=== PATIENT | female | born 1935 | race Caucasian/White ===

== ENCOUNTER 2017-12-13 22:29 | Observation (INO) | payer OTHER ==
[2017-12-13 22:50] LABS: Absolute Lymphocytes (CBC) 1.4 K/uL (0.7-4.9); Absolute Neutrophil 12.1 K/uL (1.8-8.0); Basophils % 0.5 % (0-1.3); Eosinophils % 0.3 % (0-4.4); Hematocrit 37.5 % (36.0-45.0); Lymphocytes % 9.4 % (15.3-44.8); MCH 32.3 pg (27.0-35.0); MCV 96.5 fL (80-100); MPV 8.1 fL (7.6-11.3); Monocytes % 6.6 % (3.3-12.3); RBC Red Blood Cell Count 3.89 M/uL (3.86-4.86)
[2017-12-13 22:56] LABS: Protime INR 0.97
[2017-12-13] MEDS ORDERED: NA CHLORIDE 0.9% 1,000 ML ONE (22:58)
[2017-12-13 23:08] LABS: Magnesium 1.8 mg/dL (1.8-2.4); Potassium 3.9 mmol/L (3.5-5.1); Troponin (Emerg Dept Use Only) 0.05 ng/mL (0.0-0.045)
[2017-12-13] MEDS ORDERED: ASPIRIN 81 MG CHEWABLE TABLET ONE (23:24)
[2017-12-13] MEDS ORDERED: FOLIC ACID 5 MG/ML VIAL ONE (23:37)
[2017-12-14] MEDS ORDERED: MAGNE/ALUM HYDROXD 30 ML UCUP ONE (00:34)
[2017-12-14] MEDS ORDERED: LIDOCAINE VISCOUS 2% SOLN 15 ML UDC ONE (00:34)
[2017-12-14] MEDS ORDERED: HYDROCODONE/APAP 5/325 MG TAB ONE (00:56)
[2017-12-14 01:35] LABS: Urine Bacteria <20 /HPF (<20); Urine Culture Reflex Order NOT NEEDED
[2017-12-14 01:45] LABS: Urine Blood NEGATIVE (NEG); Urine Glucose NEGATIVE (NEG); Urine Protein NEGATIVE (NEG)
--- NOTE | 2017-12-14 01:46 | ER ---
Nurse's Notes [facility] Name: Ti Zacarias Age: 82 yrs Sex: Female : 1935 Arrival Date: 12/13/2017 Time: 22:38 Bed 26 Private MD: Diagnosis: Fall from bed Presentation: 12/13 22:32 Presenting complaint: Child states: that she was called from the [place] [facility] that pt fc has fell out of bed, was confused and complaining of headache. Also states that she spoke to pt and that she was slurring her words. Upon arrival here pt was complaining of overall weakness and headache. Unknown last well time. Pt oriented to person, place, time and situation. Transition of care: [facility]. An acute neurological deficit is present. The charge nurse has been notified. The patient has been moved to a treatment area. Pre-hospital glucose is not applicable to this patient. Onset of symptoms is unknown. Risk Assessment: Do you want to hurt yourself or someone else? Patient reports no desire to harm self or others. Initial Sepsis Screen: Does the patient meet any 2 criteria? No. Patient's initial sepsis screen is negative. Does the patient have a suspected source of infection? No. Patient's initial sepsis screen is negative. Care prior to arrival: None. 22:32 Method Of Arrival: Wheelchair fc 22:32 Acuity: PACO 2 fc Triage Assessment: 22:32 The onset of the patients symptoms was at an unknown time. fc 23:07 General: Appears in no apparent distress. comfortable, Behavior is calm, cooperative. rv 23:09 The onset of the patients symptoms was December 13, 2017 at 21:00. rv Stroke Activation: Unknown Physician: Stroke Attending; Name: Daniel/Su; Notified At: 22:32; Arrived At: 22:32 Physician: Chief Stroke Resident; Name: ; Notified At: 22:32; Arrived At: Physician: Stroke Resident; Name: ; Notified At: 22:32; Arrived At: Physician: ED Attending; Name: ; Notified At: 22:32; Arrived At: Physician: ED Resident; Name: ; Notified At: 22:32; Arrived At: Historical: - Allergies: 23:16 No Known Allergies; fc - Home Meds: 23:10 Tylenol-Codeine #3 300-30 mg oral tab 1 tab nightly prn [Active]; clopidogrel 75 mg fc oral tab 1 tab once daily [Active]; duloxetine 30 mg oral cpDR 1 cap once daily [Active]; furosemide 40 mg Oral tab 1 tab daily prn [Active]; metoprolol tartrate 50 mg Oral tab 1 tab 2 times per day [Active]; naproxen sodium 220 mg Oral tab 2 tab every other day [Active]; omeprazole 20 mg oral cpDR 1 cap once daily [Active]; ProAir HFA 90 mcg/actuation inhalation HFAA 2 puffs as needed [Active]; ropinirole 3 mg oral tab 1 tab at 1900 [Active]; ropinirole 1 mg oral tab 1 tab at 1400 [Active]; Synthroid 50 mcg Oral tab 2 tabs once daily [Active]; tamsulosin 0.4 mg oral cp24 1 cap once daily [Active]; tolterodine 4 mg oral cp24 1 cap once daily [Active]; trazodone 100 mg oral tab 1 tab nightly [Active]; 23:16 Synthroid 200 mcg Oral tab 1 tab once daily [Active]; - PMHx: 23:10 Hyperlipidemia; Hypothyroidism; Hypertension; Arthritis; GERD; COPD; CAD; Depression; fc restless leg syndrome; peripheral neuropathy; - Immunization history:: Last tetanus immunization: unknown. - Social history:: Smoking status: Patient/guardian denies using tobacco. - Ebola Screening: : Patient negative for fever greater than or equal to 101.5 degrees Fahrenheit, and additional compatible Ebola Virus Disease symptoms Patient denies exposure to infectious person Patient denies travel to an Ebola-affected area in the 21 days before illness onset. Screenin:55 Abuse screen: Denies threats or abuse. Nutritional screening: No deficits noted. Tuberculosis screening: No symptoms or risk factors identified. Fall Risk Fall in past 12 months (25 points). Secondary diagnosis (15 points) TIA, IV access (20 points). Ambulatory Aid- Crutches/Cane/Walker (15 pts). Gait- Weak (10 pts.). Mental Status- Overestimates/Forgets Limitations (15 pts.). Total Aylaa Fall Scale indicates High Risk Score (45 or more points). Fall prevention measures have been instituted. Side Rails Up X 2 Placed Close to Nursing Station Frequent Obs/Assessments Occuring Family Present and informed to notify staff if the need to leave the bedside As available patient and family educated on Fall Prevention Program and Strategies. 23:10 The patient has not been NPO before screening. The patient is alert, able to follow fc commands. The patient does not exhibit slurred or garbled speech The patient is not exhibiting difficulty speaking. The patient does not exhibit difficulty understanding words. The patient is able to swallow own secretions with no drooling or need for suction. Patient tolerated one teaspoon of water. No drooling, immediate coughing, gurgling, or clearing of the throat was noted. The patient tolerated 90mL of water. No drooling, immediate coughing, gurgling, or clearing of the throat was noted. The patient passed the bedside swallow screening. Oral medications may be given as ordered. Contact Physician for further diet orders. Provider notified of bedside swallow screening results: Tremayne Sanchez MD. Assessment: 23:06 The patient has not been NPO before screening. The patient is alert, and able to follow rv commands. The patient does not exhibit slurred or garbled speech. The patient is not exhibiting difficulty speaking. The patient does not exhibit difficulty understanding words. The patient is able to swallow own secretions with no drooling or need for suction. Patient tolerated one teaspoon of water. No drooling, immediate coughing, gurgling, or clearing of the throat was noted. The patient tolerated 90mL of water. No drooling, immediate coughing, gurgling, or clearing of the throat was noted. The patient passed the bedside swallow screening. Oral medications may be given as ordered. Contact Physician for further diet orders. Provider notified of bedside swallow screening results: Tremayne WINCHESTER. Pain: Complains of pain in head, frontal. Neuro: Level of Consciousness is awake, alert, obeys commands, Oriented to person, place, time, situation. 23:11 Cardiovascular: Capillary refill < 3 seconds. Respiratory: Airway is patent. GI: No rv signs and/or symptoms were reported involving the gastrointestinal system. : No signs and/or symptoms were reported regarding the genitourinary system. EENT: No signs and/or symptoms were reported regarding the EENT system. Derm: Bruising that is dark purple, on back and left arm. 12/14 01:36 Reassessment: Patient appears in no apparent distress at this time. Patient and/or rv family updated on plan of care and expected duration. Pain level reassessed. Patient is alert, oriented x 3, equal unlabored respirations, skin warm/dry/pink. Vital Signs: 12/13 22:32 BP 165 / 75; Pulse 76; Resp 18; Temp 98.2(O); Pulse Ox 96% on R/A; Weight 107.05 kg fc (R); Height 5 ft. 3 in. (160.02 cm) (R); Pain 8/10; 23:14 BP 156 / 124; Pulse 81; Resp 16; Pulse Ox 94% on R/A; rv 12/14 00:05 BP 147 / 84; Pulse 83; Resp 19; Pulse Ox 99% on 2 lpm NC; rv 01:35 BP 159 / 57; Pulse 81; Resp 21; Pulse Ox 97% on R/A; rv 03:08 BP 120 / 72; Pulse 86; Resp 19; Pulse Ox 97% on R/A; rv 12/13 22:32 Body Mass Index 41.81 (107.05 kg, 160.02 cm) NIH Stroke Scale Scores: 12/13 22:38 NIHSS Score: 5 23:15 NIHSS Score: 5 cp ED Course: 22:33 EKG done, by ED staff, reviewed by Tremayne Sanchez MD. fc 22:38 Patient arrived in ED. cp 22:38 Arm band placed on Patient placed in an exam room, on a stretcher. fc 22:38 Initial lab(s) drawn, by mi, sent to lab. Inserted saline lock: 20 gauge in right fc antecubital area, using aseptic technique. Blood collected. 22:[address] fc 22:41 Tremayne Blue PA is PHCP. cp 22:41 Tremayne Sanchez MD is Attending Physician. cp 22:50 X-ray(s) taken. fc 22:52 Triage completed. fc 22:54 Stroke CXR 1 View In Process Unspecified. EDMS 22:57 CT Stroke Brain w/o Contrast In Process Unspecified. EDMS 23:11 Patient has correct armband on for positive identification. Placed in gown. Bed in low rv position. Call light in reach. Side rails up X2. Adult w/ patient. netbackup admin on. Pulse ox on. NIBP on. 12/14 00:11 X-ray completed. Portable x-ray completed in exam room. Patient tolerated procedure kw well. 00:16 XRAY Pelvis In Process Unspecified. EDMS 00:16 XRAY Hip RIGHT 2 view In Process Unspecified. EDMS 01:10 CT C Spine In Process Unspecified. EDMS 01:45 Elsa Dumont MD is Hospitalizing Provider. cp 03:04 No provider procedures requiring assistance completed. Patient admitted, IV remains in rv place. intact. Administered Medications: 12/13 23:05 Drug: NS 0.9% 1000 ml Route: IV; Rate: 75 ml/hr; Site: right antecubital; rv 12/14 03:07 Follow up: IV Status: Completed infusion rv 12/13 23:27 Drug: Aspirin Chewable Tablet 324 mg Route: PO; rv 12/14 03:07 Follow up: Response: No adverse reaction rv 12/13 23:40 Drug: foLIC Acid 1 mg Route: IVPB; Site: right antecubital; rv 12/14 03:07 Follow up: IV Status: Completed infusion rv 00:30 Drug: GI Cocktail without - (Maalox Suspension 30 ml, Lidocaine Liquid 2 % 15 rv ml) Route: PO; 03:07 Follow up: Response: No adverse reaction rv 00:51 Drug: HYDROcodone-acetaminophen 5 mg-325 mg 1 tabs Route: PO; rv 03:07 Follow up: Response: No adverse reaction rv Point of Care Testing: Blood Glucose: 12/13 22:38 Blood Glucose: 98 mg/dL; fc Ranges: Outcome: 12/14 01:45 Decision to Hospitalize by Provider. cp 03:05 Admitted to Tele accompanied by tech, via wheelchair, room 402, with chart, Report rv called to GLORIA HOWARD 03:05 Condition: good 03:05 Instructed on the need for admit. 03:06 Patient left the ED. rv NIH Stroke Scale - NIH Stroke Score Date: 12/13/2017 Time: 22:38 Total Score = 5 1a. Level of Consciousness (LOC) - 0(Alert) 1b. Level of Consciousness (LOC) (Year \T\ Age) - 0(Both) 1c. LOC Commands (Open \T\ Closes Eyes/Head Up Operator Helper) - 0(Both) 2. Best Gaze (Lateral Gaze Paresis) - 0(Normal) 3. Visual Field Loss - 0(No visual loss) 4. Facial Palsy - 0(Normal) 5a. Left Arm: Motor (10-second hold) - 0(No drift) 5b. Right Arm: Motor (10-second hold) - 0(No drift) 6a. Left Leg: Motor (5-second hold - always test supine) - 2(Drift, some effort against gravity) 6b. Right Leg: Motor (5-second hold - always test supine) - 2(Drift, some effort against gravity) 7. Limb Ataxia (finger/nose \T\ heel/estevez - test with eyes open) - 1(Present in one limb) 8. Sensory Loss (pinprick arms/legs/face) - 0(Normal) 9. Best Language: Aphasia (description/naming/reading) - 0(No aphasia) 10. Dysarthria (speech clarity - read or repeat words) - 0(Normal) 11. Extinction and Inattention (visual/tactile/auditory/spatial/personal) - 0(No abnormality) Initials: NIH Stroke Scale - NIH Stroke Score Date: 12/13/2017 Time: 23:15 Total Score = 5 1a. Level of Consciousness (LOC) - 0(Alert) 1b. Level of Consciousness (LOC) (Year \T\ Age) - 0(Both) 1c. LOC Commands (Open \T\ Closes Eyes/Head Up Operator Helper) - 0(Both) 2. Best Gaze (Lateral Gaze Paresis) - 0(Normal) 3. Visual Field Loss - 0(No visual loss) 4. Facial Palsy - 0(Normal) 5a. Left Arm: Motor (10-second hold) - 0(No drift) 5b. Right Arm: Motor (10-second hold) - 0(No drift) 6a. Left Leg: Motor (5-second hold - always test supine) - 2(Drift, some effort against gravity) 6b. Right Leg: Motor (5-second hold - always test supine) - 2(Drift, some effort against gravity) 7. Limb Ataxia (finger/nose \T\ heel/estevez - test with eyes open) - 1(Present in one limb) 8. Sensory Loss (pinprick arms/legs/face) - 0(Normal) 9. Best Language: Aphasia (description/naming/reading) - 0(No aphasia) 10. Dysarthria (speech clarity - read or repeat words) - 0(Normal) 11. Extinction and Inattention (visual/tactile/auditory/spatial/personal) - 0(No abnormality) Initials: cp Signatures: Dispatcher [employer] Shelly Mills RN RN Jillian Robledo Corey, PA PA Jesús Wong RN RN rv Corrections: (The following items were deleted from the chart) 12/13 23:18 23:10 Allergies: No Known Allergies; [facility]
--- NOTE | 2017-12-14 01:47 | EDPHYS ---
Physician Documentation [facility] Name: Ti Zacarias Age: 82 yrs Sex: Female : 1935 Arrival Date: 12/13/2017 Time: 22:38 Bed 26 Private MD: ED Physician Tremayne Sanchez HPI: 12/13 22:41 This 82 yrs old Female presents to ER via Unassigned with complaints of found cp on ground. 22:41 The patient's problem is reported as weakness, in the right lower extremity, in the cp left lower extremity. 22:41 Onset: The symptoms/episode began/occurred at an unknown time. Duration: The episode is cp continuous. Details of fall: The patient fell from seated position, off the edge of a bed. Associated injuries: The patient sustained no obvious injury. Associated signs and symptoms: Pertinent positives: right hip pain, Pertinent negatives: abdominal pain, chest pain, diaphoresis, headache, seizure, vomiting. Patient's baseline: Neuro: alert and fully oriented, Motor: no deficits, Ambulation: walks with assist only, uses walker, Speech: normal. Historical: - Allergies: 23:16 No Known Allergies; fc - Home Meds: 23:10 Tylenol-Codeine #3 300-30 mg oral tab 1 tab nightly prn [Active]; clopidogrel 75 mg fc oral tab 1 tab once daily [Active]; duloxetine 30 mg oral cpDR 1 cap once daily [Active]; furosemide 40 mg Oral tab 1 tab daily prn [Active]; metoprolol tartrate 50 mg Oral tab 1 tab 2 times per day [Active]; naproxen sodium 220 mg Oral tab 2 tab every other day [Active]; omeprazole 20 mg oral cpDR 1 cap once daily [Active]; ProAir HFA 90 mcg/actuation inhalation HFAA 2 puffs as needed [Active]; ropinirole 3 mg oral tab 1 tab at 1900 [Active]; ropinirole 1 mg oral tab 1 tab at 1400 [Active]; Synthroid 50 mcg Oral tab 2 tabs once daily [Active]; tamsulosin 0.4 mg oral cp24 1 cap once daily [Active]; tolterodine 4 mg oral cp24 1 cap once daily [Active]; trazodone 100 mg oral tab 1 tab nightly [Active]; 23:16 Synthroid 200 mcg Oral tab 1 tab once daily [Active]; fc - PMHx: 23:10 Hyperlipidemia; Hypothyroidism; Hypertension; Arthritis; GERD; COPD; CAD; Depression; fc restless leg syndrome; peripheral neuropathy; - Immunization history:: Last tetanus immunization: unknown. - Social history:: Smoking status: Patient/guardian denies using tobacco. - Ebola Screening: : Patient negative for fever greater than or equal to 101.5 degrees Fahrenheit, and additional compatible Ebola Virus Disease symptoms Patient denies exposure to infectious person Patient denies travel to an Ebola-affected area in the 21 days before illness onset. ROS: 22:45 Constitutional: Negative for body aches, chills, fever, poor PO intake. cp 22:45 Eyes: Negative for injury, pain, redness, and discharge. cp 22:45 ENT: Negative for drainage from ear(s), ear pain, sore throat, difficulty swallowing, difficulty handling secretions. 22:45 Cardiovascular: Negative for chest pain, edema, palpitations. 22:45 Respiratory: Negative for cough, shortness of breath, wheezing. 22:45 Abdomen/GI: Negative for abdominal pain, nausea, vomiting, and diarrhea, anorexia, black/tarry stool, rectal bleeding. 22:45 : Negative for urinary symptoms. 22:45 Skin: Negative for cellulitis, rash. 22:45 Neuro: Positive for weakness, of the right leg and left leg, Negative for altered mental status, seizure activity. 22:45 All other systems are negative. Exam: 22:46 ECG was reviewed by the Attending Physician. cp 22:50 Constitutional: The patient appears in no acute distress, alert, awake, cp non-diaphoretic, non-toxic, well developed, well nourished, obese. 22:50 Head/Face: Normocephalic, atraumatic. cp 22:50 Eyes: Periorbital structures: appear normal, Pupils: equal, round, and reactive to light and accomodation, Extraocular movements: intact throughout, Conjunctiva: normal, no exudate, no injection, Sclera: no appreciated abnormality, Lids and lashes: appear normal, bilaterally. 22:50 ENT: External ear(s): are unremarkable, Ear canal(s): are normal, clear, TM's: dullness, bilaterally, Nose: is normal, Mouth: Lips: moist, Oral mucosa: pink and intact, moist, Posterior pharynx: is normal, airway is patent, no erythema, no exudate, Voice: is normal. 22:50 Neck: C-spine: vertebral tenderness, is not appreciated, crepitus, is not appreciated, ROM/movement: is normal, is supple, without pain, no range of motions limitations, no nuchal rigidity. 22:50 Chest/axilla: Inspection: normal, Palpation: is normal, no crepitus, no tenderness. 22:50 Cardiovascular: Rate: normal, Rhythm: regular, Edema: is not appreciated, JVD: is not appreciated. 22:50 Respiratory: the patient does not display signs of respiratory distress, Respirations: normal, no use of accessory muscles, no retractions, no splinting, no tachypnea, labored breathing, is not present, Breath sounds: are clear throughout, no decreased breath sounds, no stridor, no wheezing. 22:50 Abdomen/GI: Inspection: obese Bowel sounds: active, all quadrants, Palpation: abdomen is soft and non-tender, in all quadrants. 22:50 Back: pain, is absent, ROM is normal. 22:50 Musculoskeletal/extremity: Joints: All joints are normal except the right hip displays painful range of motion, tenderness. 22:50 Skin: cellulitis, is not appreciated, no rash present. 23:06 Radiologist reports: negative head CT for bleed or acute stroke cp Vital Signs: 22:32 BP 165 / 75; Pulse 76; Resp 18; Temp 98.2(O); Pulse Ox 96% on R/A; Weight 107.05 kg fc (R); Height 5 ft. 3 in. (160.02 cm) (R); Pain 8/10; 23:14 BP 156 / 124; Pulse 81; Resp 16; Pulse Ox 94% on R/A; rv 12/14 00:05 BP 147 / 84; Pulse 83; Resp 19; Pulse Ox 99% on 2 lpm NC; rv 01:35 BP 159 / 57; Pulse 81; Resp 21; Pulse Ox 97% on R/A; rv 03:08 BP 120 / 72; Pulse 86; Resp 19; Pulse Ox 97% on R/A; rv 12/13 22:32 Body Mass Index 41.81 (107.05 kg, 160.02 cm) NIH Stroke Scale Scores: 12/13 22:38 NIHSS Score: 5 fc 23:15 NIHSS Score: 5 cp MDM: 22:42 ED course: patient is not a candidate for tpa as last known normal unknown. 22:45 Patient medically screened. loni 23:00 Differential diagnosis: CVA, TIA, drug effects, electrolyte abnormality, acute NE, cp cervical spine fracture. 23:20 Physician consultation: Eron Cruz MD was called at 23:17, left message on voicemail. 23:53 Physician consultation: Eron Cruz MD was called at 23:53, left message on voicemail. 12/14 00:06 Physician consultation: Eron Cruz MD was contacted at 00:06, and will see patient in inpatient room, tomorrow, wants CT c-spine. 01:30 Physician consultation: Elsa Dumont MD was contacted at 01:30, regarding admission, cp to the telemetry unit. patient's condition. :45 Data reviewed: vital signs, nurses notes, lab test result(s), radiologic studies, CT cp scan, plain films. :45 Test interpretation: by ED physician or midlevel provider: ECG, plain radiologic cp studies. Counseling: I had a detailed discussion with the patient and/or guardian regarding: the historical points, exam findings, and any diagnostic results supporting the discharge/admit diagnosis, lab results, the need for further work-up and treatment in the hospital. 12/13 22:41 Order name: Magnesium; Complete Time: 23:13 12/13 22:41 Order name: CPK; Complete Time: 23:13 12/13 22:41 Order name: Troponin (emerg Dept Use Only); Complete Time: 23:13 12/13 23:13 Interpretation: Abnormal: TROPED 0.05. 12/13 22:41 Order name: Basic Metabolic Panel; Complete Time: 23:13 12/13 22:41 Order name: CBC with Diff; Complete Time: 23:13 12/13 22:41 Order name: Protime (+inr); Complete Time: 23:13 12/13 22:41 Order name: Ptt, Activated; Complete Time: 23:13 12/13 22:41 Order name: CT Stroke Brain w/o Contrast 12/13 22:41 Order name: Stroke CXR 1 View 12/13 23:14 Order name: XRAY Pelvis 12/13 23:14 Order name: XRAY Hip RIGHT 2 view 12/14 01:09 Order name: Urine Microscopic Only; Complete Time: 01:38 12/14 01:38 Interpretation: Normal except: URBC 5-10; SQEPI 5-10. 12/14 01:20 Order name: Glucose, Ancillary Testing; Complete Time: 01:38 EDID 12/14 01:26 Order name: Urine Dipstick--Ancillary (enter results); Complete Time: 01:54 mw2 12/14 01:54 Interpretation: Normal except: UESTR TRACE. 12/13 22:41 Order name: EKG; Complete Time: 22:42 12/13 22:41 Order name: Accucheck; Complete Time: 23:01 12/13 22:41 Order name: Cardiac monitoring; Complete Time: 23:05 12/13 22:41 Order name: EKG - Nurse/Tech; Complete Time: 23:05 12/13 22:41 Order name: IV Saline Lock; Complete Time: 23:05 12/13 22:41 Order name: Labs collected and sent; Complete Time: 23:05 12/13 22:41 Order name: NPO; Complete Time: 23:06 12/13 22:41 Order name: O2 Per Protocol; Complete Time: 23:06 12/13 22:41 Order name: O2 Sat Monitoring; Complete Time: 23:06 12/14 00:06 Order name: CT C Spine 12/14 01:54 Order name: CONS Physician Consult [facility] 12/13 22:41 Order name: Stroke Swallow Screen; Complete Time: 23:06 cp EC/27 22:46 Rate is 76 beats/min. Rhythm is regular. [place] interval is normal. QRS interval is normal. cp QT interval is normal. Interpreted by me. Reviewed by me. Administered Medications: 23:05 Drug: NS 0.9% 1000 ml Route: IV; Rate: 75 ml/hr; Site: right antecubital; 12/14 03:07 Follow up: IV Status: Completed infusion 12/13 23:27 Drug: Aspirin Chewable Tablet 324 mg Route: PO; 12/14 03:07 Follow up: Response: No adverse reaction 12/13 23:40 Drug: foLIC Acid 1 mg Route: IVPB; Site: right antecubital; rv 12/14 03:07 Follow up: IV Status: Completed infusion rv 00:30 Drug: GI Cocktail without - (Maalox Suspension 30 ml, Lidocaine Liquid 2 % 15 rv ml) Route: PO; 03:07 Follow up: Response: No adverse reaction rv 00:51 Drug: HYDROcodone-acetaminophen 5 mg-325 mg 1 tabs Route: PO; rv 03:07 Follow up: Response: No adverse reaction rv Point of Care Testing: Blood Glucose: 12/13 22:38 Blood Glucose: 98 mg/dL; fc Ranges: Critical Glucose Levels:Adult <50 mg/dl or >400 mg/dl <40 mg/dl or >180 mg/dl Disposition: 12/14 07:24 Co-signature as Attending Physician, Tremayne Sanchez MD I agree with the assessment and loni plan of care. Disposition: 12/14/17 01:45 Hospitalization ordered by Elsa Dumont for Observation. Preliminary diagnosis is Fall from bed. - Bed requested for Telemetry/MedSurg (observation). - Status is Observation. rv - Condition is Stable. - Problem is new. - Symptoms have improved. UTI on Admission? No NIH Stroke Scale - NIH Stroke Score Date: 12/13/2017 Time: 22:38 Total Score = 5 1a. Level of Consciousness (LOC) - 0(Alert) 1b. Level of Consciousness (LOC) (Year \T\ Age) - 0(Both) 1c. LOC Commands (Open \T\ Closes Eyes/Senior Geotechnical Engineer) - 0(Both) 2. Best Gaze (Lateral Gaze Paresis) - 0(Normal) 3. Visual Field Loss - 0(No visual loss) 4. Facial Palsy - 0(Normal) 5a. Left Arm: Motor (10-second hold) - 0(No drift) 5b. Right Arm: Motor (10-second hold) - 0(No drift) 6a. Left Leg: Motor (5-second hold - always test supine) - 2(Drift, some effort against gravity) 6b. Right Leg: Motor (5-second hold - always test supine) - 2(Drift, some effort against gravity) 7. Limb Ataxia (finger/nose \T\ heel/estevez - test with eyes open) - 1(Present in one limb) 8. Sensory Loss (pinprick arms/legs/face) - 0(Normal) 9. Best Language: Aphasia (description/naming/reading) - 0(No aphasia) 10. Dysarthria (speech clarity - read or repeat words) - 0(Normal) 11. Extinction and Inattention (visual/tactile/auditory/spatial/personal) - 0(No abnormality) Initials: fc NIH Stroke Scale - NIH Stroke Score Date: 12/13/2017 Time: 23:15 Total Score = 5 1a. Level of Consciousness (LOC) - 0(Alert) 1b. Level of Consciousness (LOC) (Year \T\ Age) - 0(Both) 1c. LOC Commands (Open \T\ Closes Eyes/Senior Geotechnical Engineer) - 0(Both) 2. Best Gaze (Lateral Gaze Paresis) - 0(Normal) 3. Visual Field Loss - 0(No visual loss) 4. Facial Palsy - 0(Normal) 5a. Left Arm: Motor (10-second hold) - 0(No drift) 5b. Right Arm: Motor (10-second hold) - 0(No drift) 6a. Left Leg: Motor (5-second hold - always test supine) - 2(Drift, some effort against gravity) 6b. Right Leg: Motor (5-second hold - always test supine) - 2(Drift, some effort against gravity) 7. Limb Ataxia (finger/nose \T\ heel/estevez - test with eyes open) - 1(Present in one limb) 8. Sensory Loss (pinprick arms/legs/face) - 0(Normal) 9. Best Language: Aphasia (description/naming/reading) - 0(No aphasia) 10. Dysarthria (speech clarity - read or repeat words) - 0(Normal) 11. Extinction and Inattention (visual/tactile/auditory/spatial/personal) - 0(No abnormality) Initials: cp Signatures: Dispatcher [employer] EDMS Tremayne Sanchez MD MD cha Chretien, Felicia RN RN Tremayne Blue PA PA cp Vicente, Ronaldo, RN RN rv Corrections: (The following items were deleted from the chart) 12/13 23:18 23:10 Allergies: No Known Allergies; [facility] 12/14 01:48 01:45 Hospitalization Ordered by Elsa Dumont MD for Observation. Preliminary fc diagnosis is Fall from bed. Bed requested for Telemetry/MedSurg (observation). Status is Observation. Condition is Stable. Problem is new. Symptoms have improved. UTI on Admission? No. cp 03:06 01:48 12/14/2017 01:45 Hospitalization Ordered by Elsa Dumont MD for rv Observation. Preliminary diagnosis is Fall from bed. Bed requested for Telemetry/MedSurg (observation). Status is Observation. Condition is Stable. Problem is new. Symptoms have improved. UTI on Admission? No. fc
[2017-12-14] MEDS ORDERED: ACETAMINOPHEN 500 MG TAB PO PRN (02:50)
[2017-12-14] MEDS ORDERED: MORPHINE 2 MG/ML SYR IV PRN (02:50)
[2017-12-14] MEDS ORDERED: ONDANSETRON 4 MG/2 ML VIAL IV PRN (02:50)
[2017-12-14] MEDS ORDERED: TEMAZEPAM 15 MG CAP PO PRN (02:59)
[2017-12-14 03:52] VITALS: BMI 42.0
[2017-12-14] MEDS: NA CHLORIDE 0.9% 1,000 ML IV SCH ×2 (04:31→17:57)
[2017-12-14] MEDS: PRAMIPEXOLE 1 MG TAB PO SCH ×3 (04:32→21:10)
[2017-12-14 06:06] LABS: Absolute Lymphocytes (CBC) 2.7 K/uL (0.7-4.9); Absolute Neutrophil 6.1 K/uL (1.8-8.0); Basophils % 0.6 % (0-1.3); Eosinophils % 0.9 % (0-4.4); Hematocrit 33.1 % (36.0-45.0); Lymphocytes % 26.7 % (15.3-44.8); MCH 32.7 pg (27.0-35.0); MCV 96.2 fL (80-100); MPV 8.1 fL (7.6-11.3); Monocytes % 10.3 % (3.3-12.3); RBC Red Blood Cell Count 3.45 M/uL (3.86-4.86)
--- NOTE | 2017-12-14 06:25 | P.HP ---
Certification for Inpatient Patient admitted to: Observation With expected LOS: <2 Midnights Patient will require the following post-hospital care: None Practitioner: I am a practitioner with admitting privileges, knowledge of patient current condition, hospital course, and medical plan of care. Services: Services provided to patient in accordance with Admission requirements found in Title 42 Section 412.3 of the Code of Federal Regulations Patient History Date of Service: 12/14/17 Reason for admission: Status post fall History of Present Illness: Patient is an 82-year-old female who has been at assisted living for quite a while. Patient lives at [facility]. She apparently had fall which had occurred for between 30 min to an hr. She normally eats her meals in her room. She gets around in her room by herself. However, she has noticed that her strength has been decreasing. She has got out of bed and felt really shaky and she suddenly slipped down onto the floor. However the bruising that she has appears to the be much worse. We did get her out of bed and she was able to ambulate in place. Will do a formal physical therapy evaluation in the morning as well. At this time, she has had no significant abnormalities noted on her workup. She thinks some of these issues are related to her restless leg which she states is poorly controlled. She does not get a lot of sleep at night. She thinks she gets about 2-3 hr every night. I believe this is left her with weakness and feeling fatigued. Will admit her and have her observed overnight. Will get Physical therapy evaluation as patient may benefit from home health with physical therapy and nursing care. Will also check thyroid studies as well as other hormonal studies. Patient will be admitted for observation. Allergies No Known Allergies Allergy (Verified 07/25/16 21:52) Home Medications: Clopidogrel Bisulfate [Clopidogrel] 1 tab PO DAILY 06/14/16 Pramipexole [Mirapex*] 1 mg PO BID 06/14/16 Tolterodine Tartrate [Tolterodine Tartrate ER] 4 mg PO DAILY 06/14/16 Trazodone HCl [Desyrel] 100 mg PO BEDTIME 06/14/16 Metoprolol Tartrate [Lopressor*] 50 mg PO BID #60 tab 06/16/16 Levothyroxine [Synthroid*] 0.3 mg PO [id number] #90 tab 07/27/16 Smz./Tmp. [Bactrim Ds 800 MG/160 MG*] 1 tab PO BID #14 tab 07/27/16 - Past Medical/Surgical History Has patient received pneumonia vaccine in the past: Yes Diabetic: No -: Diverticulitis -: Hypothyroid -: Insomnia -: TIA X2 -: Restless leg syndrome -: GERD -: Neuropathy -: Mild COPD -: Left knee replacement - Family History Father Medical History: Lung disease Sister Medical History: Lung disease Brother Medical History: Heart disease Mother Medical History: Heart disease - Social History Smoking Status: Former smoker Alcohol use: Yes CD- Drugs: No Caffeine use: Yes Place of Residence: [place] Review of Systems 10-point ROS is otherwise unremarkable Physical Examination - Vital Signs Temperature: 97.6 F Blood Pressure: 123/47 Pulse: 71 Respirations: 18 Pulse Ox (%): 92 - Physical Exam General: Alert, In no apparent distress, Oriented x3 HEENT: Atraumatic, PERRLA, Mucous membr. moist/pink, EOMI, Sclerae nonicteric Neck: Supple, 2+ carotid pulse no bruit, No LAD, Without JVD or thyroid abnormality Respiratory: Clear to auscultation bilaterally, Normal air movement Cardiovascular: Regular rate/rhythm, Normal S1 S2, Systolic murmur Gastrointestinal: Normal bowel sounds, Soft and benign, Non-distended, No tenderness Musculoskeletal: No clubbing, No swelling, No tenderness Integumentary: No rashes, Other (bruising) Neurological: Normal speech, Normal tone, Sensation intact, Cranial nerves 3-12 intact, Normal affect, Abnormal gait, Abnormal strength Lymphatics: No axilla or inguinal lymphadenopathy - Studies Laboratory Data (last 24 hrs) 12/13/17 22:38: PT 11.5, INR 0.97, APTT 31.5 12/13/17 22:38: WBC 14.6 H, Hgb 12.6, Hct 37.5, Plt Count 293 12/13/17 22:38: Sodium 133 L, Potassium 3.9, BUN 16, Creatinine 1.10, Glucose 92 , Magnesium 1.8 Assessment & Plan - Problems (Diagnosis) (1) Fall Onset Date: 06/14/16 Current Visit: No Status: Acute (2) Rhabdomyolysis Onset Date: 06/14/16 Current Visit: No Status: Acute (3) Weakness Onset Date: 06/14/16 Current Visit: No Status: Acute (4) CKD (chronic kidney disease) stage 3, GFR 30-59 ml/min Current Visit: No Status: Chronic (5) Chronic obstructive pulmonary disease (COPD) Current Visit: No Status: Chronic Qualifiers: COPD type: unspecified COPD Qualified Code(s): J44.9 - Chronic obstructive pulmonary disease, unspecified (6) Hypertension Current Visit: No Status: Chronic Qualifiers: Hypertension type: essential hypertension Qualified Code(s): I10 - Essential (primary) hypertension (7) Hypothyroidism Current Visit: No Status: Chronic Qualifiers: Hypothyroidism type: acquired Qualified Code(s): E03.9 - Hypothyroidism, unspecified - Plan Plan: 1. Physical therapy evaluation 2. Gentle hydration 3. Check cortisol and thyroid studies along with B12 and folic acid 4. Arrange for home health at discharge for physical therapy and nursing care 5. Out of bed and ambulate with therapy 6. Monitor labs and adjust all medications pending lab data. 7. GI and DVT prophylaxis Discharge Plan: Home Plan to discharge in: 24 Hours - Advance Directives Does patient have a Living Will: Yes Does patient have a Durable POA for Healthcare: Yes - Code Status/Comfort Care Code Status Assessed: Yes Code Status: Full Code Critical Care: No Time Spent Managing PTS Care (In Minutes): 50
[2017-12-14 06:41] LABS: Albumin 3.3 g/dL (3.4-5.0); Bilirubin Total 0.6 mg/dL (0.2-1.0); Folic Acid, (Folate) 19.7 ng/mL (3.1-17.5); Magnesium 1.9 mg/dL (1.8-2.4); Phosphorus 3.1 mg/dL (2.5-4.9); Potassium 3.8 mmol/L (3.5-5.1); Protein, Total 5.9 g/dL (6.4-8.2); Thyroid Stimulating Hormone 0.135 uIU/mL (0.360-3.740); Troponin I 0.04 ng/mL (0.0-0.045)
[2017-12-14] MEDS: LEVOTHYROXINE SOD 0.1 MG TAB PO SCH (06:42)
[2017-12-14] MEDS ORDERED: MORPHINE 4 MG/ML SYR IV PRN (07:25)
--- NOTE | 2017-12-14 08:14 | RAD REPORT ---
EXAM DESCRIPTION: CT - C Spine Wo Con - 12/14/2017 5:34 am CLINICAL HISTORY: Fall from bed, head and neck injury A preliminary report was provided at the time of the study and reviewed prior to final report. COMPARISON: CT cervical spine May 2016 TECHNIQUE: Axial 2 mm thick images of the cervical spine were obtained with sagittal and coronal rec onstruction images generated and reviewed. All CT scans are performed using dose optimization technique as appropriate and may include automated exposure control or mA/KV adjustment according to patient size. FINDINGS: Cervical bodies are normal in height. No fracture or acute bone process seen. Bony foramin al encroachment is present at C3-4 and on the left at C5-6 and C6-7. C4-5 disc space narrowing is pre sent. There is slight increase in the amount of subluxation compared to 2017. This is believed to be from advanced facet degenerative change. A fracture is not identifiable. C5-6 and C6-7 significant de generative disc disease present and stable from comparison. No paraspinal mass or hematoma. Central canal detail is inherently limited on CT imaging. IMPRESSION: No fracture or acute cervical spine finding. Prominent cervical spine degenerative changes present with progressive change as detailed involving C 4-5.
--- NOTE | 2017-12-14 08:36 | RAD REPORT ---
EXAM DESCRIPTION: RAD - Chest Single View - 12/13/2017 10:54 pm CLINICAL HISTORY: Shortness of breath, stroke-like symptoms COMPARISON: July 2016 TECHNIQUE: AP portable chest image was obtained 2251 hours . FINDINGS: No focal lung parenchymal process. No significant failure or volume overload. Interstitial markings are prominent but not clearly different from the comparison. Heart and vasculature are norm al. No measurable pleural effusion and no pneumothorax. No gross bony abnormality seen. No acute aort ic findings suspected. IMPRESSION: No acute cardiopulmonary process. Chronic interstitial lung disease is present similar to July 2016.
--- NOTE | 2017-12-14 08:41 | RAD REPORT ---
EXAM DESCRIPTION: RAD - Pelvis - 12/14/2017 12:15 am CLINICAL HISTORY: Fall, hip and pelvic pain COMPARISON: None. TECHNIQUE: AP imaging of the pelvis was obtained. FINDINGS: Lower lumbar spine degenerative changes are present only partially imaged. Minimal SI join t and pubic symphysis degenerative change. Patient has mild right-sided and very minimal left-sided h ip joint degenerative change. No fracture of the pelvis or proximal femora. No acute femoral head fin ding. IMPRESSION: Negative pelvis examination for fracture or other acute process.
--- NOTE | 2017-12-14 08:42 | RAD REPORT ---
EXAM DESCRIPTION: RAD - Hip Right 2 View - 12/14/2017 12:16 am CLINICAL HISTORY: Fall, hip pain COMPARISON: None. FINDINGS: AP and frog-leg views of the right hip were obtained. There is no fracture or dislocation . No AVN or focal femoral head abnormality. There is mild degenerative change along the superior alexandria tabulum. Mild SI joint and pubic symphysis degenerative changes are present. No periarticular mass or hematoma. IMPRESSION: Negative right hip examination for acute findings. Mild hip joint degenerative changes a re present.
--- NOTE | 2017-12-14 08:45 | RAD REPORT ---
EXAM DESCRIPTION: CT - Ct Stroke Brain Wo Cont - 12/14/2017 1:58 am CLINICAL HISTORY: Stroke protocol CT head, fall, slurred speech, extremity weakness A preliminary report was provided at the time of the study and reviewed prior to final report. CLINICAL HISTORY: CT head October 2016 TECHNIQUE: Axial 5 millimeter thick images of the head were obtained without IV contrast. All CT scans are performed using dose optimization technique as appropriate and may include automated exposure control or mA/KV adjustment according to patient size. FINDINGS: No intracranial hemorrhage, mass, or cerebral edema. No acute infarction identifiable. Mil d to moderate atrophy changes are present. Ventricle size is in proportion to the volume loss. Patien paresh has advanced chronic ischemic changes throughout the cerebral white matter. Pattern is similar to t 2016 comparison. Arterial and physiologic calcifications are present. Rushing matter-white matter dif ferentiation is preserved. Visualized portions of the mastoid air cells, paranasal sinuses, and orbits are unremarkable. IMPRESSION: No CT evidence of acute intracranial process. Patient does have mild to moderate atrophy and advanced chronic ischemic change. These are similar to prior imaging. Chronic ischemic changes can mask nonhemorrhagic acute infarction. MR brain followup can be obtained if there is ongoing concern for acute ischemia.
[2017-12-14] MEDS ORDERED: PRAMIPEXOLE 1 MG TAB PO SCH (09:00)
[2017-12-14] MEDS ORDERED: METOPROLOL TAR 50 MG TAB PO SCH (09:00)
--- NOTE | 2017-12-14 09:07 | EKG ---
Test Date: 2017-12-13 Test Time: 22:33:03 Arboriculturist: IRWIN MEASUREMENT RESULTS: Intervals: Rate: 76 VA: 162 QRSD: 94 QT: 406 QTc: 456 [place]: P: 47 VA: 162 QRS: -26 T: 54 INTERPRETIVE STATEMENTS: Sinus rhythm with premature atrial complexes Moderate voltage criteria for LVH, may be normal variant Borderline ECG Compared to ECG 07/26/2016 07:18:47 Atrial premature complex(es) now present Sinus bradycardia no longer present Left-axis deviation no longer present Electronically Signed On 12-14-17 09:06:19 CDT by Kit Bradford
[2017-12-14] MEDS: CLOPIDOGREL 75 MG TABLET PO SCH (11:43)
[2017-12-14] MEDS: TOLTERODINE LA 4 MG CAP PO SCH (11:47)
[2017-12-14] MEDS ORDERED: PANTOPRAZOLE 40MG TABLET PO PRN (12:51)
[2017-12-14] MEDS ORDERED: FUROSEMIDE 40 MG TABLET PO PRN (12:51)
--- NOTE | 2017-12-14 14:52 | RAD REPORT ---
EXAM DESCRIPTION: MRI - Brain W/Wo Cont - 12/14/2017 2:41 pm CLINICAL HISTORY: Head injury CVA COMPARISON: MRA Head Wo Cont dated 12/14/2017; C Spine Wo Con dated 12/14/2017; Brain Wo Cont dated TECHNIQUE: Multi-sequence, multiplanar MR imaging of the brain was performed with contrast. FINDINGS: No intracranial hemorrhage, hydrocephalus, extra-axial fluid collection or acute infarctio n.Moderate generalized brain edema. Moderate confluent T2/FLAIR hyperintensity in the periventricular and deep white matter is present compatible with chronic microvascular ischemic changes. No edema or shift of midline structures. No intracranial mass. DWI is negative for acute CVA. The midline structures are normally formed. Mastoid air cells and paranasal sinuses are clear. Post-contrast images show no abnormal enhancement to suggest tumor or infection. IMPRESSION: Negative for acute CVA or other acute intracranial abnormality. No pathologic post-contrast enhancement suspected.
--- NOTE | 2017-12-14 14:54 | RAD REPORT ---
EXAM DESCRIPTION: MRI - MRA Head Wo Cont - 12/14/2017 2:40 pm CLINICAL HISTORY: AMS, s/p fall CVA COMPARISON: Ct Stroke Brain Wo Cont dated 12/13/2017 FINDINGS: 3D noncontrast [id number] MR angiography of the [place] was performed. No aneurysm, flow-limiting stenosis or vascular malformation is seen. Forward flow seen in left-sided dominant vertebral arteries. The visualized dural venous sinuses appear patent. IMPRESSION: No significant flow abnormality of the [place] is identified.
--- NOTE | 2017-12-14 15:02 | RAD REPORT ---
EXAM DESCRIPTION: MRI - MRA Neck W/Wo Cont - 12/14/2017 2:40 pm CLINICAL HISTORY: ams; s/p fall CVA COMPARISON: C Spine Wo Con dated 12/14/2017; Stroke Protocol dated 07/27/2016; Carotid Artery Bilatera l dated 07/26/2016 FINDINGS: Contrast enhance 2D [id number] MR angiography of the neck vessels was performed. Mild narrowing of the left carotid bulb is seen. Elsewhere, no evidence of significant carotid stenos is. Antegrade flow is seen in both vertebral arteries with left-sided dominant vertebral artery noted . IMPRESSION: No significant carotid stenosis is suspected.
[2017-12-14] MEDS ORDERED: TRAZODONE 50 MG TABLET PO SCH (21:00)
[2017-12-14] MEDS: METOPROLOL TAR 50 MG TAB PO SCH (21:10)
[2017-12-14 21:57] VITALS: O2SAT 98
--- NOTE | 2017-12-15 01:10 | CON ---
Date of Consultation: 12/14/2017 Reason For Consultation: Leg weakness. History Of Present Illness: An 82-year-old lady with a history of leg weakness going back quite some time. She was in her usual state of health until yesterday when she states she slid out of bed at [facility], was brought to the emergency department for leg weakness. It is really not a new proble m, the leg weakness. It has been evaluated in detail in the past. Acetylcholine receptor antibody w as normal. MRI of cervical spine demonstrated no evidence of cord compression. She had an MRI, prio r lumbar decompression for lumbar spinal stenosis symptoms. She had decompressed. CT scan of cervic al spine; degenerative changes, C4-C5. Neck MRA; no dissection. Brain MRI; no stroke. Prior C-spin e MRI a year ago; small disc, C4-C5. No cord compression. Consultation was requested. Past Medical History: Hypothyroidism, hypertension, chronic leg weakness, and restless legs syndrome . Routine Medications: Normally Flomax, Requip, omeprazole, Lopressor, Synthroid, Lasix, Cymbalta, Tyl enol No. 3, Plavix, and albuterol. Allergies: NONE. Social History: Lives at [facility]. Never smoked. Normally has problems with ambulation. Family History: Noncontributory. Review of Systems: General: Chronically ill. Eyes: Negative. Ears, Nose, and Throat: Negative. Cardiovascular: Hypertension. Pulmonary: Cough. Gastrointestinal: Negative. Genitourinary: Bladder difficulties. Sees urology. Musculoskeletal: As alluded to. Neurologic: As noted. Psychiatric: Negative. Endocrine: Hypothyroidism. Hematologic: Negative. Physical Examination: Vital Signs: Temperature 97.9, heart rate 70, respiratory rate 18, and blood pressure 149/59. General: She is awake; alert; oriented to time, person, place, and situation. HEENT: Pupils equal, round, and reactive. Ocular motion full. Angel full. Facial strength and se nsation normal. Tongue protrudes evenly. Soft palate elevates symmetrically bilaterally. Extremities: Examination of her extremities actually revealed some mild hip flexor weakness, which c an be normal given her age of 82. Quadriceps, tibialis anterior, plantar flexion, inversion, eversio n, and hamstrings are all actually full strength. Sensation decreased distally. Reflexes 1/4. Toes are downgoing. She does not appear to be myelopathic. Pertinent Laboratory Data: White count 9, hemoglobin 11.3. PT and PTT normal. Creatinine normal. CK 742, LDL 77. Folate 19, elevated. TSH 0.135, low. Cortisol 8, within normal limits. Impression: Leg weakness, improved. There is no evidence of stroke. There is no evidence of a C-sp ine fracture. She does not appear to be acutely myelopathic on examination. Plan: I think she can go back to [facility]. PT evaluation. If problem continues, we can certain ly repeat MRI of C-spine as an outpatient. She has no real evidence of anything like Parkinson disea se slowing causing the leg weakness. Thank you for the consult. SHEREEN/CATHLEEN Voice ID: [id number] Report ID: [id number]
[2017-12-15] MEDS: NA CHLORIDE 0.9% 1,000 ML IV SCH (06:09)
[2017-12-15] MEDS: LEVOTHYROXINE SOD 0.1 MG TAB PO SCH (06:09)
[2017-12-15] MEDS: CLOPIDOGREL 75 MG TABLET PO SCH (08:46)
[2017-12-15] MEDS: METOPROLOL TAR 50 MG TAB PO SCH (08:46)
[2017-12-15] MEDS: PRAMIPEXOLE 1 MG TAB PO SCH (08:47)
[2017-12-15 08:55] VITALS: TEMP 98.3
[2017-12-15] MEDS ORDERED: DULOXETINE 30 MG CAP PO SCH (09:00)
[2017-12-15] MEDS ORDERED: TAMSULOSIN 0.4 MG SR CAP PO SCH (09:00)
[2017-12-15] MEDS: TOLTERODINE LA 4 MG CAP PO SCH (09:08)
[2017-12-15 12:27] VITALS: BP 170/70
--- NOTE | 2017-12-15 13:36 | P.DS ---
Admission Date: 12/14/17 Discharge Date: 12/15/17 Disposition: ROUTINE DISCHARGE Discharge Condition: GOOD Reason for Admission: Status post fall - Problems (1) Dehydration Current Visit: No Status: Acute (2) Fall Onset Date: 06/14/16 Current Visit: No Status: Acute (3) Rhabdomyolysis Onset Date: 06/14/16 Current Visit: No Status: Acute (4) Weakness Onset Date: 07/26/16 Current Visit: No Status: Acute (5) CKD (chronic kidney disease) stage 3, GFR 30-59 ml/min Current Visit: No Status: Chronic (6) Chronic obstructive pulmonary disease (COPD) Current Visit: No Status: Chronic Qualifiers: COPD type: unspecified COPD Qualified Code(s): J44.9 - Chronic obstructive pulmonary disease, unspecified (7) Hypertension Current Visit: No Status: Chronic Qualifiers: Hypertension type: essential hypertension Qualified Code(s): I10 - Essential (primary) hypertension (8) Hypothyroidism Current Visit: No Status: Chronic Qualifiers: Hypothyroidism type: acquired Qualified Code(s): E03.9 - Hypothyroidism, unspecified Brief History of Present Illness: Patient is an 82-year-old female who has been at assisted living for quite a while. Patient lives at [facility]. She apparently had fall which had occurred for between 30 min to an hr. She normally eats her meals in her room. She gets around in her room by herself. However, she has noticed that her strength has been decreasing. She has got out of bed and felt really shaky and she suddenly slipped down onto the floor. However the bruising that she has appears to the be much worse. We did get her out of bed and she was able to ambulate in place. Will do a formal physical therapy evaluation in the morning as well. At this time, she has had no significant abnormalities noted on her workup. She thinks some of these issues are related to her restless leg which she states is poorly controlled. She does not get a lot of sleep at night. She thinks she gets about 2-3 hr every night. I believe this is left her with weakness and feeling fatigued. Will admit her and have her observed overnight. Will get Physical therapy evaluation as patient may benefit from home health with physical therapy and nursing care. Will also check thyroid studies as well as other hormonal studies. Patient will be admitted for observation. Hospital Course: Overall during the hospital stay patient remained stable Patient was initially admitted to the hospital for generalized weakness fall and rhabdomyolysis. Patient had marked improvement in her symptoms here in the hospital. Patient's TSH was low here in the hospital thus her thyroid medication was adjusted. Patient also had neurological consultation done here in the hospital to rule out any acute neurological abnormality. Dr. cardenas saw the patient here in the hospital and recommended that she be discharged home under stable condition. No further workup required at this time. Patient does not have any signs and symptoms of Parkinson's at this time. Patient was notified about the neurological consultation and agreed with the plan and thus [facility] Vital Signs/Physical Exam: Temp Pulse Resp BP Pulse Ox 98.3 F 68 20 170/70 H 98 12/15/17 12:00 12/15/17 12:00 12/15/17 12:00 12/15/17 12:00 12/15/17 12:00 General: Alert, In no apparent distress HEENT: Atraumatic, PERRLA, EOMI Neck: Supple, JVD not distended Respiratory: Clear to auscultation bilaterally, Normal air movement Cardiovascular: Regular rate/rhythm, Normal S1 S2 Gastrointestinal: Normal bowel sounds, No tenderness Musculoskeletal: No tenderness Integumentary: No rashes Neurological: Normal speech, Normal tone, Normal affect Lymphatics: No axilla or inguinal lymphadenopathy Laboratory Data at Discharge: WBC 9.9 K/uL (4.3-10.9) D 12/14/17 05:38 Hgb 11.3 g/dL (12.0-15.0) L 12/14/17 05:38 Hct 33.1 % (36.0-45.0) L 12/14/17 05:38 Plt Count 257 K/uL (152-406) 12/14/17 05:38 PT 11.5 SECONDS (9.5-12.5) 12/13/17 22:38 INR 0.97 12/13/17 22:38 APTT 31.5 SECONDS (24.3-36.9) 12/13/17 22:38 Sodium 136 mmol/L (136-145) 12/14/17 05:38 Potassium 3.8 mmol/L (3.5-5.1) 12/14/17 05:38 BUN 16 mg/dL (7-18) 12/14/17 05:38 Creatinine 0.90 mg/dL (0.55-1.3) 12/14/17 05:38 Glucose 85 mg/dL (74-106) 12/14/17 05:38 Phosphorus 3.1 mg/dL (2.5-4.9) 12/14/17 05:38 Magnesium 1.9 mg/dL (1.8-2.4) 12/14/17 05:38 Total Bilirubin 0.6 mg/dL (0.2-1.0) 12/14/17 05:38 AST 26 U/L (15-37) 12/14/17 05:38 ALT 14 U/L (12-78) 12/14/17 05:38 Alkaline Phosphatase 49 U/L (45-117) 12/14/17 05:38 Troponin I 0.04 ng/mL (0.0-0.045) 12/14/17 05:38 Triglycerides 102 mg/dL (<150) 12/14/17 05:38 Cholesterol 159 mg/dL (<200) 12/14/17 05:38 HDL Cholesterol 62 mg/dL (40-60) H 12/14/17 05:38 Cholesterol/HDL Ratio 2.56 12/14/17 05:38 Home Medications: Clopidogrel Bisulfate [Clopidogrel] 1 tab PO DAILY 06/14/16 Tolterodine Tartrate [Tolterodine Tartrate ER] 4 mg PO DAILY 06/14/16 Albuterol Sulfate [Proair Hfa] 2 puff IH Q6H PRN 12/14/17 Codeine/APAP [Tylenol #3*] 1 tab PO BEDTIME PRN 12/14/17 Codeine/APAP [Tylenol #3*] 1 tab PO DAILY PRN 12/14/17 Duloxetine HCl [Cymbalta] 30 mg PO DAILY 12/14/17 Furosemide [Lasix*] 40 mg PO DAILY PRN 12/14/17 Levothyroxine [Synthroid*] 100 mcg PO [id number] 12/14/17 Levothyroxine [Synthroid*] 200 mcg PO [id number] 12/14/17 Metoprolol Tartrate [Lopressor*] 50 mg PO BID 12/14/17 Omeprazole 20 mg PO DAILY PRN 12/14/17 Ropinirole HCl [Requip*] 1 mg PO 1400 12/14/17 Ropinirole HCl [Requip] 3 mg PO DAILY 12/14/17 Tamsulosin HCl [Flomax] 0.4 mg PO DAILY 12/14/17 Diet: Regular Activity: Ad elvin Followup: Elsa Dumont MD [ACTIVE - CAN ADMIT] - 1-2 Weeks Eron Cruz MD [ACTIVE - CAN ADMIT] - 1 Week (Call to schedule an appointment.)
== END 2017-12-15 14:00 | disposition home health service (06) ==
LOC: ER 22:29 → ERHOLD 12-14 01:51 → 4TH 12-14 02:59
PROVIDERS: ADMIT Hospitalist; ATTEND Hospitalist
DX: M62.82 Rhabdomyolysis (principal); R53.1 Weakness; I12.9 Hypertensive chronic kidney disease with stage 1 through stage 4 chronic kidney disease, or unspecified chronic kidney disease; N18.3 Chronic kidney disease, stage 3 (moderate); E03.9 Hypothyroidism, unspecified; J44.9 Chronic obstructive pulmonary disease, unspecified; E86.0 Dehydration; G25.81 Restless legs syndrome; Z96.652 Presence of left artificial knee joint
CPT/HCPCS: 36415; 70450; 70544; 70549; 70553; 71045; 72125; 72170; 73502; 80048; 80053; 80061; 82533; 82550 ×2; 82607; 82746; 82962; 83036; 83735 ×2; 84100; 84439; 84443; 84484 ×2; 85025 ×2; 85610; 85730; 87086; 87088; 93005; 96361; 96365; 96366; 97163; 99285; A9577; G0378 ×2; J7030 ×4; 81003; 81015

== ENCOUNTER 2018-07-02 05:31 | Inpatient (IN) | payer OTHER ==
--- OUTSIDE RECORDS SUMMARY | 2018-07-02 05:34 | XMS REPORT | Continuity of Care Document ---
:1935 Author Organization Interface Problems Problem Status Onset Date Classification Date Comments Source Reported Medications Medication Details Route Status Patient Ordering Order Source Instructions Provider Date Allergies, Adverse Reactions, Alerts Substance Category Reaction Severity Reaction Status Date Comments Source type Reported Immunizations Immunization Date Given Site Status Last Updated Comments Source Results Order Results Value Reference Date Interpretation Comments Source Name Range Vital Signs Vital Sign Value Date Comments Source Encounters Location Location Encounter Encounter Reason Attending ADM DC Status Source Details Type Number For Provider Date Date Visit Outpatient [id number] SHOBHA 02/12 [facility] Outpatient [id number] SHOBHA 03/26 [facility] Procedures Procedure Code Date Perfomer Comments Source
[2018-07-02] MEDS ORDERED: METHYLPREDNISOLONE 125 MG INJ ONE (06:10)
[2018-07-02] MEDS ORDERED: ALBUTEROL 2.5 MG/3 ML NEB SOL ONE (06:10)
[2018-07-02 06:11] LABS: Arterial Blood Carboxyhemoglob 1.7 % (0-1.5); Blood Gas Oxyhemoglobin 91.5 % (94-97); Blood O2 Saturation 93.6 % (92-98.5)
[2018-07-02] MEDS ORDERED: IPRATROPIUM BROM 0.5MG/2.5ML ONE (06:11)
[2018-07-02 06:15] LABS: Barbiturates NEGATIVE (NEGATIVE); Benzodiazepines NEGATIVE (NEGATIVE); Cocaine NEGATIVE (NEGATIVE); METHAMPHETAM NEGATIVE (NEGATIVE); Methadone NEGATIVE (NEGATIVE); Opiates NEGATIVE (NEGATIVE); Phencyclidine NEGATIVE (NEGATIVE); THC Cannibis NEGATIVE (NEGATIVE)
[2018-07-02 06:52] LABS: Absolute Monocytes 0.7 K/uL (0.1-1.3); Absolute Neutrophil 7.3 K/uL (1.8-8.0); Basophils % 0.5 % (0-1.3); Eosinophils % 0.4 % (0-4.4); Lymphocytes % 26.9 % (15.3-44.8); MPV 8.1 fL (7.6-11.3); Monocytes % 6.2 % (3.3-12.3); RBC Red Blood Cell Count 3.68 M/uL (3.86-4.86)
[2018-07-02 07:00] LABS: Protime INR 0.95
[2018-07-02 07:21] LABS: Platelet Estimate ADEQ; Urine White Blood Cell Casts OK
[2018-07-02 07:22] LABS: Blood Morphology Comment NOT SEEN (NOT SEEN)
[2018-07-02 07:28] LABS: Urine Blood 2+ (NEG); Urine Glucose TRACE (NEG); Urine Protein 3+ (NEG); Urine Specific Gravity 1.025 (1.005-1.030); Urine pH 8.5 (5.0-7.0)
[2018-07-02] MEDS ORDERED: NA CHLORIDE 0.9% 1,000 ML ONE ×2 (07:29→10:29)
[2018-07-02] MEDS ORDERED: LORazepam 2 MG/ML VIAL ONE (07:35)
[2018-07-02 07:40] LABS: Urine Bacteria 20-50 /HPF (<20); Urine RBC <5 /HPF (NONE SEEN)
[2018-07-02 07:41] LABS: Urine Culture Reflex Order REFLEXED
--- NOTE | 2018-07-02 07:46 | EDPHYS ---
Physician Documentation [facility] Name: Ti Zacarias Age: 83 yrs Sex: Female : 1935 Arrival Date: 07/02/2018 Time: 05:34 Bed 3 Private MD: ED Physician Jaret Simmons HPI: 07/02 05:56 This 83 yrs old Female presents to ER via EMS with complaints of S/S of pkl Possible Stroke. 05:56 The patient's problem is reported as dysphasia, incoherent speech, expressive aphasia, pkl Unable to talk and follow command. Patient was found confused in bed, unable to talk and follow command. Last known well around 2300 last night.. Historical: - Allergies: 06:03 No Known Allergies; fc - Home Meds: 06:03 Tylenol-Codeine #3 300-30 mg Oral tab 1 tab q6hrs prn [Active]; clopidogrel 75 mg Oral fc tab 1 tab once daily [Active]; donepezil 5 mg oral TbDL 1 tab nightly [Active]; escitalopram oxalate 10 mg oral tab 1 tab once daily [Active]; furosemide 40 mg Oral tab 1 tab daily prn [Active]; metoprolol tartrate 50 mg Oral tab 1 tab 2 times per day [Active]; naproxen sodium 220 mg Oral tab 2 tab Every other day [Active]; omeprazole 20 mg Oral cpDR 1 cap q day prn [Active]; ProAir HFA 90 mcg/actuation inhalation HFAA 2 puffs as needed [Active]; ropinirole 1 mg Oral tab 1 tab at 1400 [Active]; ropinirole 3 mg Oral tab 1 tab at 1900 [Active]; Synthroid 200 mcg Oral tab 1 tab once daily [Active]; Synthroid 50 mcg Oral tab 2 tabs once daily [Active]; tamsulosin 0.4 mg Oral cp24 1 cap once daily [Active]; tolterodine 4 mg Oral cp24 1 cap once daily [Active]; trazodone 100 mg Oral tab 1 tab nightly [Active]; - PMHx: 06:03 Arthritis; CAD; GERD; Hyperlipidemia; PERIPHERAL NEUROPATHY; restless leg syndrome; fc Hypothyroidism; Hypertension; Depression; COPD; Anemia; edema; - PSHx: 06:03 Knee surgery; fc - Immunization history:: Last tetanus immunization: unknown, Flu vaccine status is unknown. - Social history:: Smoking status: unknown. - Ebola Screening: : Patient negative for fever greater than or equal to 101.5 degrees Fahrenheit, and additional compatible Ebola Virus Disease symptoms Patient denies exposure to infectious person Patient denies travel to an Ebola-affected area in the 21 days before illness onset. ROS: 05:56 Eyes: Negative for injury, pain, redness, and discharge, ENT: Negative for injury, pkl pain, and discharge, Neck: Negative for injury, pain, and swelling, Cardiovascular: Negative for chest pain, palpitations, and edema. 05:56 Respiratory: Positive for shortness of breath, at rest. wheezing, inspiratory, expiratory. 05:56 Abdomen/GI: Negative for abdominal pain, nausea, vomiting, and diarrhea. 05:56 Back: Negative for injury or acute deformity. 05:56 : Negative for urinary symptoms. 05:56 MS/extremity: Negative for acute changes. 05:56 Skin: Negative for rash. 05:56 Neuro: Positive for altered mental status, speech changes, confused. Exam: 05:56 Radiologist reports: No acute intracranial finding. pkl 05:56 Head/Face: Normocephalic, atraumatic. Eyes: Pupils equal round and reactive to light, extra-ocular motions intact. Lids and lashes normal. Conjunctiva and sclera are non-icteric and not injected. Cornea within normal limits. Periorbital areas with no swelling, redness, or edema. ENT: Nares patent. No nasal discharge, no septal abnormalities noted. Tympanic membranes are normal and external auditory canals are clear. Oropharynx with no redness, swelling, or masses, exudates, or evidence of obstruction, uvula midline. Mucous membranes moist. Neck: Trachea midline, no thyromegaly or masses palpated, and no cervical lymphadenopathy. Supple, full range of motion without nuchal rigidity, or vertebral point tenderness. No Meningismus. Chest/axilla: Normal chest wall appearance and motion. Nontender with no deformity. No lesions are appreciated. Cardiovascular: Regular rate and rhythm with a normal S1 and S2. No gallops, murmurs, or rubs. Normal PMI, no JVD. No pulse deficits. Respiratory: Lungs have equal breath sounds bilaterally, clear to auscultation and percussion. No rales, rhonchi or wheezes noted. No increased work of breathing, no retractions or nasal flaring. Abdomen/GI: Soft, non-tender, with normal bowel sounds. No distension or tympany. No guarding or rebound. No evidence of tenderness throughout. Back: No spinal tenderness. No costovertebral tenderness. Full range of motion. Skin: Warm, dry with normal turgor. Normal color with no rashes, no lesions, and no evidence of cellulitis. MS/ Extremity: Pulses equal, no cyanosis. Neurovascular intact. Full, normal range of motion. 05:56 Neuro: Orientation: unable to test, confused, unable to talk or follow command, Mentation: confused, unable to follow commands, Cranial nerves: grossly normal, Motor: moves all fours. Vital Signs: 05:40 BP 123 / 89; Pulse 88; Resp 24; Temp 98.0(A); Pulse Ox 86% on R/A; Weight 104.33 kg fc (R); Height 5 ft. 5 in. (165.10 cm) (R); Pain 0/10; 07:15 BP 122 / 96; Pulse 66; Resp 22; Temp 97.8(A); Pulse Ox 97% on 2 lpm NC; ph 08:00 BP 179 / 61; Pulse 70; Resp 22; Pulse Ox 96% on 2 lpm NC; ph 09:00 BP 173 / 70; Pulse 66; Resp 18; Pulse Ox 90% on 2 lpm NC; ph 05:40 Body Mass Index 38.27 (104.33 kg, 165.10 cm) fc 05:40 connected to ER monitor upon return from CT fc 09:00 pt asleep ph NIH Stroke Scale Scores: 05:35 NIHSS Score: 8 ea MDM: 05:35 Patient medically screened. pkl 06:20 Data reviewed: vital signs, nurses notes. ED course: Talked to Dr. Alcocer ( Neurologist pkl at [facility] ) Recommend no IV tPA. Patient > 6.5 hrs LKW time. Suggest further work up for possible infection or medical conditions.. 06:20 ED course: Talked to Dr. Vasquez. Will consult. Agree patient outside window for IV pkl tPA. To do MRI stroke protocol. 06:50 Data reviewed: vital signs, nurses notes, lab test result(s), EKG, radiologic studies, pkl CT scan, plain films. 07/02 05:35 Order name: Basic Metabolic Panel; Complete Time: 19:04 07/02 05:35 Order name: CBC with Diff; Complete Time: 07:23 07/02 05:35 Order name: Protime (+inr); Complete Time: 07:23 07/02 05:35 Order name: Ptt, Activated; Complete Time: 07:23 07/02 05:52 Order name: Blood Culture Adult (2) 07/02 05:52 Order name: Lactate; Complete Time: 07:23 ea 07/02 05:54 Order name: ABG; Complete Time: 06:47 pkl 07/02 05:54 Order name: UDS; Complete Time: 06:47 pkl 07/02 06:04 Order name: Urine Dipstick--Ancillary (enter results); Complete Time: 07:31 sc 07/02 06:46 Order name: Procalcitonin; Complete Time: 19:04 pkl 07/02 06:54 Order name: Urine Microscopic Only; Complete Time: 07:42 07/02 07:22 Order name: CBC Smear Scan; Complete Time: 07:23 EDNH 07/02 08:21 Order name: Lactate ph 07/02 05:35 Order name: CT Stroke Brain w/o Contrast; Complete Time: 19:04 07/02 05:35 Order name: Stroke CXR 1 View; Complete Time: 19:04 07/02 06:36 Order name: MRI Stroke Protocol sc 07/02 06:50 Order name: Carotid Artery Bilateral EDNH 07/02 09:15 Order name: Lactate; Complete Time: 19:04 EDNH 07/02 10:24 Order name: Ammonia; Complete Time: 19:04 EDNH 07/02 10:34 Order name: Lipid Profile; Complete Time: 19:04 EDNH 07/02 10:34 Order name: T4 Free; Complete Time: 19:04 EDNH 07/02 10:34 Order name: Thyroid Stimulating Hormone; Complete Time: 19:04 EDNH 07/02 11:28 Order name: Blood Culture EDNH 07/02 15:15 Order name: MRI; Complete Time: 19:04 EDNH 07/02 15:33 Order name: MRI; Complete Time: 19:04 EDNH 07/02 16:17 Order name: MRI; Complete Time: 19:04 EDMS 07/02 05:35 Order name: EKG; Complete Time: 05:36 fc 07/02 05:35 Order name: Accucheck; Complete Time: 05:52 07/02 05:35 Order name: Cardiac monitoring; Complete Time: 06:02 07/02 05:35 Order name: EKG - Nurse/Tech; Complete Time: 06:16 fc 07/02 05:35 Order name: IV Saline Lock; Complete Time: 06:02 07/02 05:35 Order name: Labs collected and sent; Complete Time: 06:02 07/02 05:35 Order name: NPO; Complete Time: 06:02 07/02 05:35 Order name: O2 Per Protocol; Complete Time: 06:02 07/02 05:35 Order name: O2 Sat Monitoring; Complete Time: 06:02 07/02 05:35 Order name: Stroke Swallow Screen; Complete Time: 06:07 fc 07/02 05:54 Order name: Lu; Complete Time: 06:02 pkl 07/02 06:54 Order name: Urine Dipstick-Ancillary (obtain specimen); Complete Time: 06:54 ea Administered Medications: 06:02 Drug: SOLU-Medrol 125 mg Route: IVP; Site: right hand; ak1 06:06 Follow up: Response: No adverse reaction ak1 06:04 Drug: Albuterol - atroVENT (3:1) (2.5 mg - 0.5 mg) 3 ml Route: Nebulizer; ea 07:30 Drug: NS 0.9% (20 ml/kg) 20 ml/kg Route: IV; Rate: 1 bolus; Site: right hand; ph 09:30 Follow up: Response: No adverse reaction; IV Status: Completed infusion; IV Intake: ph 2000ml 07:30 Drug: Ativan 0.5 mg Route: IVP; Site: right hand; ph 08:30 Follow up: Response: No adverse reaction ph 08:51 Drug: Ativan 0.5 mg Route: IVP; Site: right hand; ph 09:30 Follow up: Response: No adverse reaction ph Point of Care Testing: Blood Glucose: 05:36 Blood Glucose: 124 mg/dL; fc Ranges: Critical Glucose Levels:Adult <50 mg/dl or >400 mg/dl <40 mg/dl or >180 mg/dl Disposition: 07/02/18 07:44 Hospitalization ordered by Garrett Ramirez for Inpatient Admission. Preliminary diagnosis is Altered mental status. Possible CVA. Urosepsis. COPD Exacerbation. - Bed requested for Intensive Care Unit. - Status is Inpatient Admission. iw - Condition is Fair. - Problem is new. - Symptoms are unchanged. UTI on Admission? Yes Critical care time excluding procedures: 07:45 Critical care time: Bedside Care: 30 minutes, Family Intervention: 5 minutes. Total pkl time: 35 minutes NIH Stroke Scale - NIH Stroke Score Date: 07/02/2018 Time: 05:35 Total Score = 8 1a. Level of Consciousness (LOC) - 0(Alert) 1b. Level of Consciousness (LOC) (Year \T\ Age) - 2(Neither) 1c. LOC Commands (Open \T\ Closes Eyes/Hogshead Opener) - 2(Neither) 2. Best Gaze (Lateral Gaze Paresis) - 0(Normal) 3. Visual Field Loss - 0(No visual loss) 4. Facial Palsy - 0(Normal) 5a. Left Arm: Motor (10-second hold) - 0(No drift) 5b. Right Arm: Motor (10-second hold) - 0(No drift) 6a. Left Leg: Motor (5-second hold - always test supine) - 0(No drift) 6b. Right Leg: Motor (5-second hold - always test supine) - 0(No drift) 7. Limb Ataxia (finger/nose \T\ heel/estevez - test with eyes open) - 0(Absent) 8. Sensory Loss (pinprick arms/legs/face) - 0(Normal) 9. Best Language: Aphasia (description/naming/reading) - 2(Severe aphasia) 10. Dysarthria (speech clarity - read or repeat words) - 2(Severe) 11. Extinction and Inattention (visual/tactile/auditory/spatial/personal) - 0(No abnormality) Initials: ea Signatures: Dispatcher [employer] Kera Boo Diana, RN RN dw Lam, Pin, MD MD pkl Chretien, Felicia, RN RN fc Williams, Irene, RN RN iw Krenek, Amber, RN RN ak1 Deepthi Paz RN RN Power, Shania, RN RN ea Corrections: (The following items were deleted from the chart) 06:04 05:57 URINE DRUG SCREEN+CHEM UR.LAB.BRZ ordered. EDMS EDMS 09:41 07:44 [facility] Preliminary diagnosis is Altered mental status. Possible CVA. Urosepsis. COPD Exacerbation. Bed requested for Intensive Care Unit. Status is Inpatient Admission. Condition is Fair. Problem is new. Symptoms are unchanged. UTI on Admission? Yes. pkl 15:29 09:41 07/02/2018 07:44 Hospitalization Ordered by [facility] for bd Inpatient Admission. Preliminary diagnosis is Altered mental status. Possible CVA. Urosepsis. COPD Exacerbation. Bed requested for [facility] ER HOLD. Status is Inpatient Admission. Condition is Fair. Problem is new. Symptoms are unchanged. UTI on Admission? Yes. iw 15:29 15:29 07/02/2018 07:44 Hospitalization Ordered by [facility] for dw Inpatient Admission. Preliminary diagnosis is Altered mental status. Possible CVA. Urosepsis. COPD Exacerbation. Bed requested for Intensive Care Unit. Status is Inpatient Admission. Condition is Fair. Problem is new. Symptoms are unchanged. UTI on Admission? Yes. bd 16:27 15:29 07/02/2018 07:44 Hospitalization Ordered by [facility] for iw Inpatient Admission. Preliminary diagnosis is Altered mental status. Possible CVA. Urosepsis. COPD Exacerbation. Bed requested for Intensive Care Unit. Status is Inpatient Admission. Condition is Fair. Problem is new. Symptoms are unchanged. UTI on Admission? Yes.
--- NOTE | 2018-07-02 07:46 | ER ---
Nurse's Notes [facility] Name: Ti Zacarias Age: 83 yrs Sex: Female : 1935 Arrival Date: 07/02/2018 Time: 05:34 Bed 3 Private MD: Diagnosis: Altered mental status. Possible CVA. Urosepsis. COPD Exacerbation Presentation: 07/02 05:30 Presenting complaint: EMS states: that pt was found with AMS, unable to speak and fc unable to follow commands at 0500. Last known well 2300. Transition of care: patient was received from another setting of care (long-term care facility), [facility]. An acute neurological deficit is present. The charge nurse has been notified. The patient has been moved to a treatment area. The patients blood glucose was checked before arriving to the hospital and was found to be normal. Onset of symptoms was July 02, 2018 at 05:00. Risk Assessment: Do you want to hurt yourself or someone else? Patient reports no desire to harm self or others. Initial Sepsis Screen: Does the patient meet any 2 criteria? No. Patient's initial sepsis screen is negative. Does the patient have a suspected source of infection? No. Patient's initial sepsis screen is negative. Care prior to arrival: IV initiated. 22 GA, in the right hand, Glucose check: 112. 05:30 Method Of Arrival: EMS: [facility] 05:30 Acuity: PACO 2 fc Triage Assessment: 05:30 The onset of the patients symptoms was July 01, 2018 at 23:00. Stroke Activation: Symptom onset > 6 hours Physician: Stroke Attending; Name: ; Notified At: ; Arrived At: Physician: Chief Stroke Resident; Name: ; Notified At: ; Arrived At: Physician: Stroke Resident; Name: ; Notified At: ; Arrived At: Physician: ED Attending; Name: Dr Simmons; Notified At: 05:30; Arrived At: 05:30 Physician: ED Resident; Name: ; Notified At: ; Arrived At: Historical: - Allergies: 06:03 No Known Allergies; fc - Home Meds: 06:03 Tylenol-Codeine #3 300-30 mg Oral tab 1 tab q6hrs prn [Active]; clopidogrel 75 mg Oral fc tab 1 tab once daily [Active]; donepezil 5 mg oral TbDL 1 tab nightly [Active]; escitalopram oxalate 10 mg oral tab 1 tab once daily [Active]; furosemide 40 mg Oral tab 1 tab daily prn [Active]; metoprolol tartrate 50 mg Oral tab 1 tab 2 times per day [Active]; naproxen sodium 220 mg Oral tab 2 tab Every other day [Active]; omeprazole 20 mg Oral cpDR 1 cap q day prn [Active]; ProAir HFA 90 mcg/actuation inhalation HFAA 2 puffs as needed [Active]; ropinirole 1 mg Oral tab 1 tab at 1400 [Active]; ropinirole 3 mg Oral tab 1 tab at 1900 [Active]; Synthroid 200 mcg Oral tab 1 tab once daily [Active]; Synthroid 50 mcg Oral tab 2 tabs once daily [Active]; tamsulosin 0.4 mg Oral cp24 1 cap once daily [Active]; tolterodine 4 mg Oral cp24 1 cap once daily [Active]; trazodone 100 mg Oral tab 1 tab nightly [Active]; - PMHx: 06:03 Arthritis; CAD; GERD; Hyperlipidemia; PERIPHERAL NEUROPATHY; restless leg syndrome; fc Hypothyroidism; Hypertension; Depression; COPD; Anemia; edema; - PSHx: 06:03 Knee surgery; fc - Immunization history:: Last tetanus immunization: unknown, Flu vaccine status is unknown. - Social history:: Smoking status: unknown. - Ebola Screening: : Patient negative for fever greater than or equal to 101.5 degrees Fahrenheit, and additional compatible Ebola Virus Disease symptoms Patient denies exposure to infectious person Patient denies travel to an Ebola-affected area in the 21 days before illness onset. Screenin:54 Abuse screen: Denies threats or abuse. Nutritional screening: No deficits noted. fc Tuberculosis screening: No symptoms or risk factors identified. Fall Risk Fall in past 12 months (25 points). Secondary diagnosis (15 points) TIA, IV access (20 points). Ambulatory Aid- Crutches/Cane/Walker (15 pts). Gait- Weak (10 pts.). Mental Status- Overestimates/Forgets Limitations (15 pts.). Total Ayala Fall Scale indicates High Risk Score (45 or more points). Fall prevention measures have been instituted. Side Rails Up X 2 Placed Close to Nursing Station Frequent Obs/Assessments Occuring Family Present and informed to notify staff if the need to leave the bedside As available patient and family educated on Fall Prevention Program and Strategies. Assessment: 05:35 VAN Scoring: Arm Drift: Patients demonstrates NO arm weakness. Patient is VAN Negative. ea General: Appears uncomfortable, Behavior is restless. Pain: Unable to use pain scale. Patient is disoriented. FLACC scale score is 4 out of 10. Neuro: Level of Consciousness is confused, Oriented to none. Cardiovascular: Patient's skin is warm and dry. Respiratory: Airway is patent Respiratory effort is even, unlabored, Respiratory pattern is tachypnea Breath sounds with wheezes bilaterally. 06:00 Reassessment: pt gold hoop earrings given to pt's daughter at bedside. ak1 06:03 The patient has not been NPO before screening. The patient is not alert and/or unable ak1 to follow commands. The patient exhibits slurred or garbled speech. Provider notified of the indication for Speech Therapy consult. The patient is exhibiting difficulty speaking. Provider notified of the indication for Speech Therapy consult. The patient is exhibiting difficulty understanding words. The provider has been notified of the indication for a speech consult. The patient is able to swallow own secretions with no drooling or need for suction. pt not speaking, pt not following directions. The patient failed the bedside swallow screening. The patient will be kept NPO until cleared by Speech Therapy or Physician. Provider notified of bedside swallow screening results: Jaret Simmons MD. 06:45 not given due to pt not follow directions for swallow screen. ak1 06:45 T-PA (Activase) Screening: Contraindications: Other: Dr. Simmons and consulting neurologist ak1 declined T-PA due to outside of the window last known normal. 07:20 Reassessment: Patient appears in no apparent distress at this time. Patient and/or ph family updated on plan of care and expected duration. Pain level reassessed. Pt restless, tossing and turning in bed w/ garbled speech, Dr Ramirez at bedside, verbal order received for NS per sepsis protocol and IV ativan, see MAR. 08:30 Reassessment: Patient appears in no apparent distress at this time. Patient and/or ph family updated on plan of care and expected duration. Pain level reassessed. Pt agitation noted to have somewhat improved but pt still moving arms repeatedly and yelling, another verbal order received from Dr Ramirez for IV ativan, see MAY. 09:26 Reassessment: Patient appears in no apparent distress at this time. Patient and/or ph family updated on plan of care and expected duration. Pain level reassessed. Pt agitation has improved, US tech at bedside for carotid Doppler. Vital Signs: 05:40 BP 123 / 89; Pulse 88; Resp 24; Temp 98.0(A); Pulse Ox 86% on R/A; Weight 104.33 kg fc (R); Height 5 ft. 5 in. (165.10 cm) (R); Pain 0/10; 07:15 BP 122 / 96; Pulse 66; Resp 22; Temp 97.8(A); Pulse Ox 97% on 2 lpm NC; ph 08:00 BP 179 / 61; Pulse 70; Resp 22; Pulse Ox 96% on 2 lpm NC; ph 09:00 BP 173 / 70; Pulse 66; Resp 18; Pulse Ox 90% on 2 lpm NC; ph 05:40 Body Mass Index 38.27 (104.33 kg, 165.10 cm) fc 05:40 connected to ER monitor upon return from CT fc 09:00 pt asleep ph NIH Stroke Scale Scores: 05:35 NIHSS Score: 8 ea ED Course: 05:34 Patient arrived in ED. fc 05:34 Jaret Simmons MD is Attending Physician. pkl 05:36 Arm band placed on Patient placed in an exam room, on a stretcher. fc 05:40 Patient has correct armband on for positive identification. Placed in gown. Bed in low fc position. Call light in reach. Side rails up X2. cardiac monitor on. Pulse ox on. NIBP on. 05:40 No provider procedures requiring assistance completed. Maintain EMS IV. Dressing fc intact. Good blood return noted. Site clean \T\ dry. Gauge \T\ site: 20 gauge to right hand. 05:47 Lu cath inserted, using sterile technique, 16 Fr., by ED staff, balloon inflated, to fc gravity drainage, urine specimen collected. Patient tolerated well. 05:50 X-ray(s) taken. fc 05:51 Triage completed. fc 05:56 Stroke CXR 1 View In Process Unspecified. EDMS 05:58 CT Stroke Brain w/o Contrast In Process Unspecified. EDMS 06:44 One on one care from 0530 to 0700. ak1 07:43 Garrett Ramirez DO is Hospitalizing Provider. pkl 08:15 Missed attempt(s): 22 gauge in left forearm. Bleeding controlled, band aid applied, sg catheter tip intact. 08:22 Repeat lab(s) drawn. by me, sent to lab. Inserted saline lock: 22 gauge in right sg forearm, using aseptic technique. Blood collected. 08:48 Deepthi Paz RN is Primary Nurse. ph 10:02 Lab(s) recollected, by me, sent to lab. sg 14:20 Patient moved to MRI via stretcher. em2 15:51 MRI completed. Patient tolerated poorly. Patient moved back from MRI. em2 Administered Medications: 06:02 Drug: SOLU-Medrol 125 mg Route: IVP; Site: right hand; ak1 06:06 Follow up: Response: No adverse reaction ak1 06:04 Drug: Albuterol - atroVENT (3:1) (2.5 mg - 0.5 mg) 3 ml Route: Nebulizer; ea 07:30 Drug: NS 0.9% (20 ml/kg) 20 ml/kg Route: IV; Rate: 1 bolus; Site: right hand; ph 09:30 Follow up: Response: No adverse reaction; IV Status: Completed infusion; IV Intake: ph 2000ml 07:30 Drug: Ativan 0.5 mg Route: IVP; Site: right hand; ph 08:30 Follow up: Response: No adverse reaction ph 08:51 Drug: Ativan 0.5 mg Route: IVP; Site: right hand; ph 09:30 Follow up: Response: No adverse reaction ph Point of Care Testing: Blood Glucose: 05:36 Blood Glucose: 124 mg/dL; fc Ranges: Intake: 09:30 IV: 2000ml; Total: 2000ml. ph Outcome: 07:44 Decision to Hospitalize by Provider. pkl 09:41 Admitted to ER Hold. Please see [facility] for further documentation. ph 09:41 critical 09:41 Instructed on the need for admit. 16:27 Patient left the ED. iw NIH Stroke Scale - NIH Stroke Score Date: 07/02/2018 Time: 05:35 Total Score = 8 1a. Level of Consciousness (LOC) - 0(Alert) 1b. Level of Consciousness (LOC) (Year \T\ Age) - 2(Neither) 1c. LOC Commands (Open \T\ Closes Eyes/Rattan Worker) - 2(Neither) 2. Best Gaze (Lateral Gaze Paresis) - 0(Normal) 3. Visual Field Loss - 0(No visual loss) 4. Facial Palsy - 0(Normal) 5a. Left Arm: Motor (10-second hold) - 0(No drift) 5b. Right Arm: Motor (10-second hold) - 0(No drift) 6a. Left Leg: Motor (5-second hold - always test supine) - 0(No drift) 6b. Right Leg: Motor (5-second hold - always test supine) - 0(No drift) 7. Limb Ataxia (finger/nose \T\ heel/estevez - test with eyes open) - 0(Absent) 8. Sensory Loss (pinprick arms/legs/face) - 0(Normal) 9. Best Language: Aphasia (description/naming/reading) - 2(Severe aphasia) 10. Dysarthria (speech clarity - read or repeat words) - 2(Severe) 11. Extinction and Inattention (visual/tactile/auditory/spatial/personal) - 0(No abnormality) Initials: ea Signatures: Dispatcher [employer] EDMS Taz Santillan RN Jaret Mcfadden MD MD pkl Chretien, Felicia RN Anne Goncalves RN RN iw Montes, Enrique em2 Krenek, Amber, RN RN ak1 Deepthi Paz RN RN ph Antunez, Elena RN ANITA ea Corrections: (The following items were deleted from the chart) 05:54 05:30 Pulse 88bpm; Resp 24bpm; Pulse Ox 86% RA; 104.33 kg Reported; Height 5 fc ft. 5 in. Reported; BMI: 38.2; Pain 0/10; fc 06:09 05:40 Pulse 88bpm; Resp 24bpm; Pulse Ox 86% RA; 104.33 kg Reported; Height 5 fc ft. 5 in. Reported; BMI: 38.2; Pain 0/10; connected to ER monitor upon return from CT; fc
--- NOTE | 2018-07-02 08:41 | EKG ---
Test Date: 2018-07-02 Test Time: 06:14:23 Mechanical Maintenance Engineer: KATHY MEASUREMENT RESULTS: Intervals: Rate: 75 MN: 172 QRSD: 100 QT: 430 QTc: 480 [place]: P: 82 MN: 172 QRS: -39 T: 70 INTERPRETIVE STATEMENTS: Normal sinus rhythm Possible Left atrial enlargement Left axis deviation Abnormal ECG Compared to ECG 12/13/2017 22:33:03 Left-axis deviation now present Atrial premature complex(es) no longer present Electronically Signed On 07-02-18 08:40:49 CDT by Kit Bradford
--- NOTE | 2018-07-02 08:53 | RAD REPORT ---
EXAM DESCRIPTION: Vahid Single View07/02/2018 5:58 am CLINICAL HISTORY: Shortness of breath COMPARISON: November 2017 FINDINGS: Right base is hazy. Remainder lungs appear clear of acute infiltrate. The heart is mildly enlarged IMPRESSION: Right base is hazy suspicious for a mild pneumonia
[2018-07-02] MEDS ORDERED: ZIPRASIDONE MESYLA 20 MG/VIAL IM PRN (09:31)
[2018-07-02] MEDS ORDERED: HYDRALAZINE HCL 20 MG/ML VIAL IV PRN (09:31)
[2018-07-02] MEDS ORDERED: ONDANSETRON 4 MG/2 ML VIAL IV PRN (09:31)
[2018-07-02] MEDS ORDERED: WATER FOR INJ,STERILE 10 ML IM PRN (09:31)
[2018-07-02] MEDS: CLOPIDOGREL 75 MG TABLET PO SCH (09:31)
[2018-07-02] MEDS: ENOXAPARIN 40 MG/0.4 ML SQ SCH (09:31)
[2018-07-02] MEDS ORDERED: CEFTRIAXONE 1 GM/NS 50 ML 1 GM/50 ML BAG IV SCH (09:31)
[2018-07-02] MEDS: ASPIRIN EC 81 MG TAB PO SCH (09:31)
[2018-07-02] MEDS ORDERED: ALBUTEROL 2.5 MG/3 ML NEB SOL NEB PRN (09:31)
[2018-07-02] MEDS ORDERED: LORazepam 2 MG/ML VIAL IV PRN (09:31)
[2018-07-02] MEDS ORDERED: ACETAMINOPHEN 650MG/RECT SUPP PR PRN (09:31)
[2018-07-02] MEDS ORDERED: IPRATROPIUM BROM 0.5MG/2.5ML NEB PRN (09:31)
[2018-07-02] MEDS: FAMOTIDINE 20 MG/2 ML VIAL IV SCH ×2 (09:31→20:36)
[2018-07-02] MEDS: NA CHLORIDE 0.9% 1,000 ML IV SCH (09:35)
[2018-07-02] MEDS ORDERED: CEFEPIME 1 GM/VIAL IV SCH (09:45)
--- NOTE | 2018-07-02 09:52 | P.HP ---
Certification for Inpatient Patient admitted to: Inpatient With expected LOS: >2 Midnights Patient will require the following post-hospital care: Other (longterm) Practitioner: I am a practitioner with admitting privileges, knowledge of patient current condition, hospital course, and medical plan of care. Services: Services provided to patient in accordance with Admission requirements found in Title 42 Section 412.3 of the Code of Federal Regulations Patient History Date of Service: 07/02/18 Primary Care Provider: Dr. Dumont([facility]);Neuro-Dr. Cruz Reason for admission: Altered mental status History of Present Illness: 83-year-old female presented to the emergency room after she was sent from the detention to the ER for further evaluation. Patient had altered mental status changes. This occurred early this morning. History was difficult to get. ER physician reported that the patient was slightly hypoxic when she first came in. There was no mention of fever, chills, cough. Daughter at bedside reported that the patient was doing well yesterday. Patient has a history of COPD, chronic kidney disease, hypertension, hypothyroidism, previous TIAs and history of recurrent UTIs. Patient not able to give a history. In the ER patient was evaluated. Patient was given IV fluids. Patient was alert but confused. Patient was able to move all 4s. Urinalysis showed evidence of bacteria. White count 11.1, hemoglobin 11.7. BNP pending at this time. Lactic acid was slightly elevated. Patient was given IV fluids. Repeat lactic acid within normal range. Pro calcitonin negative. Chest ray showed possible right lower lobe pneumonia. CT head unremarkable. Patient was admitted for further evaluation. When I saw the patient in ER, she appears confused. Patient was moving all 4s. Patient not appropriate. Patient with history of dementia as well. Daughter at bedside. Blood pressure slightly elevated. Allergies No Known Allergies Allergy (Verified 07/25/16 21:52) Home medications list reviewed: Yes Home Medications: Clopidogrel Bisulfate [Clopidogrel] 1 tab PO DAILY 06/14/16 Tolterodine Tartrate [Tolterodine Tartrate ER] 4 mg PO DAILY 06/14/16 Albuterol Sulfate [Proair Hfa] 2 puff IH Q6H PRN 12/14/17 Codeine/APAP [Tylenol #3*] 1 tab PO BEDTIME PRN 12/14/17 Codeine/APAP [Tylenol #3*] 1 tab PO DAILY PRN 12/14/17 Duloxetine HCl [Cymbalta] 30 mg PO DAILY 12/14/17 Furosemide [Lasix*] 40 mg PO DAILY PRN 12/14/17 Levothyroxine [Synthroid*] 100 mcg PO [id number] 12/14/17 Levothyroxine [Synthroid*] 200 mcg PO [id number] 12/14/17 Metoprolol Tartrate [Lopressor*] 50 mg PO BID 12/14/17 Omeprazole 20 mg PO DAILY PRN 12/14/17 Ropinirole HCl [Requip*] 1 mg PO 1400 12/14/17 Ropinirole HCl [Requip] 3 mg PO DAILY 12/14/17 Tamsulosin HCl [Flomax] 0.4 mg PO DAILY 12/14/17 - Past Medical/Surgical History Diabetic: No -: History diverticulosis -: Hypothyroidism -: Insomnia -: History of TIA X2 -: Restless leg syndrome -: GERD -: Neuropathy -: COPD -: Hypertension -: Dementia -: Former tobacco use -: Left knee replacement -: Rotator cuff repair -: Ankle surgery -: Cholecystectomy Psychosocial/ Personal History: Patient lives at [facility]. She has been there for over a year. - Family History Father -: Lung disease Sister -: Lung disease Brother -: Heart disease Mother -: Heart disease - Social History Smoking Status: Former smoker Alcohol use: Yes CD- Drugs: No Caffeine use: Yes Place of Residence: [facility] Review of Systems is unable to be obtained Physical Examination - Physical Exam General: Demented, Confused, Other (Patient confused. Patient able to move all 4s.) HEENT: Atraumatic, Normocephalic, Mucous membr. moist/pink Neck: Supple Respiratory: Clear to auscultation bilaterally, Normal air movement Cardiovascular: Normal pulses, Regular rate/rhythm Gastrointestinal: Normal bowel sounds, Soft and benign, Non-distended, No tenderness, No masses, No rebound, No guarding Musculoskeletal: No erythema, No tenderness, No warmth Integumentary: No tenderness/swelling, No erythema, No warmth, No cyanosis Neurological: Normal speech (Patient able to speak but with confusion), Normal strength at 5/5 x4 extr, Normal tone, Dementia - Studies Laboratory Data (last 24 hrs) 04/16/19 05:58: PT 11.2, INR 0.95, APTT 27.3 07/02/18 05:58: WBC 11.1 H, Hgb 11.7 L, Hct 35.0 L, Plt Count 164 Assessment and Plan - Plan Impression: Encephalopathy likely related to underlying UTI with possible right lower lobe pneumonia complicated with history of TIA History of TIA Hypertension COPD Dementia Chronic renal disease Hypothyroidism Anemia likely of chronic disease Plan: Encephalopathy likely related to underlying UTI with possible right lower lobe pneumonia complicated with history of TIA: Patient will be admitted to ICU for close monitoring. Antibiotics have been initiated. Patient on vancomycin and cefepime. Blood, urine cultures obtained. Will also obtain sputum culture. Will evaluate for influenza. Will maintain sats above 90%. Will provide medication for COPD. Will need to rule out CVA. Will obtain MRI brain, echocardiogram and carotid Doppler. Suspect infectious etiology. Patient with history of recurrent UTI. Previous culture showed E. coli. Patient given IV fluid bolus to rule out sepsis. Patient does not appear septic at this time. Lactic acid improved. Will continue monitor closely. Will monitor for changes. Case discussed with her neurologist. Await further recommendations. Advanced directives address with daughter who has medical power of teachers aide. Patient is DNR. We to monitor for agitation. Will provide medication as needed. History of TIA: Will continue with her Plavix. Will add aspirin. Will provide Lipitor. Will also continue with DVT prophylaxis-Lovenox. Once the patient is more alert when physical therapy, occupational therapy and speech assess. Hypertension: Will provide medication. Will monitor and adjust appropriately. COPD: Will provide medication. Will maintain sats above 90%. Will wean off oxygen. Respiratory consulted. Dementia: Will need to obtain a restart home medication. Chronic renal disease: Will review and monitor lab. Pharmacy to monitor and adjust medication. Hypothyroidism: Will check TSH and free T4. Will need to obtain and restart home medication. Anemia likely of chronic disease: Will monitor her closely. Will check iron B12 studies. Discharge Plan: [facility] Plan to discharge in: Greater than 2 days - Advance Directives Does patient have a Living Will: Yes Does patient have a Durable POA for Healthcare: Yes - Code Status/Comfort Care Code Status Assessed: Yes (Patient is DNR) Time Spent Managing Pts Care (In Minutes): 65
[2018-07-02] MEDS ORDERED: CEFTRIAXONE/SWI 1gm 1 GM/10 ML SYR IV SCH (10:00)
[2018-07-02] MEDS ORDERED: FAMOTIDINE 20 MG/2 ML VIAL IV ONE (10:28)
[2018-07-02] MEDS ORDERED: ENOXAPARIN 40 MG/0.4 ML SQ ONE (10:28)
[2018-07-02] MEDS: CEFEPIME/SWI 1gm 10 ML IV SCH (10:30)
[2018-07-02 10:31] LABS: Potassium 3.6 mmol/L (3.5-5.1)
[2018-07-02 10:33] LABS: Thyroid Stimulating Hormone 0.191 uIU/mL (0.360-3.740)
--- NOTE | 2018-07-02 10:43 | RAD REPORT ---
EXAM DESCRIPTION: CT - Ct Stroke Brain Wo Cont - 07/02/2018 6:03 am CLINICAL HISTORY: Weakness COMPARISON: None TECHNIQUE: Axial [address] imaging of the brain. Reformatted coronal and sagittal images ob tained. This examination was performed according to our departmental dose optimization program, which include s automated exposure control, adjustment of the mA and/or kV according to patient size and/or use of iterative reconstruction technique. FINDINGS: There is mild prominence of the ventricles and sulci due to cortical volume loss. There is significant decreased white matter attenuation secondary to chronic microvascular white matter ische shauna change. There is no intraparenchymal or extra-axial bleed. No mass lesion or midline shift. No la rge acute territorial infarction. Normal cerebellum. Normal vermis. Fourth ventricle is midline. Prepontine cisterns are not effaced. Normal appearance of the globes. The remaining intraorbital contents appear normal. The paranasal sin uses are clear. Mastoid air cells are well aerated bilaterally. Intact skull base. Internal carotid a rtery calcifications through the cavernous segments as well as the vertebral arteries noted. Intact c alvarium. Unremarkable scalp soft tissues. IMPRESSION: 1. Mild to to marked senescent brain changes. No acute intracranial finding. 2. Atherosclerotic disease. Electronically signed by: Tari Lawson DO 07/02/2018 5:58 AM CDT Due to temporary technical issues with the PACS/Fluency reporting system, reports are being signed by the in house radiologist as a courtesy to ensure prompt reporting. The interpreting radiologist is f ully responsible for the content of the report.
[2018-07-02 11:37] VITALS: BMI 38.1
[2018-07-02] MEDS ORDERED: VANCOMYCIN 2.5 GM in NA CHLORIDE 0.9% 500 ML IVPB ONE (12:00)
[2018-07-02] MEDS ORDERED: ZIPRASIDONE MESYLA 20 MG/VIAL IM ONE (13:55)
[2018-07-02] MEDS ORDERED: WATER FOR INJ,STERILE 10 ML ONE (13:56)
--- NOTE | 2018-07-02 15:14 | RAD REPORT ---
EXAM DESCRIPTION: MRI - MRA Head Wo Cont - 07/02/2018 3:06 pm CLINICAL HISTORY: CVA COMPARISON: November 2017 TECHNIQUE: Magnetic resonance angiogram was performed. 3D MIPS reconstruction performed FINDINGS: The anterior cerebral, middle cerebral, right posterior cerebral, distal internal carotid and basilar arteries do not demonstrate a significant stenosis. Diminished signal within the left posterior cerebral artery is unchanged and is chronic. An aneurysm is not displayed. IMPRESSION: No acute abnormality displayed
--- NOTE | 2018-07-02 15:21 | RAD REPORT ---
EXAM DESCRIPTION: MRI - Brain W/Wo Cont - 07/02/2018 3:06 pm CLINICAL HISTORY: CVA COMPARISON: November 2017 MRI brain TECHNIQUE: Axial, sagittal, and coronal magnetic images of the brain were obtained. 20 cc MultiHance administered intravenously FINDINGS: Images are degraded by patient motion artifact. Moderate signal within periventricular, deep and subcortical white matter likely ischemic changes sec ondary to small vessel disease. Area of abnormal signal within the left occipital lobe compatible with an old infarction. 3 millimeter area of abnormal signal within the right basal ganglia is compatible with an acute lacun ar infarct. Vague small area of increased signal within the posterior right temporal lobe also compat ible with an acute infarct. An extra-axial fluid collection is not noted IMPRESSION: Small acute right temporal lobe infarct. Acute lacunar infarct right basal ganglia
[2018-07-02] MEDS: ARFORMOTEROL TARTRATE 15 MCG/2 ML VIAL.NEB NEB SCH ×2 (15:45→20:00)
--- NOTE | 2018-07-02 16:16 | RAD REPORT ---
EXAM DESCRIPTION: MRI - MRA Neck W/Wo Cont - 07/02/2018 3:21 pm CLINICAL HISTORY: MENTAL STATUS CHANGE CVA, headache COMPARISON: MRA Neck W/Wo Cont dated 12/14/2017; Brain W/Wo Cont dated 07/02/2018; MRA Head Wo Cont da luis armando 07/02/2018; Carotid Artery Bilateral dated 07/02/2018 FINDINGS: Contrast enhance 2D [id number] MR angiography of the neck vessels was performed. The quality of the examination is quite limited presumably related to contrast bolus timing and venou s contamination. There is quite poor contrast enhancement of the internal carotid artery is seen. Ant egrade flow seen in both vertebral arteries. The left vertebral artery is dominant. IMPRESSION: Examination is of limited quality with poor visualization of both internal carotid arter ies. Flow is seen in both distal internal carotid arteries and vertebral artery.
[2018-07-02 18:52] LABS: CKMB Creatine Kinase MB 6.8 ng/mL (0.3-3.6); Troponin I 0.24 ng/mL (0.0-0.045)
[2018-07-02] MEDS: ATORVASTATIN 40 MG TAB PO SCH (20:37)
--- NOTE | 2018-07-02 21:36 | RAD REPORT ---
EXAM DESCRIPTION: USCarotid Artery Bilateral07/02/2018 9:42 am CLINICAL HISTORY: ICD R47.1, I63.9 COMPARISON: November 2017 MRA neck FINDINGS: The velocity of the right internal carotid artery equals 120 cm/sec. The right ICA/CCA rat io 2.2 The velocity of the left internal carotid artery equals 115 and cm/sec. The left ICA/CCA ratio 1.3 Mild to moderate plaque is present within the carotid arteries. The left vertebral artery demonstrate antegrade flow. Right vertebral artery was not clearly imaged IMPRESSION: Mild to moderate plaque within the carotid arteries without evidence of a hemodynamicall y significant stenosis NASCET criteria used. Mild 0-49% stenosis Moderate 50-69% stenosis Severe 70-99% stenosis
--- NOTE | 2018-07-03 00:41 | CON ---
Date of Consultation: 07/02/2018 Time: 1930 hours. Reason: Possible stroke. History: An 83-year-old lady whom I have seen in the past primarily for gait problems. She has very slight memory difficulties and last MMSE was 27 out of 30. She was brought to the emergency departm ent this morning after she was noted to be confused and not speaking properly. Initially, she was fo und to be hypoxic but confused. CT scan of the brain was unremarkable. She did have a slightly elev ated lactic acid at 3.2 but that is down to 1.3 presently. Procalcitonin was negative. As noted, CT scan was unremarkable. Drug screen negative. As a concern for stroke, she was last seen well at 23 00 yesterday, felt not to be a tPA candidate for time frame. Since being admitted, she has had a bra in MRI that did require some sedation and she still has some sedation. Brain MRI demonstrates an acu te infarct, 3 mm right basal ganglia with an area of signal change in the right temporal lobe as well . She is in the ICU currently. Consultation was requested. Past Medical History: COPD. She has had a prior stroke in the past, cognitive impairment, renal ins ufficiency, hypertension, hypothyroidism. Allergies: NONE. Medications: Normally trazodone, albuterol, Aricept, Lexapro, Plavix, Tylenol No. 3, Synthroid, Lasi x, Lopressor, Requip, Flomax. Here she is receiving Geodon as needed, vancomycin, aspirin, Plavix. Social History: She lives at [facility]. Never smoked. Normally independent in basic activities of daily living. Family History: Noncontributory. Review of Systems: Not properly obtainable secondary to confusion and mental state but she has been well up until this a cute event. Physical Examination: Vital Signs: She is afebrile. Vitals are stable. Oxygen saturation 92%, heart rate 70, respiration s 20, blood pressure 113/48. General: She is a heavyset lady lying in bed, drowsy, arousable to painful stimuli. HEENT: Pupils miotic, reactive. Passive oculocephalic present. Cannot check strickland. Face symmetri c. Tongue midline. Soft palate elevates bilaterally. Neck: Supple. Neurologic: Withdraws all extremities to pain. Reflexes 1/4. Toes are bilaterally upgoing. Gait a nd cerebellar are not tested. Pertinent Laboratory Data: Imaging as noted. White count 11.1, hemoglobin 11.7, PT and PTT normal. Sodium 130. Creatinine 0.65. LDL 96. Impression: Acute ischemic stroke. Plan: Continue n.p.o. for now until patient is more alert. Initiate statin therapy once we clarify n.p.o. status. Continue aspirin and Plavix combination. MRA did not demonstrate any evidence of car otid stenosis. The patient likely would benefit from PT and potentially inpatient rehab. Thank you for the consult. We will continue to follow with you. Stroke scale was 8 in the ER. SHEREEN/CATHLEEN Voice ID: [id number] Report ID: [id number]
[2018-07-03 02:19] LABS: CKMB Creatine Kinase MB 4.6 ng/mL (0.3-3.6); Troponin I 0.28 ng/mL (0.0-0.045)
[2018-07-03] MEDS: NA CHLORIDE 0.9% 1,000 ML IV SCH (05:31)
[2018-07-03 06:10] LABS: Magnesium 1.9 mg/dL (1.8-2.4); Potassium 3.8 mmol/L (3.5-5.1)
[2018-07-03 06:58] LABS: Absolute Lymphocytes (CBC) 2.2 K/uL (0.7-4.9); Absolute Monocytes 1.7 K/uL (0.1-1.3); Absolute Neutrophil 12.1 K/uL (1.8-8.0); Basophils % 0.4 % (0-1.3); Eosinophils % 0.2 % (0-4.4); Hematocrit 40.1 % (36.0-45.0); Lymphocytes % 13.8 % (15.3-44.8); MPV 8.7 fL (7.6-11.3); Monocytes % 10.4 % (3.3-12.3); RBC Red Blood Cell Count 4.29 M/uL (3.86-4.86)
[2018-07-03] MEDS ORDERED: KCL 20 MEQ/100 mL IVPB 20 MEQ/100 ML BAG IV SCH (07:00)
[2018-07-03] MEDS: ARFORMOTEROL TARTRATE 15 MCG/2 ML VIAL.NEB NEB SCH ×2 (07:43→20:00)
--- NOTE | 2018-07-03 08:32 | ECHO ---
HEIGHT: 5 ft 5 in WEIGHT: 229 lb 0 oz DATE OF STUDY: 07/02/[address]: Garrett Ramirez DO 2-DIMENSIONAL: YES M.MODE: YES DOPPLER: YES COLOR FLOW: YES TDS: YES PORTABLE: NO DEFINITY: NO BUBBLE STUDY: NO DIAGNOSIS: ALTERED MENTAL STATUS, CEREBRAL VASCULAR ACCIDENT CARDIAC HISTORY: CATHERIZATION: NO SURGERY: NO PROSTHETIC VALVE: NO PACEMAKER: NO MEASUREMENTS (cm) DIASTOLIC (NORMALS) SYSTOLIC (NORMALS) IVSd 1.2 (0.6-1.2) LA Diam 3.9 (1.9-4.0) LVEF 53% LVIDd 4.3 (3.5-5.7) LVIDs 3.1 (2.0-3.5) %FS 27% LVPWd 1.1 (0.6-1.2) Ao Diam 2.7 (2.0-3.7) 2 DIMENSIONAL ASSESSMENT: RIGHT ATRIUM: NORMAL LEFT ATRIUM: NORMAL RIGHT VENTRICLE: NORMAL LEFT VENTRICLE: NORMAL TRICUSPID VALVE: NORMAL MITRAL VALVE: MITRAL ANNULAR CALIFICATION PULMONIC VALVE: NORMAL AORTIC VALVE: 3 LEAFLET, SCLEROSIS PERICARDIAL EFFUSION: NONE AORTIC ROOT: NORMAL LEFT VENTRICULAR WALL MOTION: NORMAL DOPPLER/COLOR FLOW: MILD AORTIC STENOSIS. PEAK/MEAN GRADIENT 20/12. ESTIMATED AORTIC VALVE AREA 1.5 CENTIMETERS SQUARED. MILD MITRAL AND TRICUSPID REGURGITATION. ESTIMATED RIGHT VENTRICULAR SYSTOLIC PRESSURE 55 mmHg. MODERATE PULMONARY HYPERTENSION. COMMENTS: NORMAL LEFT VENTRICULAR EJECTION FRACTION. MITRAL ANNULAR CALIFICATION. MILD AORTIC STENOSIS. NO AORTIC REGURGITATION. MILD MITRAL AND TRICUSPID REGURGITATION. MODERATE PULMONARY HYPERTENSION. TECHNOLOGIST: Johanna GUEVARA
[2018-07-03] MEDS ORDERED: VANCOMYCIN 1 GM in NA CHLORIDE 0.9% 500 ML IVPB SCH (09:00)
[2018-07-03] MEDS ORDERED: AZITHROMYCIN IV 500 MG in NA CHLORIDE 0.9% 250 ML IVPB SCH (09:00)
[2018-07-03 09:25] LABS: Platelet Estimate ADEQ; Urine White Blood Cell Casts OK
[2018-07-03 09:26] LABS: Blood Morphology Comment NOT SEEN (NOT SEEN); Platelets, Giant FEW PRESENT
[2018-07-03] MEDS: ENOXAPARIN 40 MG/0.4 ML SQ SCH (10:17)
[2018-07-03] MEDS: FAMOTIDINE 20 MG/2 ML VIAL IV SCH (10:17)
[2018-07-03] MEDS: CEFEPIME/SWI 1gm 10 ML IV SCH (10:18)
[2018-07-03] MEDS: VANCOMYCIN 1.75 GM in NA CHLORIDE 0.9% 500 ML IVPB SCH (10:18)
--- NOTE | 2018-07-03 12:19 | P.PN ---
Subjective Date of Service: 07/03/18 Primary Care Provider: Dr. Dumont([facility]);Neuro-Dr. Cruz Chief Complaint: Altered mental status Subjective: Other (Patient improved. Patient more alert and appropriate.) Physical Examination - Vital Signs Temperature: 100.3 F Blood Pressure: 125/58 Pulse: 81 Respirations: 17 Pulse Ox (%): 99 - Physical Exam General: Alert, Other HEENT: Atraumatic Neck: Supple Respiratory: Expiratory wheezes, Inspiratory wheezes Cardiovascular: Normal pulses, Regular rate/rhythm Gastrointestinal: Normal bowel sounds, Soft and benign, Non-distended, No masses , No rebound, No guarding Musculoskeletal: No erythema, No tenderness, No warmth Integumentary: No erythema, No warmth, No cyanosis Neurological: Normal speech, Normal strength at 5/5 x4 extr, Normal tone, Normal affect - Studies Microbiology Data (last 24 hrs): 07/02/18 05:58 Blood - Blood Anaerobic Blood Culture - Final Medications List Reviewed: Yes Assessment & Plan Discharge Plan: Home Plan to discharge in: 24 Hours Physician Review Additional Text: Impression: Encephalopathy multifactorial secondary to UTI with possible right lower lobe pneumonia complicated with small acute right temporal lobe infarct and acute lacunar infarct to the right basal ganglia History of TIA Hypertension COPD Dementia Chronic renal disease Hypothyroidism Anemia likely of chronic disease Restless leg syndrome Urinary incontinence Plan: Encephalopathy multifactorial secondary to UTI with possible right lower lobe pneumonia complicated with small acute right temporal lobe infarct and acute lacunar infarct to the right basal ganglia: Patient is more alert today. She seems to be more appropriate. Will have speech, physical therapy and occupational therapy continue to assess. Continue IV antibiotic therapy. Await blood and urine culture results. Overall improved. Will transfer patient to the floor. Discussed discharge planned including skilled placement versus rehab. Family prefers rehab. Patient has been to [facility] in the past. Will consult licensed master social worker to help in this process. Patient currently on aspirin, Plavix, statin medication and blood pressure medication. Await further recommendations from neurology. Will recheck chest x-ray today. Continue to monitor closely. History of TIA: Continue as above. Patient currently on DVT prophylaxis- Lovenox. Once the patient is more alert when physical therapy, occupational therapy and speech assess. Hypertension: Will review medication. Blood pressure stable this time. Will consider restarting some of her medication. Will monitor and adjust appropriately. COPD: Will continue with COPD medication. Will maintain sats above 90%. Will wean off oxygen. Respiratory consulted. Dementia: Will need to review and restart home medication. Chronic renal disease: Overall stable. Will continue to monitor and adjust. Pharmacy to monitor and adjust medication. Hypothyroidism: Tsh and free T4 abnormal. Will adjust medication. Anemia likely of chronic disease: Will monitor her closely. Will check iron B12 studies. Restless leg syndrome: Continue with medication. Urinary incontinence: Continue the medication. Time Spent Managing Pts Care (In Minutes): 55
[2018-07-03] MEDS ORDERED: PANTOPRAZOLE 40MG TABLET PO PRN (12:20)
[2018-07-03] MEDS: ASPIRIN EC 81 MG TAB PO SCH (12:27)
[2018-07-03] MEDS: CLOPIDOGREL 75 MG TABLET PO SCH (12:27)
[2018-07-03] MEDS: FOLIC ACID 1 MG TABLET PO SCH (12:28)
[2018-07-03 13:13] LABS: Ferritin 38.7 ng/mL (8-388)
[2018-07-03] MEDS: ROPINIROLE HCL 1 MG TAB PO SCH ×2 (13:57→15:03)
--- NOTE | 2018-07-03 14:00 | RAD REPORT ---
EXAM DESCRIPTION: RAD - Barium Swallow Modified - 07/03/2018 1:53 pm CLINICAL HISTORY: CVA COMPARISON: Abdomen Pelvis W/Wo Contrast dated 09/10/2017 TECHNIQUE: The patient was given liquid, semi-solid and solid forms of barium. Lateral view fluorosc opic imaging was performed in conjunction with speech pathology service. FINDINGS: Increased oral transit time with honey, puree, and dry solid Pharyngeal residue on vallecular was mild with puree, reduced to minimum with consecutive swallow Total fluoroscopy time: 2 minutes and 44 seconds
--- NOTE | 2018-07-03 14:01 | RAD REPORT ---
EXAM DESCRIPTION: RAD - Chest Single View - 07/03/2018 1:53 pm CLINICAL HISTORY: follow up pneumonia Chest pain. COMPARISON: Chest Single View dated 07/02/2018; Chest Single View dated 12/13/2017; Chest Single View dated 07/25/2016; Chest Single View dated 06/13/2016 FINDINGS: Portable technique limits examination quality. The lungs are mildly emphysematous but grossly clear. The heart is upper limit of normal in size. No displaced fractures. IMPRESSION: Mild COPD.
[2018-07-03] MEDS: ATORVASTATIN 40 MG TAB PO SCH (22:07)
[2018-07-03] MEDS: DONEPEZIL HCL 5 MG TAB PO SCH (22:07)
--- NOTE | 2018-07-03 23:06 | CON ---
Reason For Consult: Abnormal troponins. History Of Present Illness: Mrs. Zacarias was brought to the hospital from a [facility]. She has an o md of hospital do not resuscitate order as well as in the hospital do not resuscitate order. She has severe dementia, previous history of TIAs, possible old strokes and came in with altered mental stat us. After the workup, Dr. Cruz has concluded, this is an acute ischemic stroke that caused her conf usion and she now seems to be clearing up some. None of the hospital personnel seem to have a real g ood idea of what her baseline level of functioning is. Her troponins, there are 2 of them, they are 0.28 plus or minus a few. There are about 8 hours apart, so not the typical rise and fall pattern th at we see with an acute coronary syndrome. She has not been having chest pain. Her EKG does not chacho w an acute OR or an old OR. Likewise, her echocardiogram shows all normal wall motion and normal eje ction fraction. The patient denies having chest pain. Physical Examination: Lungs: Clear. Heart: Within normal limits. Abdomen: Soft. Extremities: Normal. She does have a systolic murmur and the echo shows mild aortic stenosis. Impression: This is not an acute coronary syndrome. It is an elevation of troponins from a lot of d istress from having a stroke and we do not need to consider doing a cardiac cath or a stress test. TINO/CATHLEEN Voice ID: [id number] Report ID: [id number]
[2018-07-03] MEDS: ACETAMINOPHEN 500 MG TAB PO PRN (23:16)
--- NOTE | 2018-07-04 00:06 | CON ---
Date of Consultation: 07/03/2018 Reason: Stroke. Interval History: The patient is quite a bit better today, more alert, speaking. No paralysis. Dop pler of the carotids, no hemodynamically significant stenosis. Modified barium, increase oral transi t time, but she is on a modified diet and is able to take p.o. medications and nourishment. Repeat c hest x-ray, mild COPD, portable. Echocardiogram, mild aortic stenosis, 1.5 cm valve area. Physical Examination: Vital Signs: On exam, she is afebrile. Vitals are stable. Neurologic: Awake, alert, oriented. Knows she is in the hospital. Knows why she is in the hospital . Ocular motion full. Angel full. Face symmetric. Tongue midline. Soft palate elevates bilatera lly. Extremity strength full. Sensation intact. Cerebellar exam demonstrates no ataxia. Reflexes 1/4, left toe upgoing. Impression: Acute lacunar infarct, right. Plan: Continue aspirin and Plavix in combination. Lipitor has been added to her regimen, 40 mg. Co ntinue intensive statin therapy upon discharge. Rehab consult. SHEREEN/CATHLEEN Voice ID: [id number] Report ID: [id number]
[2018-07-04] MEDS: LEVOTHYROXINE SOD 0.1 MG TAB PO SCH (05:44)
[2018-07-04] MEDS: LEVOTHYROXINE SOD 0.075 MG TAB PO SCH (05:44)
[2018-07-04 05:58] LABS: Absolute Lymphocytes (CBC) 2.1 K/uL (0.7-4.9); Absolute Neutrophil 6.7 K/uL (1.8-8.0); Basophils % 0.5 % (0-1.3); Eosinophils % 0.4 % (0-4.4); Hematocrit 36.1 % (36.0-45.0); Lymphocytes % 21.3 % (15.3-44.8); Monocytes % 10.3 % (3.3-12.3); RBC Red Blood Cell Count 3.75 M/uL (3.86-4.86)
[2018-07-04 06:11] LABS: Magnesium 2.1 mg/dL (1.8-2.4); Potassium 3.2 mmol/L (3.5-5.1)
[2018-07-04] MEDS ORDERED: POTASSIUM CL SA 10 MEQ TAB PO ONE (08:00)
[2018-07-04] MEDS: ARFORMOTEROL TARTRATE 15 MCG/2 ML VIAL.NEB NEB SCH ×2 (08:29→20:34)
[2018-07-04] MEDS: VANCOMYCIN 1.75 GM in NA CHLORIDE 0.9% 500 ML IVPB SCH (09:00)
--- NOTE | 2018-07-04 09:10 | P.PN ---
Subjective Date of Service: 07/04/18 Primary Care Provider: Dr. Dumont([facility]);Neuro-Dr. Cruz Chief Complaint: Altered mental status Subjective: Improving, Doing well Physical Examination - Vital Signs Temperature: 97.1 F Blood Pressure: 140/60 Pulse: 73 Respirations: 17 Pulse Ox (%): 95 - Physical Exam General: Alert, In no apparent distress, Cooperative HEENT: Atraumatic Neck: Supple Respiratory: Clear to auscultation bilaterally, Normal air movement Cardiovascular: Normal pulses, Regular rate/rhythm Gastrointestinal: Normal bowel sounds, Soft and benign, Non-distended Neurological: Normal speech, Normal affect - Studies Microbiology Data (last 24 hrs): 07/02/18 05:58 Blood - Blood Anaerobic Blood Culture - Final Medications List Reviewed: Yes Assessment & Plan Discharge Plan: Other (Inpatient rehab) Plan to discharge in: 24 Hours Physician Review Additional Text: Impression: Encephalopathy multifactorial secondary to UTI complicated with small acute right temporal lobe infarct and acute lacunar infarct to the right basal ganglia History of TIA Hypertension COPD Dementia Chronic renal disease Hypothyroidism Anemia likely of chronic disease Restless leg syndrome Urinary incontinence Depression with anxiety Plan: Encephalopathy multifactorial secondary to UTI complicated with small acute right temporal lobe infarct and acute lacunar infarct to the right basal ganglia : Patient is doing well at this time. Continue speech, physical and occupational therapy. Patient being evaluated for inpatient rehab. IV antibiotics adjusted. Blood cultures negative. Will need to confirm if urine culture was obtained. Will discontinue IV vancomycin. Patient currently on aspirin, Plavix, statin medication and blood pressure medication. Continue to monitor closely. Chest x-ray yesterday shows no pneumonia. History of TIA: Continue as above. Patient currently on DVT prophylaxis- Lovenox and medication for CVA. Continue as above Hypertension: Restart metoprolol but at a lower dose. Will monitor and adjust appropriately. COPD: Will continue with COPD medication. Will maintain sats above 90%. Will wean off oxygen. Respiratory consulted. Dementia: Will restart home medication. Chronic renal disease: Overall stable. Will continue to monitor and adjust. Pharmacy to monitor and adjust medication. Hypothyroidism: Tsh and free T4 abnormal. Thyroid medication adjusted. Recommend to recheck tsh and free T4 in 6 weeks to further address. Anemia likely of chronic disease: Will monitor her closely. Will check B12 studies. Restless leg syndrome: Continue with medication. Urinary incontinence: Continue the medication. Depression with anxiety: Continue medication Time Spent Managing Pts Care (In Minutes): 55
[2018-07-04] MEDS: ESCITALOPRAM 20 MG TAB PO SCH (11:01)
[2018-07-04] MEDS: ASPIRIN EC 81 MG TAB PO SCH (11:01)
[2018-07-04] MEDS: CLOPIDOGREL 75 MG TABLET PO SCH (11:01)
[2018-07-04] MEDS: FOLIC ACID 1 MG TABLET PO SCH (11:01)
[2018-07-04] MEDS: ROPINIROLE HCL 1 MG TAB PO SCH ×2 (11:02→17:35)
[2018-07-04] MEDS: TOLTERODINE LA 4 MG CAP PO SCH (11:02)
[2018-07-04] MEDS: ENOXAPARIN 40 MG/0.4 ML SQ SCH (11:02)
[2018-07-04] MEDS: TAMSULOSIN 0.4 MG SR CAP PO SCH (11:02)
[2018-07-04] MEDS: CEFEPIME/SWI 1gm 10 ML IV SCH (11:03)
[2018-07-04] MEDS: METOPROLOL TAR 25 MG TAB PO SCH (17:35)
[2018-07-04] MEDS: DONEPEZIL HCL 5 MG TAB PO SCH (21:15)
[2018-07-04] MEDS: ATORVASTATIN 40 MG TAB PO SCH (21:15)
[2018-07-04] MEDS: ACETAMINOPHEN 500 MG TAB PO PRN (21:27)
[2018-07-05] MEDS: LEVOTHYROXINE SOD 0.1 MG TAB PO SCH (06:19)
[2018-07-05] MEDS: LEVOTHYROXINE SOD 0.075 MG TAB PO SCH (06:19)
[2018-07-05] MEDS: METOPROLOL TAR 25 MG TAB PO SCH (06:20)
[2018-07-05 06:58] LABS: Absolute Lymphocytes (CBC) 1.7 K/uL (0.7-4.9); Absolute Monocytes 0.8 K/uL (0.1-1.3); Absolute Neutrophil 4.5 K/uL (1.8-8.0); Basophils % 0.7 % (0-1.3); Hematocrit 35.8 % (36.0-45.0); Lymphocytes % 22.9 % (15.3-44.8); Monocytes % 10.9 % (3.3-12.3); RBC Red Blood Cell Count 3.76 M/uL (3.86-4.86)
[2018-07-05 07:12] LABS: BUN Blood Urea Nitrogen 19 mg/dL (7-18); Bicarbonate 32 mmol/L (21-32); Glucose Level 97 mg/dL (74-106); Magnesium 2.3 mg/dL (1.8-2.4); Potassium 3.8 mmol/L (3.5-5.1); Sodium Level 138 mmol/L (136-145)
[2018-07-05] MEDS: ARFORMOTEROL TARTRATE 15 MCG/2 ML VIAL.NEB NEB SCH (07:58)
[2018-07-05] MEDS: TOLTERODINE LA 4 MG CAP PO SCH (08:38)
[2018-07-05] MEDS: ASPIRIN EC 81 MG TAB PO SCH (08:38)
[2018-07-05] MEDS: ESCITALOPRAM 20 MG TAB PO SCH (08:39)
[2018-07-05] MEDS: ENOXAPARIN 40 MG/0.4 ML SQ SCH (08:39)
[2018-07-05] MEDS: FOLIC ACID 1 MG TABLET PO SCH (08:39)
[2018-07-05] MEDS: TAMSULOSIN 0.4 MG SR CAP PO SCH (08:39)
[2018-07-05] MEDS: ROPINIROLE HCL 1 MG TAB PO SCH (08:40)
[2018-07-05] MEDS: CLOPIDOGREL 75 MG TABLET PO SCH (08:40)
[2018-07-05] MEDS ORDERED: AMOX/K CLAV 500 MG TAB PO SCH (09:00)
[2018-07-05] MEDS ORDERED: POTASSIUM CL SA 10 MEQ TAB PO ONE (09:00)
--- NOTE | 2018-07-05 10:33 | P.DS ---
Admission Date: 07/02/18 Discharge Date: 07/05/18 Primary Care Provider: Dr. Dumont([facility]);Neuro-Dr. Cruz Disposition: TRANSFR TO OTHER-PSY/CD/REHAB Discharge Condition: GOOD Reason for Admission: Altered mental status Consultations: Neurology-Dr. Cruz Procedures: MRI Brain: FINDINGS: Images are degraded by patient motion artifact. Moderate signal within periventricular, deep and subcortical white matter likely ischemic changes secondary to small vessel disease. Area of abnormal signal within the left occipital lobe compatible with an old infarction. 3 millimeter area of abnormal signal within the right basal ganglia is compatible with an acute lacunar infarct. Vague small area of increased signal within the posterior right temporal lobe also compatible with an acute infarct. An extra-axial fluid collection is not noted IMPRESSION: Small acute right temporal lobe infarct. Acute lacunar infarct right basal ganglia MRA Brain/Neck: COMPARISON: November 2017 TECHNIQUE: Magnetic resonance angiogram was performed. 3D MIPS reconstruction performed FINDINGS: The anterior cerebral, middle cerebral, right posterior cerebral, distal internal carotid and basilar arteries do not demonstrate a significant stenosis. Diminished signal within the left posterior cerebral artery is unchanged and is chronic. An aneurysm is not displayed. IMPRESSION: No acute abnormality displayed MRA Neck: FINDINGS: Contrast enhance 2D [id number] MR angiography of the neck vessels was performed. The quality of the examination is quite limited presumably related to contrast bolus timing and venous contamination. There is quite poor contrast enhancement of the internal carotid artery is seen. Antegrade flow seen in both vertebral arteries. The left vertebral artery is dominant. IMPRESSION: Examination is of limited quality with poor visualization of both internal carotid arteries. Flow is seen in both distal internal carotid arteries and vertebral artery. Carotid Doppler: COMPARISON: November 2017 MRA neck FINDINGS: The velocity of the right internal carotid artery equals 120 cm/sec. The right ICA/CCA ratio 2.2 The velocity of the left internal carotid artery equals 115 and cm/sec. The left ICA/CCA ratio 1.3 Mild to moderate plaque is present within the carotid arteries. The left vertebral artery demonstrate antegrade flow. Right vertebral artery was not clearly imaged IMPRESSION: Mild to moderate plaque within the carotid arteries without evidence of a hemodynamically significant stenosis ECHO: EF 53% LEFT VENTRICULAR WALL MOTION: NORMAL DOPPLER/COLOR FLOW: MILD AORTIC STENOSIS. PEAK/MEAN GRADIENT 20/12. ESTIMATED AORTIC VALVE AREA 1.5 CENTIMETERS SQUARED. MILD MITRAL AND TRICUSPID REGURGITATION. ESTIMATED RIGHT VENTRICULAR SYSTOLIC PRESSURE 55 mmHg. MODERATE PULMONARY HYPERTENSION. COMMENTS: NORMAL LEFT VENTRICULAR EJECTION FRACTION. MITRAL ANNULAR CALIFICATION. MILD AORTIC STENOSIS. NO AORTIC REGURGITATION. MILD MITRAL AND TRICUSPID REGURGITATION. MODERATE PULMONARY HYPERTENSION. MDS: COMPARISON: Abdomen Pelvis W/Wo Contrast dated 09/10/2017 TECHNIQUE: The patient was given liquid, semi-solid and solid forms of barium. Lateral view fluoroscopic imaging was performed in conjunction with speech pathology service. FINDINGS: Increased oral transit time with honey, puree, and dry solid Pharyngeal residue on vallecular was mild with puree, reduced to minimum with consecutive swallow Total fluoroscopy time: 2 minutes and 44 seconds Medical Problem List: Encephalopathy multifactorial secondary to UTI, urine culture positive for Proteus, with history of UTIs complicated with small acute right temporal lobe infarct and acute lacunar infarct to the right basal ganglia with history of TIA Moderate pulmonary Hypertension COPD on chronic oxygen Dementia Chronic renal disease Hypothyroidism Anemia likely of chronic disease with B12 deficiency Restless leg syndrome Urinary incontinence Depression with anxiety Mild dysphagia Brief History of Present Illness: 83-year-old female presented to the emergency room after she was sent from the intermediate to the ER for further evaluation. Patient had altered mental status changes. This occurred early this morning. History was difficult to get. ER physician reported that the patient was slightly hypoxic when she first came in. There was no mention of fever, chills, cough. Daughter at bedside reported that the patient was doing well yesterday. Patient has a history of COPD, chronic kidney disease, hypertension, hypothyroidism, previous TIAs and history of recurrent UTIs. Patient not able to give a history. In the ER patient was evaluated. Patient was given IV fluids. Patient was alert but confused. Patient was able to move all 4s. Urinalysis showed evidence of bacteria. White count 11.1, hemoglobin 11.7. BNP pending at this time. Lactic acid was slightly elevated. Patient was given IV fluids. Repeat lactic acid within normal range. Pro calcitonin negative. Chest ray showed possible right lower lobe pneumonia. CT head unremarkable. Patient was admitted for further evaluation. Hospital Course: Patient presented with encephalopathy. This was multifactorial secondary to UTI , urine culture positive for Proteus and complicated with small acute right temporal lobe infarct and acute lacunar infarct to the right basal ganglia. Patient with prior history of TIA. Patient responded to therapy well. This included speech, physical and occupational therapy. Patient was evaluated by speech therapy. Patient found to have mild oral dysphagia. Recommendation to continue with mechanical soft diet and regular thin liquids. She may upgrade to regular solids as tolerated. Compensatory strategies to be continued include upright trunk positioning during all oral intake and 30 min after. Recommend slow rate with small bites, small sips and alternate bites with sips. Recommend to continue with speech therapy and follow up with speech therapy as an outpatient. Patient was seen and evaluated by neurology who she sees as an outpatient. Neurology recommended to continue with current plan of care. Patient was evaluated for inpatient rehab. Patient was accepted to go to [facility] to continue her care. During her stay aspirin was added to Plavix. Lipitor was also initiated. At discharge she will continue with aspirin 81 mg daily, Plavix 75 mg daily, Lipitor 40 mg daily, folic acid 1 mg daily, and metoprolol 50 mg 1 pill twice daily. Fall precautions in place. Patient may follow up with neurology in 2-4 weeks to follow up this hospitalization. Patient with history of UTIs. Patient found to have UTI. Urine culture positive for Proteus. At discharge she will continue with Augmentin 500 mg 1 pill twice daily for 5 days. UTI prevention education will be provided. Recommend to follow up with urology as an outpatient to further evaluate and monitor. Patient with underlying COPD. Patient uses home oxygen. This to be continued to maintain sats above 90%. She will continue with her COPD medication-Brovana 1 unit dose twice daily and albuterol puffs 3 times a day as needed for shortness of breath. Recommend to follow up with pulmonology in 2-4 weeks to follow up this hospitalization and continue her care. Echocardiogram shows moderate pulmonary hypertension. She will continue with current medication-Lasix 40 mg daily. Recommend to continue with a 1500 cc per day fluid restriction. She is to monitor her weight daily. Patient may require further medication and follow. Recommend to follow up with pulmonology as an outpatient to further evaluate and address. Patient with chronic renal disease. Renal function now to baseline. She will continue with a 1500 cc per day fluid restriction and low-salt diet. Recommend no further use of nonsteroidal anti-inflammatories. Future medications will need to be renally dosed. Recommend follow up with nephrology as an outpatient to further monitor. Patient with anemia of chronic disease. Patient found to have vitamin B12 deficiency. Lab has remained stable. At discharge she will continue with vitamin-B 12 daily. Recommend to recheck lab-CBC in 2-4 weeks to monitor her progress. Patient with urinary incontinence. Patient will continue with her medication- Detrol LA 4 mg daily and Flomax 0.4 mg daily. recommend to follow up with urology as an outpatient to further evaluate. Patient with restless leg syndrome. She will continue with her medication- Requip 1 mg every day at 2:00 p.m. and 3 mg daily. Recommend follow up with neurology in 2-4 weeks to further address and monitor. Patient with depression with anxiety. Patient will continue with her medication -escitalopram 10 mg daily. Patient also takes trazodone 100 mg at bedtime as needed for insomnia. Further adjustment can be done as an outpatient with her PCP. Patient with underlying dementia. Patient will continue with Aricept 5 mg at bedtime. Recommended follow up with neurology as directed. Patient with hypothyroidism. Medication was adjusted during her stay. At discharge she will continue with levothyroxine 275 mcg daily. Recommend to recheck tsh and free T4 in 6 weeks to further monitor and adjust. Vital Signs/Physical Exam: Temp Pulse Resp BP Pulse Ox 97.5 F 80 16 177/74 H 94 07/05/18 08:00 07/05/18 08:00 07/05/18 08:00 07/05/18 08:00 07/05/18 08:00 General: Alert, In no apparent distress, Oriented x3, Cooperative HEENT: Atraumatic Neck: Supple Respiratory: Clear to auscultation bilaterally, Normal air movement Cardiovascular: Normal pulses, Regular rate/rhythm Gastrointestinal: Normal bowel sounds, Soft and benign, Non-distended, No masses , No rebound, No guarding Musculoskeletal: No erythema, No tenderness, No warmth Integumentary: No tenderness/swelling, No erythema, No warmth, No cyanosis Neurological: Normal speech, Normal strength at 5/5 x4 extr, Normal tone, Normal affect Laboratory Data at Discharge: WBC 7.3 K/uL (4.3-10.9) D 07/05/18 06:15 Hgb 11.9 g/dL (12.0-15.0) L 07/05/18 06:15 Hct 35.8 % (36.0-45.0) L 07/05/18 06:15 Plt Count 314 K/uL (152-406) 07/05/18 06:15 PT 11.2 SECONDS (9.5-12.5) 07/02/18 05:58 INR 0.95 07/02/18 05:58 APTT 27.3 SECONDS (24.3-36.9) 07/02/18 05:58 Sodium 138 mmol/L (136-145) 07/05/18 06:15 Potassium 3.8 mmol/L (3.5-5.1) 07/05/18 06:15 BUN 19 mg/dL (7-18) H 07/05/18 06:15 Creatinine 0.58 mg/dL (0.55-1.3) 07/05/18 06:15 Glucose 97 mg/dL (74-106) 07/05/18 06:15 Magnesium 2.3 mg/dL (1.8-2.4) 07/05/18 06:15 Troponin I 0.28 ng/mL (0.0-0.045) H 07/03/18 01:40 Triglycerides 55 mg/dL (<150) 07/02/18 09:55 Cholesterol 180 mg/dL (<200) 07/02/18 09:55 HDL Cholesterol 73 mg/dL (40-60) H 07/02/18 09:55 Cholesterol/HDL Ratio 2.47 07/02/18 09:55 Home Medications: Clopidogrel Bisulfate [Clopidogrel] 1 tab PO DAILY 06/14/16 Tolterodine Tartrate [Tolterodine Tartrate ER] 4 mg PO DAILY 06/14/16 Albuterol Sulfate [Proair Hfa] 2 puff IH Q6H PRN 12/14/17 Codeine/APAP [Tylenol #3*] 1 tab PO DAILY PRN 12/14/17 Furosemide [Lasix*] 40 mg PO DAILY PRN 12/14/17 Omeprazole 20 mg PO DAILY PRN 12/14/17 Ropinirole HCl [Requip*] 1 mg PO 1400 12/14/17 Ropinirole HCl [Requip] 3 mg PO DAILY 12/14/17 Tamsulosin HCl [Flomax] 0.4 mg PO DAILY 12/14/17 Albuterol Sulfate [Proair Hfa] 8.5 gm IH Q4HP PRN 07/02/18 Donepezil HCl 5 mg PO BEDTIME 07/02/18 Escitalopram Oxalate 10 mg PO DAILY 07/02/18 Nystatin Powder [Mycostatin (Powder)*] 15 gm TP BID 07/02/18 Trazodone HCl 100 mg PO BEDTIME PRN PRN 07/02/18 Amox/Clavulanate [Augmentin 500-125 mg Tab*] 500 mg PO BID #10 tab 07/05/18 Arformoterol Tartrate [Brovana] 2 ml NEB BIDRESP #60 vial.neb 07/05/18 Aspirin [Aspirin EC 81 MG] 81 mg PO DAILY #90 tablet. 07/05/18 Atorvastatin Calcium [Lipitor] 40 mg PO BEDTIME #30 tab 07/05/18 Cyanocobalamin (Vitamin B-12) [Vitamin B-12] 1,000 mcg PO DAILY #30 tablet 07/05 Folic Acid 1 mg PO DAILY #30 tablet 07/05/18 Levothyroxine [Synthroid*] 0.075 mg PO DAILYAC #30 tab 07/05/18 Levothyroxine [Synthroid*] 0.2 mg PO DAILYAC #60 tab 07/05/18 Metoprolol Tartrate [Lopressor*] 50 mg PO BID #60 tab 07/05/18 New Medications: Amox/Clavulanate [Augmentin 500-125 mg Tab*] 500 mg PO BID #10 tab Arformoterol Tartrate [Brovana] 2 ml NEB BIDRESP #60 vial.neb Aspirin [Aspirin EC 81 MG] 81 mg PO DAILY #90 tablet. Atorvastatin Calcium [Lipitor] 40 mg PO BEDTIME #30 tab Cyanocobalamin (Vitamin B-12) [Vitamin B-12] 1,000 mcg PO DAILY #30 tablet Folic Acid 1 mg PO DAILY #30 tablet Levothyroxine [Synthroid*] 0.075 mg PO DAILYAC #30 tab Levothyroxine [Synthroid*] 0.2 mg PO DAILYAC #60 tab Metoprolol Tartrate [Lopressor*] 50 mg PO BID #60 tab Patient Discharge Instructions: 1. Patient to be transferred to inpatient rehab to continue her progress. 2. Patient presented with encephalopathy. This was multifactorial secondary to UTI, urine culture positive for Proteus and complicated with small acute right temporal lobe infarct and acute lacunar infarct to the right basal ganglia. Patient with prior history of TIA. Patient responded to therapy well. This included speech, physical and occupational therapy. Patient was evaluated by speech therapy. Patient found to have mild oral dysphagia. Recommendation to continue with mechanical soft diet and regular thin liquids. She may upgrade to regular solids as tolerated. Compensatory strategies to be continued include upright trunk positioning during all oral intake and 30 min after. Recommend slow rate with small bites, small sips and alternate bites with sips. Recommend to continue with speech therapy and follow up with speech therapy as an outpatient. Patient was seen and evaluated by neurology who she sees as an outpatient. Neurology recommended to continue with current plan of care. Patient was evaluated for inpatient rehab. Patient was accepted to go to [facility] to continue her care. During her stay aspirin was added to Plavix. Lipitor was also initiated. At discharge she will continue with aspirin 81 mg daily, Plavix 75 mg daily, Lipitor 40 mg daily, folic acid 1 mg daily, and metoprolol 50 mg 1 pill twice daily. Fall precautions in place. Patient may follow up with neurology in 2-4 weeks to follow up this hospitalization. 3. Patient with history of UTIs. Patient found to have UTI. Urine culture positive for Proteus. At discharge she will continue with Augmentin 500 mg 1 pill twice daily for 5 days. UTI prevention education will be provided. Recommend to follow up with urology as an outpatient to further evaluate and monitor. 4. Patient with underlying COPD. Patient uses home oxygen. This to be continued to maintain sats above 90%. She will continue with her COPD medication-Brovana 1 unit dose twice daily and albuterol puffs 3 times a day as needed for shortness of breath. Recommend to follow up with pulmonology in 2-4 weeks to follow up this hospitalization and continue her care. 5. Echocardiogram shows moderate pulmonary hypertension. She will continue with current medication- Lasix 40 mg daily. Recommend to continue with a 1500 cc per day fluid restriction. She is to monitor her weight daily. Patient may require further medication and follow. Recommend to follow up with pulmonology as an outpatient to further evaluate and address. 6. Patient with chronic renal disease. Renal function now to baseline. She will continue with a 1500 cc per day fluid restriction and low-salt diet. Recommend no further use of nonsteroidal anti-inflammatories. Future medications will need to be renally dosed. Recommend follow up with nephrology as an outpatient to further monitor. 7. Patient with anemia of chronic disease. Patient found to have vitamin B12 deficiency. Lab has remained stable. At discharge she will continue with vitamin-B 12 daily. Recommend to recheck lab-CBC in 2-4 weeks to monitor her progress. 8. Patient with urinary incontinence. Patient will continue with her medication-Detrol LA 4 mg daily and Flomax 0.4 mg daily. recommend to follow up with urology as an outpatient to further evaluate. 9. Patient with restless leg syndrome. She will continue with her medication- Requip 1 mg every day at 2:00 p.m. and 3 mg daily. Recommend follow up with neurology in 2-4 weeks to further address and monitor. 10. Patient with depression with anxiety. Patient will continue with her medication- escitalopram 10 mg daily. Patient also takes trazodone 100 mg at bedtime as needed for insomnia. Further adjustment can be done as an outpatient with her PCP. 11. Patient with underlying dementia. Patient will continue with Aricept 5 mg at bedtime. Recommended follow up with neurology as directed. 12. Patient with hypothyroidism. Medication was adjusted during her stay. At discharge she will continue with levothyroxine 275 mcg daily. Recommend to recheck tsh and free T4 in 6 weeks to further monitor and adjust. Diet: Mechanical soft Activity: Fall precautions Time spent managing pt's care (in minutes): 55
[2018-07-05 12:08] VITALS: BP 167/71; TEMP 96.9
[2018-07-05 15:39] VITALS: O2SAT 91
== END 2018-07-05 13:10 | DRG 65 ==
LOC: ER 05:31 → ERHOLD 07:05 → 3RD-ICU 16:17 → 2ND 07-03 13:45
PROVIDERS: ADMIT Family Medicine; ATTEND Family Medicine
DX: I63.81 Other cerebral infarction due to occlusion or stenosis of small artery (principal); N39.0 Urinary tract infection, site not specified; G93.40 Encephalopathy, unspecified; R13.11 Dysphagia, oral phase; R29.708 NIHSS score 8; I63.9 Cerebral infarction, unspecified; B96.4 Proteus (mirabilis) (morganii) as the cause of diseases classified elsewhere; J44.9 Chronic obstructive pulmonary disease, unspecified; I27.20 Pulmonary hypertension, unspecified; D63.1 Anemia in chronic kidney disease; E53.8 Deficiency of other specified B group vitamins; R32 Unspecified urinary incontinence; G25.81 Restless legs syndrome; F41.8 Other specified anxiety disorders; F03.90 Unspecified dementia, unspecified severity, without behavioral disturbance, psychotic disturbance, mood disturbance, and anxiety; E03.9 Hypothyroidism, unspecified; R01.1 Cardiac murmur, unspecified; I35.0 Nonrheumatic aortic (valve) stenosis; I12.9 Hypertensive chronic kidney disease with stage 1 through stage 4 chronic kidney disease, or unspecified chronic kidney disease; N18.9 Chronic kidney disease, unspecified; Z87.440 Personal history of urinary (tract) infections; Z66 Do not resuscitate; Z96.652 Presence of left artificial knee joint; Z99.81 Dependence on supplemental oxygen; Z86.73 Personal history of transient ischemic attack (TIA), and cerebral infarction without residual deficits
CPT/HCPCS: 36415; 51702; 70450; 70544; 70549; 70553; 71045; 74230; 80048; 80061; 80202; 80307; 81003; 81015; 82140; 82550; 82553; 82607; 82728; 82805; 83540; 83605; 83735; 84132; 84145; 84439; 84443; 84466; 84484; 85025; 85610; 85730; 87040; 87077; 87086; 87088; 87186; 92610; 92611; 93005; 93306; 93880; 94640; 96361; 96374; 96375; 97112; 97116; 97163; 97165; 97530; 99285; A9577; J0692; J1650; J2930; J3486; J7030; J7605

== ENCOUNTER 2018-09-27 08:29 | Day surgery (SDC) | payer OTHER ==
--- OUTSIDE RECORDS SUMMARY | 2018-09-27 08:32 | XMS REPORT | Continuity of Care Document ---
:1935 Author Organization [employer] Care Team Providers Name Role Phone [employer] Unavailable Unavailable Problems Problem Status Onset Classification Date Comments Source Date Reported GERD (Confirmed) Active Problem 09/02/2018 [facility] [place] (Confirmed) Active Problem 09/02/2018 [facility] Hypertension Active Problem 09/02/2018 [facility] Lumbar pain Active Problem 09/02/2018 [facility] (Confirmed) Active Problem 09/02/2018 [facility] RLS (Confirmed) Active Problem 09/02/2018 [facility] Medications Medication Details Route Status Patient Ordering Order Source Instructions Provider Date Donepezil 5 mg=1 tab, Active [facility] hydrochloride 5 PO, 018 [facility] Oral Tablet Bedtime, # [Aricept] 90 tab, 1 Refill(s), Pharmacy: [facility] Allergies, Adverse Reactions, Alerts Substance Category Reaction Severity Reaction Status Date Comments Source type Reported No Known Assertion Drug [facility] Medication allergy [facility] Allergies Immunizations No Data Provided for This Section Results No Data Provided for This Section Pathology Reports No Data Provided for This Section Diagnostic Reports No Data Provided for This Section Consultation Notes No Data Provided for This Section Discharge Summaries No Data Provided for This Section History and Physicals No Data Provided for This Section Vital Signs Vital Sign Value Date Comments Source Height 165.1 cm 2018 [facility] Weight 107.727 2018 [facility] BMI Calculated 39.52 2018 [facility] Heart Rate 68 2018 [facility] Systolic (mm Hg) 175 2018 [facility] Diastolic (mm Hg) 75 2018 [facility] Encounters Location Location Encounter Encounter Reason Attending ADM DC Status Source Details Type Number For Provider Date Date Visit [facility] Ambulatory [id number] Eron 01/10 01/10 [facility] Neurology [facility] /2017 [facility] [place] [facility] [id number] ERON 02/12 Active [facility] Outpatient [id number] Eron 02/12 02/13 [facility] Neurology [facility] [place] /2017 [facility] [place] [facility] [id number] ERON 03/26 Active [facility] M[facility] Outside [id number] 07/09 07/11 [facility] Neurology Medical [facility] [place] [facility] Outside [id number] 07/18 07/20 [facility] Neurology [facility] [place] [facility] Outside [id number] 08/16 08/18 [facility] Neurology [facility] [place] [facility] Procedures Procedure Code Date Perfomer Comments Source Ankle fusion [id number] [facility] Cataract extraction, [id number] [facility] insertion of Neuro intraocular lens and trabeculectomy Cholecystectomy [id number] [facility] Knee replacement [id number] [facility] Rotator cuff repair [id number] [facility] Assessment and Plan No Data Provided for This Section Plan of Care No Data Provided for This Section Social History Social History Date Source Social History TypeResponse 2018 [facility] Smoking Status Former smoker; Type: Cigarettes; Previous treatment: None; Ready to change: Yes ; Concerns about tobacco use in household: No; Exposure to Tobacco Smoke None; Cigarette Smoking Last 365 Days No; Reg Smoking Cessation Counseling No1 entered on: 02/12/18 1quit 20 yrs ago Family History No Data Provided for This Section Advance Directives No Data Provided for This Section Functional Status No Data Provided for This Section
[2018-09-27] MEDS: LIDOCAINE 1% 20 ML MDV ONE ×2 (09:06→09:47)
[2018-09-27] MEDS ORDERED: Ringers Lactate 1,000 ML IV ONE (09:15)
[2018-09-27] MEDS ORDERED: CEFAZOLIN/SWI 1gm 1 GM/10 ML SYR ONE (09:16)
[2018-09-27 09:26] LABS: Potassium 4.2 mmol/L (3.5-5.1)
[2018-09-27] MEDS ORDERED: PROPOFOL 200 MG/20 ML VIAL IV ONE (09:30)
[2018-09-27] MEDS ORDERED: LIDOCAINE 2% MPF 5 ML VIAL ONE (09:30)
[2018-09-27] MEDS ORDERED: GLYCOPYRROLATE 0.2 MG/ML SYR ONE (10:00)
[2018-09-27 11:52] VITALS: BP 124/59; TEMP 97.3; O2SAT 100
--- NOTE | 2018-09-27 12:43 | OP ---
Date of Procedure: 09/27/2018 Surgeon: Kip Wilson MD Brewery Pumper: SU Brunson. Preoperative Diagnosis: Lesion change, rule out temporal arteritis on the right side. Postoperative Diagnosis: Lesion change, rule out temporal arteritis on the right side. Procedure: Right temporal artery biopsy via Doppler guided. Estimated Blood Loss: Minimal. Specimen: Right temporal artery. Finding: As above. Anesthesia: MAC. Complications: None. Disposition: The patient tolerated the procedure in stable condition, was taken to Recovery in good general condition. Procedure In Detail: The patient was brought to the OR and placed in supine position. MAC anesthesi a was begun. The patient was prepped and draped in usual sterile fashion. A Doppler device was used to isolate the branches of the temporal artery and the anterior and superior aspect of the right ear and then lidocaine 1% infiltrated locally. A 4 cm incision made with a 15 blade. Subcutaneous tiss ue divided. A temporal artery identified, proximal and distal and side branches identified. Proxima l and distal control were obtained as well as the side branches and then approximately a 4 cm segment of the temporal artery excised, sent to pathology. used to tie off the ends and then wou nd irrigated, bleeding controlled with cautery and 4-0 chromic used to approximate the subcutaneous t issue and close the skin. Sterile dressing was applied. The patient was awakened and taken to [facility] in good general condition. Discharge Note: The patient will go to Day Surgery, then home when stable. Disposition: Home. Condition: Stable. Discharge Instructions: Resume home medications and diet. Activities as tolerated. No heavy liftin g. Remove outer dressing in 2 days. Shower. Keep wound clean and dry. Keep Steri-Strips on at all times. Follow up in my office in 2 weeks. Call for appointment. Follow up with in 1 week. Tylenol No.3 one tablet p.o. q.4 p.r.n. pain. /MODL Voice ID: [id number] Report ID: [id number]
== END 2018-09-27 11:40 | disposition home or self-care (01) ==
LOC: OR 08:29
PROVIDERS: ATTEND Surgery
PROC: 03BS0ZX Excision of Right Temporal Artery, Open Approach, Diagnostic (ICD-10-PCS; principal; 2018-09-27 09:30)
DX: M31.6 Other giant cell arteritis (principal); I70.8 Atherosclerosis of other arteries; H53.8 Other visual disturbances; J44.9 Chronic obstructive pulmonary disease, unspecified; Z79.899 Other long term (current) drug therapy
CPT/HCPCS: 37609; 80048; 36415; 88305; J2704; J0690

== ENCOUNTER 2019-05-06 19:09 | Observation (INO) | payer OTHER ==
[2019-05-06 20:24] LABS: Absolute Lymphocytes (CBC) 1.8 K/uL (0.7-4.9); Basophils % 0.7 % (0-1.3); Hematocrit 35.6 % (36.0-45.0); RBC Red Blood Cell Count 3.57 M/uL (3.86-4.86)
[2019-05-06 20:35] LABS: Protime INR 0.99
[2019-05-06] MEDS ORDERED: FUROSEMIDE 20 MG/ 2ML VIAL ONE ×2 (20:44→21:57)
[2019-05-06] MEDS ORDERED: ONDANSETRON 4 MG/2 ML VIAL ONE (20:45)
[2019-05-06] MEDS ORDERED: MORPHINE 2 MG/ML SYR ONE (20:45)
[2019-05-06 20:47] LABS: Albumin 3.2 g/dL (3.4-5.0); Bilirubin Direct 0.1 mg/dL (0-0.2); Bilirubin Total 0.4 mg/dL (0.2-1.0); Magnesium 2.2 mg/dL (1.8-2.4); Protein, Total 6.8 g/dL (6.4-8.2); Troponin (Emerg Dept Use Only) 0.03 ng/mL (0.0-0.045)
--- NOTE | 2019-05-06 20:56 | RAD REPORT ---
EXAM DESCRIPTION: RAD - Chest Single View - 05/06/2019 8:22 pm CLINICAL HISTORY: COUGH COMPARISON: Chest Single View dated 07/03/2018; Chest Single View dated 07/02/2018 TECHNIQUE: AP portable chest image was obtained 05/06/2019 8:22 pm . FINDINGS: No focal mass or consolidation. Lung volumes are low compared to prior study accentuating interstitial pattern. There is further increase in interstitial opacification along with vascular eng orgement. Heart size is similar to comparison. No measurable pleural effusion and no pneumothorax. No acute bony abnormality seen. No acute aortic findings suspected. IMPRESSION: Mild CHF/volume overload findings are evident.
--- NOTE | 2019-05-06 21:23 | EDPHYS ---
Physician Documentation [facility] Name: Ti Zacarias Age: 84 yrs Sex: Female : 1935 Arrival Date: 05/06/2019 Time: 19:11 Bed 25 Private MD: KANNAN Physician Tremayne Sanchez HPI: 05/06 19:51 This 84 yrs old Female presents to ER via Wheelchair with complaints of Leg loni Swelling. 19:51 The patient presents with decreased range of motion, pain, swelling, tenderness. The loni complaints affect the right leg and left leg. Context: resulted from a chronic condition, an unknown cause. Modifying factors: The symptoms are alleviated by elevating leg, the symptoms are aggravated by movement, weight bearing. Associated signs and symptoms: The patient has no apparent associated signs or symptoms. Treatment prior to arrival includes: no previous treatment. Severity of symptoms: At their worst the symptoms were moderate, in the emergency department the symptoms are actually worse. The patient has experienced similar episodes in the past, several times. Historical: - Allergies: 19:19 No Known Allergies; ca1 - PMHx: 19:19 Anemia; Arthritis; CAD; COPD; Depression; EDEMA; GERD; Hyperlipidemia; Hypertension; ca1 Hypothyroidism; PERIPHERAL NEUROPATHY; restless leg syndrome; - PSHx: 19:19 Knee surgery; Ankle Surgery; Shoulder surgery; Cholecystectomy; ca1 - Immunization history:: Adult Immunizations up to date, Pneumococcal vaccine is up to date, Flu vaccine is not up to date. Patient has never been vaccinated. - Coronavirus screen:: The patient has NOT traveled to [place] in the past 14 days. The patient has NOT had contact with known/suspected case of Coronavirus?. - Social history:: Smoking status: Patient/guardian denies using tobacco, the patient reports quitting approximately 20 years ago. - Family history:: not pertinent. - Ebola Screening: : Patient negative for fever greater than or equal to 101.5 degrees Fahrenheit, and additional compatible Ebola Virus Disease symptoms Patient denies exposure to infectious person Patient denies travel to an Ebola-affected area in the 21 days before illness onset No symptoms or risks identified at this time. ROS: 19:51 Constitutional: Negative for fever, chills, and weight loss, Eyes: Negative for injury, loni pain, redness, and discharge, ENT: Negative for injury, pain, and discharge, Neck: Negative for injury, pain, and swelling, Cardiovascular: Negative for chest pain, palpitations, and edema, Respiratory: Negative for shortness of breath, cough, wheezing, and pleuritic chest pain, Abdomen/GI: Negative for abdominal pain, nausea, vomiting, diarrhea, and constipation, Back: Negative for injury and pain, : Negative for injury, bleeding, discharge, and swelling, Neuro: Negative for headache, weakness, numbness, tingling, and seizure, Psych: Negative for depression, anxiety, suicide ideation, homicidal ideation, and hallucinations, Allergy/Immunology: Negative for hives, rash, and allergies, Endocrine: Negative for neck swelling, polydipsia, polyuria, polyphagia, and marked weight changes. 19:51 MS/extremity: Positive for erythema, pain, swelling, tenderness, warmth, of the right leg and left leg. Exam: 19:51 Constitutional: This is a well developed, well nourished patient who is awake, alert, loni and in no acute distress. Head/Face: Normocephalic, atraumatic. Eyes: Pupils equal round and reactive to light, extra-ocular motions intact. Lids and lashes normal. Conjunctiva and sclera are non-icteric and not injected. Cornea within normal limits. Periorbital areas with no swelling, redness, or edema. ENT: Nares patent. No nasal discharge, no septal abnormalities noted. Tympanic membranes are normal and external auditory canals are clear. Oropharynx with no redness, swelling, or masses, exudates, or evidence of obstruction, uvula midline. Mucous membranes moist. Neck: Trachea midline, no thyromegaly or masses palpated, and no cervical lymphadenopathy. Supple, full range of motion without nuchal rigidity, or vertebral point tenderness. No Meningismus. Chest/axilla: Normal chest wall appearance and motion. Nontender with no deformity. No lesions are appreciated. Cardiovascular: Regular rate and rhythm with a normal S1 and S2. No gallops, murmurs, or rubs. Normal PMI, no JVD. No pulse deficits. Respiratory: Lungs have equal breath sounds bilaterally, clear to auscultation and percussion. No rales, rhonchi or wheezes noted. No increased work of breathing, no retractions or nasal flaring. Abdomen/GI: Soft, non-tender, with normal bowel sounds. No distension or tympany. No guarding or rebound. No evidence of tenderness throughout. Back: No spinal tenderness. No costovertebral tenderness. Full range of motion. Neuro: Awake and alert, GCS 15, oriented to person, place, time, and situation. Cranial nerves II-XII grossly intact. Motor strength 5/5 in all extremities. Sensory grossly intact. Cerebellar exam normal. Normal gait. Psych: Awake, alert, with orientation to person, place and time. Behavior, mood, and affect are within normal limits. 19:51 Skin: cellulitis, that is mild, that is moderate, induration, that is mild is noted, injury, abrasion(s), small abrasion noted, of the right leg. Vital Signs: 19:19 BP 130 / 44; Pulse 53; Resp 19 S; Temp 97.8(O); Pulse Ox 98% on R/A; Weight 113.4 kg ca1 (R); Height 5 ft. 3 in. (160.02 cm) (R); 20:00 BP 126 / 46; Pulse 58; Pulse Ox 92% on R/A; vc 21:00 BP 128 / 48; Pulse 56; Resp 18; Pulse Ox 95% on 4 lpm NC; vc 22:00 BP 124 / 52; Pulse 54; Resp 18; Pulse Ox 96% on R/A; vc 23:00 BP 132 / 56; Pulse 54; Resp 17; Pulse Ox 96% on R/A; vc 19:19 Body Mass Index 44.29 (113.40 kg, 160.02 cm) ca1 MDM: 19:31 Patient medically screened. [facility] 19:54 Data reviewed: vital signs, nurses notes, lab test result(s), EKG, radiologic studies, loni doppler, plain films. 05/06 19:51 Order name: Basic Metabolic Panel; Complete Time: 21:14 [facility] 05/06 19:51 Order name: CBC with Diff; Complete Time: 21:14 [facility] 05/06 19:51 Order name: LFT's; Complete Time: 21:14 [facility] 05/06 19:51 Order name: Magnesium; Complete Time: 21:14 [facility] 05/06 19:51 Order name: NT PRO-BNP; Complete Time: 21:14 [facility] 05/06 19:51 Order name: PT-INR; Complete Time: 21:14 [facility] 05/06 19:51 Order name: Troponin (emerg Dept Use Only); Complete Time: 21:14 [facility] 05/06 19:51 Order name: XRAY Chest (1 view); Complete Time: 21:54 [facility] 05/06 19:51 Order name: Lipase; Complete Time: 21:14 [facility] 05/06 19:51 Order name: US Extremity Venous W Compression Jamari 05/06 19:51 Order name: Urine Culture [facility] 05/06 19:51 Order name: Procalcitonin; Complete Time: 21:14 [facility] 05/06 21:36 Order name: Urine Dipstick--Ancillary (enter results); Complete Time: 21:54 cm6 05/06 19:51 Order name: EKG; Complete Time: 19:53 [facility] 05/06 19:51 Order name: Cardiac monitoring; Complete Time: 20:16 [facility] 05/06 19:51 Order name: EKG - Nurse/Tech; Complete Time: 20:17 [facility] 05/06 19:51 Order name: IV Saline Lock; Complete Time: 20:17 [facility] 05/06 19:51 Order name: Labs collected and sent; Complete Time: 20:17 [facility] 05/06 19:51 Order name: O2 Per Protocol; Complete Time: 20:17 [facility] 05/06 19:51 Order name: O2 Sat Monitoring; Complete Time: 20:17 [facility] 05/06 19:51 Order name: Urine Dipstick-Ancillary (obtain specimen); Complete Time: 23:12 [facility] 05/06 21:17 Order name: Wound dressing; Complete Time: 23:10 [facility] 05/06 21:24 Order name: Lu; Complete Time: 23:08 [facility] Administered Medications: 21:00 Drug: Lasix 20 mg Route: IVP; Site: right antecubital; vc 22:00 Follow up: Response: No adverse reaction vc 21:58 Drug: Requip 3 mg Route: PO; vc 23:00 Follow up: Response: No adverse reaction vc 23:09 Drug: Ancef 1 grams Route: IVPB; Site: right antecubital; vc 23:30 Follow up: IV Status: Infusion continued upon admission vc 23:09 Drug: Silvadene Cream 1 % 1 application Route: Topical; Site: affected area; vc 23:10 Drug: Lasix 20 mg Route: IVP; Site: right antecubital; vc 23:30 Follow up: Response: No adverse reaction vc 23:11 Not Given (Patient Refused): morphine 2 mg IVP once; (PAIN>8) RASS on ADMN: Combtv4, vc Very Agttd3, Agttd2, Rstlss1, AlertClm0, Drwsy-1, LtSdtn-2, ModSdtn-3, DpSdtn-4, UnArsble-5 x2 23:11 Not Given (Patient Refused): Zofran 4 mg IVP once; over 2 minutes vc Disposition: 05/06/19 21:22 Hospitalization ordered by Kang Chaidez for Inpatient Admission. Preliminary diagnosis are Unspecified combined systolic (congestive) and diastolic (congestive) heart failure, Edema, unspecified, Cellulitis and acute lymphangitis of other parts of limb, Venous insufficiency (chronic) (peripheral) - with ulcers. - Bed requested for Telemetry/MedSurg (Inpatient). - Status is Inpatient Admission. vc - Condition is Fair. - Problem is new. - Symptoms have improved. Signatures: Dispatcher [employer] EDMS Ana Bates RN RN mw Anderson, Corey, MD MD cha Acob, Cheryl, RN RN ca1 Calcote, Vanessa, RN RN vc Corrections: (The following items were deleted from the chart) 22:46 21:22 Hospitalization Ordered by Kang Chaidez for Inpatient Admission. Preliminary mw diagnosis is Unspecified combined systolic (congestive) and diastolic (congestive) heart failure; Edema, unspecified; Cellulitis and acute lymphangitis of other parts of limb; Venous insufficiency (chronic) (peripheral) - with ulcers. Bed requested for Telemetry/MedSurg (Inpatient). Status is Inpatient Admission. Condition is Fair. Problem is new. Symptoms have improved. [facility] 23:35 22:46 05/06/2019 21:22 Hospitalization Ordered by Kang Chaidez for Inpatient vc Admission. Preliminary diagnosis is Unspecified combined systolic (congestive) and diastolic (congestive) heart failure; Edema, unspecified; Cellulitis and acute lymphangitis of other parts of limb; Venous insufficiency (chronic) (peripheral) - with ulcers. Bed requested for Telemetry/MedSurg (Inpatient). Status is Inpatient Admission. Condition is Fair. Problem is new. Symptoms have improved.
--- NOTE | 2019-05-06 21:23 | ER ---
Nurse's Notes [facility] Name: Ti Zacarias Age: 84 yrs Sex: Female : 1935 Arrival Date: 05/06/2019 Time: 19:11 Bed 25 Private MD: Diagnosis: Unspecified combined systolic (congestive) and diastolic (congestive) heart failure;Edema, unspecified;Cellulitis and acute lymphangitis of other parts of limb;Venous insufficiency (chronic) (peripheral)-with ulcers Presentation: 05/06 19:14 Presenting complaint: Child states: Home health nurse visited today and called Dr. Julia awad regarding leg swelling. Advised to come to the ER for diuretics. Bilateral legs swelling. Transition of care: patient was not received from another setting of care. Onset of symptoms was May 06, 2019. Risk Assessment: Do you want to hurt yourself or someone else? Patient reports no desire to harm self or others. Initial Sepsis Screen: Does the patient meet any 2 criteria? No. Patient's initial sepsis screen is negative. Does the patient have a suspected source of infection? No. Patient's initial sepsis screen is negative. Care prior to arrival: None. 19:14 Method Of Arrival: Wheelchair ca1 19:14 Acuity: PACO 3 ca1 Historical: - Allergies: 19:19 No Known Allergies; ca1 - PMHx: 19:19 Anemia; Arthritis; CAD; COPD; Depression; EDEMA; GERD; Hyperlipidemia; Hypertension; ca1 Hypothyroidism; PERIPHERAL NEUROPATHY; restless leg syndrome; - PSHx: 19:19 Knee surgery; Ankle Surgery; Shoulder surgery; Cholecystectomy; ca1 - Immunization history:: Adult Immunizations up to date, Pneumococcal vaccine is up to date, Flu vaccine is not up to date. Patient has never been vaccinated. - Coronavirus screen:: The patient has NOT traveled to [place] in the past 14 days. The patient has NOT had contact with known/suspected case of Coronavirus?. - Social history:: Smoking status: Patient/guardian denies using tobacco, the patient reports quitting approximately 20 years ago. - Family history:: not pertinent. - Ebola Screening: : Patient negative for fever greater than or equal to 101.5 degrees Fahrenheit, and additional compatible Ebola Virus Disease symptoms Patient denies exposure to infectious person Patient denies travel to an Ebola-affected area in the 21 days before illness onset No symptoms or risks identified at this time. Screenin:46 Abuse screen: Denies threats or abuse. Nutritional screening: No deficits noted. vc Tuberculosis screening: No symptoms or risk factors identified. Fall Risk No fall in past 12 months (0 pts). IV access (20 points). Gait- Weak (10 pts.). Total Ayala Fall Scale indicates Low Risk Score (25-44 pts). Fall prevention measures have been instituted. Side Rails Up X 2 Placed close to Nursing Station. Assessment: 19:40 General: Appears in no apparent distress. comfortable, Behavior is calm, cooperative, vc appropriate for age. Pain: Denies pain. Neuro: Level of Consciousness is awake, alert, obeys commands, Oriented to person, place, time, situation. Cardiovascular: Denies chest pain. Respiratory: Respiratory effort is even, unlabored, Respiratory pattern is regular, symmetrical. GI: No deficits noted. : No signs and/or symptoms were reported regarding the genitourinary system. EENT: No signs and/or symptoms were reported regarding the EENT system. Derm: Skin temperature is cool. Musculoskeletal: Swelling present in left leg and right leg. 20:40 Reassessment: Patient and/or family updated on plan of care and expected duration. Pain vc level reassessed. Patient is alert, oriented x 3, equal unlabored respirations, skin warm/dry/pink. 21:40 Reassessment: Patient and/or family updated on plan of care and expected duration. Pain vc level reassessed. Patient is alert, oriented x 3, equal unlabored respirations, skin warm/dry/pink. Patient denies pain at this time. 22:40 Reassessment: Patient and/or family updated on plan of care and expected duration. Pain vc level reassessed. Patient is alert, oriented x 3, equal unlabored respirations, skin warm/dry/pink. Patient denies pain at this time. Patient states symptoms have improved. 23:15 Reassessment: Patient and/or family updated on plan of care and expected duration. Pain vc level reassessed. Patient is alert, oriented x 3, equal unlabored respirations, skin warm/dry/pink. Patient denies pain at this time. Patient states symptoms have improved. Neuro: Level of Consciousness is awake, alert, obeys commands, Oriented to person, place, time, situation. Vital Signs: 19:19 BP 130 / 44; Pulse 53; Resp 19 S; Temp 97.8(O); Pulse Ox 98% on R/A; Weight 113.4 kg ca1 (R); Height 5 ft. 3 in. (160.02 cm) (R); 20:00 BP 126 / 46; Pulse 58; Pulse Ox 92% on R/A; vc 21:00 BP 128 / 48; Pulse 56; Resp 18; Pulse Ox 95% on 4 lpm NC; vc 22:00 BP 124 / 52; Pulse 54; Resp 18; Pulse Ox 96% on R/A; vc 23:00 BP 132 / 56; Pulse 54; Resp 17; Pulse Ox 96% on R/A; vc 19:19 Body Mass Index 44.29 (113.40 kg, 160.02 cm) ca1 ED Course: 19:11 Patient arrived in ED. ag3 19:17 Triage completed. ca1 19:19 Arm band placed on right wrist. ca1 19:30 Inserted saline lock: 22 gauge in right antecubital area, using aseptic technique. vc Blood collected. 19:31 Tremayne Sanchez MD is Attending Physician. loni 19:40 Patient has correct armband on for positive identification. vc 19:48 Janett Chapa, ANITA is Primary Nurse. vc 20:28 XRAY Chest (1 view) In Process Unspecified. EDMS 20:57 US Extremity Venous W Compression Jamari In Process Unspecified. EDMS 21:21 Kang Chaidez is Hospitalizing Provider. loni 23:00 Dressings: Kerlix X 2; right leg 4X4s X 2; right leg and left leg. Wound care: to vc abrasion, located on left leg and right leg Patient tolerated well. 23:00 Lu cath inserted, using sterile technique, 18 Fr., by id, balloon inflated, to vc gravity drainage, Patient tolerated well. 23:30 No provider procedures requiring assistance completed. Patient admitted, IV remains in vc place. Administered Medications: 21:00 Drug: Lasix 20 mg Route: IVP; Site: right antecubital; vc 22:00 Follow up: Response: No adverse reaction vc 21:58 Drug: Requip 3 mg Route: PO; vc 23:00 Follow up: Response: No adverse reaction vc 23:09 Drug: Ancef 1 grams Route: IVPB; Site: right antecubital; vc 23:30 Follow up: IV Status: Infusion continued upon admission vc 23:09 Drug: Silvadene Cream 1 % 1 application Route: Topical; Site: affected area; vc 23:10 Drug: Lasix 20 mg Route: IVP; Site: right antecubital; vc 23:30 Follow up: Response: No adverse reaction vc 23:11 Not Given (Patient Refused): morphine 2 mg IVP once; (PAIN>8) RASS on ADMN: Combtv4, vc Very Agttd3, Agttd2, Rstlss1, AlertClm0, Drwsy-1, LtSdtn-2, ModSdtn-3, DpSdtn-4, UnArsble-5 x2 23:11 Not Given (Patient Refused): Zofran 4 mg IVP once; over 2 minutes vc Outcome: 21:22 Decision to Hospitalize by Provider. loni 23:30 Admitted to Tele accompanied by tech, via stretcher, room 428, with oxygen, with chart, vc Report called to Lindsay 23:30 Condition: good 23:30 Instructed on the need for admit. 23:35 Patient left the ED. vc Signatures: Dispatcher [employer] Tremayne Brewer MD MD cha Gomez, Alice ag3 Leticia Jacinto, RN RN ca1 Janett Chapa RN RN vc
[2019-05-06] MEDS ORDERED: ROPINIROLE HCL 1 MG TAB ONE (21:30)
[2019-05-06 21:45] LABS: Urine Blood 2+ (NEG); Urine Glucose NEGATIVE (NEG); Urine Protein NEGATIVE (NEG)
[2019-05-06] MEDS ORDERED: SILVER SULFADIAZINE 1% 25 GM TOP ONE (21:57)
[2019-05-06] MEDS ORDERED: NA CHLORIDE 0.9% 100 ML IV ONE (21:57)
[2019-05-06] MEDS ORDERED: CEFAZOLIN SODIUM 1 GM/VIAL ONE (21:57)
--- NOTE | 2019-05-06 22:25 | RAD REPORT ---
EXAM DESCRIPTION: US - Extrem Venous W Compress Jamari - 05/06/2019 8:57 pm CLINICAL HISTORY: Pain;Swelling Bilateral leg edema and swelling. COMPARISON: EXT VENOUS UNI LTD dated 11/06/2008 TECHNIQUE: Real-time sonographic interrogation of the left and right lower extremity deep venous sys tems was performed. FINDINGS: Normal compressibility, flow augmentation, phasic flow and spontaneous flow is identified in both the left and right lower extremity deep venous systems. IMPRESSION: No sonographic evidence of left or right lower extremity deep venous thrombosis.
--- NOTE | 2019-05-06 22:39 | P.HP ---
Certification for Inpatient Patient admitted to: Observation With expected LOS: <2 Midnights Practitioner: I am a practitioner with admitting privileges, knowledge of patient current condition, hospital course, and medical plan of care. Services: Services provided to patient in accordance with Admission requirements found in Title 42 Section 412.3 of the Code of Federal Regulations Patient History Date of Service: 05/06/19 Reason for admission: Bilateral leg swelling History of Present Illness: 84-year-old patient with a history of congestive heart failure, COPD, chronic respiratory failure on 3 L of oxygen by nasal cannula at baseline was referred to the emergency department due to increased lower extremity swelling. She also has weeping sores on bilateral lower extremities. Patient also reports increased shortness of breath over the last 1 month. He is on chronic Lasix therapy, 3 times per week but patient stopped taking the Lasix 1 week ago. Previous echocardiogram done last year report normal EF and moderate pulmonary hypertension. Her chest x-ray in the ED report mild vascular congestion. Venous Doppler of the lower extremities done did not show any DVT. She was saturating well on 3 L of oxygen by nasal cannula. She is placed under observation for further management of fluid overload. Allergies No Known Allergies Allergy (Verified 05/07/19 00:16) Home Medications: Clopidogrel Bisulfate [Clopidogrel] 1 tab PO DAILY 06/14/16 Tolterodine Tartrate [Tolterodine Tartrate ER] 4 mg PO DAILY 06/14/16 Albuterol Sulfate [Proair Hfa] 2 puff IH Q6H PRN 12/14/17 Codeine/APAP [Tylenol #3*] 1 tab PO Q6H PRN 12/14/17 Furosemide [Lasix*] 40 mg PO M,W,F 12/14/17 Omeprazole 20 mg PO DAILY PRN 12/14/17 Ropinirole HCl [Requip*] 1 mg PO 1400 12/14/17 Ropinirole HCl [Requip] 3 mg PO BEDTIME 12/14/17 Tamsulosin HCl [Flomax] 0.4 mg PO DAILY 12/14/17 Donepezil HCl 5 mg PO BEDTIME 07/02/18 Escitalopram Oxalate 10 mg PO DAILY 07/02/18 Levothyroxine [Synthroid*] 0.2 mg PO DAILYAC #60 tab 07/05/18 Metoprolol Tartrate [Lopressor*] 50 mg PO BID #60 tab 07/05/18 Calcium Carbonate [Veto-Gest] 2 tab PO Q1H PRN 09/27/18 Cranberry Conc/Ascorbic Acid [Cranberry Concentrate Softgel] 500 mg PO DAILY 03/06 Famotidine 1 tab PO BID 09/27/18 Guaifenesin/Dextromethorphan [Mucinex Dm ER 600-30 mg Tablet] 1 tab PO BID PRN 09/27/18 Naproxen Sodium 2 tab PO BEDTIME PRN 09/27/18 Saliva Stimulant Agents Comb.3 [Biotene Moisturizing Mouth] 1 spray PO PRN PRN 09/27/18 Cephalexin 1 tab PO DAILY 05/07/19 Levothyroxine Sodium 2 tab PO DAILY 05/07/19 Nystatin Cream [Mycostatin 100MU/Gm Cream*] 1 advy TOP DAILY 05/07/19 Nystatin [Nystop] 1 davy TOP BID 05/07/19 Prednisone 1 tab PO DAILY 05/07/19 Temazepam 1 cap PO BEDTIME PRN 05/07/19 - Past Medical/Surgical History Diabetic: No -: History diverticulosis -: Hypothyroidism -: Insomnia -: History of TIA X2 -: Restless leg syndrome -: GERD -: Neuropathy -: COPD -: Hypertension -: Dementia -: Former tobacco use -: Left knee replacement -: Rotator cuff repair -: Ankle surgery -: Cholecystectomy Psychosocial/ Personal History: Patient lives at [facility]. She has been there for over a year. - Family History Father -: Lung disease Sister -: Lung disease Brother -: Heart disease Mother -: Heart disease - Social History Alcohol use: No CD- Drugs: No Caffeine use: No Review of Systems Other: Except as documented, all other systems reviewed and negative. Physical Examination - Physical Exam General: Alert, In no apparent distress, Oriented x3, Obese HEENT: PERRLA, Mucous membr. moist/pink, Sclerae nonicteric Neck: Supple, JVD not distended, No Thyromegaly Respiratory: Clear to auscultation bilaterally, Normal air movement Cardiovascular: Regular rate/rhythm, Normal S1 S2, Edema (2+ bilateral lower extremities) Capillary refill: <2 Seconds Gastrointestinal: Normal bowel sounds, Soft and benign, Non-distended, No tenderness Musculoskeletal: Erythema (Bilateral lower extremity) Integumentary: Other (Weeping sores on bilateral lower extremities.) Neurological: Normal speech, Normal strength at 5/5 x4 extr, Cranial nerves 3- 12 intact - Studies Laboratory Data (last 24 hrs) 05/06/19 20:05: PT 11.7, INR 0.99 05/06/19 20:05: WBC 10.0, Hgb 11.7 L, Hct 35.6 L, Plt Count 282 05/06/19 20:05: Sodium 137, Potassium 4.0, BUN 25 H, Creatinine 1.20, Glucose 102, Magnesium 2.2, Total Bilirubin 0.4, AST 11 L, ALT 14, Alkaline Phosphatase 72, Lipase 104 Assessment and Plan - Problems (Diagnosis) (1) Acute on chronic diastolic (congestive) heart failure Current Visit: Yes Status: Acute (2) Chronic obstructive pulmonary disease (COPD) Onset Date: 12/17/17 Current Visit: No Status: Chronic Qualifiers: (3) Chronic cor pulmonale Current Visit: Yes Status: Chronic (4) Hypertension Onset Date: 12/17/17 Current Visit: No Status: Chronic Qualifiers: Hypertension type: essential hypertension Qualified Code(s): I10 - Essential (primary) hypertension (5) Hypothyroidism Onset Date: 12/17/17 Current Visit: No Status: Chronic Qualifiers: Hypothyroidism type: acquired Qualified Code(s): E03.9 - Hypothyroidism, unspecified - Plan Place patient under observation. Will treat volume overload with IV Lasix. Monitor renal function with IV Lasix Repeat echocardiogram. Daily weight Fluid restriction Check TSH Continue home dose Synthroid. - Advance Directives Does patient have a Living Will: Yes Does patient have a Durable POA for Healthcare: Yes
[2019-05-07] MEDS: IPRATROPIUM BROM 0.5MG/2.5ML NEB SCH ×7 (00:01→23:35)
[2019-05-07] MEDS ORDERED: ONDANSETRON 4 MG/2 ML VIAL IV PRN (00:01)
[2019-05-07] MEDS: MELATONIN 5 MG TABLET PO SCH ×2 (00:59→20:35)
[2019-05-07] MEDS: ALBUTEROL 2.5 MG/3 ML NEB SOL NEB SCH ×6 (02:00→23:35)
[2019-05-07 06:09] LABS: Basophils % 0.6 % (0-1.3); Hematocrit 32.2 % (36.0-45.0); Lymphocytes % 20.7 % (15.3-44.8); RBC Red Blood Cell Count 3.26 M/uL (3.86-4.86)
[2019-05-07 06:56] LABS: Magnesium 2.1 mg/dL (1.8-2.4); Phosphorus 4.8 mg/dL (2.5-4.9); Potassium 3.9 mmol/L (3.5-5.1); Thyroid Stimulating Hormone 0.226 uIU/mL (0.360-3.740)
[2019-05-07] MEDS ORDERED: POTASSIUM CL SA 10 MEQ TAB PO ONE (08:00)
[2019-05-07] MEDS: ENOXAPARIN 40 MG/0.4 ML SQ SCH (08:27)
[2019-05-07] MEDS: FUROSEMIDE 40 MG/4 ML VIAL IV SCH ×2 (08:27→16:47)
--- NOTE | 2019-05-07 09:28 | P.PN ---
Subjective Date of Service: 05/07/19 Chief Complaint: Bilateral leg swelling Subjective: Improving Review of Systems 10-point ROS is otherwise unremarkable Physical Examination - Vital Signs Temperature: 97.5 F Blood Pressure: 145/64 Pulse: 86 Respirations: 19 Pulse Ox (%): 95 - Physical Exam General: Alert, In no apparent distress, Obese HEENT: Atraumatic, Normocephalic Neck: Supple Respiratory: Diminished, Crackles/rales, Expiratory wheezes Cardiovascular: Regular rate/rhythm Capillary refill: <2 Seconds Gastrointestinal: Soft and benign, W/out hepatosplenomegaly Musculoskeletal: No clubbing, Swelling Integumentary: Tenderness/swelling, Erythema Neurological: Normal strength at 5/5 x4 extr Lymphatics: No axilla or inguinal lymphadenopathy Urinary: Other External genitalia: Deferred Rectal: Deferred - Studies Laboratory Data (last 24 hrs) 05/06/19 20:05: PT 11.7, INR 0.99 05/06/19 20:05: WBC 10.0, Hgb 11.7 L, Hct 35.6 L, Plt Count 282 05/06/19 20:05: Sodium 137, Potassium 4.0, BUN 25 H, Creatinine 1.20, Glucose 102, Magnesium 2.2, Total Bilirubin 0.4, AST 11 L, ALT 14, Alkaline Phosphatase 72, Lipase 104 Assessment & Plan - Problems (Diagnosis) (1) Cellulitis Current Visit: Yes Status: Acute (2) Acute on chronic diastolic (congestive) heart failure Current Visit: Yes Status: Acute (3) UTI (urinary tract infection) Onset Date: 07/26/16 Current Visit: No Status: Acute (4) Chronic obstructive pulmonary disease (COPD) Onset Date: 12/17/17 Current Visit: No Status: Chronic Plan: Monitor under telemetry Start on IV Lasix Pending echocardiogram Will treat volume overload with IV Lasix. Monitor renal function with IV Lasix Daily weight Fluid restriction Continue home dose Synthroid. Blood pressure control. Will get a urine culture Left ankle swelling noted with mild erythema Start on antibiotics for cellulitis GI/DVT prophylaxis advanced directives full code for now Qualifiers: Discharge Plan: Home Plan to discharge in: 24 Hours Time Spent Managing Pts Care (In Minutes): 42
--- NOTE | 2019-05-07 10:21 | EKG ---
Test Date: 2019-05-06 Test Time: 20:09:01 Animal Trapper: ASA MEASUREMENT RESULTS: Intervals: Rate: 53 MS: 186 QRSD: 98 QT: 450 QTc: 422 [place]: P: 80 MS: 186 QRS: -32 T: 32 INTERPRETIVE STATEMENTS: Sinus bradycardia with premature atrial complexes in a pattern of bigeminy Left axis deviation Pulmonary disease pattern Incomplete right bundle branch block Minimal voltage criteria for LVH, may be normal variant Abnormal ECG Compared to ECG 07/02/2018 06:14:23 Atrial premature complex(es) now present Incomplete right bundle-branch block now present Left ventricular hypertrophy now present Sinus rhythm no longer present Electronically Signed On 05-07-19 10:21:20 SAMPLING THEORY TEACHER by Kit Bradford
--- NOTE | 2019-05-07 12:56 | ECHO ---
HEIGHT: 5 ft 3 in WEIGHT: 252 lb 0 oz DATE OF STUDY: 05/07/[address]: aleah castaneda 2-DIMENSIONAL: YES M.MODE: YES DOPPLER: YES COLOR FLOW: YES TDS: NO PORTABLE: NO DEFINITY: NO BUBBLE STUDY: NO DIAGNOSIS: PULMONARY HYPERTENSION CARDIAC HISTORY: CATHERIZATION: SURGERY: PROSTHETIC VALVE: PACEMAKER: MEASUREMENTS (cm) DIASTOLIC (NORMALS) SYSTOLIC (NORMALS) IVSd 1.0 (0.6-1.2) LA Diam 4.0 (1.9-4.0) LVEF 72% LVIDd 3.9 (3.5-5.7) LVIDs 2.3 (2.0-3.5) %FS 40% LVPWd 1.1 (0.6-1.2) Ao Diam 2.9 (2.0-3.7) 2 DIMENSIONAL ASSESSMENT: RIGHT ATRIUM: NORMAL LEFT ATRIUM: DILATED RIGHT VENTRICLE: NORMAL LEFT VENTRICLE: NORMAL TRICUSPID VALVE: NORMAL MITRAL VALVE: MITRAL ANNULAR CALCIFICATION PULMONIC VALVE: NORMAL AORTIC VALVE: SCLEROSIS PERICARDIAL EFFUSION: NONE AORTIC ROOT: NORMAL LEFT VENTRICULAR WALL MOTION: NORMAL DOPPLER/COLOR FLOW: NO SIGNIFICANT AORTIC STENOSIS OR AORTIC REGURGITATION. MILD MITRAL AND TRICUSPID REGURGITATION. MILD PULMONARY HYPERTENSION. ESTIMATED RIGHT VENTRICULAR SYSTOLIC PRESSURE 45 mmHg. COMMENTS: NORMAL LEFT VENTRICULAR EJECTION FRACTION. DILATED LEFT ATRIUM. MITRAL ANNULAR CALCIFICATION. AORTIC SCLEROSIS WITH NO AORTIC STENOSIS OR AORTIC REGURGITATION. MILD MITRAL AND TRICUSPID REGURGITATION. MILD PULMONARY HYPERTENSION. TECHNOLOGIST: Johanna GUEVARA
[2019-05-07] MEDS: CEFTRIAXONE/SWI 1gm 1 GM/10 ML SYR IVP SCH (15:34)
[2019-05-07] MEDS ORDERED: MUCINEX DM 12HR.SR TAB PO PRN (20:41)
[2019-05-07] MEDS ORDERED: TEMAZEPAM 15 MG CAP PO PRN (20:41)
[2019-05-07] MEDS ORDERED: CODEINE 30MG/APAP 300MG TAB PO PRN (20:41)
[2019-05-07] MEDS ORDERED: BIOTENE MOISTURIZING MOUTH PO PRN (20:41)
[2019-05-07] MEDS ORDERED: CALCIUM CARBONATE CHEW 500MG TAB PO PRN (20:41)
[2019-05-07] MEDS ORDERED: ROPINIROLE HCL 1 MG TAB PO SCH (21:00)
[2019-05-07] MEDS ORDERED: MELATONIN 5 MG TABLET PO SCH (21:00)
[2019-05-07] MEDS ORDERED: DONEPEZIL HCL 5 MG TAB PO SCH (21:00)
[2019-05-07] MEDS: METOPROLOL TAR 50 MG TAB PO SCH (21:24)
[2019-05-08] MEDS: ALBUTEROL 2.5 MG/3 ML NEB SOL NEB SCH ×3 (02:00→15:18)
[2019-05-08] MEDS: IPRATROPIUM BROM 0.5MG/2.5ML NEB SCH ×4 (03:35→15:18)
[2019-05-08 04:10] LABS: Absolute Lymphocytes (CBC) 1.8 K/uL (0.7-4.9); Basophils % 0.5 % (0-1.3); Hematocrit 32.1 % (36.0-45.0); Lymphocytes % 21.2 % (15.3-44.8); MPV 8.3 fL (7.6-11.3); RBC Red Blood Cell Count 3.22 M/uL (3.86-4.86)
[2019-05-08 04:32] LABS: Potassium 4.1 mmol/L (3.5-5.1)
[2019-05-08 05:32] VITALS: BMI 45.5
[2019-05-08] MEDS ORDERED: LEVOTHYROXINE SOD 0.1 MG TAB PO SCH (06:30)
[2019-05-08] MEDS ORDERED: PANTOPRAZOLE 40MG TABLET PO PRN (06:30)
[2019-05-08] MEDS: METOPROLOL TAR 50 MG TAB PO SCH (08:33)
[2019-05-08] MEDS: CEFTRIAXONE/SWI 1gm 1 GM/10 ML SYR IVP SCH (08:36)
[2019-05-08] MEDS: ENOXAPARIN 40 MG/0.4 ML SQ SCH (08:36)
[2019-05-08] MEDS: FUROSEMIDE 40 MG/4 ML VIAL IV SCH ×2 (08:36→16:19)
[2019-05-08] MEDS ORDERED: TAMSULOSIN 0.4 MG SR CAP PO SCH (09:00)
[2019-05-08] MEDS ORDERED: predniSONE 5 MG TAB PO SCH (09:00)
[2019-05-08] MEDS ORDERED: ASCORBIC ACID PO SCH (09:00)
[2019-05-08] MEDS ORDERED: ESCITALOPRAM 20 MG TAB PO SCH (09:00)
[2019-05-08] MEDS ORDERED: CLOPIDOGREL 75 MG TABLET PO SCH (09:00)
[2019-05-08] MEDS ORDERED: TOLTERODINE LA 4 MG CAP PO SCH (09:00)
[2019-05-08] MEDS ORDERED: NYSTATIN 100MU/GM CREAM 15GM TOP SCH (09:00)
[2019-05-08] MEDS ORDERED: CRANBERRY PO SCH (09:00)
[2019-05-08] MEDS ORDERED: FAMOTIDINE 20 MG TAB PO SCH (09:00)
[2019-05-08 09:13] VITALS: O2SAT 96
--- NOTE | 2019-05-08 09:25 | P.DS ---
Admission Date: 05/06/19 Discharge Date: 05/08/19 Disposition: TRANSFER TO INPATIENT REHAB Discharge Condition: GOOD Reason for Admission: Bilateral leg swelling - Problems (1) Cellulitis Current Visit: Yes Status: Acute (2) Acute on chronic diastolic (congestive) heart failure Current Visit: Yes Status: Acute (3) UTI (urinary tract infection) Onset Date: 07/26/16 Current Visit: No Status: Acute (4) Chronic obstructive pulmonary disease (COPD) Onset Date: 12/17/17 Current Visit: No Status: Chronic Qualifiers: Brief History of Present Illness: 84-year-old patient with a history of congestive heart failure, COPD, chronic respiratory failure on 3 L of oxygen by nasal cannula at baseline was referred to the emergency department due to increased lower extremity swelling. She also has weeping sores on bilateral lower extremities. Patient also reports increased shortness of breath over the last 1 month. He is on chronic Lasix therapy, 3 times per week but patient stopped taking the Lasix 1 week ago. Previous echocardiogram done last year report normal EF and moderate pulmonary hypertension. Her chest x-ray in the ED report mild vascular congestion. Venous Doppler of the lower extremities done did not show any DVT. She was saturating well on 3 L of oxygen by nasal cannula. She is placed under observation for further management of fluid overload. Hospital Course: The patient was admitted and Monitored under telemetry Started on IV Lasix , echocardiogram , Monitored renal function with IV Lasix Daily weight and Fluid restriction were advised Continued home dose Synthroid. Blood pressure control , Left ankle swelling noted with mild erythema Started on antibiotics for cellulitis and UTI She is Clinically better Swelling is coming down Physical therapy evaluation was done Echocardiogram findings noted with normal EF with possible diastolic dysfunction Renal parameters are better Cellulitis is improving PT recommended by transfer to inpatient rehab Case management consult for possible placement to a IPR Discharge to Rehab Vital Signs/Physical Exam: Temp Pulse Resp BP Pulse Ox 97.3 F 69 16 114/48 L 93 05/08/19 04:00 05/08/19 08:36 05/08/19 04:00 05/08/19 08:36 05/08/19 04:00 General: Alert, In no apparent distress HEENT: Atraumatic, Normocephalic Neck: Supple Respiratory: Clear to auscultation bilaterally, Normal air movement Cardiovascular: No edema, Regular rate/rhythm Capillary refill: <2 Seconds Gastrointestinal: Soft and benign Musculoskeletal: No clubbing, Swelling Integumentary: No rashes Neurological: Normal speech, Normal strength at 5/5 x4 extr Lymphatics: No axilla or inguinal lymphadenopathy External genitalia: Deferred Rectal: Deferred Laboratory Data at Discharge: WBC 8.5 K/uL (4.3-10.9) 05/08/19 03:34 Hgb 10.4 g/dL (12.0-15.0) L 05/08/19 03:34 Hct 32.1 % (36.0-45.0) L 05/08/19 03:34 Plt Count 240 K/uL (152-406) 05/08/19 03:34 PT 11.7 SECONDS (9.5-12.5) 05/06/19 20:05 INR 0.99 05/06/19 20:05 Sodium 137 mmol/L (136-145) 05/08/19 03:51 Potassium 4.1 mmol/L (3.5-5.1) 05/08/19 03:51 BUN 18 mg/dL (7-18) 05/08/19 03:51 Creatinine 0.76 mg/dL (0.55-1.3) 05/08/19 03:51 Glucose 92 mg/dL (74-106) 05/08/19 03:51 Phosphorus 4.8 mg/dL (2.5-4.9) 05/07/19 05:39 Magnesium 2.1 mg/dL (1.8-2.4) 05/07/19 05:39 Total Bilirubin 0.4 mg/dL (0.2-1.0) 05/06/19 20:05 AST 11 U/L (15-37) L 05/06/19 20:05 ALT 14 U/L (12-78) 05/06/19 20:05 Alkaline Phosphatase 72 U/L (45-117) 05/06/19 20:05 Lipase 104 U/L (73-393) 05/06/19 20:05 Home Medications: Clopidogrel Bisulfate [Clopidogrel] 1 tab PO DAILY 06/14/16 Tolterodine Tartrate [Tolterodine Tartrate ER] 4 mg PO DAILY 06/14/16 Albuterol Sulfate [Proair Hfa] 2 puff IH Q6H PRN 12/14/17 Codeine/APAP [Tylenol #3*] 1 tab PO Q6H PRN 12/14/17 Furosemide [Lasix*] 40 mg PO M,W,F 12/14/17 Omeprazole 20 mg PO DAILY PRN 12/14/17 Ropinirole HCl [Requip*] 1 mg PO 1400 12/14/17 Ropinirole HCl [Requip] 3 mg PO BEDTIME 12/14/17 Tamsulosin HCl [Flomax] 0.4 mg PO DAILY 12/14/17 Donepezil HCl 5 mg PO BEDTIME 07/02/18 Escitalopram Oxalate 10 mg PO DAILY 07/02/18 Levothyroxine [Synthroid*] 0.2 mg PO DAILYAC #60 tab 07/05/18 Metoprolol Tartrate [Lopressor*] 50 mg PO BID #60 tab 07/05/18 Calcium Carbonate [Veto-Gest] 2 tab PO Q1H PRN 09/27/18 Cranberry Conc/Ascorbic Acid [Cranberry Concentrate Softgel] 500 mg PO DAILY 03/06 Famotidine 1 tab PO BID 09/27/18 Guaifenesin/Dextromethorphan [Mucinex Dm ER 600-30 mg Tablet] 1 tab PO BID PRN 09/27/18 Naproxen Sodium 2 tab PO BEDTIME PRN 09/27/18 Saliva Stimulant Agents Comb.3 [Biotene Moisturizing Mouth] 1 spray PO PRN PRN 09/27/18 Levothyroxine Sodium 2 tab PO DAILY 05/07/19 Nystatin Cream [Mycostatin 100MU/Gm Cream*] 1 davy TOP DAILY 05/07/19 Nystatin [Nystop] 1 davy TOP BID 05/07/19 Prednisone 1 tab PO DAILY 05/07/19 Temazepam 1 cap PO BEDTIME PRN 05/07/19 Cefuroxime [Ceftin] 500 mg PO BID 5 Days tab 05/08/19 Furosemide [Lasix] 40 mg PO BIDL #60 tab 05/08/19 New Medications: Cefuroxime [Ceftin] 500 mg PO BID 5 Days tab Furosemide [Lasix] 40 mg PO BIDL #60 tab Diet: AHA Activity: Ad elvin Time spent managing pt's care (in minutes): 45
--- NOTE | 2019-05-08 13:51 | P.PN ---
Subjective Date of Service: 05/08/19 Chief Complaint: Bilateral leg swelling Subjective: Improving Review of Systems 10-point ROS is otherwise unremarkable Physical Examination - Vital Signs Temperature: 97.4 F Blood Pressure: 113/44 Pulse: 55 Respirations: 20 Pulse Ox (%): 94 - Physical Exam General: Alert, In no apparent distress, Obese HEENT: Atraumatic, Normocephalic Neck: Supple Respiratory: Clear to auscultation bilaterally, Normal air movement Cardiovascular: Regular rate/rhythm, Edema Capillary refill: <2 Seconds Gastrointestinal: Soft and benign, W/out hepatosplenomegaly Musculoskeletal: No clubbing, Swelling Integumentary: No rashes Neurological: Normal speech, Normal strength at 5/5 x4 extr Lymphatics: No axilla or inguinal lymphadenopathy Urinary: Other (No bladder distention) External genitalia: Deferred Rectal: Deferred Assessment & Plan - Problems (Diagnosis) (1) Cellulitis Current Visit: Yes Status: Acute (2) Acute on chronic diastolic (congestive) heart failure Current Visit: Yes Status: Acute (3) UTI (urinary tract infection) Onset Date: 07/26/16 Current Visit: No Status: Acute (4) Chronic obstructive pulmonary disease (COPD) Onset Date: 12/17/17 Current Visit: No Status: Chronic Plan: Monitor under telemetry Start on IV Lasix Pending echocardiogram Will treat volume overload with IV Lasix. Monitor renal function with IV Lasix Daily weight Fluid restriction Continue home dose Synthroid. Blood pressure control. Will get a urine culture Left ankle swelling noted with mild erythema Start on antibiotics for cellulitis GI/DVT prophylaxis advanced directives full code for now 05/08/2019 Clinically better Swelling is coming down Physical therapy evaluation Echocardiogram findings noted with normal EF with possible diastolic dysfunction Renal parameters are entered Cellulitis is improving PT recommended by transfer to inpatient rehab Case management consult for possible placement to a IPR Qualifiers: Time Spent Managing Pts Care (In Minutes): 42
[2019-05-08] MEDS ORDERED: ROPINIROLE HCL 1 MG TAB PO SCH (14:00)
[2019-05-08 16:22] VITALS: BP 110/60
[2019-05-08 17:30] VITALS: TEMP 97.8
[2019-05-09] MEDS ORDERED: CRANBERRY FRUIT EXTRACT 200 MG CAP PO SCH (09:00)
== END 2019-05-08 17:50 ==
LOC: ER 19:09 → ERHOLD 22:43 → 4TH 23:24
PROVIDERS: ADMIT Internal Medicine; ATTEND Family Medicine
PROC: 0T9B70Z Drainage of Bladder with Drainage Device, Via Natural or Artificial Opening (ICD-10-PCS; principal; 2019-05-06)
DX: L03.116 Cellulitis of left lower limb (principal); L03.115 Cellulitis of right lower limb; N39.0 Urinary tract infection, site not specified; I50.33 Acute on chronic diastolic (congestive) heart failure; I27.81 Cor pulmonale (chronic); J96.10 Chronic respiratory failure, unspecified whether with hypoxia or hypercapnia; K57.90 Diverticulosis of intestine, part unspecified, without perforation or abscess without bleeding; E03.9 Hypothyroidism, unspecified; G47.00 Insomnia, unspecified; G25.81 Restless legs syndrome; K21.9 Gastro-esophageal reflux disease without esophagitis; G62.9 Polyneuropathy, unspecified; J44.9 Chronic obstructive pulmonary disease, unspecified; I10 Essential (primary) hypertension; F03.90 Unspecified dementia, unspecified severity, without behavioral disturbance, psychotic disturbance, mood disturbance, and anxiety
CPT/HCPCS: 36415; 51702; 71045; 80048; 80076; 81003; 83690; 83735; 83880; 84100; 84145; 84443; 84484; 85025; 85610; 87086; 87088; 93005; 93306; 93970; 94640; 94760; 96365; 96375; 97112; 97116; 97161; 97530; 99285; G0378; J0690; J0696; J1650; J1940; J2270; J2405; J7512

== ENCOUNTER 2019-05-08 14:54 | Inpatient (IN) | payer OTHER ==
--- NOTE | 2019-05-08 16:33 | R.PREADM ---
SCREENING DATE AND TIME 05/08/2019 15:22 (MOTION PICTURE EQUIPMENT MACHINIST) ANTICIPATED REHAB ADMISSION DATE 05/10/2019 REFERRING FACILITY [facility] REFERRAL DATE AND TIME 05/08/2019 15:27 (MOTION PICTURE EQUIPMENT MACHINIST) REFERRAL OFFICE PHONE [phone] REFERRAL ROOM# [id number] ACUTE ADMIT DATE 05/06/2019 Previous Rehabilitation(s): No. ACUTE PATTERN MARKER/DC DRIVEWAY ATTENDANT Gloria Velasquez REFERRING PHYSICIAN [facility] CLINICAL LIAISON Romy Thompson PHYSICIAN REVIEWER Dr. Austin Vasquez M.D. MR# [id number] NAME SHAKILA ZACARIAS ADDRESS [id number] [facility] [id number] DATE OF 1935 AGE 84 SSN# [id number] GENDER female MARITAL STATUS RACE white ADMIT FROM 02 - [facility] PRE-HOSPITAL LIVING SETTING 01 - Home (private home/apt. board/care, assisted living, senior care, transitional living) HOME TYPE AND DETAILS Type of home: Independent living # of steps to enter the residence: 0 # of levels in the residence: 1 # of steps within the residence: 0 PRE-HOSPITAL LIVING WITH Attendant FAMILY SUPPORT Yes PRIMARY FAMILY CONTACT NAME Florencio Zacarias PRIMARY FAMILY CONTACT PHONE PHONE PRIMARY FAMILY CONTACT ON ADM.? no IS PRIMARY FAMILY CONTACT AUTH. REP.? no 1ST EMERGENCY CONTACT Florencio Zacarias 1ST CONTACT PHONE PHONE 1ST CONTACT ON ADM. no IS 1ST CONTACT AUTH. REP.? no PHONE 2ND CONTACT ON ADM.? no PATIENT EMPLOYMENT STATUS Retired (for age) PATIENT EMPLOYER No Employer PAYOR INFORMATION: 1ST PAYOR NAME MEDICARE 1ST PAYOR PHONE [phone] 1ST PAYOR INJURY/ILLNESS DUE TO ACCIDENT? No ANOTHER REPUBLICAN RESPONSIBLE? No PRIMARY REHAB/ACUTE DIAGNOSIS: CHF Exacerbation ONSET DATE 05/06/2019 REHAB IMPAIRMENT CATEGORY (HUBER): 20 Miscellaneous (Misc) does NOT meet 60% rule PRIMARY DIAGNOSIS-RELATED SURGERIES: No surgeries related to the primary diagnosis were performed. COMORBID REHAB/ACUTE DIAGNOSES: - N/A Hx of Diverticulosis Hypothyroidism Insomnia Hx of TIA x 2 Restless Leg Syndrome GERD Neuropathy COPD Hypertension Dementia Former tobacco use INTERVENTIONS: - GERD Altered diet Elevation of head of bed Medications Nausea/vomiting Nighttime food/fluid restrictions Nutrition - Neuropathy Education Medications Safety - COPD 02 sats Medications Nebulizers Oxygen Resp. therapy X-rays - Hypertension Fluid management Medications VS RISK FOR COMPLICATIONS: - GERD Alteration in sleep Aspiration Dehydration Malnutrition Pain - Neuropathy Falls Sensory Deficits Skin breakdown - COPD Acute Resp failure Pneumonia Resp. Arrest - Hypertension CVA Hypotension KS TIA SUMMARY OF ACUTE HOSPITALIZATION: Pt. is a 84 yo Right-handed white female. On 05/06/2019 she was admitted to [facility] with diagnosis CHF Exacerbation. Her impairment category is Debility 16 - Debility (16). Pre-morbidly, Pt. was independent/mod-I in Locomotion, Balance, Safety Awareness, Social Cognition, T ransfers Control, Self-Care, Sphincter Control, Communication, and Endurance; and she had good Locomo tion, Safety Awareness, Transfers Control, Balance, Social Cognition, Sphincter Control, Self-Care, a nd Communication. Currently, she has deficits of Locomotion, Balance, Transfers Control, Self-Care, and Endurance. Pt. is now referred to [facility] for acute in-patient rehabilitation in order to maximize patient's functional independence in activities of daily living, strength, ROM, and mobi lity. Patient has realistic goal of being discharged at assistance level 6-Julianna to reside at Home with Att endant. Shakila Zacarias is an 84 year old female that lives at [facility]. She ambulates within her room using a rollator. On 05/06/2019, patient was brought to ER due to increased lower extremity swelling, increase shortness of breath and has weeping sores on bilateral lower extremities and was admitted to [facility]. She is now medically stable but in need of 24-hour nursing, doctor supervision and oversite participate in 3hours of therapy a day/15 hours per week and receive care with an intensive interdisciplinary approach. PAST MEDICAL HISTORY COPD Dementia Former tobacco use GERD Hx of Diverticulosis Hx of TIA x 2 Hypertension Hypothyroidism Insomnia Neuropathy Restless Leg Syndrome PAST SURGICAL HISTORY: Cholecystectomy Left knee replacement Rotator cuff repair Ankle surgery MEDICATION ALLERGIES: No Known Drug Allergies (NKDA) ENVIRONMENTAL ALLERGIES: None Known - Substance Allergies None Known - Other Allergies None Known CODE STATUS: Full code WEIGHT/HEIGHT/BMI: WEIGHT 256 lbs HEIGHT 5' 3" BMI 45.3 DIET: - Diet Type Regular - Diet - Solid Texture Regular - Diet - Liquid Texture Regular - Tube Feed N/A REVIEW OF SYSTEMS: - Gen Alert and awake Lying in bed No apparent distress Oriented to: person, time, and place - Vital Signs Temperature: 97.4 F SBP/DBP: 113/44 Pulse: 55 Resp: 20 Vital signs stable, afebrile - CVS RRR VITAL SIGNS Temperature: 97.4 F SBP/DBP: 113/44 Pulse: 55 Resp: 20 Vital signs stable, afebrile MEDICATIONS/TREATMENT: Other- See attached MAR (Medication Administration Record). CURRENT SPHINCTER CONTROL: Pre-hospital bladder status: continent # of bladder accidents in the last 7 days prior to screenin Pre-hospital bowel status: continent # of bowel accidents in the last 7 days prior to screenin Last Bowel Movement Date: CURRENT LOCOMOTION STATUS: distance walked 100 feet DETAILED CURRENT FUNCTIONAL STATUS: - Bladder accident frequency: Ind - No accidents in the past 7 days - Bowel accident frequency: Ind - No accidents in the past 7 days - Walking score based on distance walked: 0(N/A) score based on distance walked: 2(5149ft) - Wheelchair score based on distance traveled: 0(N/A) QI SCORES: - Self-Care A. Eating 04-Supervision or touching assistance B. Oral hygiene 04-Supervision or touching assistance C. Toileting hygiene 04-Supervision or touching assistance E. Shower/bathe self 04-Supervision or touching assistance F. Upper body dressing 04-Supervision or touching assistance G. Lower body dressing 03-Partial/moderate assistance H. Putting on/taking off footwear 03-Partial/moderate assistance - Mobility A. Roll left and right 04-Supervision or touching assistance B. Sit to lying 04-Supervision or touching assistance C. Lying to sitting on side of bed 04-Supervision or touching assistance D. Sit to stand 04-Supervision or touching assistance E. Chair/[id number] transfer 04-Supervision or touching assistance F. Toilet transfer 03-Partial/moderate assistance G. Car transfer 10-Not attempted due to environmental limitations I. Walk 10 feet 03-Partial/moderate assistance J. Walk 50 feet with two turns 88-Not attempted due to medical condition or safety concerns K. Walk 150 feet 03-Partial/moderate assistance L. Walking 10 feet on uneven surfaces 88-Not attempted due to medical condition or safety concerns M. 1 step (curb) 88-Not attempted due to medical condition or safety concerns N. 4 steps 88-Not attempted due to medical condition or safety concerns O. 12 steps 88-Not attempted due to medical condition or safety concerns P. Picking up object 88-Not attempted due to medical condition or safety concerns R. Wheel 50 feet with two turns 88-Not attempted due to medical condition or safety concerns S. Wheel 150 feet 88-Not attempted due to medical condition or safety concerns - Bladder and Bowel Bladder continence 0-Always continent Bowel continence 0-Always continent - Endurance Fair - Balance Fair - Safety Awareness Fair CURRENT FUNC. DEFICITS: Self-Care, Mobility, Endurance, Balance, and Safety Awareness CURRENT / PREVIOUS ASSISTIVE DEVICES: 3-in-1 Commode BSC Dentures Glasses Hearing Aid(s) Hospital Bed Oxygen Rolling Walker Shower Chair Tub Bench Wheelchair CURRENT USE ASSISTIVE DEVICES: SCDs THERAPY NOTES FROM ACUTE CARE: Attached. SPECIAL NEEDS: - Safety Concerns Skin breakdown precautions needed due to skin breakdown risk PATIENT NEEDS ACTIVE AND ONGOING THERAPEUTIC INTERVENTION OF MULTIPLE THERAPY DISCIPLINES, INCLUDING: - Dietary and Nutrition Adequate Nutrition. Nutritional Education. Nutritional Supplements. PATIENT NEEDS CLOSE MEDICAL SUPERVISION BY A REHABILITATION PHYSICIAN FOR: Coordination of Treatment Team Medical and Co-Morbidity Management Sleep Problems PATIENT REQUIRES 24X7 REHAB NURSING FOR MEDICAL AND FUNCTIONAL MGT. OF THE FOLLOWING DEFICITS: Disease Management Medication Management Patient/Family Education Providing Safe Environment PATIENT REQUIRES INTENSIVE, COORDINATED INTERDISCIPLINARY APPROACH TO REHAB: Arranging Home Equipment/Services Discharge Planning Family Intervention/Training Evidence Technician/Case Management PATIENT REHAB POTENTIAL: Ariane ZACARIAS is able and expected to receive 3 hours of individualized therapy daily on at least 5 of ever y 7 days Ariane ZACARIAS's prognosis for significant practical improvement within a reasonable period of time appears Good Expected level of measurable improvement will be of a practical value to Ariane ZACARIAS's functional capacit y or adaptations to impairments Has a viable Discharge Plan Medically appropriate; condition is sufficiently stable to participate in intensive rehab program DISCHARGE PLAN: - Estimated Length of Stay (days) 13. - Consensus on plan Discharge plan has been discussed with primary caregiver. Patient/Family is in agreement with the paramjit n. Primary caregiver is in agreement with the plan. - Patient/Family Goals Return home with assistance. - Planned Living Setting Upon Discharge Home, to live with Attendant. Transitional Living. Primary caregiver: Attendant. RECOMMENDED CARE LEVEL: IRF RECOMMENDATION DETAILS: Recommended Admission to Comprehensive Rehabilitation Program to Increase Functional Bell SCREENER'S COMPLETENESS CONFIRMATION: - Screening Confirmation The patient data collection on this preadmission screening form is finished PHYSICIANS REVIEW AND ADMISSION DETERMINATION Admit - Based on my review of the Pre-Admission Screening results, in my medical judgment and experie nce, I concur with the findings and recommend admission to [facility], as this patient requires an IRF level of care. SIGNATURE PANEL: Clinical Liaison - [electronically] signed by Romy Thompson on 05/08/2019 at 15:51 (MOTION PICTURE EQUIPMENT MACHINIST) Physician Reviewer - [electronically] signed by Dr. Austin Vasquez M.D. on 05/08/2019 at 16:32 (MOTION PICTURE EQUIPMENT MACHINIST )
[2019-05-08] MEDS ORDERED: ONDANSETRON 4 MG/2 ML VIAL IV PRN (18:52)
[2019-05-08] MEDS ORDERED: CALCIUM CARBONATE CHEW 500MG TAB PO PRN (18:52)
[2019-05-08] MEDS ORDERED: BIOTENE MOISTURIZING MOUTH PO PRN (18:52)
[2019-05-08] MEDS ORDERED: PANTOPRAZOLE 40MG TABLET PO PRN (18:52)
[2019-05-08] MEDS ORDERED: IPRATROPIUM BROM 0.5MG/2.5ML NEB SCH (20:00)
[2019-05-08] MEDS ORDERED: ALBUTEROL 2.5 MG/3 ML NEB SOL NEB SCH (20:00)
[2019-05-08] MEDS: METOPROLOL TAR 50 MG TAB PO SCH (20:45)
[2019-05-08] MEDS: DONEPEZIL HCL 5 MG TAB PO SCH (20:46)
[2019-05-08] MEDS: TEMAZEPAM 15 MG CAP PO PRN (20:46)
[2019-05-08] MEDS: CEFUROXIME 250 MG TAB PO SCH (20:46)
[2019-05-08] MEDS: ROPINIROLE HCL 1 MG TAB PO SCH (20:47)
[2019-05-08] MEDS ORDERED: MELATONIN 5 MG TABLET PO SCH (21:00)
[2019-05-08] MEDS ORDERED: ONDANSETRON 4 MG (ODT) TAB PO PRN (21:48)
[2019-05-08] MEDS ORDERED: ALBUTEROL 2.5 MG/3 ML NEB SOL NEB PRN (23:49)
[2019-05-08] MEDS ORDERED: IPRATROPIUM BROM 0.5MG/2.5ML NEB PRN (23:50)
[2019-05-09 06:12] LABS: Absolute Lymphocytes (CBC) 1.9 K/uL (0.7-4.9); Basophils % 0.9 % (0-1.3); Hematocrit 33.6 % (36.0-45.0); Lymphocytes % 26.5 % (15.3-44.8); MPV 7.6 fL (7.6-11.3); RBC Red Blood Cell Count 3.38 M/uL (3.86-4.86)
[2019-05-09 06:29] LABS: Albumin 2.8 g/dL (3.4-5.0); Potassium 3.8 mmol/L (3.5-5.1); Prealbumin 13.7 mg/dL (20-40)
[2019-05-09] MEDS: LEVOTHYROXINE SOD 0.1 MG TAB PO SCH (06:30)
[2019-05-09] MEDS ORDERED: NYSTATIN 100MU/GM CREAM 15GM TOP SCH (08:00)
[2019-05-09] MEDS: CLOPIDOGREL 75 MG TABLET PO SCH (08:13)
[2019-05-09] MEDS: CEFUROXIME 250 MG TAB PO SCH ×2 (08:13→19:43)
[2019-05-09] MEDS: ESCITALOPRAM 20 MG TAB PO SCH (08:13)
[2019-05-09] MEDS: TOLTERODINE LA 4 MG CAP PO SCH (08:13)
[2019-05-09] MEDS: predniSONE 5 MG TAB PO SCH (08:14)
[2019-05-09] MEDS: CRANBERRY FRUIT EXTRACT 200 MG CAP PO SCH (08:14)
[2019-05-09] MEDS: FUROSEMIDE 40 MG TABLET PO SCH ×2 (08:14→17:04)
[2019-05-09] MEDS: FAMOTIDINE 20 MG TAB PO SCH (08:14)
[2019-05-09] MEDS: NYSTATIN OINT 15 GM TUBE TOP SCH (08:15)
[2019-05-09] MEDS: TAMSULOSIN 0.4 MG SR CAP PO SCH (08:15)
[2019-05-09] MEDS: METOPROLOL TAR 50 MG TAB PO SCH ×2 (08:15→19:43)
[2019-05-09] MEDS: CODEINE 30MG/APAP 300MG TAB PO PRN (08:16)
[2019-05-09] MEDS: ENOXAPARIN 40 MG/0.4 ML SQ SCH (08:25)
[2019-05-09] MEDS: PROMOD 30 ML DOSE PO SCH ×2 (08:55→19:44)
[2019-05-09] MEDS ORDERED: FUROSEMIDE 40 MG/4 ML VIAL IV SCH (09:00)
--- NOTE | 2019-05-09 09:49 | P.RH.PN ---
Estimated Length of Stay: 14 Expected Discharge Date: 05/20/19 Discharge Disposition Plan: Home Family Support: Yes Fdc Goal: Mobility, Transfers, Self Care Vital Signs: Last Vital Signs Temp 97 F 05/09/19 06:54 Pulse 59 05/09/19 08:15 Resp 17 05/09/19 09:16 BP 121/50 L 05/09/19 08:15 Pulse Ox 94 05/09/19 09:16 Laboratory: Laboratory Last Values WBC 7.3 K/uL (4.3-10.9) D 05/09/19 05:52 RBC 3.38 M/uL (3.86-4.86) L 05/09/19 05:52 Hgb 11.2 g/dL (12.0-15.0) L 05/09/19 05:52 Hct 33.6 % (36.0-45.0) L 05/09/19 05:52 MCV 99.2 fL (80-100) 05/09/19 05:52 MCH 33.1 pg (27.0-35.0) 05/09/19 05:52 MCHC 33.4 g/dL (32.0-36.0) 05/09/19 05:52 RDW 15.1 % (12.1-15.2) 05/09/19 05:52 Plt Count 284 K/uL (152-406) 05/09/19 05:52 MPV 7.6 fL (7.6-11.3) 05/09/19 05:52 Neutrophils % 56.0 % (41.7-73.7) 05/09/19 05:52 Lymphocytes % 26.5 % (15.3-44.8) 05/09/19 05:52 Monocytes % 12.3 % (3.3-12.3) 05/09/19 05:52 Eosinophils % 4.3 % (0-4.4) 05/09/19 05:52 Basophils % 0.9 % (0-1.3) 05/09/19 05:52 Absolute Neutrophils 4.1 K/uL (1.8-8.0) 05/09/19 05:52 Absolute Lymphocytes 1.9 K/uL (0.7-4.9) 05/09/19 05:52 Absolute Monocytes 0.9 K/uL (0.1-1.3) 05/09/19 05:52 Absolute Eosinophils 0.3 K/uL (0-0.5) 05/09/19 05:52 Absolute Basophils 0.1 K/uL (0-0.5) 05/09/19 05:52 Sodium 135 mmol/L (136-145) L 05/09/19 05:52 Potassium 3.8 mmol/L (3.5-5.1) 05/09/19 05:52 Chloride 95 mmol/L (98-107) L 05/09/19 05:52 Carbon Dioxide 39 mmol/L (21-32) H 05/09/19 05:52 BUN 17 mg/dL (7-18) 05/09/19 05:52 Creatinine 0.90 mg/dL (0.55-1.3) 05/09/19 05:52 Estimated GFR 60 mL/min (=/>90) L 05/09/19 05:52 Glucose 91 mg/dL (74-106) 05/09/19 05:52 Calcium 8.7 mg/dL (8.5-10.1) 05/09/19 05:52 Magnesium 2.0 mg/dL (1.8-2.4) 05/09/19 05:52 Albumin 2.8 g/dL (3.4-5.0) L 05/09/19 05:52 Prealbumin 13.7 mg/dL (20-40) L 05/09/19 05:52 Weight: 245 lb 9.6 oz Wound Present: Yes Closed Surgical Incision Present: No Physician Update: She is standby with transfers and contact guard with ambulation using a walker 300'. Labs reviewed and are stable. Summary: Patient's care plan and halfway goals have been reviewed and revised as necessary. Please see the Rehabilitation Signature page for all necessary signatures.
--- NOTE | 2019-05-09 13:31 | R.HP ---
FACILITY: [facility] ENCOUNTER DATE AND TIME: 05/09/2019 13:25 (OCCASIONAL CAREGIVER) MR#: [id number] NAME SHAKILA WALKER ADDRESS: [address] [place] [address] CITY: [place] ZIP [id number] PHONE: DATE OF : 1935 AGE: 84 SSN# [id number] GENDER: Female DEXTERITY Right-handed MARITAL STATUS RACE White PRE-HOSPITAL LIVING SETTING 01 - Home (private home/apt. board/care, assisted living, care home, transitional living) PRE-HOSPITAL LIVING WITH Attendant ENCOUNTER PHYSICIAN: Dr. Austin Vasquez M.D. REFERRING DOCTOR: DIXIE MONTOYA DATE OF ADMISSION: 05/08/2019 18:17 (OCCASIONAL CAREGIVER) REFERRING FACILITY [facility] HOME TYPE AND DETAILS: Type of home: Independent living # of steps to enter the residence: 0 # of levels in the residence: 1 # of steps within the residence: 0 ADMISSION DIAGNOSIS: CHF Exacerbation ONSET DATE: 05/06/2019 PRIMARY DIAGNOSIS-RELATED SURGERIES: No surgeries related to the primary diagnosis were performed. SECONDARY/COMORBID DIAGNOSES (TIERED): - N/A Hx of Diverticulosis Hypothyroidism Insomnia Hx of TIA x 2 Restless Leg Syndrome GERD Neuropathy COPD Hypertension Dementia Former tobacco use HISTORY OF PRESENT ILLNESS (HPI): Pt. is a 84 yo Right-handed white female. On 05/06/2019 she was admitted to [facility] with diagnosis CHF Exacerbation. Her impairment category is Debility 16 - Debility (16). Pre-morbidly, Pt. was independent/mod-I in Locomotion, Balance, Safety Awareness, Social Cognition, T ransfers Control, Self-Care, Sphincter Control, Communication, and Endurance; and she had good Locomo tion, Safety Awareness, Transfers Control, Balance, Social Cognition, Sphincter Control, Self-Care, a nd Communication. Currently, she has deficits of Locomotion, Balance, Transfers Control, Self-Care, and Endurance. Pt. is now referred to [facility] for acute in-patient rehabilitation in order to maximize patient's functional independence in activities of daily living, strength, ROM, and mobi lity. Patient has realistic goal of being discharged at assistance level 6-Julianna to reside at Home with Att endant. Shakila Walker is an 84 year old female that lives at [facility]. She ambulates within her room using a rollator. On 05/06/2019, patient was brought to ER due to increased lower extremity swelling, increase shortness of breath and has weeping sores on bilateral lower extremities and was admitted to [facility]. She is now medically stable but in need of 24-hour nursing, doctor supervision and oversite participate in 3hours of therapy a day/15 hours per week and receive care with an intensive interdisciplinary approach. MEDICATION ALLERGIES: No Known Drug Allergies (NKDA) ENVIRONMENTAL ALLERGIES: None Known - Substance Allergies None Known - Other Allergies None Known PAST MEDICAL HISTORY: COPD Dementia Former tobacco use GERD Hx of Diverticulosis Hx of TIA x 2 Hypertension Hypothyroidism Insomnia Neuropathy Restless Leg Syndrome PAST SURGICAL HISTORY: Cholecystectomy Left knee replacement Rotator cuff repair Ankle surgery FAMILY HISTORY: Family history is not contributory. REVIEW OF SYSTEMS: - Gen No Chills Fatigue No Fever - Eyes No Double Vision No itchiness - ENMT No Difficulty Swallowing - CVS No Chest Discomfort No Chest Pain Fatigue No Weight Gain - Resp No Cough Shortness of Breath - GI Continent No Abdominal Pain No Constipation No Diarrhea - Continent No Kidney Pain No Painful Urination No Urinary Urgency - MSK No Joint Pain Muscle Cramps Stiffness - Skin No Itching No Rash No Suspicious Lesions - Neuro Coordination Difficulty No Difficulty with Concentration No Memory Loss No Seizures Weakness - Psych No Anxiety No Depression No HIV Exposure No Persistent Infections No Seasonal Allergies - Endo No Cold/Heat Intolerance No Excessive Hunger No Excessive Thirst No Excessive Urination PHYSICAL EXAM - Gen Alert and awake Lying in bed No apparent distress Oriented to: person, time, and place - Skin No breakdown Normacephalic - Eyes No abnormalities - ENMT No abnormalities - Neck No abnormalities - CVS RRR - Chest mild decrease in breath sounds - Resp No wheezing - Abd + bowel sounds - GI Non distended Deferred - No abnormalities - Ext Mild bilateral lower extremity edema. - MSK 4+/5 weakness in both lower extremities. - Neuro 4/5 strength left lower extremity. - Psych No abnormalities VITAL SIGNS Temperature: 97.4 F SBP/DBP: 113/44 Pulse: 55 Resp: 20 NURSING: - Shower allowing shower ACTIVITIES OOB only with supervision QI SCORES: - Self-Care A. Eating 04-Supervision or touching assistance B. Oral hygiene 04-Supervision or touching assistance C. Toileting hygiene 04-Supervision or touching assistance E. Shower/bathe self 04-Supervision or touching assistance F. Upper body dressing 04-Supervision or touching assistance G. Lower body dressing 03-Partial/moderate assistance H. Putting on/taking off footwear 03-Partial/moderate assistance - Mobility A. Roll left and right 04-Supervision or touching assistance B. Sit to lying 04-Supervision or touching assistance C. Lying to sitting on side of bed 04-Supervision or touching assistance D. Sit to stand 04-Supervision or touching assistance E. Chair/ebk-wi-akuyv transfer 04-Supervision or touching assistance F. Toilet transfer 03-Partial/moderate assistance G. Car transfer 10-Not attempted due to environmental limitations I. Walk 10 feet 03-Partial/moderate assistance J. Walk 50 feet with two turns 88-Not attempted due to medical condition or safety concerns K. Walk 150 feet 03-Partial/moderate assistance L. Walking 10 feet on uneven surfaces 88-Not attempted due to medical condition or safety concerns M. 1 step (curb) 88-Not attempted due to medical condition or safety concerns N. 4 steps 88-Not attempted due to medical condition or safety concerns O. 12 steps 88-Not attempted due to medical condition or safety concerns P. Picking up object 88-Not attempted due to medical condition or safety concerns R. Wheel 50 feet with two turns 88-Not attempted due to medical condition or safety concerns S. Wheel 150 feet 88-Not attempted due to medical condition or safety concerns - Bladder and Bowel Bladder continence 0-Always continent Bowel continence 0-Always continent - Endurance Fair - Balance Fair - Safety Awareness Fair CURRENT [facility]. DEFICITS: Self-Care, Mobility, Endurance, Balance, and Safety Awareness MEDICATIONS: - Other See attached MAR (Medication Administration Record) ASSESSMENT: Pt. is a 84 yo Right-handed white female.On 05/06/2019 she was admitted to [facility] with diagnosis CHF Exacerbation.Her impairment category is Debility 16 - Debility (16).Pre-mo rbidly, Pt. was independent/mod-I in Locomotion, Balance, Safety Awareness, Social Cognition, Transfe rs Control, Self-Care, Sphincter Control, Communication, and Endurance; and she had good Locomotion, Safety Awareness, Transfers Control, Balance, Social Cognition, Sphincter Control, Self-Care, and Com munication.Currently, she has deficits of Locomotion, Balance, Transfers Control, Self-Care, and Endu jewels.Pt. is now referred to [facility] for acute in-patient rehabilitation in order to maximize patient's functional independence in activities of daily living, strength, ROM, an d mobility.- Rehab Goal Patient has realistic goal of being discharged at assistance level 6-Julianna to reside at Home with Att endmayra. Shakila Walker is an 84 year old female that lives at [facility]. She ambulates within her room using a rollator. On 05/06/2019, patient was brought to ER due to increased lower extremity swelling, increase shortness of breath and has weeping sores on bilateral lower extremities and was admitted to [facility]. She is now medically stable but in need of 24-hour nursing, doctor supervision and oversite participate in 3hours of therapy a day/15 hours per week and receive care with an intensive interdisciplinary approach.REHAB PLAN: - Physical Therapy Gait dysfunction - to improve, our physical therapists will perform initial evaluation of pt's status upon admission and devise an individualized program for Gait Training, and Wheel Chair mobility Inability to transfer - to improve, our physical therapists will perform initial evaluation of pt's s tatus upon admission and devise an individualized program for Bed mobility Need for home safety evaluation - to improve, our physical therapists will perform initial evaluation of pt's status upon admission and devise an individualized program for Home Evaluation Need in caregiver upon discharge - to improve, our physical therapists will perform initial evaluatio n of pt's status upon admission and devise an individualized program for Caregiver Training New precaution - to improve, our physical therapists will perform initial evaluation of pt's status u milan admission and devise an individualized program for Patient precaution education Edema - to improve, our physical therapists will perform initial evaluation of pt's status upon admi ssion and devise an individualized program for Elevation Training, and Lymphedema Therapy Poor balance - to improve, our physical therapists will perform initial evaluation of pt's status upo n admission and devise an individualized program for Balance Training Poor endurance - to improve, our physical therapists will perform initial evaluation of pt's status u milan admission and devise an individualized program for Endurance Training Weakness - to improve, our physical therapists will perform initial evaluation of pt's status upon ad mission and devise an individualized program for Aquatic Therapy, Neuromuscular Reeducation, and Stre ngthening Achieving independence - to improve, our physical therapists will perform initial evaluation of pt's status upon admission and devise an individualized program for Community Reintegration Activities - Occupational Therapy ADL deficits - to improve, our occupation therapists will perform initial evaluation of pt's status u milan admission and devise an individualized program for Bathing, Bed mobility, Community Reintegration , Cooking, Dressing, Eating, Fine Motor Skills, Grooming, Homemaking, Kitchen Mobility, Laundry, Laura ent Education, Safety Awareness, Splinting - Positioning, Transfers(Toilet, Tub, Shower), and Wheel C hair Management Need for property caretaker - to improve, our occupation therapists will perform initial evaluation of pt's s tatus upon admission and devise an individualized program for Caregiver Training Weakness - to improve, our occupation therapists will perform initial evaluation of pt's status upon admission and devise an individualized program for Aquatic Therapy, Balance, Endurance, UE ROM, and U E strengthening MEDICAL PLAN: - Diet Type Start Regular - Diet - Liquid Texture Start Regular - Tube Feed Start N/A - Other See attached MAR (Medication Administration Record) - Diet - Solid Texture Regular - Shower shower DISCHARGE PLAN: - Estimated Length of Stay (days) 13. - Consensus on plan Discharge plan has been discussed with primary caregiver. Patient/Family is in agreement with the paarmjit n. Primary caregiver is in agreement with the plan. - Patient/Family Goals Return home with assistance. - Planned Living Setting Upon Discharge Home, to live with Attendant. Transitional Living. Primary caregiver: Attendant. SIGNATURE PANEL: (OCCASIONAL CAREGIVER)
--- NOTE | 2019-05-09 13:32 | PAPE ---
PATIENT: [facility] MR# [id number] REFERRING DOCTOR DIXIE MONTOYA EVALUATION DATE AND TIME 05/09/2019 13:30 (NAVIGATING OFFICER) NAME SHAKILA WALKER DATE OF 1935 AGE 84 PHONE SSN# [id number] GENDER female EVALUATING PHYSICIAN Dr. Austin Vasquez M.D. ADMISSION DIAGNOSIS: CHF Exacerbation ONSET DATE 05/06/2019 SECONDARY/COMORBID DIAGNOSES TIERED: - N/A Hx of Diverticulosis Hypothyroidism Insomnia Hx of TIA x 2 Restless Leg Syndrome GERD Neuropathy COPD Hypertension Dementia Former tobacco use POST-ADMISSION FUNCTIONAL/MEDICAL STATUS: - Bladder Same accident frequency: Ind - No accidents in the past 7 days - Bowel Same accident frequency: Ind - No accidents in the past 7 days - Walking Same score based on distance walked: 0(N/A) Same score based on distance walked: 2(5149ft) - Wheelchair Same score based on distance traveled: 0(N/A) STATUS CHANGE EVALUATION: No change in Functional or Medical Status is identified compared with Pre-Admission screening. PATIENT NEEDS CLOSE MEDICAL SUPERVISION BY A REHABILITATION PHYSICIAN FOR: Coordination of Treatment Team Medical and Co-Morbidity Management Sleep Problems PATIENT REQUIRES 24X7 REHAB NURSING FOR MEDICAL AND FUNCTIONAL MGT. OF THE FOLLOWING DEFICITS: Disease Management Medication Management Patient/Family Education Providing Safe Environment PATIENT REQUIRES INTENSIVE, COORDINATED INTERDISCIPLINARY APPROACH TO REHAB: Arranging Home Equipment/Services Discharge Planning Family Intervention/Training Food And Nutrition Supervisor/Case Management LIST OF IDENTIFIED AND POTENTIAL PROBLEMS: Alteration in Sleep Alteration in leisure activities Bladder, Incontinence Blood Pressure, Hypertension/hypotension Issues Bowel, Incontinence Infection, Actual or Potential Mobility Impaired Pain, Alteration in Comfort Self Care Deficit Skin Integrity, Actual or Potential Urinary Tract Infection (UTI), Actual or Potential RISK FOR COMPLICATIONS - GERD Alteration in sleep. Aspiration. Dehydration. Malnutrition. Pain. - Neuropathy Falls. Sensory Deficits. Skin breakdown. - COPD Acute Resp failure. Pneumonia. Resp. Arrest. - Hypertension CVA. Hypotension. RI. TIA. INTERVENTIONS - GERD Altered diet. Elevation of head of bed. Medications. Nausea/vomiting. Nighttime food/fluid restrictio ns. Nutrition. - Neuropathy Education. Medications. Safety. - COPD 02 sats. Medications. Nebulizers. Oxygen. Resp. therapy. X-rays. - Hypertension PATIENT COULD BE AT RISK FOR COMPLICATIONS FROM ADVERSE MEDICAL CONDITIONS DUE TO HIS/HER COMORBIDITI ES AND THE RIGORS OF THE INTENSIVE REHABILLITATION PROGRAM. METHODS OR INTERVENTIONS TO AVOID COMPLIC ATIONS INCLUDE: - Infection Clinical staff to assess and manage the signs and symptoms of infection including fever, redness, war mth, etc. - Urinary Tract Infection - Falls Patient will be evaluated for Fall Precautions and will be placed on Fall Precautions as indicated pe r protocol. - Skin Breakdown Nursing will assess skin daily using assessment tool and will place on Skin Breakdown Precautions as indicated per protocol. - Pain Clinical staff may employ non-medication methods such as massage, distraction, decrease stimulus, etc . as needed. Clinical staff will assess patient's pain level every shift per protocol to assess and e nsure pain management effectiveness. Medications will be given and the pain level re-assessed. PRELIMINARY PLAN OF CARE: - Physical Therapy Patient needs Physical Therapy for a daily minimum of 1.5 hours at least 5 out of 7 days, to improve: Mobility, Strengthening, Transfers, Stretching, ROM, Endurance, Ability to manage stairs, Gait, and Balance. - Speech Therapy Patient needs Speech Therapy for a daily minimum of 0.5 hours at least 5 out of 7 days, to improve: S wallowing, Cognition, Language Skills, and Compensatory Strategies. - Rehabilitation Nursing Patient requires 24x7 Rehabilitation Nursing for: Pain Issues, Identifying and preventing risk factor s, Monitoring and reporting current medical conditions, Assisting with ambulation and transfer, Beltran ting with all ADL-s, Teaching patients about disease process and medications, Family teaching, Provid ing safe environment, Bowel and Bladder Issues, Skin Integrity, and Medication Management. Patient needs Food And Nutrition Supervisor and/or Case Management for: Discharge Planning, Arranging Home Equipmen t or Services, and Family Interventions. - Dietary and Nutrition Services Patient needs Dietary and Nutrition Services for: Adequate Nutrition, Nutritional Supplements, and Nu tritional Education. - Occupational Therapy Patient needs Occupational Therapy for a daily minimum of 1.5 hours at least 5 out of 7 days, to impr ove Activities of Daily Living, including: Eating, Grooming, Bathing, Dressing, Toileting, Toilet Tra nsfers, Community Reintegration, Higher functional activities, Adaptive Equipment, Splinting, Househo ld Tasks, and Other activities as determined. QI SCORES: - Self-Care A. Eating 04-Supervision or touching assistance B. Oral hygiene 04-Supervision or touching assistance C. Toileting hygiene 04-Supervision or touching assistance E. Shower/bathe self 04-Supervision or touching assistance F. Upper body dressing 04-Supervision or touching assistance G. Lower body dressing 03-Partial/moderate assistance H. Putting on/taking off footwear 03-Partial/moderate assistance - Mobility A. Roll left and right 04-Supervision or touching assistance B. Sit to lying 04-Supervision or touching assistance C. Lying to sitting on side of bed 04-Supervision or touching assistance D. Sit to stand 04-Supervision or touching assistance E. Chair/ekr-wh-zmzcx transfer 04-Supervision or touching assistance F. Toilet transfer 03-Partial/moderate assistance G. Car transfer 10-Not attempted due to environmental limitations I. Walk 10 feet 03-Partial/moderate assistance J. Walk 50 feet with two turns 88-Not attempted due to medical condition or safety concerns K. Walk 150 feet 03-Partial/moderate assistance L. Walking 10 feet on uneven surfaces 88-Not attempted due to medical condition or safety concerns M. 1 step (curb) 88-Not attempted due to medical condition or safety concerns N. 4 steps 88-Not attempted due to medical condition or safety concerns O. 12 steps 88-Not attempted due to medical condition or safety concerns P. Picking up object 88-Not attempted due to medical condition or safety concerns R. Wheel 50 feet with two turns 88-Not attempted due to medical condition or safety concerns S. Wheel 150 feet 88-Not attempted due to medical condition or safety concerns - Bladder and Bowel Bladder continence 0-Always continent Bowel continence 0-Always continent - Endurance Fair - Balance Fair - Safety Awareness Fair POTENTIAL FUNCTIONAL GOALS FOR PATIENT TO ACHIEVE BY DISCHARGE: - Safety Precaution Patient will remain free from falls or injury at time of discharge. - Bed Mobility Patient will perform bed mobility at 4-Cuco level of assistance. - Transfers Patient will complete transfers from bed to chair at 4-Cuco level of assistance. - Mobility Patient will ambulate 150 ft with 4-Cuco level of assistance with RW. PATIENT REHAB POTENTIAL Ariane WALKER is able and expected to receive 3 hours of individualized therapy daily on at least 5 of ever y 7 days Ariane WALKER's prognosis for significant practical improvement within a reasonable period of time appears Good Expected level of measurable improvement will be of a practical value to Ariane WALKER's functional capacit y or adaptations to impairments Has a viable Discharge Plan Medically appropriate; condition is sufficiently stable to participate in intensive rehab program DISCHARGE PLAN: - Estimated Length of Stay (days) 13. - Consensus on plan Discharge plan has been discussed with primary caregiver. Patient/Family is in agreement with the paramjit n. Primary caregiver is in agreement with the plan. - Patient/Family Goals Return home with assistance. - Planned Living Setting Upon Discharge Home, to live with Attendant. Transitional Living. Primary caregiver: Attendant. CONCLUSION ON REHABILITATION NECESSITY: I have evaluated patient's pre-admission functional status and, comparing it to the patient's post-ad mission functional status now, I conclude that the pre-admission assessment was accurate. Patient's c ondition on admission supports the medical necessity of admission to [facility]. It is safe to proceed with patient's therapy program. SIGNATURE PANEL: (NAVIGATING OFFICER)
[2019-05-09] MEDS: ROPINIROLE HCL 1 MG TAB PO SCH ×2 (13:58→20:21)
[2019-05-09] MEDS ORDERED: IPRATROPIUM BROM 0.5MG/2.5ML NEB PRN (19:00)
[2019-05-09] MEDS ORDERED: ALBUTEROL 2.5 MG/3 ML NEB SOL NEB PRN (19:00)
[2019-05-09] MEDS: DONEPEZIL HCL 5 MG TAB PO SCH (20:21)
[2019-05-09] MEDS: TEMAZEPAM 15 MG CAP PO PRN (20:22)
--- NOTE | 2019-05-10 02:13 | FAST ---
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 Austin Vasquez M.D. ADMISSION DIAGNOSIS: - Debility 16 - Debility (16) CHF Exacerbation. EATING: Not assessed/no information CODE: - ORAL HYGIENE: Not assessed/no information CODE: - TOILETING HYGIENE: TOILETING HYGIENE - STEP 1: Does the patient complete the activity by him/herself with no assistance (physical, verbal/nonverbal cueing, setup/clean-up)? No. TOILETING HYGIENE - STEP 2: Does the patient need only setup/clean-up assistance from one helper? No. TOILETING HYGIENE - STEP 3: Does the patient need only verbal/nonverbal cueing or touching/steadying/contact guard assistance fro m one helper? Yes. 1. [id number] ADMISSION PERFORMANCE: Supervision or touching assistance CODE: 04 BATHING: Not assessed/no information CODE: - DRESSING - UPPER BODY: Not assessed/no information CODE: - DRESSING - LOWER BODY: Not assessed/no information CODE: - PUTTING ON/TAKING OFF FOOTWEAR: Not assessed/no information CODE: - ROLL LEFT AND RIGHT: ROLL LEFT AND RIGHT - STEP 1: Does the patient complete the activity by him/herself with no assistance (physical, verbal/nonverbal cueing, setup/clean-up)? No. ROLL LEFT AND RIGHT - STEP 2: Does the patient need only setup/clean-up assistance from one helper? No. ROLL LEFT AND RIGHT - STEP 3: Does the patient need only verbal/nonverbal cueing or touching/steadying/contact guard assistance fro m one helper? Yes. 1. [id number] ADMISSION PERFORMANCE: Supervision or touching assistance CODE: 04 SIT TO LYING: SIT TO LYING - STEP 1: Does the patient complete the activity by him/herself with no assistance (physical, verbal/nonverbal cueing, setup/clean-up)? No. SIT TO LYING - STEP 2: Does the patient need only setup/clean-up assistance from one helper? No. SIT TO LYING - STEP 3: Does the patient need only verbal/nonverbal cueing or touching/steadying/contact guard assistance fro m one helper? Yes. 1. [id number] ADMISSION PERFORMANCE: Supervision or touching assistance CODE: 04 LYING TO SITTING: LYING TO SITTING ON SIDE OF BED - STEP 1: Does the patient complete the activity by him/herself with no assistance (physical, verbal/nonverbal cueing, setup/clean-up)? No. LYING TO SITTING ON SIDE OF BED - STEP 2: Does the patient need only setup/clean-up assistance from one helper? No. LYING TO SITTING ON SIDE OF BED - STEP 3: Does the patient need only verbal/nonverbal cueing or touching/steadying/contact guard assistance fro m one helper? Yes. 1. [id number] ADMISSION PERFORMANCE: Supervision or touching assistance CODE: 04 SIT TO STAND: SIT TO STAND - STEP 1: Does the patient complete the activity by him/herself with no assistance (physical, verbal/nonverbal cueing, setup/clean-up)? No. SIT TO STAND - STEP 2: Does the patient need only setup/clean-up assistance from one helper? No. SIT TO STAND - STEP 3: Does the patient need only verbal/nonverbal cueing or touching/steadying/contact guard assistance fro m one helper? Yes. 1. [id number] ADMISSION PERFORMANCE: Supervision or touching assistance CODE: 04 TRANSFERS: BED, CHAIR: CHAIR/[id number] TRANSFER - STEP 1: Does the patient complete the activity by him/herself with no assistance (physical, verbal/nonverbal cueing, setup/clean-up)? No. CHAIR/[id number] TRANSFER - STEP 2: Does the patient need only setup/clean-up assistance from one helper? No. CHAIR/[id number] TRANSFER - STEP 3: Does the patient need only verbal/nonverbal cueing or touching/steadying/contact guard assistance fro m one helper? Yes. 1. [id number] ADMISSION PERFORMANCE: Supervision or touching assistance CODE: 04 TRANSFER TOILET: TOILET TRANSFER - STEP 1: Does the patient complete the activity by him/herself with no assistance (physical, verbal/nonverbal cueing, setup/clean-up)? No. TOILET TRANSFER - STEP 2: Does the patient need only setup/clean-up assistance from one helper? No. TOILET TRANSFER - STEP 3: Does the patient need only verbal/nonverbal cueing or touching/steadying/contact guard assistance fro m one helper? Yes. 1. [id number] ADMISSION PERFORMANCE: Supervision or touching assistance CODE: 04 TRANSFERS: CAR: Not assessed/no information CODE: - WALK 10 FEET: Not assessed/no information CODE: - 1 STEP (CURB): Not assessed/no information CODE: - PICKING UP OBJECT: Not assessed/no information CODE: - DOES THE PATIENT USE A WHEELCHAIR/SCOOTER? CODE: EXPR WHEEL 50 FEET WITH TWO TURNS: Not assessed/no information CODE: - INDICATE THE TYPE OF WHEELCHAIR/SCOOTER USED: CODE: EXPR WHEEL 150 FEET: Not assessed/no information CODE: - INDICATE THE TYPE OF WHEELCHAIR/SCOOTER USED: CODE: EXPR BLADDER AND BOWEL: H350. BLADDER CONTINENCE (3-DAY ASSESSMENT PERIOD): Incontinent daily (at least once a day) CODE: 3 H400. BOWEL CONTINENCE (3-DAY ASSESSMENT PERIOD): Always continent CODE: 0
[2019-05-10] MEDS: LEVOTHYROXINE SOD 0.1 MG TAB PO SCH (06:33)
[2019-05-10] MEDS: ENOXAPARIN 40 MG/0.4 ML SQ SCH (06:35)
[2019-05-10] MEDS: CODEINE 30MG/APAP 300MG TAB PO PRN ×2 (08:16→20:48)
[2019-05-10] MEDS: CRANBERRY FRUIT EXTRACT 200 MG CAP PO SCH (08:18)
[2019-05-10] MEDS: CEFUROXIME 250 MG TAB PO SCH ×2 (08:18→20:48)
[2019-05-10] MEDS: FAMOTIDINE 20 MG TAB PO SCH (08:18)
[2019-05-10] MEDS: FUROSEMIDE 40 MG TABLET PO SCH ×2 (08:18→16:39)
[2019-05-10] MEDS: CLOPIDOGREL 75 MG TABLET PO SCH (08:18)
[2019-05-10] MEDS: TOLTERODINE LA 4 MG CAP PO SCH (08:19)
[2019-05-10] MEDS: TAMSULOSIN 0.4 MG SR CAP PO SCH (08:19)
[2019-05-10] MEDS: predniSONE 5 MG TAB PO SCH (08:19)
[2019-05-10] MEDS: ESCITALOPRAM 20 MG TAB PO SCH (08:19)
[2019-05-10] MEDS: METOPROLOL TAR 50 MG TAB PO SCH ×2 (08:20→20:50)
[2019-05-10] MEDS: NYSTATIN OINT 15 GM TUBE TOP SCH (08:21)
[2019-05-10] MEDS: PROMOD 30 ML DOSE PO SCH ×2 (08:21→20:51)
[2019-05-10] MEDS: ROPINIROLE HCL 1 MG TAB PO SCH ×2 (13:08→20:50)
[2019-05-10] MEDS: DONEPEZIL HCL 5 MG TAB PO SCH (20:51)
[2019-05-10] MEDS: TEMAZEPAM 15 MG CAP PO PRN (20:51)
[2019-05-11] MEDS: LEVOTHYROXINE SOD 0.1 MG TAB PO SCH (07:10)
[2019-05-11] MEDS: ENOXAPARIN 40 MG/0.4 ML SQ SCH (07:10)
[2019-05-11] MEDS: NYSTATIN OINT 15 GM TUBE TOP SCH (08:13)
[2019-05-11] MEDS: CEFUROXIME 250 MG TAB PO SCH ×2 (08:13→19:45)
[2019-05-11] MEDS: TAMSULOSIN 0.4 MG SR CAP PO SCH (08:13)
[2019-05-11] MEDS: CLOPIDOGREL 75 MG TABLET PO SCH (08:14)
[2019-05-11] MEDS: FUROSEMIDE 40 MG TABLET PO SCH ×2 (08:14→17:20)
[2019-05-11] MEDS: FAMOTIDINE 20 MG TAB PO SCH (08:14)
[2019-05-11] MEDS: METOPROLOL TAR 50 MG TAB PO SCH ×2 (08:15→19:47)
[2019-05-11] MEDS: predniSONE 5 MG TAB PO SCH (08:16)
[2019-05-11] MEDS: ESCITALOPRAM 20 MG TAB PO SCH (08:16)
[2019-05-11] MEDS: TOLTERODINE LA 4 MG CAP PO SCH (08:17)
[2019-05-11] MEDS: CRANBERRY FRUIT EXTRACT 200 MG CAP PO SCH (08:27)
[2019-05-11] MEDS: PROMOD 30 ML DOSE PO SCH ×2 (08:28→19:49)
[2019-05-11] MEDS: ROPINIROLE HCL 1 MG TAB PO SCH ×2 (11:05→19:45)
[2019-05-11] MEDS: MUCINEX DM 12HR.SR TAB PO PRN (19:45)
[2019-05-11] MEDS: CODEINE 30MG/APAP 300MG TAB PO PRN (19:46)
[2019-05-11] MEDS: DONEPEZIL HCL 5 MG TAB PO SCH (19:46)
[2019-05-11] MEDS: TEMAZEPAM 15 MG CAP PO PRN (19:46)
[2019-05-12] MEDS: LEVOTHYROXINE SOD 0.1 MG TAB PO SCH (06:30)
[2019-05-12] MEDS: ENOXAPARIN 40 MG/0.4 ML SQ SCH (07:20)
[2019-05-12] MEDS: PROMOD 30 ML DOSE PO SCH ×2 (08:00→20:19)
[2019-05-12] MEDS: TOLTERODINE LA 4 MG CAP PO SCH (08:17)
[2019-05-12] MEDS: TAMSULOSIN 0.4 MG SR CAP PO SCH (08:17)
[2019-05-12] MEDS: NYSTATIN OINT 15 GM TUBE TOP SCH (08:17)
[2019-05-12] MEDS: predniSONE 5 MG TAB PO SCH (08:17)
[2019-05-12] MEDS: FAMOTIDINE 20 MG TAB PO SCH (08:18)
[2019-05-12] MEDS: CODEINE 30MG/APAP 300MG TAB PO PRN (08:18)
[2019-05-12] MEDS: CRANBERRY FRUIT EXTRACT 200 MG CAP PO SCH (08:18)
[2019-05-12] MEDS: METOPROLOL TAR 50 MG TAB PO SCH ×2 (08:18→20:17)
[2019-05-12] MEDS: CEFUROXIME 250 MG TAB PO SCH ×2 (08:18→20:17)
[2019-05-12] MEDS: ESCITALOPRAM 20 MG TAB PO SCH (08:18)
[2019-05-12] MEDS: FUROSEMIDE 40 MG TABLET PO SCH ×2 (08:19→16:58)
[2019-05-12] MEDS: CLOPIDOGREL 75 MG TABLET PO SCH (08:19)
[2019-05-12] MEDS: ROPINIROLE HCL 1 MG TAB PO SCH ×2 (13:08→20:17)
--- NOTE | 2019-05-12 14:54 | FAST ---
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 Austin Vasquez M.D. ADMISSION DIAGNOSIS: - Debility 16 - Debility (16) CHF Exacerbation. EATING: EATING - STEP 1: Does the patient complete the activity by him/herself with no assistance (physical, verbal/nonverbal cueing, setup/clean-up)? No. EATING - STEP 2: Does the patient need only setup/clean-up assistance from one helper? Yes. 1. [id number] ADMISSION PERFORMANCE: Setup or clean-up assistance CODE: 05 ORAL HYGIENE: ORAL HYGIENE - STEP 1: Does the patient complete the activity by him/herself with no assistance (physical, verbal/nonverbal cueing, setup/clean-up)? No. ORAL HYGIENE - STEP 2: Does the patient need only setup/clean-up assistance from one helper? Yes. 1. [id number] ADMISSION PERFORMANCE: Setup or clean-up assistance CODE: 05 TOILETING HYGIENE: TOILETING HYGIENE - STEP 1: Does the patient complete the activity by him/herself with no assistance (physical, verbal/nonverbal cueing, setup/clean-up)? No. TOILETING HYGIENE - STEP 2: Does the patient need only setup/clean-up assistance from one helper? No. TOILETING HYGIENE - STEP 3: Does the patient need only verbal/nonverbal cueing or touching/steadying/contact guard assistance fro m one helper? Yes. 1. [id number] ADMISSION PERFORMANCE: Supervision or touching assistance CODE: 04 BATHING: Not assessed/no information CODE: - DRESSING - UPPER BODY: DRESSING - UPPER BODY - STEP 1: Does the patient complete the activity by him/herself with no assistance (physical, verbal/nonverbal cueing, setup/clean-up)? No. DRESSING - UPPER BODY - STEP 2: Does the patient need only setup/clean-up assistance from one helper? Yes. 1. [id number] ADMISSION PERFORMANCE: Setup or clean-up assistance CODE: 05 DRESSING - LOWER BODY: DRESSING - LOWER BODY - STEP 1: Does the patient complete the activity by him/herself with no assistance (physical, verbal/nonverbal cueing, setup/clean-up)? No. DRESSING - LOWER BODY - STEP 2: Does the patient need only setup/clean-up assistance from one helper? No. DRESSING - LOWER BODY - STEP 3: Does the patient need only verbal/nonverbal cueing or touching/steadying/contact guard assistance fro m one helper? Yes. 1. ADMISSION PERFORMANCE: Supervision or touching assistance CODE: 04 PUTTING ON/TAKING OFF FOOTWEAR: FOOTWEAR - STEP 1: Does the patient complete the activity by him/herself with no assistance (physical, verbal/nonverbal cueing, setup/clean-up)? No. FOOTWEAR - STEP 2: Does the patient need only setup/clean-up assistance from one helper? No. FOOTWEAR - STEP 3: Does the patient need only verbal/nonverbal cueing or touching/steadying/contact guard assistance fro m one helper? No. FOOTWEAR - STEP 4: Does the patient need physical assistance - for example lifting or trunk support from one helper - wi th the helper providing less than half of the effort? Yes. 1. ADMISSION PERFORMANCE: Partial/moderate assistance CODE: 03 DOES THE PATIENT USE A WHEELCHAIR/SCOOTER? CODE: EXPR INDICATE THE TYPE OF WHEELCHAIR/SCOOTER USED: CODE: EXPR INDICATE THE TYPE OF WHEELCHAIR/SCOOTER USED: CODE: EXPR BLADDER AND BOWEL: H350. BLADDER CONTINENCE (3-DAY ASSESSMENT PERIOD): Always continent (no documented incontinence) CODE: 0 H400. BOWEL CONTINENCE (3-DAY ASSESSMENT PERIOD): Always continent CODE: 0 SIGNATURE PANEL: The following modified sections: 1. [id number] Admission Performance, 1. [id number] Admission Performance, 1. [id number] Admission Performance, 1. [id number] Admission Performance, 1. [id number] Admission Performance, 1. [id number] Admission Performance, H350. Bladder Continence (3-day assessment period), H400. Bowel Co ntinence (3-day assessment period) were [electronically] signed by Milka Buchanan C.N.ACarolina on SunMay 12 2019 14:53:22 T-0600 (Central Standard Time)
--- NOTE | 2019-05-12 17:55 | R.PN ---
ENCOUNTER DATE AND TIME: 05/12/2019 17:47 (TECHNICAL SOLUTIONS CONSULTANT) NAME SHAKILA WALKER DATE OF : 1935 DATE OF ADMISSION: 05/08/2019 18:17 (TECHNICAL SOLUTIONS CONSULTANT) CHF ExacerbationCHIEF COMPLAINT: CHF exacerbation and debility SUBJECTIVE: Pt denied any Shortness of Breath. Pt denied any depression. She has no complaints. She ambulated 470' with standby assistance. Up and down 10 steps with partial assistance. Self-propelled wheel chair 500' with independence. Labs reviewed and are stable, including WBC and Hgb. Her prealbumin was low at 13.7. She is on promod 30 mg twice daily. VITAL SIGNS Temperature: 97.4 F SBP/DBP: 113/44 Pulse: 55 Resp: 20 MEDICATION ALLERGIES: No Known Drug Allergies (NKDA) ENVIRONMENTAL ALLERGIES: None Known - Substance Allergies None Known - Other Allergies None Known NURSING: - Shower allowing shower ACTIVITIES OOB only with supervision THERAPIES: - Dietary and Nutrition Adequate Nutrition. Nutritional Education. Nutritional Supplements. PHYSICAL EXAM - Gen Alert and awake Lying in bed No apparent distress Oriented to: person, time, and place - Skin No breakdown Normacephalic - Eyes No abnormalities - ENMT No abnormalities - Neck No abnormalities - CVS RRR - Chest mild decrease in breath sounds - Resp No wheezing - Abd + bowel sounds - GI Non distended Deferred - No abnormalities - Ext Mild bilateral lower extremity edema. - MSK 4+/5 weakness in both lower extremities. - Neuro 4/5 strength left lower extremity. - Psych No abnormalities ASSESSMENT: Pt. is a 84 yo Right-handed white female.On 05/06/2019 she was admitted to [facility] with diagnosis CHF Exacerbation.Her impairment category is Debility 16 - Debility (16).Pre-mo rbidly, Pt. was independent/mod-I in Locomotion, Balance, Safety Awareness, Social Cognition, Transfe rs Control, Self-Care, Sphincter Control, Communication, and Endurance; and she had good Locomotion, Safety Awareness, Transfers Control, Balance, Social Cognition, Sphincter Control, Self-Care, and Com munication.Currently, she has deficits of Locomotion, Balance, Transfers Control, Self-Care, and Endu jewels.Pt. is now referred to [facility] for acute in-patient rehabilitation in order to maximize patient's functional independence in activities of daily living, strength, ROM, an d mobility.- Rehab Goal Patient has realistic goal of being discharged at assistance level 6-Julianna to reside at Home with Att endant. MDM/PLAN: - Physical Therapy Gait dysfunction - to improve, our physical therapists will perform initial evaluation of pt's statu s upon admission and devise an individualized program for Gait Training, and Wheel Chair mobility Inability to transfer - to improve, our physical therapists will perform initial evaluation of pt's status upon admission and devise an individualized program for Bed mobility Need for home safety evaluation - to improve, our physical therapists will perform initial evaluatio n of pt's status upon admission and devise an individualized program for Home Evaluation Need in caregiver upon discharge - to improve, our physical therapists will perform initial evaluati on of pt's status upon admission and devise an individualized program for Caregiver Training Edema - to improve, our physical therapists will perform initial evaluation of pt's status upon admis pat and devise an individualized program for Elevation Training, and Lymphedema Therapy New precaution - to improve, our physical therapists will perform initial evaluation of pt's status upon admission and devise an individualized program for Patient precaution education Poor balance - to improve, our physical therapists will perform initial evaluation of pt's status up on admission and devise an individualized program for Balance Training Poor endurance - to improve, our physical therapists will perform initial evaluation of pt's status upon admission and devise an individualized program for Endurance Training Weakness - to improve, our physical therapists will perform initial evaluation of pt's status upon a dmission and devise an individualized program for Aquatic Therapy, Neuromuscular Reeducation, and Str engthening Achieving independence - to improve, our physical therapists will perform initial evaluation of pt's status upon admission and devise an individualized program for Community Reintegration Activities - Occupational Therapy ADL deficits - to improve, our occupation therapists will perform initial evaluation of pt's status upon admission and devise an individualized program for Bathing, Bed mobility, Community Reintegratio n, Cooking, Dressing, Eating, Fine Motor Skills, Grooming, Homemaking, Kitchen Mobility, Laundry, Pat ient Education, Safety Awareness, Splinting - Positioning, Transfers(Toilet, Tub, Shower), and Wheel Chair Management Need for care transitions nurse - to improve, our occupation therapists will perform initial evaluation of pt's status upon admission and devise an individualized program for Caregiver Training Weakness - to improve, our occupation therapists will perform initial evaluation of pt's status upon admission and devise an individualized program for Aquatic Therapy, Balance, Endurance, UE ROM, and UE strengthening - Other See attached MAR (Medication Administration Record) - Diet Type Continue Regular - Diet - Liquid Texture Continue Regular - Tube Feed Continue N/A - Diet - Solid Texture Continue Regular - Shower allowing shower FUNCTIONAL STATUS: UPDATED AT WEEKLY TEAM CONFERENCE - Bladder Same accident frequency: 7-Ind - No accidents in the past 7 days - Bowel Same accident frequency: 7-Ind - No accidents in the past 7 days - Walking Same score based on distance walked: 0(N/A) Same score based on distance walked: 2(50-149ft) - Wheelchair Same score based on distance traveled: 0(N/A) FUNCTIONAL STATUS: - Self-Care A. Eating Julianna B. Grooming Julianna C. Bathing Julianna D. Dressing - Upper sup E. Dressing - Lower Cuco F. Toileting Julianna - Sphincter Control G. Bladder control Julianna H. Bowel control sup - Transfers Control I. Bed/Chair/Wheelchair sup J. Toilet sup K. Tub/Shower sup - Locomotion L. Walk/Wheelchair (B) sup M. Stairs Cuco - Communication N. Comprehension (B) Julianna O. Expression (B) Julinana - Social Cognition P. Social Interaction Julianna Q. Problem Solving Julianna R. Memory sup - Endurance Fair - Balance Fair - Safety Awareness Fair QI SCORES: - Self-Care A. Eating 04-Supervision or touching assistance B. Oral hygiene 04-Supervision or touching assistance C. Toileting hygiene 04-Supervision or touching assistance E. Shower/bathe self 04-Supervision or touching assistance F. Upper body dressing 04-Supervision or touching assistance G. Lower body dressing 03-Partial/moderate assistance H. Putting on/taking off footwear 03-Partial/moderate assistance - Mobility A. Roll left and right 04-Supervision or touching assistance B. Sit to lying 04-Supervision or touching assistance C. Lying to sitting on side of bed 04-Supervision or touching assistance D. Sit to stand 04-Supervision or touching assistance E. Chair/[id number] transfer 04-Supervision or touching assistance F. Toilet transfer 03-Partial/moderate assistance G. Car transfer 10-Not attempted due to environmental limitations I. Walk 10 feet 03-Partial/moderate assistance J. Walk 50 feet with two turns 88-Not attempted due to medical condition or safety concerns K. Walk 150 feet 03-Partial/moderate assistance L. Walking 10 feet on uneven surfaces 88-Not attempted due to medical condition or safety concerns M. 1 step (curb) 88-Not attempted due to medical condition or safety concerns N. 4 steps 88-Not attempted due to medical condition or safety concerns O. 12 steps 88-Not attempted due to medical condition or safety concerns P. Picking up object 88-Not attempted due to medical condition or safety concerns R. Wheel 50 feet with two turns 88-Not attempted due to medical condition or safety concerns S. Wheel 150 feet 88-Not attempted due to medical condition or safety concerns - Bladder and Bowel Bladder continence 0-Always continent Bowel continence 0-Always continent - Endurance Fair - Balance Fair - Safety Awareness Fair CURRENT [facility]. DEFICITS: Self-Care, Mobility, Endurance, Balance, and Safety Awareness SIGNATURE PANEL: (TECHNICAL SOLUTIONS CONSULTANT)
[2019-05-12] MEDS: DONEPEZIL HCL 5 MG TAB PO SCH (20:16)
[2019-05-12] MEDS: TEMAZEPAM 15 MG CAP PO PRN (20:17)
[2019-05-12] MEDS: MUCINEX DM 12HR.SR TAB PO PRN (20:18)
[2019-05-13] MEDS: CODEINE 30MG/APAP 300MG TAB PO PRN ×2 (02:34→08:20)
[2019-05-13] MEDS: LEVOTHYROXINE SOD 0.1 MG TAB PO SCH (06:24)
[2019-05-13] MEDS: ENOXAPARIN 40 MG/0.4 ML SQ SCH (07:14)
[2019-05-13] MEDS: TOLTERODINE LA 4 MG CAP PO SCH (08:18)
[2019-05-13] MEDS: NYSTATIN OINT 15 GM TUBE TOP SCH (08:18)
[2019-05-13] MEDS: METOPROLOL TAR 50 MG TAB PO SCH ×2 (08:19→20:00)
[2019-05-13] MEDS: FAMOTIDINE 20 MG TAB PO SCH (08:19)
[2019-05-13] MEDS: TAMSULOSIN 0.4 MG SR CAP PO SCH (08:19)
[2019-05-13] MEDS: CRANBERRY FRUIT EXTRACT 200 MG CAP PO SCH (08:19)
[2019-05-13] MEDS: ESCITALOPRAM 20 MG TAB PO SCH (08:19)
[2019-05-13] MEDS: predniSONE 5 MG TAB PO SCH (08:20)
[2019-05-13] MEDS: FUROSEMIDE 40 MG TABLET PO SCH ×2 (08:22→17:33)
[2019-05-13] MEDS: CLOPIDOGREL 75 MG TABLET PO SCH (08:22)
[2019-05-13] MEDS: PROMOD 30 ML DOSE PO SCH ×2 (08:55→20:34)
--- NOTE | 2019-05-13 14:06 | FAST ---
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 Austin Vasquez M.D. ADMISSION DIAGNOSIS: - Debility 16 - Debility (16) CHF Exacerbation. EATING: EATING - STEP 1: Does the patient complete the activity by him/herself with no assistance (physical, verbal/nonverbal cueing, setup/clean-up)? No. EATING - STEP 2: Does the patient need only setup/clean-up assistance from one helper? Yes. 1. [id number] ADMISSION PERFORMANCE: Setup or clean-up assistance CODE: 05 ORAL HYGIENE: ORAL HYGIENE - STEP 1: Does the patient complete the activity by him/herself with no assistance (physical, verbal/nonverbal cueing, setup/clean-up)? No. ORAL HYGIENE - STEP 2: Does the patient need only setup/clean-up assistance from one helper? Yes. 1. [id number] ADMISSION PERFORMANCE: Setup or clean-up assistance CODE: 05 TOILETING HYGIENE: TOILETING HYGIENE - STEP 1: Does the patient complete the activity by him/herself with no assistance (physical, verbal/nonverbal cueing, setup/clean-up)? No. TOILETING HYGIENE - STEP 2: Does the patient need only setup/clean-up assistance from one helper? Yes. 1. [id number] ADMISSION PERFORMANCE: Setup or clean-up assistance CODE: 05 BATHING: Not assessed/no information CODE: - DRESSING - UPPER BODY: DRESSING - UPPER BODY - STEP 1: Does the patient complete the activity by him/herself with no assistance (physical, verbal/nonverbal cueing, setup/clean-up)? No. DRESSING - UPPER BODY - STEP 2: Does the patient need only setup/clean-up assistance from one helper? Yes. 1. [id number] ADMISSION PERFORMANCE: Setup or clean-up assistance CODE: 05 DRESSING - LOWER BODY: DRESSING - LOWER BODY - STEP 1: Does the patient complete the activity by him/herself with no assistance (physical, verbal/nonverbal cueing, setup/clean-up)? No. DRESSING - LOWER BODY - STEP 2: Does the patient need only setup/clean-up assistance from one helper? No. DRESSING - LOWER BODY - STEP 3: Does the patient need only verbal/nonverbal cueing or touching/steadying/contact guard assistance fro m one helper? Yes. 1. [id number] ADMISSION PERFORMANCE: Supervision or touching assistance CODE: 04 PUTTING ON/TAKING OFF FOOTWEAR: FOOTWEAR - STEP 1: Does the patient complete the activity by him/herself with no assistance (physical, verbal/nonverbal cueing, setup/clean-up)? No. FOOTWEAR - STEP 2: Does the patient need only setup/clean-up assistance from one helper? No. FOOTWEAR - STEP 3: Does the patient need only verbal/nonverbal cueing or touching/steadying/contact guard assistance fro m one helper? No. FOOTWEAR - STEP 4: Does the patient need physical assistance - for example lifting or trunk support from one helper - wi th the helper providing less than half of the effort? Yes. 1. [id number] ADMISSION PERFORMANCE: Partial/moderate assistance CODE: 03 DOES THE PATIENT USE A WHEELCHAIR/SCOOTER? CODE: EXPR INDICATE THE TYPE OF WHEELCHAIR/SCOOTER USED: CODE: EXPR INDICATE THE TYPE OF WHEELCHAIR/SCOOTER USED: CODE: EXPR BLADDER AND BOWEL: H350. BLADDER CONTINENCE (3-DAY ASSESSMENT PERIOD): Incontinent less than daily (e.g., once or twice during the 3-day assessment period) CODE: 2 H400. BOWEL CONTINENCE (3-DAY ASSESSMENT PERIOD): Always continent CODE: 0 SIGNATURE PANEL: The following modified sections: 1. [id number] Admission Performance, 1. [id number] Admission Performance, 1. [id number] Admission Performance, 1. [id number] Admission Performance, 1. [id number] Admission Performance, 1. [id number] Admission Performance, 1. [id number] Admission Performance, H350. Bladder Continence (3-day assessment period), H400. Bowel Continence (3-day assessment period) were [electronically] signed by Milka Buchanan C.N.ACarolina on SunMay 13 2019 14:05:21 GMT-0600 (Central Standard Time)
[2019-05-13] MEDS: ROPINIROLE HCL 1 MG TAB PO SCH ×2 (14:33→20:24)
--- NOTE | 2019-05-13 17:37 | R.PN ---
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 Pt denied any depression. She has no complaints. She ambulated 450' with standby assistance. Up and down 15 steps with standby assistance. Self-propelled wheel chair 500' with independence. Labs reviewed and are stable, including WBC and Hgb. Her prealbumin was low at 13.7. She is on promod 30 mg twice daily. VITAL SIGNS Temperature: 97.4 F SBP/DBP: 134/56 Pulse: 52 Resp: 16 MEDICATION ALLERGIES: No Known Drug Allergies (NKDA) ENVIRONMENTAL ALLERGIES: None Known - Substance Allergies None Known - Other Allergies None Known NURSING: - Shower allowing shower ACTIVITIES OOB only with supervision THERAPIES: - Dietary and Nutrition Adequate Nutrition. Nutritional Education. Nutritional Supplements. PHYSICAL EXAM - Gen Alert and awake Lying in bed No apparent distress Oriented to: person, time, and place - Skin No breakdown Normacephalic - Eyes No abnormalities - ENMT No abnormalities - Neck No abnormalities - CVS RRR - Chest mild decrease in breath sounds - Resp No wheezing - Abd + bowel sounds - GI Non distended Deferred - No abnormalities - Ext Mild bilateral lower extremity edema. - MSK 4+/5 weakness in both lower extremities. - Neuro 4/5 strength left lower extremity. - Psych No abnormalities ASSESSMENT: Pt. is a 84 yo Right-handed white female.On 05/06/2019 she was admitted to [facility] with diagnosis CHF Exacerbation.Her impairment category is Debility 16 - Debility (16).Pre-mo rbidly, Pt. was independent/mod-I in Locomotion, Balance, Safety Awareness, Social Cognition, Transfe rs Control, Self-Care, Sphincter Control, Communication, and Endurance; and she had good Locomotion, Safety Awareness, Transfers Control, Balance, Social Cognition, Sphincter Control, Self-Care, and Com munication.Currently, she has deficits of Locomotion, Balance, Transfers Control, Self-Care, and Endu jewels.Pt. is now referred to [facility] for acute in-patient rehabilitation in order to maximize patient's functional independence in activities of daily living, strength, ROM, an d mobility.- Rehab Goal Patient has realistic goal of being discharged at assistance level 6-Julianna to reside at Home with Att endant. MDM/PLAN: - Physical Therapy Gait dysfunction - to improve, our physical therapists will perform initial evaluation of pt's statu s upon admission and devise an individualized program for Gait Training, and Wheel Chair mobility Inability to transfer - to improve, our physical therapists will perform initial evaluation of pt's status upon admission and devise an individualized program for Bed mobility Need for home safety evaluation - to improve, our physical therapists will perform initial evaluatio n of pt's status upon admission and devise an individualized program for Home Evaluation Need in caregiver upon discharge - to improve, our physical therapists will perform initial evaluati on of pt's status upon admission and devise an individualized program for Caregiver Training Edema - to improve, our physical therapists will perform initial evaluation of pt's status upon admi ssion and devise an individualized program for Elevation Training, and Lymphedema Therapy New precaution - to improve, our physical therapists will perform initial evaluation of pt's status upon admission and devise an individualized program for Patient precaution education Poor balance - to improve, our physical therapists will perform initial evaluation of pt's status up on admission and devise an individualized program for Balance Training Poor endurance - to improve, our physical therapists will perform initial evaluation of pt's status upon admission and devise an individualized program for Endurance Training Weakness - to improve, our physical therapists will perform initial evaluation of pt's status upon a dmission and devise an individualized program for Aquatic Therapy, Neuromuscular Reeducation, and Str engthening Achieving independence - to improve, our physical therapists will perform initial evaluation of pt's status upon admission and devise an individualized program for Community Reintegration Activities - Occupational Therapy ADL deficits - to improve, our occupation therapists will perform initial evaluation of pt's status upon admission and devise an individualized program for Bathing, Bed mobility, Community Reintegratio n, Cooking, Dressing, Eating, Fine Motor Skills, Grooming, Homemaking, Kitchen Mobility, Laundry, Pat ient Education, Safety Awareness, Splinting - Positioning, Transfers(Toilet, Tub, Shower), and Wheel Chair Management Need for senior care assistant - to improve, our occupation therapists will perform initial evaluation of pt's status upon admission and devise an individualized program for Caregiver Training Weakness - to improve, our occupation therapists will perform initial evaluation of pt's status upon admission and devise an individualized program for Aquatic Therapy, Balance, Endurance, UE ROM, and UE strengthening - Other See attached MAR (Medication Administration Record) - Diet Type Continue Regular - Diet - Liquid Texture Continue Regular - Tube Feed Continue N/A - Diet - Solid Texture Continue Regular - Shower allowing shower FUNCTIONAL STATUS: UPDATED AT WEEKLY TEAM CONFERENCE - Bladder Same accident frequency: 7-Ind - No accidents in the past 7 days - Bowel Same accident frequency: 7-Ind - No accidents in the past 7 days - Walking Same score based on distance walked: 0(N/A) Same score based on distance walked: 2(50-149ft) - Wheelchair Same score based on distance traveled: 0(N/A) FUNCTIONAL STATUS: - Self-Care A. Eating Julianna B. Grooming Julianna C. Bathing Julianna D. Dressing - Upper sup E. Dressing - Lower Cuco F. Toileting Julianna - Sphincter Control G. Bladder control Julianna H. Bowel control sup - Transfers Control I. Bed/Chair/Wheelchair sup J. Toilet sup K. Tub/Shower sup - Locomotion L. Walk/Wheelchair (B) sup M. Stairs Cuco - Communication N. Comprehension (B) Julianna O. Expression (B) Julianna - Social Cognition P. Social Interaction Julianna Q. Problem Solving Julianna R. Memory sup - Endurance Fair - Balance Fair - Safety Awareness Fair QI SCORES: - Self-Care A. Eating 04-Supervision or touching assistance B. Oral hygiene 04-Supervision or touching assistance C. Toileting hygiene 04-Supervision or touching assistance E. Shower/bathe self 04-Supervision or touching assistance F. Upper body dressing 04-Supervision or touching assistance G. Lower body dressing 03-Partial/moderate assistance H. Putting on/taking off footwear 03-Partial/moderate assistance - Mobility A. Roll left and right 04-Supervision or touching assistance B. Sit to lying 04-Supervision or touching assistance C. Lying to sitting on side of bed 04-Supervision or touching assistance D. Sit to stand 04-Supervision or touching assistance E. Chair/qsu-[id number] transfer 04-Supervision or touching assistance F. Toilet transfer 03-Partial/moderate assistance G. Car transfer 10-Not attempted due to environmental limitations I. Walk 10 feet 03-Partial/moderate assistance J. Walk 50 feet with two turns 88-Not attempted due to medical condition or safety concerns K. Walk 150 feet 03-Partial/moderate assistance L. Walking 10 feet on uneven surfaces 88-Not attempted due to medical condition or safety concerns M. 1 step (curb) 88-Not attempted due to medical condition or safety concerns N. 4 steps 88-Not attempted due to medical condition or safety concerns O. 12 steps 88-Not attempted due to medical condition or safety concerns P. Picking up object 88-Not attempted due to medical condition or safety concerns R. Wheel 50 feet with two turns 88-Not attempted due to medical condition or safety concerns S. Wheel 150 feet 88-Not attempted due to medical condition or safety concerns - Bladder and Bowel Bladder continence 0-Always continent Bowel continence 0-Always continent - Endurance Fair - Balance Fair - Safety Awareness Fair [facility]RENT [facility]. 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
[2019-05-13] MEDS: TEMAZEPAM 15 MG CAP PO PRN (20:23)
[2019-05-13] MEDS: DONEPEZIL HCL 5 MG TAB PO SCH (20:24)
[2019-05-13] MEDS: MUCINEX DM 12HR.SR TAB PO PRN (20:24)
[2019-05-14] MEDS: LEVOTHYROXINE SOD 0.1 MG TAB PO SCH (06:21)
[2019-05-14] MEDS: ENOXAPARIN 40 MG/0.4 ML SQ SCH (08:00)
[2019-05-14] MEDS: NYSTATIN OINT 15 GM TUBE TOP SCH (08:29)
[2019-05-14] MEDS: ESCITALOPRAM 20 MG TAB PO SCH (08:30)
[2019-05-14] MEDS: TAMSULOSIN 0.4 MG SR CAP PO SCH (08:30)
[2019-05-14] MEDS: CODEINE 30MG/APAP 300MG TAB PO PRN ×2 (08:30→20:17)
[2019-05-14] MEDS: METOPROLOL TAR 50 MG TAB PO SCH ×2 (08:30→20:00)
[2019-05-14] MEDS: CRANBERRY FRUIT EXTRACT 200 MG CAP PO SCH (08:31)
[2019-05-14] MEDS: CLOPIDOGREL 75 MG TABLET PO SCH (08:31)
[2019-05-14] MEDS: FUROSEMIDE 40 MG TABLET PO SCH ×2 (08:31→16:00)
[2019-05-14] MEDS: FAMOTIDINE 20 MG TAB PO SCH (08:31)
[2019-05-14] MEDS: predniSONE 5 MG TAB PO SCH (08:31)
[2019-05-14] MEDS: TOLTERODINE LA 4 MG CAP PO SCH (08:31)
[2019-05-14] MEDS: PROMOD 30 ML DOSE PO SCH ×2 (08:32→20:18)
[2019-05-14] MEDS: ROPINIROLE HCL 1 MG TAB PO SCH ×2 (13:06→20:16)
--- NOTE | 2019-05-14 17:57 | R.PN ---
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 Pt denied any depression. She has no complaints. She ambulated 500' with standby assistance. Up and down 15 steps with standby assistance. Self-propelled wheel chair 500' with independence. Labs reviewed and are stable, including WBC and Hgb. Her prealbumin was low at 13.7. She is on promod 30 mg twice daily. VITAL SIGNS Temperature: 97.4 F SBP/DBP: 148/50 Pulse: 50 Resp: 16 MEDICATION ALLERGIES: No Known Drug Allergies (NKDA) ENVIRONMENTAL ALLERGIES: None Known - Substance Allergies None Known - Other Allergies None Known NURSING: - Shower allowing shower ACTIVITIES OOB only with supervision THERAPIES: - Dietary and Nutrition Adequate Nutrition. Nutritional Education. Nutritional Supplements. PHYSICAL EXAM - Gen Alert and awake Lying in bed No apparent distress Oriented to: person, time, and place - Skin No breakdown Normacephalic - Eyes No abnormalities - ENMT No abnormalities - Neck No abnormalities - CVS RRR - Chest mild decrease in breath sounds - Resp No wheezing - Abd + bowel sounds - GI Non distended Deferred - No abnormalities - Ext Mild bilateral lower extremity edema. - MSK 4+/5 weakness in both lower extremities. - Neuro 4/5 strength left lower extremity. - Psych No abnormalities ASSESSMENT: Pt. is a 84 yo Right-handed white female.On 05/06/2019 she was admitted to [facility] with diagnosis CHF Exacerbation.Her impairment category is Debility 16 - Debility (16).Pre-mo rbidly, Pt. was independent/mod-I in Locomotion, Balance, Safety Awareness, Social Cognition, Transfe rs Control, Self-Care, Sphincter Control, Communication, and Endurance; and she had good Locomotion, Safety Awareness, Transfers Control, Balance, Social Cognition, Sphincter Control, Self-Care, and Com munication.Currently, she has deficits of Locomotion, Balance, Transfers Control, Self-Care, and Endu jewels.Pt. is now referred to [facility] for acute in-patient rehabilitation in order to maximize patient's functional independence in activities of daily living, strength, ROM, an d mobility.- Rehab Goal Patient has realistic goal of being discharged at assistance level 6-Julianna to reside at Home with Att endant. MDM/PLAN: - Physical Therapy Gait dysfunction - to improve, our physical therapists will perform initial evaluation of pt's statu s upon admission and devise an individualized program for Gait Training, and Wheel Chair mobility Inability to transfer - to improve, our physical therapists will perform initial evaluation of pt's status upon admission and devise an individualized program for Bed mobility Need for home safety evaluation - to improve, our physical therapists will perform initial evaluatio n of pt's status upon admission and devise an individualized program for Home Evaluation Need in caregiver upon discharge - to improve, our physical therapists will perform initial evaluati on of pt's status upon admission and devise an individualized program for Caregiver Training Edema - to improve, our physical therapists will perform initial evaluation of pt's status upon admi ssion and devise an individualized program for Elevation Training, and Lymphedema Therapy New precaution - to improve, our physical therapists will perform initial evaluation of pt's status upon admission and devise an individualized program for Patient precaution education Poor balance - to improve, our physical therapists will perform initial evaluation of pt's status up on admission and devise an individualized program for Balance Training Poor endurance - to improve, our physical therapists will perform initial evaluation of pt's status upon admission and devise an individualized program for Endurance Training Weakness - to improve, our physical therapists will perform initial evaluation of pt's status upon a dmission and devise an individualized program for Aquatic Therapy, Neuromuscular Reeducation, and Str engthening Achieving independence - to improve, our physical therapists will perform initial evaluation of pt's status upon admission and devise an individualized program for Community Reintegration Activities - Occupational Therapy ADL deficits - to improve, our occupation therapists will perform initial evaluation of pt's status upon admission and devise an individualized program for Bathing, Bed mobility, Community Reintegratio n, Cooking, Dressing, Eating, Fine Motor Skills, Grooming, Homemaking, Kitchen Mobility, Laundry, Pat ient Education, Safety Awareness, Splinting - Positioning, Transfers(Toilet, Tub, Shower), and Wheel Chair Management Need for youth care professional - to improve, our occupation therapists will perform initial evaluation of pt's status upon admission and devise an individualized program for Caregiver Training Weakness - to improve, our occupation therapists will perform initial evaluation of pt's status upon admission and devise an individualized program for Aquatic Therapy, Balance, Endurance, UE ROM, and UE strengthening - Other See attached MAR (Medication Administration Record) - Diet Type Continue Regular - Diet - Liquid Texture Continue Regular - Tube Feed Continue N/A - Diet - Solid Texture Continue Regular - Shower allowing shower FUNCTIONAL STATUS: UPDATED AT WEEKLY TEAM CONFERENCE - Bladder Same accident frequency: 7-Ind - No accidents in the past 7 days - Bowel Same accident frequency: 7-Ind - No accidents in the past 7 days - Walking Same score based on distance walked: 0(N/A) Same score based on distance walked: 2(50-149ft) - Wheelchair Same score based on distance traveled: 0(N/A) FUNCTIONAL STATUS: - Self-Care A. Eating Julianna B. Grooming Julianna C. Bathing Julianna D. Dressing - Upper sup E. Dressing - Lower Cuco F. Toileting Julianna - Sphincter Control G. Bladder control Julianna H. Bowel control sup - Transfers Control I. Bed/Chair/Wheelchair sup J. Toilet sup K. Tub/Shower sup - Locomotion L. Walk/Wheelchair (B) sup M. Stairs Cuco - Communication N. Comprehension (B) Julianna O. Expression (B) Julianna - Social Cognition P. Social Interaction Julianna Q. Problem Solving Julianna R. Memory sup - Endurance Fair - Balance Fair - Safety Awareness Fair QI SCORES: - Self-Care A. Eating 04-Supervision or touching assistance B. Oral hygiene 04-Supervision or touching assistance C. Toileting hygiene 04-Supervision or touching assistance E. Shower/bathe self 04-Supervision or touching assistance F. Upper body dressing 04-Supervision or touching assistance G. Lower body dressing 03-Partial/moderate assistance H. Putting on/taking off footwear 03-Partial/moderate assistance - Mobility A. Roll left and right 04-Supervision or touching assistance B. Sit to lying 04-Supervision or touching assistance C. Lying to sitting on side of bed 04-Supervision or touching assistance D. Sit to stand 04-Supervision or touching assistance E. Chair/hvl-yo-[id number] transfer 04-Supervision or touching assistance F. Toilet transfer 03-Partial/moderate assistance G. Car transfer 10-Not attempted due to environmental limitations I. Walk 10 feet 03-Partial/moderate assistance J. Walk 50 feet with two turns 88-Not attempted due to medical condition or safety concerns K. Walk 150 feet 03-Partial/moderate assistance L. Walking 10 feet on uneven surfaces 88-Not attempted due to medical condition or safety concerns M. 1 step (curb) 88-Not attempted due to medical condition or safety concerns N. 4 steps 88-Not attempted due to medical condition or safety concerns O. 12 steps 88-Not attempted due to medical condition or safety concerns P. Picking up object 88-Not attempted due to medical condition or safety concerns R. Wheel 50 feet with two turns 88-Not attempted due to medical condition or safety concerns S. Wheel 150 feet 88-Not attempted due to medical condition or safety concerns - Bladder and Bowel Bladder continence 0-Always continent Bowel continence 0-Always continent - Endurance Fair - Balance Fair - Safety Awareness Fair [facility] 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
[2019-05-14] MEDS: TEMAZEPAM 15 MG CAP PO PRN (20:16)
[2019-05-14] MEDS: APIXABAN 2.5 MG TABLET PO SCH (20:16)
[2019-05-14] MEDS: DONEPEZIL HCL 5 MG TAB PO SCH (20:17)
[2019-05-14] MEDS: MUCINEX DM 12HR.SR TAB PO PRN (20:18)
[2019-05-15 06:03] LABS: Absolute Lymphocytes (CBC) 2.3 K/uL (0.7-4.9); Basophils % 0.9 % (0-1.3); Hematocrit 32.7 % (36.0-45.0); Lymphocytes % 29.9 % (15.3-44.8); MPV 8.4 fL (7.6-11.3); RBC Red Blood Cell Count 3.29 M/uL (3.86-4.86)
[2019-05-15 06:16] LABS: Albumin 2.7 g/dL (3.4-5.0); Magnesium 2.2 mg/dL (1.8-2.4); Potassium 4.3 mmol/L (3.5-5.1); Prealbumin 14.9 mg/dL (20-40)
[2019-05-15] MEDS: LEVOTHYROXINE SOD 0.1 MG TAB PO SCH (06:33)
[2019-05-15] MEDS: TOLTERODINE LA 4 MG CAP PO SCH (08:43)
[2019-05-15] MEDS: FAMOTIDINE 20 MG TAB PO SCH (08:43)
[2019-05-15] MEDS: NYSTATIN OINT 15 GM TUBE TOP SCH (08:43)
[2019-05-15] MEDS: CRANBERRY FRUIT EXTRACT 200 MG CAP PO SCH (08:43)
[2019-05-15] MEDS: predniSONE 5 MG TAB PO SCH (08:43)
[2019-05-15] MEDS: CODEINE 30MG/APAP 300MG TAB PO PRN ×2 (08:44→17:02)
[2019-05-15] MEDS: APIXABAN 2.5 MG TABLET PO SCH ×2 (08:44→20:57)
[2019-05-15] MEDS: METOPROLOL TAR 50 MG TAB PO SCH ×2 (08:45→20:58)
[2019-05-15] MEDS: TAMSULOSIN 0.4 MG SR CAP PO SCH (08:45)
[2019-05-15] MEDS: CLOPIDOGREL 75 MG TABLET PO SCH (08:45)
[2019-05-15] MEDS: ESCITALOPRAM 20 MG TAB PO SCH (08:45)
[2019-05-15] MEDS: PROMOD 30 ML DOSE PO SCH ×2 (08:46→20:00)
[2019-05-15] MEDS: FUROSEMIDE 40 MG TABLET PO SCH ×2 (08:46→17:02)
[2019-05-15] MEDS: TRAMADOL HCL 50 MG TAB PO PRN ×2 (12:35→20:58)
[2019-05-15] MEDS: ROPINIROLE HCL 1 MG TAB PO SCH ×2 (13:29→20:57)
--- NOTE | 2019-05-15 14:20 | FAST ---
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 Austin Vasquez M.D. ADMISSION DIAGNOSIS: - Debility 16 - Debility (16) CHF Exacerbation. EATING: Not assessed/no information CODE: - ORAL HYGIENE: ORAL HYGIENE - STEP 1: Does the patient complete the activity by him/herself with no assistance (physical, verbal/nonverbal cueing, setup/clean-up)? Yes. 1. [id number] ADMISSION PERFORMANCE: Independent CODE: 06 TOILETING HYGIENE: Not assessed/no information CODE: - BATHING: SHOWER/BATHE SELF - STEP 1: Does the patient complete the activity by him/herself with no assistance (physical, verbal/nonverbal cueing, setup/clean-up)? Yes. 1. [id number] ADMISSION PERFORMANCE: Independent CODE: 06 DRESSING - UPPER BODY: DRESSING - UPPER BODY - STEP 1: Does the patient complete the activity by him/herself with no assistance (physical, verbal/nonverbal cueing, setup/clean-up)? No. DRESSING - UPPER BODY - STEP 2: Does the patient need only setup/clean-up assistance from one helper? No. DRESSING - UPPER BODY - STEP 3: Does the patient need only verbal/nonverbal cueing or touching/steadying/contact guard assistance fro m one helper? Yes. 1. [id number] ADMISSION PERFORMANCE: Supervision or touching assistance CODE: 04 DRESSING - LOWER BODY: DRESSING - LOWER BODY - STEP 1: Does the patient complete the activity by him/herself with no assistance (physical, verbal/nonverbal cueing, setup/clean-up)? No. DRESSING - LOWER BODY - STEP 2: Does the patient need only setup/clean-up assistance from one helper? Yes. 1. [id number] ADMISSION PERFORMANCE: Setup or clean-up assistance CODE: 05 PUTTING ON/TAKING OFF FOOTWEAR: FOOTWEAR - STEP 1: Does the patient complete the activity by him/herself with no assistance (physical, verbal/nonverbal cueing, setup/clean-up)? No. FOOTWEAR - STEP 2: Does the patient need only setup/clean-up assistance from one helper? No. FOOTWEAR - STEP 3: Does the patient need only verbal/nonverbal cueing or touching/steadying/contact guard assistance fro m one helper? No. FOOTWEAR - STEP 4: Does the patient need physical assistance - for example lifting or trunk support from one helper - wi th the helper providing less than half of the effort? Yes. 1. [id number] ADMISSION PERFORMANCE: Partial/moderate assistance CODE: 03 DOES THE PATIENT USE A WHEELCHAIR/SCOOTER? CODE: EXPR INDICATE THE TYPE OF WHEELCHAIR/SCOOTER USED: CODE: EXPR INDICATE THE TYPE OF WHEELCHAIR/SCOOTER USED: CODE: EXPR BLADDER AND BOWEL: CODE: EXPR CODE: EXPR SIGNATURE PANEL: The following modified sections: 1. [id number] Admission Performance, 1. [id number] Admission Performance, 1. [id number] Admission Performance, 1. [id number] Admission Performance, 1. [id number] Admission Performance, 1. [id number] Admission Performance were [electronically] signed by AMEENA Garrido on SunMay 15 2019 14:19:35 GMT-0600 (Central Standard Time)
--- NOTE | 2019-05-15 17:08 | R.PN ---
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 Pt denied any depression. She has no complaints. She ambulated 500' with standby assistance. Up and down 15 steps with standby assistance. Self-propelled wheel chair 500' with independence. Labs reviewed and are stable, including WBC 7.6 and Hgb 10.9. Her prealbumin is still low at 14.9. Sh leann is on promod 30 mg twice daily. VITAL SIGNS Temperature: 97.4 F SBP/DBP: 151/58 Pulse: 51 Resp: 16 MEDICATION ALLERGIES: No Known Drug Allergies (NKDA) ENVIRONMENTAL ALLERGIES: None Known - Substance Allergies None Known - Other Allergies None Known NURSING: - Shower allowing shower ACTIVITIES OOB only with supervision THERAPIES: - Dietary and Nutrition Adequate Nutrition. Nutritional Education. Nutritional Supplements. PHYSICAL EXAM - Gen Alert and awake Lying in bed No apparent distress Oriented to: person, time, and place - Skin No breakdown Normacephalic - Eyes No abnormalities - ENMT No abnormalities - Neck No abnormalities - CVS RRR - Chest mild decrease in breath sounds - Resp No wheezing - Abd + bowel sounds - GI Non distended Deferred - No abnormalities - Ext Mild bilateral lower extremity edema. - MSK 4+/5 weakness in both lower extremities. - Neuro 4/5 strength left lower extremity. - Psych No abnormalities ASSESSMENT: Pt. is a 84 yo Right-handed white female.On 05/06/2019 she was admitted to [facility] with diagnosis CHF Exacerbation.Her impairment category is Debility 16 - Debility (16).Pre-mo rbidly, Pt. was independent/mod-I in Locomotion, Balance, Safety Awareness, Social Cognition, Transfe rs Control, Self-Care, Sphincter Control, Communication, and Endurance; and she had good Locomotion, Safety Awareness, Transfers Control, Balance, Social Cognition, Sphincter Control, Self-Care, and Com munication.Currently, she has deficits of Locomotion, Balance, Transfers Control, Self-Care, and Endu jewels.Pt. is now referred to [facility] for acute in-patient rehabilitation in order to maximize patient's functional independence in activities of daily living, strength, ROM, an d mobility.- Rehab Goal Patient has realistic goal of being discharged at assistance level 6-Julianna to reside at Home with Att endant. MDM/PLAN: - Physical Therapy Gait dysfunction - to improve, our physical therapists will perform initial evaluation of pt's statu s upon admission and devise an individualized program for Gait Training, and Wheel Chair mobility Inability to transfer - to improve, our physical therapists will perform initial evaluation of pt's status upon admission and devise an individualized program for Bed mobility Need for home safety evaluation - to improve, our physical therapists will perform initial evaluatio n of pt's status upon admission and devise an individualized program for Home Evaluation Need in caregiver upon discharge - to improve, our physical therapists will perform initial evaluati on of pt's status upon admission and devise an individualized program for Caregiver Training Edema - to improve, our physical therapists will perform initial evaluation of pt's status upon admi ssion and devise an individualized program for Elevation Training, and Lymphedema Therapy New precaution - to improve, our physical therapists will perform initial evaluation of pt's status upon admission and devise an individualized program for Patient precaution education Poor balance - to improve, our physical therapists will perform initial evaluation of pt's status up on admission and devise an individualized program for Balance Training Poor endurance - to improve, our physical therapists will perform initial evaluation of pt's status upon admission and devise an individualized program for Endurance Training Weakness - to improve, our physical therapists will perform initial evaluation of pt's status upon a dmission and devise an individualized program for Aquatic Therapy, Neuromuscular Reeducation, and Str engthening Achieving independence - to improve, our physical therapists will perform initial evaluation of pt's status upon admission and devise an individualized program for Community Reintegration Activities - Occupational Therapy ADL deficits - to improve, our occupation therapists will perform initial evaluation of pt's status upon admission and devise an individualized program for Bathing, Bed mobility, Community Reintegratio n, Cooking, Dressing, Eating, Fine Motor Skills, Grooming, Homemaking, Kitchen Mobility, Laundry, Pat ient Education, Safety Awareness, Splinting - Positioning, Transfers(Toilet, Tub, Shower), and Wheel Chair Management Need for child day care provider - to improve, our occupation therapists will perform initial evaluation of pt's status upon admission and devise an individualized program for Caregiver Training Weakness - to improve, our occupation therapists will perform initial evaluation of pt's status upon admission and devise an individualized program for Aquatic Therapy, Balance, Endurance, UE ROM, and UE strengthening - Other See attached MAR (Medication Administration Record) - Diet Type Continue Regular - Diet - Liquid Texture Continue Regular - Tube Feed Continue N/A - Diet - Solid Texture Continue Regular - Shower allowing shower FUNCTIONAL STATUS: UPDATED AT WEEKLY TEAM CONFERENCE - Bladder Same accident frequency: 7-Ind - No accidents in the past 7 days - Bowel Same accident frequency: 7-Ind - No accidents in the past 7 days - Walking Same score based on distance walked: 0(N/A) Same score based on distance walked: 2(50-149ft) - Wheelchair Same score based on distance traveled: 0(N/A) FUNCTIONAL STATUS: - Self-Care A. Eating Julianna B. Grooming Julianna C. Bathing Julianna D. Dressing - Upper sup E. Dressing - Lower Cuco F. Toileting Julianna - Sphincter Control G. Bladder control Julianna H. Bowel control sup - Transfers Control I. Bed/Chair/Wheelchair sup J. Toilet sup K. Tub/Shower sup - Locomotion L. Walk/Wheelchair (B) sup M. Stairs Cuco - Communication N. Comprehension (B) Julianna O. Expression (B) Julianna - Social Cognition P. Social Interaction Julianna Q. Problem Solving Julianna R. Memory sup - Endurance Fair - Balance Fair - Safety Awareness Fair QI SCORES: - Self-Care A. Eating 04-Supervision or touching assistance B. Oral hygiene 04-Supervision or touching assistance C. Toileting hygiene 04-Supervision or touching assistance E. Shower/bathe self 04-Supervision or touching assistance F. Upper body dressing 04-Supervision or touching assistance G. Lower body dressing 03-Partial/moderate assistance H. Putting on/taking off footwear 03-Partial/moderate assistance - Mobility A. Roll left and right 04-Supervision or touching assistance B. Sit to lying 04-Supervision or touching assistance C. Lying to sitting on side of bed 04-Supervision or touching assistance D. Sit to stand 04-Supervision or touching assistance E. Chair/exn-bm-[id number] transfer 04-Supervision or touching assistance F. Toilet transfer 03-Partial/moderate assistance G. Car transfer 10-Not attempted due to environmental limitations I. Walk 10 feet 03-Partial/moderate assistance J. Walk 50 feet with two turns 88-Not attempted due to medical condition or safety concerns K. Walk 150 feet 03-Partial/moderate assistance L. Walking 10 feet on uneven surfaces 88-Not attempted due to medical condition or safety concerns M. 1 step (curb) 88-Not attempted due to medical condition or safety concerns N. 4 steps 88-Not attempted due to medical condition or safety concerns O. 12 steps 88-Not attempted due to medical condition or safety concerns P. Picking up object 88-Not attempted due to medical condition or safety concerns R. Wheel 50 feet with two turns 88-Not attempted due to medical condition or safety concerns S. Wheel 150 feet 88-Not attempted due to medical condition or safety concerns - Bladder and Bowel Bladder continence 0-Always continent Bowel continence 0-Always continent - Endurance Fair - Balance Fair - Safety Awareness Fair CURRENT [facility]. DEFICITS: Self-Care, Mobility, Endurance, Balance, and Safety Awareness SIGNATURE PANEL: (AUCTION ASSISTANT)
[2019-05-15] MEDS: MUCINEX DM 12HR.SR TAB PO PRN (20:57)
[2019-05-15] MEDS: TEMAZEPAM 15 MG CAP PO PRN (20:58)
[2019-05-15] MEDS: DONEPEZIL HCL 5 MG TAB PO SCH (20:58)
[2019-05-15] MEDS: DOCUSATE NA/SENNA CONC 1 TAB PO PRN (21:08)
[2019-05-16] MEDS: LEVOTHYROXINE SOD 0.1 MG TAB PO SCH (07:38)
[2019-05-16] MEDS: TOLTERODINE LA 4 MG CAP PO SCH (07:42)
[2019-05-16] MEDS: CODEINE 30MG/APAP 300MG TAB PO PRN (07:42)
[2019-05-16] MEDS: FUROSEMIDE 40 MG TABLET PO SCH ×2 (07:43→17:03)
[2019-05-16] MEDS: ESCITALOPRAM 20 MG TAB PO SCH (07:43)
[2019-05-16] MEDS: TAMSULOSIN 0.4 MG SR CAP PO SCH (07:43)
[2019-05-16] MEDS: APIXABAN 2.5 MG TABLET PO SCH ×2 (07:43→21:30)
[2019-05-16] MEDS: NYSTATIN OINT 15 GM TUBE TOP SCH (07:43)
[2019-05-16] MEDS: CLOPIDOGREL 75 MG TABLET PO SCH (07:43)
[2019-05-16] MEDS: predniSONE 5 MG TAB PO SCH (07:44)
[2019-05-16] MEDS: METOPROLOL TAR 50 MG TAB PO SCH ×2 (07:44→20:00)
[2019-05-16] MEDS: CRANBERRY FRUIT EXTRACT 200 MG CAP PO SCH (07:44)
[2019-05-16] MEDS: FAMOTIDINE 20 MG TAB PO SCH (07:45)
[2019-05-16] MEDS: PROMOD 30 ML DOSE PO SCH ×2 (07:46→21:31)
--- NOTE | 2019-05-16 09:54 | P.RH.PN ---
Estimated Length of Stay: 12 Expected Discharge Date: 05/19/19 Discharge Disposition Plan: Home Family Support: Yes [facility]cf Goal: Mobility, Transfers, Self Care Vital Signs: Last Vital Signs Temp 96.8 F 05/16/19 06:59 Pulse 57 05/16/19 07:44 Resp 18 05/16/19 07:42 BP 120/49 L 05/16/19 07:44 Pulse Ox 95 05/16/19 07:42 Laboratory: Laboratory Last Values WBC 7.6 K/uL (4.3-10.9) 05/15/19 05:39 RBC 3.29 M/uL (3.86-4.86) L 05/15/19 05:39 Hgb 10.9 g/dL (12.0-15.0) L 05/15/19 05:39 Hct 32.7 % (36.0-45.0) L 05/15/19 05:39 MCV 99.4 fL (80-100) 05/15/19 05:39 MCH 33.0 pg (27.0-35.0) 05/15/19 05:39 MCHC 33.2 g/dL (32.0-36.0) 05/15/19 05:39 RDW 14.6 % (12.1-15.2) 05/15/19 05:39 Plt Count 256 K/uL (152-406) 05/15/19 05:39 MPV 8.4 fL (7.6-11.3) D 05/15/19 05:39 Neutrophils % 56.4 % (41.7-73.7) 05/15/19 05:39 Lymphocytes % 29.9 % (15.3-44.8) 05/15/19 05:39 Monocytes % 10.2 % (3.3-12.3) 05/15/19 05:39 Eosinophils % 2.6 % (0-4.4) 05/15/19 05:39 Basophils % 0.9 % (0-1.3) 05/15/19 05:39 Absolute Neutrophils 4.3 K/uL (1.8-8.0) 05/15/19 05:39 Absolute Lymphocytes 2.3 K/uL (0.7-4.9) 05/15/19 05:39 Absolute Monocytes 0.8 K/uL (0.1-1.3) 05/15/19 05:39 Absolute Eosinophils 0.2 K/uL (0-0.5) 05/15/19 05:39 Absolute Basophils 0.1 K/uL (0-0.5) 05/15/19 05:39 Sodium 140 mmol/L (136-145) 05/15/19 05:39 Potassium 4.3 mmol/L (3.5-5.1) 05/15/19 05:39 Chloride 96 mmol/L (98-107) L 05/15/19 05:39 Carbon Dioxide 38 mmol/L (21-32) H 05/15/19 05:39 BUN 24 mg/dL (7-18) H 05/15/19 05:39 Creatinine 0.95 mg/dL (0.55-1.3) 05/15/19 05:39 Estimated GFR 56 mL/min (=/>90) L 05/15/19 05:39 Glucose 93 mg/dL (74-106) 05/15/19 05:39 POC Glucose 96 mg/dl (65-120) 05/10/19 07:21 Calcium 8.8 mg/dL (8.5-10.1) 05/15/19 05:39 Magnesium 2.2 mg/dL (1.8-2.4) 05/15/19 05:39 Albumin 2.7 g/dL (3.4-5.0) L 05/15/19 05:39 Prealbumin 14.9 mg/dL (20-40) L 05/15/19 05:39 Weight: 248 lb 12.8 oz Wound Present: Yes Closed Surgical Incision Present: No Negative Pressure Wound Therapy Present: No Physician Update: Labs reviewed and are stable. She is done very well at [facility] with transfers and gait. She may require assistance for dressing lower body. She will be discharged back to assisted living. Medical Issues: Patient is always continent with bladder and bowel. Pain Issues: Patient is taking Tylenol #3 Q6H PO PRN for pain. Functional Improvement: pt presents with mild strength deficits in bilateral LEs. pt demonstrates reduced balance and stability during ambulation and functional transfers. pt exhibits reducd trunk strength. pt experiences reduced tolerance to functional activity due to fatigue, weakness, and SOB. Skilled PT services are necessary to address the above menitoned impairments and functional limitations. Speech Therapy Update: Patient's cognitive-linguistic functioning is WFL with occasional word-finding and short-term memory difficulty. However, patient's ability to return home at prior level is not limited by her cognitive- linguistic functioning. Summary: Patient's care plan and fpc goals have been reviewed and revised as necessary. Please see the Rehabilitation Signature page for all necessary signatures.
[2019-05-16] MEDS: ROPINIROLE HCL 1 MG TAB PO SCH ×2 (13:56→21:31)
--- NOTE | 2019-05-16 15:46 | FAST ---
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 Austin Vasquez M.D. ADMISSION DIAGNOSIS: - Debility 16 - Debility (16) CHF Exacerbation. ROLL LEFT AND RIGHT: ROLL LEFT AND RIGHT - STEP 1: Does the patient complete the activity by him/herself with no assistance (physical, verbal/nonverbal cueing, setup/clean-up)? Yes. 1. [id number] ADMISSION PERFORMANCE: Independent CODE: 06 SIT TO LYING: SIT TO LYING - STEP 1: Does the patient complete the activity by him/herself with no assistance (physical, verbal/nonverbal cueing, setup/clean-up)? Yes. 1. [id number] ADMISSION PERFORMANCE: Independent CODE: 06 LYING TO SITTING: LYING TO SITTING ON SIDE OF BED - STEP 1: Does the patient complete the activity by him/herself with no assistance (physical, verbal/nonverbal cueing, setup/clean-up)? Yes. 1. [id number] ADMISSION PERFORMANCE: Independent CODE: 06 SIT TO STAND: SIT TO STAND - STEP 1: Does the patient complete the activity by him/herself with no assistance (physical, verbal/nonverbal cueing, setup/clean-up)? Yes. 1. [id number] ADMISSION PERFORMANCE: Independent CODE: 06 TRANSFERS: BED, CHAIR: CHAIR/[id number] TRANSFER - STEP 1: Does the patient complete the activity by him/herself with no assistance (physical, verbal/nonverbal cueing, setup/clean-up)? Yes. 1. [id number] ADMISSION PERFORMANCE: Independent CODE: 06 TRANSFER TOILET: TOILET TRANSFER - STEP 1: Does the patient complete the activity by him/herself with no assistance (physical, verbal/nonverbal cueing, setup/clean-up)? Yes. 1. [id number] ADMISSION PERFORMANCE: Independent CODE: 06 TRANSFERS: CAR: Not attempted due to environmental limitations (e.g., lack of equipment, weather constraints) CODE: 10 WALK 10 FEET: WALK 10 FEET - STEP 1: Does the patient complete the activity by him/herself with no assistance (physical, verbal/nonverbal cueing, setup/clean-up)? Yes. 1. [id number] ADMISSION PERFORMANCE: Independent CODE: 06 WALK 50 FEET: WALK 50 FEET - STEP 1: Does the patient complete the activity by him/herself with no assistance (physical, verbal/nonverbal cueing, setup/clean-up)? Yes. 1. [id number] ADMISSION PERFORMANCE: Independent CODE: 06 WALK 150 FEET: WALK 150 FEET - STEP 1: Does the patient complete the activity by him/herself with no assistance (physical, verbal/nonverbal cueing, setup/clean-up)? Yes. 1. [id number] ADMISSION PERFORMANCE: Independent CODE: 06 WALK 10 FEET UNEVEN: Not attempted due to medical condition or safety concerns CODE: 88 1 STEP (CURB): 1 STEP CURB - STEP 1: Does the patient complete the activity by him/herself with no assistance (physical, verbal/nonverbal cueing, setup/clean-up)? No. 1 STEP CURB - STEP 2: Does the patient need only setup/clean-up assistance from one helper? Yes. 1. [id number] ADMISSION PERFORMANCE: Setup or clean-up assistance CODE: 05 4 STEPS: 4 STEPS - STEP 1: Does the patient complete the activity by him/herself with no assistance (physical, verbal/nonverbal cueing, setup/clean-up)? No. 4 STEPS - STEP 2: Does the patient need only setup/clean-up assistance from one helper? Yes. 1. [id number] ADMISSION PERFORMANCE: Setup or clean-up assistance CODE: 05 12 STEPS: 12 STEPS - STEP 1: Does the patient complete the activity by him/herself with no assistance (physical, verbal/nonverbal cueing, setup/clean-up)? No. 12 STEPS - STEP 2: Does the patient need only setup/clean-up assistance from one helper? Yes. 1. [id number] ADMISSION PERFORMANCE: Setup or clean-up assistance CODE: 05 PICKING UP OBJECT: Not attempted due to medical condition or safety concerns CODE: 88 DOES THE PATIENT USE A WHEELCHAIR/SCOOTER? Q1. DOES THE PATIENT USE A WHEELCHAIR/SCOOTER?: Yes CODE: 1 WHEEL 50 FEET WITH TWO TURNS: WHEEL 50 FEET WITH TWO TURNS - STEP 1: Does the patient complete the activity by him/herself with no assistance (physical, verbal/nonverbal cueing, setup/clean-up)? Yes. 1. [id number] ADMISSION PERFORMANCE: Independent CODE: 06 INDICATE THE TYPE OF WHEELCHAIR/SCOOTER USED: RR1. INDICATE THE TYPE OF WHEELCHAIR/SCOOTER USED.: Manual CODE: 1 WHEEL 150 FEET: WHEEL 150 FEET - STEP 1: Does the patient complete the activity by him/herself with no assistance (physical, verbal/nonverbal cueing, setup/clean-up)? Yes. 1. [id number] ADMISSION PERFORMANCE: Independent CODE: 06 INDICATE THE TYPE OF WHEELCHAIR/SCOOTER USED: SS1. INDICATE THE TYPE OF WHEELCHAIR/SCOOTER USED.: Manual CODE: 1 BLADDER AND BOWEL: CODE: EXPR CODE: EXPR SIGNATURE PANEL: The following modified sections: 1. [id number] Admission Performance, 1. [id number] Admission Performance, 1. [id number] Admission Performance, 1. [id number] Admission Performance, 1. [id number] Admission Performance, 1. [id number] Admission Performance, 1. [id number] Admission Performance, 1. [id number] Admission Performance , 1. [id number] Admission Performance, 1. [id number] Admission Performance, 1. [id number] Admission Performanc e, 1. [id number] Admission Performance, Q1. Does the patient use a wheelchair/scooter?, 1. [id number] Admis pat Performance, RR1. Indicate the type of wheelchair/scooter used., 1. [id number] Admission Performanc e, Code, SS1. Indicate the type of wheelchair/scooter used. were [electronically] signed by Vasile noriega PTA on SunMay 16 2019 15:45:49 GMT-0600 (Central Standard Time)
[2019-05-16] MEDS: DONEPEZIL HCL 5 MG TAB PO SCH (21:28)
[2019-05-16] MEDS: TRAMADOL HCL 50 MG TAB PO PRN (21:29)
[2019-05-16] MEDS: DOCUSATE NA/SENNA CONC 1 TAB PO PRN (21:30)
[2019-05-16] MEDS: MUCINEX DM 12HR.SR TAB PO PRN (21:30)
[2019-05-16] MEDS: TEMAZEPAM 15 MG CAP PO PRN (21:32)
--- NOTE | 2019-05-17 02:12 | FAST ---
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 Austin Vasquez M.D. ADMISSION DIAGNOSIS: - Debility 16 - Debility (16) CHF Exacerbation. EATING: Not assessed/no information CODE: - ORAL HYGIENE: Not assessed/no information CODE: - TOILETING HYGIENE: TOILETING HYGIENE - STEP 1: Does the patient complete the activity by him/herself with no assistance (physical, verbal/nonverbal cueing, setup/clean-up)? No. TOILETING HYGIENE - STEP 2: Does the patient need only setup/clean-up assistance from one helper? No. TOILETING HYGIENE - STEP 3: Does the patient need only verbal/nonverbal cueing or touching/steadying/contact guard assistance fro m one helper? Yes. 1. [id number] ADMISSION PERFORMANCE: Supervision or touching assistance CODE: 04 BATHING: Not assessed/no information CODE: - DRESSING - UPPER BODY: Not assessed/no information CODE: - DRESSING - LOWER BODY: Not assessed/no information CODE: - PUTTING ON/TAKING OFF FOOTWEAR: Not assessed/no information CODE: - ROLL LEFT AND RIGHT: ROLL LEFT AND RIGHT - STEP 1: Does the patient complete the activity by him/herself with no assistance (physical, verbal/nonverbal cueing, setup/clean-up)? No. ROLL LEFT AND RIGHT - STEP 2: Does the patient need only setup/clean-up assistance from one helper? No. ROLL LEFT AND RIGHT - STEP 3: Does the patient need only verbal/nonverbal cueing or touching/steadying/contact guard assistance fro m one helper? Yes. 1. [id number] ADMISSION PERFORMANCE: Supervision or touching assistance CODE: 04 SIT TO LYING: SIT TO LYING - STEP 1: Does the patient complete the activity by him/herself with no assistance (physical, verbal/nonverbal cueing, setup/clean-up)? No. SIT TO LYING - STEP 2: Does the patient need only setup/clean-up assistance from one helper? No. SIT TO LYING - STEP 3: Does the patient need only verbal/nonverbal cueing or touching/steadying/contact guard assistance fro m one helper? Yes. 1. [id number] ADMISSION PERFORMANCE: Supervision or touching assistance CODE: 04 LYING TO SITTING: LYING TO SITTING ON SIDE OF BED - STEP 1: Does the patient complete the activity by him/herself with no assistance (physical, verbal/nonverbal cueing, setup/clean-up)? No. LYING TO SITTING ON SIDE OF BED - STEP 2: Does the patient need only setup/clean-up assistance from one helper? No. LYING TO SITTING ON SIDE OF BED - STEP 3: Does the patient need only verbal/nonverbal cueing or touching/steadying/contact guard assistance fro m one helper? Yes. 1. [id number] ADMISSION PERFORMANCE: Supervision or touching assistance CODE: 04 SIT TO STAND: SIT TO STAND - STEP 1: Does the patient complete the activity by him/herself with no assistance (physical, verbal/nonverbal cueing, setup/clean-up)? No. SIT TO STAND - STEP 2: Does the patient need only setup/clean-up assistance from one helper? No. SIT TO STAND - STEP 3: Does the patient need only verbal/nonverbal cueing or touching/steadying/contact guard assistance fro m one helper? Yes. 1. [id number] ADMISSION PERFORMANCE: Supervision or touching assistance CODE: 04 TRANSFERS: BED, CHAIR: CHAIR/[id number] TRANSFER - STEP 1: Does the patient complete the activity by him/herself with no assistance (physical, verbal/nonverbal cueing, setup/clean-up)? No. CHAIR/[id number] TRANSFER - STEP 2: Does the patient need only setup/clean-up assistance from one helper? No. CHAIR/[id number] TRANSFER - STEP 3: Does the patient need only verbal/nonverbal cueing or touching/steadying/contact guard assistance fro m one helper? Yes. 1. [id number] ADMISSION PERFORMANCE: Supervision or touching assistance CODE: 04 TRANSFER TOILET: TOILET TRANSFER - STEP 1: Does the patient complete the activity by him/herself with no assistance (physical, verbal/nonverbal cueing, setup/clean-up)? No. TOILET TRANSFER - STEP 2: Does the patient need only setup/clean-up assistance from one helper? No. TOILET TRANSFER - STEP 3: Does the patient need only verbal/nonverbal cueing or touching/steadying/contact guard assistance fro m one helper? Yes. 1. [id number] ADMISSION PERFORMANCE: Supervision or touching assistance CODE: 04 TRANSFERS: CAR: Not assessed/no information CODE: - WALK 10 FEET: Not assessed/no information CODE: - 1 STEP (CURB): Not assessed/no information CODE: - PICKING UP OBJECT: Not assessed/no information CODE: - DOES THE PATIENT USE A WHEELCHAIR/SCOOTER? CODE: EXPR WHEEL 50 FEET WITH TWO TURNS: Not assessed/no information CODE: - INDICATE THE TYPE OF WHEELCHAIR/SCOOTER USED: CODE: EXPR WHEEL 150 FEET: Not assessed/no information CODE: - INDICATE THE TYPE OF WHEELCHAIR/SCOOTER USED: CODE: EXPR BLADDER AND BOWEL: H350. BLADDER CONTINENCE (3-DAY ASSESSMENT PERIOD): Stress incontinence only CODE: 1 H400. BOWEL CONTINENCE (3-DAY ASSESSMENT PERIOD): Always continent CODE: 0
[2019-05-17 05:36] VITALS: BMI 44.2
[2019-05-17] MEDS: LEVOTHYROXINE SOD 0.1 MG TAB PO SCH (06:28)
[2019-05-17] MEDS: CODEINE 30MG/APAP 300MG TAB PO PRN (07:55)
[2019-05-17] MEDS: CLOPIDOGREL 75 MG TABLET PO SCH (07:56)
[2019-05-17] MEDS: CRANBERRY FRUIT EXTRACT 200 MG CAP PO SCH (07:56)
[2019-05-17] MEDS: predniSONE 5 MG TAB PO SCH (07:56)
[2019-05-17] MEDS: TAMSULOSIN 0.4 MG SR CAP PO SCH (07:56)
[2019-05-17] MEDS: APIXABAN 2.5 MG TABLET PO SCH ×2 (07:56→20:59)
[2019-05-17] MEDS: METOPROLOL TAR 50 MG TAB PO SCH ×2 (07:57→20:00)
[2019-05-17] MEDS: ESCITALOPRAM 20 MG TAB PO SCH (07:57)
[2019-05-17] MEDS: NYSTATIN OINT 15 GM TUBE TOP SCH (07:57)
[2019-05-17] MEDS: FAMOTIDINE 20 MG TAB PO SCH (07:57)
[2019-05-17] MEDS: FUROSEMIDE 40 MG TABLET PO SCH ×2 (07:57→16:38)
[2019-05-17] MEDS: TOLTERODINE LA 4 MG CAP PO SCH (07:58)
[2019-05-17] MEDS: PROMOD 30 ML DOSE PO SCH ×2 (07:58→20:59)
[2019-05-17] MEDS: ROPINIROLE HCL 1 MG TAB PO SCH ×2 (13:02→20:59)
[2019-05-17] MEDS: DONEPEZIL HCL 5 MG TAB PO SCH (20:59)
[2019-05-17] MEDS: TEMAZEPAM 15 MG CAP PO PRN (20:59)
[2019-05-17] MEDS: MUCINEX DM 12HR.SR TAB PO PRN (21:00)
[2019-05-18] MEDS: LEVOTHYROXINE SOD 0.1 MG TAB PO SCH (06:45)
[2019-05-18] MEDS: NYSTATIN OINT 15 GM TUBE TOP SCH (07:37)
[2019-05-18] MEDS: CODEINE 30MG/APAP 300MG TAB PO PRN (08:15)
[2019-05-18] MEDS: METOPROLOL TAR 50 MG TAB PO SCH ×2 (08:17→20:44)
[2019-05-18] MEDS: CRANBERRY FRUIT EXTRACT 200 MG CAP PO SCH (08:17)
[2019-05-18] MEDS: TOLTERODINE LA 4 MG CAP PO SCH (08:17)
[2019-05-18] MEDS: FUROSEMIDE 40 MG TABLET PO SCH ×2 (08:17→17:12)
[2019-05-18] MEDS: TAMSULOSIN 0.4 MG SR CAP PO SCH (08:18)
[2019-05-18] MEDS: predniSONE 5 MG TAB PO SCH (08:18)
[2019-05-18] MEDS: FAMOTIDINE 20 MG TAB PO SCH (08:18)
[2019-05-18] MEDS: ESCITALOPRAM 20 MG TAB PO SCH (08:18)
[2019-05-18] MEDS: APIXABAN 2.5 MG TABLET PO SCH ×2 (08:19→20:44)
[2019-05-18] MEDS: CLOPIDOGREL 75 MG TABLET PO SCH (08:19)
[2019-05-18] MEDS: PROMOD 30 ML DOSE PO SCH ×2 (08:20→20:44)
[2019-05-18] MEDS: ROPINIROLE HCL 1 MG TAB PO SCH ×2 (13:41→20:44)
[2019-05-18] MEDS: DONEPEZIL HCL 5 MG TAB PO SCH (20:44)
[2019-05-18] MEDS: TEMAZEPAM 15 MG CAP PO PRN (20:44)
[2019-05-19] MEDS: LEVOTHYROXINE SOD 0.1 MG TAB PO SCH (06:32)
[2019-05-19] MEDS: CRANBERRY FRUIT EXTRACT 200 MG CAP PO SCH (07:58)
[2019-05-19] MEDS: TOLTERODINE LA 4 MG CAP PO SCH (07:58)
[2019-05-19] MEDS: CODEINE 30MG/APAP 300MG TAB PO PRN ×2 (07:59→20:06)
[2019-05-19] MEDS: APIXABAN 2.5 MG TABLET PO SCH ×2 (07:59→20:07)
[2019-05-19] MEDS: CLOPIDOGREL 75 MG TABLET PO SCH (07:59)
[2019-05-19] MEDS: ESCITALOPRAM 20 MG TAB PO SCH (07:59)
[2019-05-19] MEDS: NYSTATIN OINT 15 GM TUBE TOP SCH (07:59)
[2019-05-19] MEDS: TAMSULOSIN 0.4 MG SR CAP PO SCH (08:00)
[2019-05-19] MEDS: PROMOD 30 ML DOSE PO SCH ×2 (08:00→20:00)
[2019-05-19] MEDS: METOPROLOL TAR 50 MG TAB PO SCH ×2 (08:00→20:06)
[2019-05-19] MEDS: FUROSEMIDE 40 MG TABLET PO SCH ×2 (08:01→16:52)
[2019-05-19] MEDS: predniSONE 5 MG TAB PO SCH (08:01)
[2019-05-19] MEDS: FAMOTIDINE 20 MG TAB PO SCH (08:01)
[2019-05-19] MEDS: ROPINIROLE HCL 1 MG TAB PO SCH ×2 (12:59→20:06)
--- NOTE | 2019-05-19 14:50 | RAD REPORT ---
EXAM DESCRIPTION: RAD - Knee Right 2 View - 05/19/2019 2:45 pm CLINICAL HISTORY: knee pain COMPARISON: No comparisons FINDINGS: Moderate tricompartmental osteoarthritis is present with tibial spine osteophyte. No fract ure or dislocation seen. No joint effusion evident. IMPRESSION: Moderate osteoarthritis.
--- NOTE | 2019-05-19 14:52 | RAD REPORT ---
EXAM DESCRIPTION: RAD - Knee Left 2 View - 05/19/2019 2:45 pm CLINICAL HISTORY: knee pain COMPARISON: No comparisons FINDINGS: Left total knee arthroplasty is noted. No evidence of hardware loosening or infection. No fracture or joint effusion.
[2019-05-19] MEDS: TRAMADOL HCL 50 MG TAB PO PRN (16:52)
--- NOTE | 2019-05-19 17:43 | R.PN ---
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 Pt denied any depression. She has no complaints. She ambulated 500' with standby assistance. Up and down 15 steps with standby assistance. Self-propelled wheel chair 500' with independence. Labs reviewed and are stable, including WBC 7.6 and Hgb 10.9. Her prealbumin is still low at 14.9. Sh leann is on promod 30 mg twice daily. She is more sleepy today. WBC is 7.6, Hgb 10.9, prealbumin 14.9. Knee x-rays show moderate osteoarthr itis. Pain patches are placed on both knees. VITAL SIGNS Temperature: 97.4 F SBP/DBP: 123/73 Pulse: 54 Resp: 16 MEDICATION ALLERGIES: No Known Drug Allergies (NKDA) ENVIRONMENTAL ALLERGIES: None Known - Substance Allergies None Known - Other Allergies None Known NURSING: - Shower allowing shower ACTIVITIES OOB only with supervision THERAPIES: - Dietary and Nutrition Adequate Nutrition. Nutritional Education. Nutritional Supplements. PHYSICAL EXAM - Gen Alert and awake Lying in bed No apparent distress Oriented to: person, time, and place - Skin No breakdown Normacephalic - Eyes No abnormalities - ENMT No abnormalities - Neck No abnormalities - CVS RRR - Chest mild decrease in breath sounds - Resp No wheezing - Abd + bowel sounds - GI Non distended Deferred - No abnormalities - Ext Mild bilateral lower extremity edema. - MSK 4+/5 weakness in both lower extremities. - Neuro 4/5 strength left lower extremity. - Psych No abnormalities ASSESSMENT: Pt. is a 84 yo Right-handed white female.On 05/06/2019 she was admitted to [facility] [place] with diagnosis CHF Exacerbation.Her impairment category is Debility 16 - Debility (16).Pre-mo rbidly, Pt. was independent/mod-I in Locomotion, Balance, Safety Awareness, Social Cognition, Transfe rs Control, Self-Care, Sphincter Control, Communication, and Endurance; and she had good Locomotion, Safety Awareness, Transfers Control, Balance, Social Cognition, Sphincter Control, Self-Care, and Com munication.Currently, she has deficits of Locomotion, Balance, Transfers Control, Self-Care, and Endu jewels.Pt. is now referred to [facility] for acute in-patient rehabilitation in order to maximize patient's functional independence in activities of daily living, strength, ROM, an d mobility.- Rehab Goal Patient has realistic goal of being discharged at assistance level 6-Julianna to reside at Home with Att endant. MDM/PLAN: - Physical Therapy Gait dysfunction - to improve, our physical therapists will perform initial evaluation of pt's statu s upon admission and devise an individualized program for Gait Training, and Wheel Chair mobility Inability to transfer - to improve, our physical therapists will perform initial evaluation of pt's status upon admission and devise an individualized program for Bed mobility Need for home safety evaluation - to improve, our physical therapists will perform initial evaluatio n of pt's status upon admission and devise an individualized program for Home Evaluation Need in caregiver upon discharge - to improve, our physical therapists will perform initial evaluati on of pt's status upon admission and devise an individualized program for Caregiver Training Edema - to improve, our physical therapists will perform initial evaluation of pt's status upon admi ssion and devise an individualized program for Elevation Training, and Lymphedema Therapy New precaution - to improve, our physical therapists will perform initial evaluation of pt's status upon admission and devise an individualized program for Patient precaution education Poor balance - to improve, our physical therapists will perform initial evaluation of pt's status up on admission and devise an individualized program for Balance Training Poor endurance - to improve, our physical therapists will perform initial evaluation of pt's status upon admission and devise an individualized program for Endurance Training Weakness - to improve, our physical therapists will perform initial evaluation of pt's status upon a dmission and devise an individualized program for Aquatic Therapy, Neuromuscular Reeducation, and Str engthening Achieving independence - to improve, our physical therapists will perform initial evaluation of pt's status upon admission and devise an individualized program for Community Reintegration Activities - Occupational Therapy ADL deficits - to improve, our occupation therapists will perform initial evaluation of pt's status upon admission and devise an individualized program for Bathing, Bed mobility, Community Reintegratio n, Cooking, Dressing, Eating, Fine Motor Skills, Grooming, Homemaking, Kitchen Mobility, Laundry, Pat ient Education, Safety Awareness, Splinting - Positioning, Transfers(Toilet, Tub, Shower), and Wheel Chair Management Need for care associate - to improve, our occupation therapists will perform initial evaluation of pt's status upon admission and devise an individualized program for Caregiver Training Weakness - to improve, our occupation therapists will perform initial evaluation of pt's status upon admission and devise an individualized program for Aquatic Therapy, Balance, Endurance, UE ROM, and UE strengthening - Other See attached MAR (Medication Administration Record) - Diet Type Continue Regular - Diet - Liquid Texture Continue Regular - Tube Feed Continue N/A - Diet - Solid Texture Continue Regular - Shower allowing shower FUNCTIONAL STATUS: UPDATED AT WEEKLY TEAM CONFERENCE - Bladder Same accident frequency: 7-Ind - No accidents in the past 7 days - Bowel Same accident frequency: 7-Ind - No accidents in the past 7 days - Walking Same score based on distance walked: 0(N/A) Same score based on distance walked: 2(50-149ft) - Wheelchair Same score based on distance traveled: 0(N/A) FUNCTIONAL STATUS: - Self-Care A. Eating Julianna B. Grooming Julianna C. Bathing Julianna D. Dressing - Upper sup E. Dressing - Lower Cuco F. Toileting Julianna - Sphincter Control G. Bladder control Julianna H. Bowel control sup - Transfers Control I. Bed/Chair/Wheelchair sup J. Toilet sup K. Tub/Shower sup - Locomotion L. Walk/Wheelchair (B) sup M. Stairs Cuco - Communication N. Comprehension (B) Julianna O. Expression (B) Julianna - Social Cognition P. Social Interaction Julianna Q. Problem Solving Julianna R. Memory sup - Endurance Fair - Balance Fair - Safety Awareness Fair QI SCORES: - Self-Care A. Eating 04-Supervision or touching assistance B. Oral hygiene 04-Supervision or touching assistance C. Toileting hygiene 04-Supervision or touching assistance E. Shower/bathe self 04-Supervision or touching assistance F. Upper body dressing 04-Supervision or touching assistance G. Lower body dressing 03-Partial/moderate assistance H. Putting on/taking off footwear 03-Partial/moderate assistance - Mobility A. Roll left and right 04-Supervision or touching assistance B. Sit to lying 04-Supervision or touching assistance C. Lying to sitting on side of bed 04-Supervision or touching assistance D. Sit to stand 04-Supervision or touching assistance E. Chair/zso-hh-ltkno transfer 04-Supervision or touching assistance F. Toilet transfer 03-Partial/moderate assistance G. Car transfer 10-Not attempted due to environmental limitations I. Walk 10 feet 03-Partial/moderate assistance J. Walk 50 feet with two turns 88-Not attempted due to medical condition or safety concerns K. Walk 150 feet 03-Partial/moderate assistance L. Walking 10 feet on uneven surfaces 88-Not attempted due to medical condition or safety concerns M. 1 step (curb) 88-Not attempted due to medical condition or safety concerns N. 4 steps 88-Not attempted due to medical condition or safety concerns O. 12 steps 88-Not attempted due to medical condition or safety concerns P. Picking up object 88-Not attempted due to medical condition or safety concerns R. Wheel 50 feet with two turns 88-Not attempted due to medical condition or safety concerns S. Wheel 150 feet 88-Not attempted due to medical condition or safety concerns - Bladder and Bowel Bladder continence 0-Always continent Bowel continence 0-Always continent - Endurance Fair - Balance Fair - Safety Awareness Fair CURRENT [facility]. 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
[2019-05-19] MEDS: TEMAZEPAM 15 MG CAP PO PRN (20:06)
[2019-05-19] MEDS: DONEPEZIL HCL 5 MG TAB PO SCH (20:07)
[2019-05-19] MEDS: MUCINEX DM 12HR.SR TAB PO PRN (20:07)
[2019-05-19] MEDS: DOCUSATE NA/SENNA CONC 1 TAB PO PRN (20:10)
[2019-05-20 06:00] VITALS: O2SAT 93
[2019-05-20] MEDS: LEVOTHYROXINE SOD 0.1 MG TAB PO SCH (06:43)
[2019-05-20 07:51] VITALS: BP 121/52; TEMP 97
[2019-05-20] MEDS: ESCITALOPRAM 20 MG TAB PO SCH (07:57)
[2019-05-20] MEDS: predniSONE 5 MG TAB PO SCH (07:57)
[2019-05-20] MEDS: FAMOTIDINE 20 MG TAB PO SCH (07:57)
[2019-05-20] MEDS: TAMSULOSIN 0.4 MG SR CAP PO SCH (07:57)
[2019-05-20] MEDS: TOLTERODINE LA 4 MG CAP PO SCH (07:58)
[2019-05-20] MEDS: FUROSEMIDE 40 MG TABLET PO SCH (07:58)
[2019-05-20] MEDS: CRANBERRY FRUIT EXTRACT 200 MG CAP PO SCH (07:58)
[2019-05-20] MEDS: APIXABAN 2.5 MG TABLET PO SCH (07:59)
[2019-05-20] MEDS: METOPROLOL TAR 50 MG TAB PO SCH (07:59)
[2019-05-20] MEDS: CLOPIDOGREL 75 MG TABLET PO SCH (07:59)
[2019-05-20] MEDS: TRAMADOL HCL 50 MG TAB PO PRN (07:59)
[2019-05-20] MEDS: PROMOD 30 ML DOSE PO SCH (08:00)
[2019-05-20] MEDS ORDERED: LIDOCAINE 4% PATCH TOP SCH (08:00)
[2019-05-20] MEDS: NYSTATIN OINT 15 GM TUBE TOP SCH (08:00)
[2019-05-20] MEDS: ROPINIROLE HCL 1 MG TAB PO SCH (13:14)
--- NOTE | 2019-05-23 15:51 | R.DS ---
FACILITY [facility] MR# [id number] NAME SHAKILA WALKER ADDRESS [address] [place] [address] PHONE DATE OF 1935 AGE 84 SSN# [id number] GENDER Female DEXTERITY Right-handed MARITAL STATUS RACE White ENCOUNTER PHYSICIAN Dr. Austin Vasquez M.D. REFERRING DOCTOR DIXIE MONTOYA REFERRING FACILITY [facility] DISCHARGE DIAGNOSIS: - Debility 16 - Debility (16) CHF Exacerbation. 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 NURSING: - Shower allowing shower ACTIVITIES OOB only with supervision THERAPIES: - Dietary and Nutrition Adequate Nutrition Nutritional Education Nutritional Supplements HISTORY OF PRESENT ILLNESS: Pt. is a 84 yo Right-handed white female.On 05/06/2019 she was admitted to [facility] with diagnosis CHF Exacerbation.Her impairment category is Debility 16 - Debility (16).Pre-mo rbidly, Pt. was independent/mod-I in Locomotion, Balance, Safety Awareness, Social Cognition, Transfe rs Control, Self-Care, Sphincter Control, Communication, and Endurance; and she had good Locomotion, Safety Awareness, Transfers Control, Balance, Social Cognition, Sphincter Control, Self-Care, and Com munication.Currently, she has deficits of Locomotion, Balance, Transfers Control, Self-Care, and Endu jewels.Pt. is now referred to [facility] for acute in-patient rehabilitation in order to maximize patient's functional independence in activities of daily living, strength, ROM, an d mobility.- Rehab Goal Patient has realistic goal of being discharged at assistance level 6-Julianna to reside at Home with Att endant. Shakila Walker is an 84 year old female that lives at [facility] living. She ambulates within her room using a rollator. On 05/06/2019, patient was brought to ER due to increased lower extremity swelling, increase shortness of breath and has weeping sores on bilateral lower extremities and was admitted to [facility]. She is now medically stable but in need of 24-hour nursing, doctor supervision and oversite participate in 3hours of therapy a day/15 hours per week and receive care with an intensive interdisciplinary approach.HOSPITAL COURSE: DIET - LIQUID TEXTURE: On 05/08/2019 Pt was upgraded to Regular Diet - Liquid Texture. DIET - SOLID TEXTURE: On 05/08/2019 Pt was upgraded to Regular Diet - Solid Texture. DIET TYPE: On 05/08/2019 Pt was upgraded to Regular Diet Type. TUBE FEED: On 05/08/2019 Pt was changed to N/A Tube Feed. DISCHARGE PHYSICAL EXAM - Gen Alert and awake Lying in bed No apparent distress Oriented to: person, time, and place - Skin No breakdown Normacephalic - Eyes No abnormalities - ENMT No abnormalities - Neck No abnormalities - CVS RRR - Chest mild decrease in breath sounds - Resp No wheezing - Abd + bowel sounds - GI Non distended Deferred - No abnormalities - Ext Mild bilateral lower extremity edema. - MSK 4+/5 weakness in both lower extremities. - Neuro 4/5 strength left lower extremity. - Psych No abnormalities FUNCTIONAL STATUS: - Self-Care A. Eating 6-Julianna B. Grooming 6-Julianna C. Bathing 6-Julianna D. Dressing - Upper 6-Julianna E. Dressing - Lower 6-Julianna F. Toileting 6-Julianna - Sphincter Control G. Bladder control 6-Julianna H. Bowel control 6-Julianna - Transfers Control I. Bed/Chair/Wheelchair 6-Julianna J. Toilet 6-Julianna K. Tub/Shower 6-Julianna - Locomotion L. Walk/Wheelchair (B) 6-Julianna M. Stairs 5-sup - Communication N. Comprehension (B) 6-Julianna O. Expression (B) 6-Julianna - Social Cognition P. Social Interaction 6-Julianna Q. Problem Solving 6-Julianna R. Memory 5-sup - Endurance Good - Balance Good - Safety Awareness Good QI SCORES: - Self-Care A. Eating 04-Supervision or touching assistance B. Oral hygiene 04-Supervision or touching assistance C. Toileting hygiene 04-Supervision or touching assistance E. Shower/bathe self 04-Supervision or touching assistance F. Upper body dressing 04-Supervision or touching assistance G. Lower body dressing 03-Partial/moderate assistance H. Putting on/taking off footwear 03-Partial/moderate assistance - Mobility A. Roll left and right 04-Supervision or touching assistance B. Sit to lying 04-Supervision or touching assistance C. Lying to sitting on side of bed 04-Supervision or touching assistance D. Sit to stand 04-Supervision or touching assistance E. Chair/msl-ox-aeseu transfer 04-Supervision or touching assistance F. Toilet transfer 03-Partial/moderate assistance G. Car transfer 10-Not attempted due to environmental limitations I. Walk 10 feet 03-Partial/moderate assistance J. Walk 50 feet with two turns 88-Not attempted due to medical condition or safety concerns K. Walk 150 feet 03-Partial/moderate assistance L. Walking 10 feet on uneven surfaces 88-Not attempted due to medical condition or safety concerns M. 1 step (curb) 88-Not attempted due to medical condition or safety concerns N. 4 steps 88-Not attempted due to medical condition or safety concerns O. 12 steps 88-Not attempted due to medical condition or safety concerns P. Picking up object 88-Not attempted due to medical condition or safety concerns R. Wheel 50 feet with two turns 88-Not attempted due to medical condition or safety concerns S. Wheel 150 feet 88-Not attempted due to medical condition or safety concerns - Bladder and Bowel Bladder continence 0-Always continent Bowel continence 0-Always continent - Endurance Fair - Balance Fair - Safety Awareness Fair DISCHARGE INSTRUCTIONS: - N/A Eliquis 2.5 mg twice daily. DISCHARGE PLAN, FOLLOW UP CARE PROVISIONS: - Estimated Length of Stay (days) 13. - Consensus on plan Discharge plan has been discussed with primary caregiver. Patient/Family is in agreement with the paramjit n. Primary caregiver is in agreement with the plan. - Patient/Family Goals Return home with assistance. - Planned Living Setting Upon Discharge Home, to live with Attendant. Transitional Living. Primary caregiver: Attendant. 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
--- NOTE | 2019-05-25 12:43 | CON ---
Date of Consultation: 05/20/2019 Reason For Consultation: Bilateral knee pain. History Of Present Illness: Ms. Zacarias is an 84-year-old female who presented to the ER on April with CHF exacerbation. Once stabilized, she was transferred to inpatient rehab to aid with mo bilization. While mobilizing with rehab, she was noted to have increased pain in her bilateral knees . She has history of left total knee arthroplasty performed by Dr. Blunt. She reports pain right g reater than left. Denies any fever or chills at this time. She reports pain that worsens with prolo nged standing and walking. She mobilizes with the use of a walker. Review of Systems: As above, otherwise negative. Past Medical History: Include COPD, dementia, CHF, hypertension, hypothyroidism, history of TIAs. Past Surgical History: Includes cholecystectomy, left knee replacement. Family History: Reviewed and noncontributory. Social History: Denies tobacco, alcohol use. Physical Examination: General: No apparent distress. HEENT: Normocephalic, atraumatic. Neck: Supple. Cardiovascular: Brisk cap refill to all digits. Chest: Nonlabored breathing. Abdomen: Nondistended. Psychiatric: Response to exam. Musculoskeletal: Bilateral lower extremities, right lower extremity is tender to palpation over the medial joint line. Trace effusion. No erythema noted about the knee. Stable to varus-valgus stress . Left lower extremity, midline incision consistent with total knee arthroplasty. Knee is stable to varus-valgus stress. Mild swelling. No erythema. No significant pain with range of motion. Diagnostic Studies: X-rays of the right knee demonstrates orwjjslf-pd-lsfzlj osteoarthritis with simone nt space narrowing and osteophyte formation. Left knee x-ray, no obvious fracture, dislocation. Lef t knee prosthesis in position with overall good alignment. No signs of loosening or failure. Assessment And Plan: Ti is an 84-year-old female with right knee osteoarthritis and left knee p ain after a total knee arthroplasty. I discussed with the patient her diagnosis. She may continue t o mobilize with physical therapy as she completes her treatment for congestive heart failure exacerba tion and swelling on her lower extremities improved. We will discuss right knee corticosteroid injec tion. She is not a surgical candidate of right knee arthroplasty given her significant medical comor bidities. She will follow up in my clinic for corticosteroid injection. After discharge, she is med ically stable. CV/MODL Voice ID: [id number] Report ID: [id number]
== END 2019-05-20 13:40 | disposition home health service (06) | DRG 293 ==
LOC: 5TH 18:17
PROVIDERS: ADMIT Psychiatry & Neurology Neurology with Special Qualifications in Child Neurology; ATTEND Psychiatry & Neurology Neurology with Special Qualifications in Child Neurology
DX: I50.33 Acute on chronic diastolic (congestive) heart failure (principal); R53.81 Other malaise; E03.9 Hypothyroidism, unspecified; G47.00 Insomnia, unspecified; G25.81 Restless legs syndrome; K21.9 Gastro-esophageal reflux disease without esophagitis; G62.9 Polyneuropathy, unspecified; J44.9 Chronic obstructive pulmonary disease, unspecified; I10 Essential (primary) hypertension; F03.90 Unspecified dementia, unspecified severity, without behavioral disturbance, psychotic disturbance, mood disturbance, and anxiety; E87.70 Fluid overload, unspecified; M17.0 Bilateral primary osteoarthritis of knee; Z86.73 Personal history of transient ischemic attack (TIA), and cerebral infarction without residual deficits
CPT/HCPCS: 36415; 51702; 71045; 80048; 80076; 81003; 82040; 82947; 83690; 83735; 83880; 84100; 84134; 84145; 84443; 84484; 85025; 85610; 87086; 87088; 92523; 93005; 93306; 93970; 94640; 94760; 96365; 96375; 97110; 97112; 97116; 97127; 97161; 97530; 99285; G0378; J0690; J0696; J1650; J1940; J2270; J2405; J7512

== ENCOUNTER 2020-03-31 10:21 | Inpatient (IN) | payer OTHER ==
--- OUTSIDE RECORDS SUMMARY | 2020-03-31 10:24 | XMS REPORT | Continuity of Care Document ---
:1935 Author Organization [facility] Care Team Providers Name Role Phone [facility] Unavailable Un available Problems Problem Status Onset Classification Date Comments Sourc e Date Reported Gastroesophageal Active Problem 05/17/2019 Mi sheldon reflux disease Neuro (disorder) Hearing loss Active Problem 05/17/2019 Mische r (finding) Neuro Hypertensive Active Problem 05/17/2019 Mische r disorder, systemic N euro arterial (disorder) Low back pain Active Problem 05/17/2019 Misch er (disorder) Neuro Mild cognitive Active Problem 05/17/2019 Misc her disorder (disorder) Neuro Restless legs Active Problem 05/17/2019 Misch er (disorder) Neuro Temporal arteritis Active Problem 05/17/2019 [facility]ischer (disorder) Neuro Medications Medication Details Route Status Patient Ordering Order Source Instructions Provider Date predniSONE 2.5 2.5 mg = 1 Active Mische r mg oral tablet tab, PO, 019 Neuro Daily, # 30 tab, 3 Refill(s) predniSONE 5 mg 5 mg = 1 Active Mischer oral tablet tab, PO, 019 Neuro Daily, # 30 tab, 2 Refill(s), other predniSONE 10 mg 20 mg = 2 No Longer Mis kristopher oral tablet tab, PO, Active 019 Neuro Daily, 0 Refill(s) Prednisone 2 mg, PO, Inactive Mischer Daily, 019 Neuro Quantity sufficient, 0 Refill(s) Donepezil 5 mg = 1 Active Mischer hydrochloride 5 tab, PO, 018 Neuro MG Oral Tablet Bedtime, # [Aricept] 90 tab, 1 Refill(s), Pharmacy: [facility] Allergies, Adverse Reactions, Alerts Substance Category Reaction Severity Reaction Status Date Comments S ource type Reported No Known Assertion Drug Misch er Medication allergy Neuro Allergies Immunizations No Data [...] Signs Vital Sign Value Date Comments Source Systolic (mm Hg) 169 12/12/2018 [facility] [place] [facility] Diastolic (mm Hg) 73 12/12/2018 [facility] Heart Rate 53 12/12/2018 [facility] Neuro Respitory Rate 16 12/12/2018 [facility] Neuro Height 154.94 cm 12/12/2018 [facility] Neuro Weight 109.545 12/12/2018 [facility] Neuro BMI Calculated 45.63 12/12/2018 [facility] Neuro Systolic (mm Hg) 156 10/31/2018 [facility] [place] [facility] Diastolic (mm Hg) 66 10/31/2018 [facility] Heart Rate 52 10/31/2018 [facility] Neuro Respitory Rate 16 10/31/2018 [facility] Neuro Height 160.02 cm 10/31/2018 [facility] Neuro Weight 109.545 10/31/2018 [facility] Neuro BMI Calculated 42.78 10/31/2018 [facility] Neuro Height 165.1 cm 2018 [facility] Neuro Weight 107.727 2018 [facility] Neuro BMI Calculated 39.52 2018 [facility] Neuro Heart Rate 68 2018 [facility] Neuro Systolic (mm Hg) 175 2018 [facility] Diastolic (mm Hg) 75 2018 [facility] Ne uro Encounters Location Location Encounter Encounter Reason Attending ADM IA Stat Source Details Type Number For Provider Date Date Visit MNA Ambulatory [id number] Shobha 01/10 01/10 [facility] Neurology Pre-Reg [facility] [place] Outpatient [id number] SHOBHA 02/12 Active [facility] [place] MNA Outpatient [id number] Shobha 02/12 02/13 [facility] Neurology [facility] [place] Outpatient [id number] SHOBHA 03/26 Active [facility] [place] MNA Ambulatory [id number] Shobha 03/26 03/26 [facility] Neurology Pre-Reg [facility] [place] MNA Outside [id number] 07/09 07/11 [facility] Neurology Medical /2018 [facility] [place] Records MNA Outside [id number] 07/18 07/20 [facility] Neurology Medical /2018 [facility] [place] Records MNA Outside [id number] 08/16 08/18 [facility] Neurology Medical /2018 [facility] [place] Records Outpatient [id number] Shobha 10/31 Active [facility] [place] MNA Outpatient [id number] Shobha 10/31 11/01 [facility] Neurology [facility] [place] Outpatient [id number] Shobha 12/12 Active [facility] [place] MNA Outpatient [id number] Shobha 12/12 12/13 [facility] Neurology [facility] [place] Outpatient [id number] Shobha 01/[address] [facility] [place] MNA Ambulatory [id number] Shobha 01/28 01/28 [facility] Neurology Pre-Reg [facility] [place] Outpatient [id number] Shobha 05/15 [facility] MNA Ambulatory [id number] Shobha 05/15 05/15 [facility] Neurology Pre-Reg [facility] [place] Procedures Procedure Code Date Perfomer Comments Source Ankle fusion [id number] [facility] Neuro Cataract extraction, [id number] [facility] her insertion of Neuro intraocular lens and trabeculectomy Cholecystectomy [id number] [facility] Neuro Knee replacement [id number] [facility] Neuro Rotator cuff repair [id number] [facility] Assessment and Plan No Data Provided for This Section Plan of Care No Data Provided for This Section Social History Social History Date Source Social History TypeResponse 12/12/2018 [facility] Neur o Smoking Status Former smoker; Type: Cigarettes; Previou s treatment: None; Ready to change: Yes; Concerns about tobacco use in household: No; Exposure to Tobacco Smoke None; Cigarette Smoking Last 365 Days No; Reg Smoking Cessation Counseling No1 entered on: 12/12/18 1quit 20 yrs ago Family History No Data Provided for This Section Advance Directives No Data Provided for This Section Functional Status No Data Provided for This Section
--- OUTSIDE RECORDS SUMMARY | 2020-03-31 10:24 | XMS REPORT | Continuity of Care Document ---
:1935 Author Organization [facility] t Address 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[facility] leg [facility] - syndrome syndrome [facility]ori a l [facility] Hematuria, Hematuria, Problem Active [facility] unspecifie unspecifie Sally kes - d type d type Memoria l [facility]ics Acute Acute Problem Active [facility] cystitis cystitis [facility] - without without [facility] hematuria [facility] Chronic Chronic Problem Active [facility] acquired acquired [facility] - lymphedema lymphedema Me moria l [facility] Acquired Acquired Problem Active [facility] hypothyroi hypothyroi Sally kes - dism dism [facility] Simple Simple Problem Active [facility] chronic chronic [facility] - bronchitis bronchitis Me moria l [facility] Arthritis Arthritis Problem Active [facility] of knee, of knee, [facility] - left left Memoria l [facility] Arthritis Arthritis Diagnosis Active [facility] of knee, of knee, [facility] - right right [facility]oria l [facility] Status Status Diagnosis Active [facility] post total post total Sally kes - left knee left knee Zach nando replacemen replacemen l t [facility] Pain in Pain in Diagnosis Active [facility] of [facility] - right knee right knee Me moria l [facility] Pain in Pain in Diagnosis Active [facility] - left knee left knee Zach nando l Outpati ent Clinics Gastroesop Problem Active 2019-05-17 M emoria hageal 22:53:17 l reflux [place]jo disease Gastroesop (disorder) hageal reflux disease (disorder) Active Problem 05/17/2019 [facility] Hearing Problem Active 2019-05-17 Zach nando loss 22:53:17 l (finding) Hearing Herm myriam loss (finding) Active Problem 05/17/2019 [facility] Hypertensi Problem Active 2019-05-17 M emoria ve 22:53:17 l disorder, [place] systemic Hypertensi arterial ve (disorder) disorder, systemic arterial (disorder) Active Problem 05/17/2019 [facility] Low back Problem Active 2019-05-17 Mem oria pain 22:53:17 l (disorder) Low back He rmann pain (disorder) Active Problem 05/17/2019 [facility] Mild Problem Active 2019-05-17 Memor ia cognitive 22:53:17 l disorder Mild Alejo (disorder) cognitive disorder (disorder) Active Problem 05/17/2019 [facility] Restless Problem Active 2019-05-17 Mem oria legs 22:53:17 l (disorder) Restless He rmann legs (disorder) Active Problem 05/17/2019 [facility] Temporal Problem Active 2019-05-17 Mem oria arteritis 22:53:17 l (disorder) 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 Clinician (SIG) Name Name predniSONE Yes 2.5 mg = 1 M emoria 2.5 mg oral 9-26 tab, PO, l tablet 20:21: Daily, # [place] 00 30 tab, 3 Refill(s) predniSONE Yes 5 mg = 1 Mem oria 5 mg oral 8-16 tab, PO, l tablet 23:13: Daily, # [place] 00 30 tab, 2 Refill(s), other predniSONE 2018- No 20 mg = 2 Me moria 10 mg oral 8-15 tab, PO, l tablet 18:10: Daily, 0 [place] 00 Refill(s) Prednisone 2018-0 No 2 mg, PO, Me moria 8-15 Daily, l 16:56: Quantity Alejo 00 sufficient , 0 Refill(s) Donepezil 2017-03 Yes 5 mg = 1 Zach nando hydrochlori 1-27 tab, PO, l de 5 MG 19:57: Bedtime, # Herm myriam Oral Tablet 00 90 tab, 1 [Aricept] Refill(s), Pharmacy: [facility] Lasix Lasix Yes Jacek [address] [facility] 1-25 [place] [facility] - 00:00: Memoria 00 l Outpat[facility] ent Clinics Fluconazole Fluconazole Yes Jacek TK [address] [facility] [place] QD [facility] Trazodone Trazodone Yes Jacek [address] [facility] HCl HCl [place] at bedtime [facility] nitrofurant nitrofurant Yes Jacek one tablet [facility] oin oin [place] daily [facility] Trelegy Trelegy Yes Jacek not [facility] Ellipta Ellipta [place] defined [facility] Metoprolol Metoprolol Yes Jacek [address] [facility] Tartrate Tartrate [place] with food Sally kes - Memoria l [facility] ent Clinics Acetaminoph Acetaminoph Yes Jacek [address] [facility] en-Codeine en-Codeine [place] as needed [facility] Synthroid Synthroid Yes Jacek [address] [facility] [place] on an [facility] - empty Memoria stomach in l the Outpati morning ent Clinics Synthroid Synthroid Yes Jacek [address] [facility] [place] on an [facility] - empty Memoria stomach in l the Outpati morning ent Clinics Cefuroxime Cefuroxime Yes Jacek not [facility] Axetil Axetil [place] defined [facility] Santyl Santyl Yes Jacek not [facility] [place] defined [facility] Clopidogrel Clopidogrel Yes Jacek [address] [facility] Bisulfate Bisulfate [place] [facility] Duloxetine Duloxetine Yes Jacek TK [address] [facility] HCl HCl [place] QAM. [facility] Naproxen Naproxen Yes Jacek [address] [facility] Sodium Sodium [place] with food [facility] - or milk as Memoria needed l Outpati ent Clinics Pramipexole Pramipexole Yes Jacek [address] [facility] Dihydrochlo Dihydrochlo [place] L ukes - ride ride [facility]oria l [facility]pati ent Clinics Tolterodine Tolterodine Yes Jacek not [facility] Tartrate Tartrate [place] defined [facility] - [facility] Temazepam Temazepam Yes Jacek not [facility] defined [facility] Famotidine Famotidine Yes Jacek not [facility] defined [facility] Potassium Potassium Yes Jacek not [facility] Chloride Chloride [place] defined [facility] Tramadol Tramadol Yes Jacek not [facility] HCl HCl [place] defined [facility] Furosemide Furosemide Yes Jacek not [facility] defined [facility] Ropinirole Ropinirole Yes Jacek not [facility] HCl HCl [place] defined [facility] Tamsulosin Tamsulosin Yes Jacek not [facility] HCl HCl [place] defined [facility] Escitalopra Escitalopra Yes Jacek not [facility] m Oxalate m Oxalate [place] defined Sally kes - [facility] Nystatin Nystatin Yes Jacek not [facility] defined [facility] Omeprazole Omeprazole Yes Jacek not [facility] defined [facility] Donepezil Donepezil Yes Jacek not [facility] HCl HCl [place] defined [facility] Biotene Dry Biotene Dry Yes Jacek not [facility] Mouth Care Mouth Care [place] defined [facility] Vital Signs Vital Name Observation Time Observation Value Comments Source Systolic (mm Hg) 2018-12-12 19:37:00 Zach rial [place] Diastolic (mm Hg) 2018-12-12 19:37:00 [facility] orial [place] Heart Rate 2018-12-12 19:37:00 [facility] [place] Respitory Rate 2018-12-12 19:37:00 Memori al [place] Height 2018-12-12 19:37:00 154.94 cm [facility] [place] Weight 2018-12-12 19:37:00 [facility] [place] BMI Calculated 2018-12-12 19:37:00 Memori al [place] Systolic (mm Hg) 2018-10-31 16:46:00 Zach rial [place] Diastolic (mm Hg) 2018-10-31 16:46:00 Mem orial [place] Heart Rate 2018-10-31 16:46:00 [facility] [place] Respitory Rate 2018-10-31 16:46:00 Mem[facility] [place] Height 2018-10-31 16:46:00 160.02 cm [facility] [place] Weight 2018-10-31 16:46:00 [facility] [place] BMI Calculated 2018-10-31 16:46:00 Mem[facility] [place] Height 2018 19:18:00 165.1 cm [facility] [place] Weight 2018 19:18:00 [facility] [place] BMI Calculated 2018 19:18:00 Memori al [place] Heart Rate 2018 19:18:00 [facility] [place] Systolic (mm Hg) 2018 19:18:00 Zach rial [place] Diastolic (mm Hg) 2018 19:18:00 Mem orial [place] Procedures Procedure Date / Time Performing Clinician Source Performed [id number] 2020-02-17 00:00:00 ENCPL 0HBRXZZ 2020-02-17 00:00:00 ENCPL 0HBRXZZ 2020-02-17 00:00:00 ENCPL 0HBRXZZ 2020-02-17 00:00:00 ENCPL 0HBRXZZ 2020-02-17 00:00:00 ENCPL 0HBRXZZ 2020-02-17 00:00:00 ENCPL 0HBRXZZ 2020-02-17 00:00:00 ENCPL [facility] Cataract extraction, [facility] rmann insertion of intraocular lens and trabeculectomy Cholecyst[facility] Rotator cuff repair [facility] Encounters Start End Encounter Admission Attending Care Care Encounter Source Date/Time Date/Time Type Type Clinicians Facility Department ID 2019-08-21 2019-08-21 [facility] [id number] [facility] 13:30:00 13:30:00 [facility] 2019-05-15 2019-05-15 Outpatient Anthony MHMISCHER MHMISCHER [id number] 14:45:00 14:45:00 Eron 06 [facility] 2019-05-06 2019-05-06 [facility] [id number] [facility] 14:30:00 14:30:00 t [facility] 2019-01-28 2019-01-28 Outpatient Anthony MHMISCHER MHMISCHER [id number] 13:15:00 13:15:00 Eron 05 [facility] 2018-12-12 2018-12-12 Outpatient Anthony MHMISCHER MHMISCHER [id number] 14:15:00 23:59:59 Eron 04 [facility] 2018-10-31 2018-10-31 Outpatient Anthony MHMISCHER MHMISCHER [id number] 11:30:00 23:59:59 Eron 03 [facility] 2018-08-16 2018-08-17 Outpatient MHMISCHER MHMISCHER [id number] 11:28:09 23:59:59 2018-07-18 2018-07-19 Outpatient MHMISCHER MHMISCHER [id number] 16:14:06 23:59:59 2018-07-09 2018-07-10 Outpatient MHMISCHER MHMISCHER [id number] 08:13:00 23:59:59 2018-03-26 2018-03-26 Outpatient Anthony MHMISCHER MHMISCHER [id number] 13:45:00 13:45:00 Eron 02 Florentin 2018 2018 Outpatient Anthony MHMISCHER MHMISCHER [id number] 13:00:00 23:59:59 Eron 01 Florentin 2018-01-10 2018-01-10 Outpatient Anthony MHMISCHER MHMISCHER [id number] 10:30:00 10:30:00 [place] [facility] Results This patient has no known results.
[2020-03-31] MEDS ORDERED: METHYLPREDNISOLONE 125 MG INJ ONE (11:12)
[2020-03-31 11:47] LABS: Absolute Lymphocytes (CBC) 1.3 K/uL (0.7-4.9); Basophils % 0.7 % (0-1.3); Hematocrit 33.6 % (36.0-45.0); Lymphocytes % 11.5 % (15.3-44.8); MPV 8.1 fL (7.6-11.3); RBC Red Blood Cell Count 3.35 M/uL (3.86-4.86)
[2020-03-31 12:17] LABS: BUN Blood Urea Nitrogen 11 mg/dL (7-18); Bicarbonate 34 mmol/L (21-32); Glucose Level 101 mg/dL (74-106); NT PRO-BNP 1925 pg/mL (<450); Potassium 4.9 mmol/L (3.5-5.1); Sodium Level 134 mmol/L (136-145); Troponin (Emerg Dept Use Only) < 0.02 ng/mL (0.0-0.045)
--- NOTE | 2020-03-31 13:13 | RAD REPORT ---
EXAM DESCRIPTION: CT - Chest For Pe Angio - 03/31/2020 12:52 pm CLINICAL HISTORY: DYSPNEA COMPARISON: No comparisons TECHNIQUE: Dynamically enhanced 3 mm thick images of the chest were obtained during administration o f approximately 150mL Isovue 370 IV contrast. Coronal and oblique MIP reconstruction images were gene rated and reviewed. Exam utilizes a protocol to evaluate the pulmonary arterial tree. All CT scans are performed using dose optimization technique as appropriate and may include automated exposure control or mA/KV adjustment according to patient size. FINDINGS: No pulmonary emboli are identified. The aorta as imaged shows no acute or suspicious finding. No pericardial thickening or effusion. No dense mass or consolidation. There is some hazy ground-glass opacification present along with inte rstitial thickening. These findings are all accentuated by respiratory motion. Right infrahilar 3 merced timeter mass density has a very low density indicating near fluid consistency. This is not suspected to be neoplastic mass or lymphadenopathy. Small right pleural effusion with trace left pleural fluid seen. There is minimal atelectasis. No mediastinal hilar mass or lymphadenopathy seen. Aortic atherosclerotic calcifications are present. No chest wall masses or abnormal axillary lymphadenopathy. Patient has significant tracheobronchomalacia involved in the thoracic trachea. 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 In the upper thorax the right lateral margin of the esophagus invaginates as well. IMPRESSION: No pulmonary emboli identified. Hazy ground-glass opacification and interstitial thickening are present in a pattern that suggests ed mckay. Viral type infiltrate is possible.COVID-19 pneumonia is not excluded but is a lesser likelihood based on CT presentation. Patient has significant tracheobronchomalacia as detailed. This is a finding that can be associated r espiratory symptoms mimicking pulmonary embolus.
--- NOTE | 2020-03-31 13:20 | RAD REPORT ---
EXAM DESCRIPTION: RAD - Chest Single View - 03/31/2020 1:06 pm CLINICAL HISTORY: COPD;Cough COMPARISON: Portable May 06, 2019 TECHNIQUE: AP portable chest image was obtained 03/31/2020 1:06 pm . FINDINGS: Lung volumes are similar to comparison. Heart size and vasculature are similar to comparis on. No mass or consolidations seen. Interstitial markings are diffusely more prominent than the harry rison study. Minimal hazy ground-glass opacities are seen. No measurable pleural effusion and no pneumothorax. No acute bony abnormality seen. No acute aortic findings suspected. IMPRESSION: Diffusely prominent interstitial markings increased over comparison. Patient appears to have some minimal ground-glass opacification as well. Interstitial and minimal alveolar edema from failure, volume overload or noncardiogenic etiology is f avored. Viral infiltrate etiologies are possible as well correlation with clinical presentation.
[2020-03-31 13:26] LABS: SARS-COV-2 RT PCR NEGATIVE (NEGATIVE)
--- NOTE | 2020-03-31 13:38 | ER ---
Nurse's Notes [facility] Name: Ti Zacarias Age: 85 yrs Sex: Female : 1935 Arrival Date: 03/31/2020 Time: 10:23 Bed 24 Private MD: Diagnosis: Pulmonary edema;Chronic obstructive pulmonary disease with (acute) exacerbation Presentation: 03/31 10:23 Chief complaint: EMS states: SOB SINCE LAST PM. Coronavirus screen: shortness of bp breath. Ebola Screen: No symptoms or risks identified at this time. Initial Sepsis Screen: Does the patient meet any 2 criteria? No. Patient's initial sepsis screen is negative. Does the patient have a suspected source of infection? No. Patient's initial sepsis screen is negative. Risk Assessment: Do you want to hurt yourself or someone else? Patient reports no desire to harm self or others. Onset of symptoms is unknown. 10:23 Method Of Arrival: EMS: [facility] bp 10:23 Acuity: PACO 3 bp Triage Assessment: 10:38 General: Appears in no apparent distress. uncomfortable, obese, Behavior is. Pain: bp Denies pain. EENT: No deficits noted. Neuro: No deficits noted. Cardiovascular: Rhythm is sinus rhythm. Respiratory: Reports shortness of breath cough that is hacking, persistent Onset: The symptoms/episode began/occurred yesterday, the patient has mild shortness of breath. Historical: - Allergies: 10:38 No Known Allergies; bp - Home Meds: 10:38 clopidogrel 75 mg Oral tab 1 tab once daily [Active]; donepezil 5 mg Oral TbDL 1 tab bp nightly [Active]; escitalopram oxalate 10 mg Oral tab 1 tab once daily [Active]; furosemide 40 mg Oral tab 1 tab daily prn [Active]; metoprolol tartrate 50 mg Oral tab 1 tab 2 times per day [Active]; naproxen sodium 220 mg Oral tab 2 tab Every other day [Active]; omeprazole 20 mg Oral cpDR 1 cap q day prn [Active]; ProAir HFA 90 mcg/actuation inhalation HFAA 2 puffs as needed [Active]; ropinirole 3 mg Oral tab 1 tab at 1900 [Active]; ropinirole 1 mg Oral tab 1 tab at 1400 [Active]; Tylenol-Codeine #3 300-30 mg Oral tab 1 tab q6hrs prn [Active]; Synthroid 50 mcg Oral tab 2 tabs once daily [Active]; Synthroid 200 mcg Oral tab 1 tab once daily [Active]; tamsulosin 0.4 mg Oral cp24 1 cap once daily [Active]; tolterodine 4 mg Oral cp24 1 cap once daily [Active]; trazodone 100 mg Oral tab 1 tab nightly [Active]; - PMHx: 10:38 Anemia; Arthritis; CAD; COPD; Depression; EDEMA; GERD; Hyperlipidemia; Hypertension; bp Hypothyroidism; PERIPHERAL NEUROPATHY; restless leg syndrome; - Immunization history:: Adult Immunizations unknown. - Social history:: Smoking status: unknown. - Family history:: not pertinent. - Hospitalizations: : No recent hospitalization is reported. Screenin:41 Abuse screen: Denies threats or abuse. Denies injuries from another. Nutritional bp screening: No deficits noted. Tuberculosis screening: No symptoms or risk factors identified. The patient has not been NPO before screening. The patient is alert, able to follow commands. The patient does not exhibit slurred or garbled speech The patient is not exhibiting difficulty speaking. The patient does not exhibit difficulty understanding words. The patient is able to swallow own secretions with no drooling or need for suction. Patient tolerated one teaspoon of water. No drooling, immediate coughing, gurgling, or clearing of the throat was noted. The patient tolerated 90mL of water. No drooling, immediate coughing, gurgling, or clearing of the throat was noted. The patient passed the bedside swallow screening. Oral medications may be given as ordered. Contact Physician for further diet orders. Fall Risk None identified. Assessment: 10:41 General: SEE TRIAGE NOTE. Cardiovascular: Rhythm is sinus rhythm. Respiratory: Airway bp is patent Respiratory effort is even, labored, Breath sounds are coarse bilaterally. EENT: Reports nasal congestion. 11:14 Reassessment: UNABLE TO OBTAIN BLOOD SPECIMEN. PHLEBOTOMY CONTACTED FOR BLOOD DRAW. bp 12:41 Reassessment: Patient appears in no apparent distress at this time. No changes from bp previously documented assessment. Patient and/or family updated on plan of care and expected duration. Pain level reassessed. Patient is alert, oriented x 3, equal unlabored respirations, skin warm/dry/pink. PT TO CT. 13:48 Reassessment: No changes from previously documented assessment. Patient and/or family bp updated on plan of care and expected duration. Pain level reassessed. Patient is alert, oriented x 3, equal unlabored respirations, skin warm/dry/pink. ADMIT INITIATED FOR FLUID OVERLOAD. Vital Signs: 10:23 BP 154 / 72; Pulse 61; Resp 17; Temp 98; Pulse Ox 98% ; bp 11:30 BP 161 / 68; Pulse 55; Resp 17; Pulse Ox 96% ; bp 12:30 BP 167 / 71; Pulse 58; Resp 17; Pulse Ox 96% ; bp 13:47 BP 154 / 67; Pulse 71; Resp 17; Pulse Ox 78% on R/A; bp ED Course: 10:23 Patient arrived in ED. bp 10:23 Primo Padilla MD is Attending Physician. rn 10:30 No provider procedures requiring assistance completed. Maintain EMS IV. Dressing bp intact. Good blood return noted. Site clean \T\ dry. Gauge \T\ site: 20 G LEFT AC. 10:32 Triage completed. bp 10:38 Arm band placed on. bp 10:41 Patient has correct armband on for positive identification. Bed in low position. Call bp light in reach. Side rails up X2. 10:51 Andrew Dunn, ANITA is Primary Nurse. bp 11:13 Inserted saline lock: 22 gauge in right forearm, using aseptic technique. IV bp discontinued, intact, bleeding controlled, No redness/swelling at site. Pressure dressing applied. 12:10 Notified ED physician of a critical lab result(s). D-dimmer 1112. aa5 12:52 CT Chest For PE Angio In Process Unspecified. EDMS 13:07 XRAY Chest (1 view) In Process Unspecified. EDMS 13:36 Elsa Dumont MD is Hospitalizing Provider. rn 14:45 Lu cath inserted, using sterile technique, 16 Fr., by hi, balloon inflated, to dh3 gravity drainage, returned clear yellow urine. Patient tolerated well. Administered Medications: 10:50 Drug: SOLU-Medrol 125 mg Route: IVP; Site: left antecubital; bp 12:41 Follow up: Response: No adverse reaction bp 13:49 Drug: Lasix 60 mg Route: IVP; Site: right antecubital; bp 14:17 Follow up: Response: No adverse reaction bp Outcome: 13:37 Decision to Hospitalize by Provider. rn 20:33 Patient left the ED. sg Signatures: Dispatcher [employer] EDTaz Sibley RN RN Primo Rao MD MD rn Calderon, Audri, RN RN 5 Rochelle [facility] Andrew Dunn RN RN bp Corrections: (The following items were deleted from the chart) 13:49 12:41 Reassessment: Patient appears in no apparent distress at this time. No changes bp from previously documented assessment. Patient and/or family updated on plan of care and expected duration. Pain level reassessed. Patient is alert/active/playful, equal unlabored respirations, skin warm/dry/pink. PT TO CT bp 14:17 13:47 BP 154 / 67; Pulse 71bpm; Resp 17bpm; Pulse Ox 90% 2 lpm Nasal Cannula; bp bp
--- NOTE | 2020-03-31 13:38 | EDPHYS ---
Physician Documentation [facility] Name: Ti Zacarias Age: 85 yrs Sex: Female : 1935 Arrival Date: 03/31/2020 Time: 10:23 Bed 24 Private MD: ED Physician Primo Padilla HPI: 03/31 10:34 This 85 yrs old Female presents to ER via EMS with complaints of Shortness Of rn Breath. 10:34 The patient has shortness of breath at rest, with light activity. Onset: The rn symptoms/episode began/occurred yesterday. Duration: The symptoms are intermittent. The patient's shortness of breath is aggravated by exertion, light activity, is alleviated by nebulizer treatment, application of supplemental oxygen. Severity of symptoms: At their worst the symptoms were moderate in the emergency department the symptoms have improved. The patient has experienced similar episodes in the past. The patient has not recently seen a physician. Reports sob since yesterday, improved with combivent from EMS, no fever, + mild cough, + congestion, no change in taste/smell, has been isolated in detention and has had 3 neg COVID tests. . Historical: - Allergies: 10:38 No Known Allergies; bp - Home Meds: 10:38 clopidogrel 75 mg Oral tab 1 tab once daily [Active]; donepezil 5 mg Oral TbDL 1 tab bp nightly [Active]; escitalopram oxalate 10 mg Oral tab 1 tab once daily [Active]; furosemide 40 mg Oral tab 1 tab daily prn [Active]; metoprolol tartrate 50 mg Oral tab 1 tab 2 times per day [Active]; naproxen sodium 220 mg Oral tab 2 tab Every other day [Active]; omeprazole 20 mg Oral cpDR 1 cap q day prn [Active]; ProAir HFA 90 mcg/actuation inhalation HFAA 2 puffs as needed [Active]; ropinirole 3 mg Oral tab 1 tab at 1900 [Active]; ropinirole 1 mg Oral tab 1 tab at 1400 [Active]; Tylenol-Codeine #3 300-30 mg Oral tab 1 tab q6hrs prn [Active]; Synthroid 50 mcg Oral tab 2 tabs once daily [Active]; Synthroid 200 mcg Oral tab 1 tab once daily [Active]; tamsulosin 0.4 mg Oral cp24 1 cap once daily [Active]; tolterodine 4 mg Oral cp24 1 cap once daily [Active]; trazodone 100 mg Oral tab 1 tab nightly [Active]; - PMHx: 10:38 Anemia; Arthritis; CAD; COPD; Depression; EDEMA; GERD; Hyperlipidemia; Hypertension; bp Hypothyroidism; PERIPHERAL NEUROPATHY; restless leg syndrome; - Immunization history:: Adult Immunizations unknown. - Social history:: Smoking status: unknown. - Family history:: not pertinent. - Hospitalizations: : No recent hospitalization is reported. 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 Exam: 10:34 Constitutional: Overweight female, tachypneic, no retractions Head/Face: rn Normocephalic, atraumatic. Cardiovascular: Regular rate and rhythm. No pulse deficits. Respiratory: + tachypnea without retractions Abdomen/GI: Soft, non-tender Skin: Warm, dry MS/ Extremity: Pulses equal, no cyanosis. + 2+ pitting edema bilateral lower ext. Equal circumference. Neuro: Awake and alert, GCS 15 Vital Signs: 10:23 BP 154 / 72; Pulse 61; Resp 17; Temp 98; Pulse Ox 98% ; bp 11:30 BP 161 / 68; Pulse 55; Resp 17; Pulse Ox 96% ; bp 12:30 BP 167 / 71; Pulse 58; Resp 17; Pulse Ox 96% ; bp 13:47 BP 154 / 67; Pulse 71; Resp 17; Pulse Ox 78% on R/A; bp MDM: 10:23 Patient medically screened. rn 13:34 Differential diagnosis: CHF exacerbation, Chronic Obstructive Pulmonary Disease rn Myocardial Infarction pneumonia, Pneumothorax pulmonary edema, Pulmonary Embolism. Data reviewed: vital signs, nurses notes, lab test result(s), EKG, radiologic studies, CT scan, plain films, and as a result, I will admit patient. Counseling: I had a detailed discussion with the patient and/or guardian regarding: the historical points, exam findings, and any diagnostic results supporting the discharge/admit diagnosis, lab results, radiology results, the need for further work-up and treatment in the hospital. Response to treatment: the patient's symptoms have mildly improved after treatment, and as a result, I will admit patient. Admission orders: after a detailed discussion of the patient's condition and case, the admit orders are written by me. 13:34 ED course: COVID neg, + volume overload, with COPD exacerbation, admitted to Dr. Julia castañeda for further care. . 03/31 10:29 Order name: Blood Culture Adult (2) rn 03/31 10:29 Order name: BMP; Complete Time: 12:24 rn 03/31 10:29 Order name: CBC with Diff; Complete Time: 12:15 rn 03/31 10:29 Order name: D-Dimer; Complete Time: 12:15 rn 03/31 10:29 Order name: NT PRO-BNP; Complete Time: 12:24 rn 03/31 10:29 Order name: Troponin (emerg Dept Use Only); Complete Time: 12:24 rn 03/31 13:26 Order name: COVID-19/FLU A+B; Complete Time: 13:30 EDWA 03/31 14:22 Order name: CBC with Automated Diff EDMS 03/31 14:22 Order name: CBC with Automated Diff EDMS 03/31 14:22 Order name: Comprehensive Metabolic Panel EDMS 03/31 14:22 Order name: Comprehensive Metabolic Panel EDMS 03/31 14:22 Order name: D-Dimer EDMS 03/31 12:24 Order name: XRAY Chest (1 view); Complete Time: 13:30 rn 03/31 12:25 Order name: CT Chest For PE Angio; Complete Time: 13:17 rn 03/31 14:22 Order name: D-Dimer EDMS 03/31 14:22 Order name: Magnesium EDMS 03/31 14:22 Order name: Magnesium EDMS 03/31 14:22 Order name: NT PRO-BNP EDMS 03/31 14:22 Order name: NT PRO-BNP EDMS 03/31 14:22 Order name: Phosphorus EDMS 03/31 14:22 Order name: Phosphorus EDMS 03/31 14:22 Order name: Protime (+INR) EDMS 03/31 14:22 Order name: Protime (+INR) EDWA 03/31 14:22 Order name: PTT, Activated Partial Thromb EDWA 03/31 14:22 Order name: PTT, Activated Partial Thromb EDWA 03/31 14:22 Order name: Troponin I EDWA 03/31 14:22 Order name: Troponin I EDWA 03/31 14:22 Order name: Troponin I EDWA 03/31 10:29 Order name: EKG; Complete Time: 10:30 rn 03/31 10:29 Order name: Cardiac monitoring; Complete Time: 11:13 rn 03/31 10:29 Order name: EKG - Nurse/Tech; Complete Time: 12:41 rn 03/31 10:29 Order name: IV Saline Lock; Complete Time: 11:12 rn 03/31 10:29 Order name: Labs collected and sent; Complete Time: 11:40 rn 03/31 10:29 Order name: O2 Per Protocol; Complete Time: 10:47 rn 03/31 10:29 Order name: O2 Sat Monitoring; Complete Time: 10:47 rn 03/31 14:22 Order name: CONS Physician Consult EDWA 03/31 14:22 Order name: Heart Healthy EDWA 03/31 14:22 Order name: Echo with Doppler EDWA Administered Medications: 10:50 Drug: SOLU-Medrol 125 mg Route: IVP; Site: left antecubital; bp 12:41 Follow up: Response: No adverse reaction bp 13:49 Drug: Lasix 60 mg Route: IVP; Site: right antecubital; bp 14:17 Follow up: Response: No adverse reaction bp Disposition: 03/31/20 13:37 Hospitalization ordered by Elsa Dumont for Inpatient Admission. Preliminary diagnosis are Pulmonary edema, Chronic obstructive pulmonary disease with (acute) exacerbation. - Bed requested for Telemetry/MedSurg (Inpatient). - Status is Inpatient Admission. sg - Condition is Stable. - Problem is an acute exacerbation. - Symptoms have improved. Signatures: Dispatcher [employer] [facility] Tasneem Falcon RN RN Taz Ruiz RN RN Primo Rao MD MD rn Peltier, Brian RN RN bp Corrections: (The following items were deleted from the chart) 12:34 10:30 CORONAVIRUS+MR.LAB.BRZ ordered. EDMS EDMS 12:35 10:30 Influenza Screen (A \T\ B)+BA.LAB.BRZ ordered. EDWA EDMS 15:55 13:37 Hospitalization Ordered by Elsa Dumont MD for Inpatient Admission. Preliminary bp diagnosis is Pulmonary edema; Chronic obstructive pulmonary disease with (acute) exacerbation. Bed requested for Telemetry/MedSurg (Inpatient). Status is Inpatient Admission. Condition is Stable. Problem is an acute exacerbation. Symptoms have improved. rn 19:13 15:55 03/31/2020 13:37 Hospitalization Ordered by Elsa Dumont MD for Inpatient dm5 Admission. Preliminary diagnosis is Pulmonary edema; Chronic obstructive pulmonary disease with (acute) exacerbation. Bed requested for [facility] ER HOLD. Status is Inpatient Admission. Condition is Stable. Problem is an acute exacerbation. Symptoms have improved. bp 20:33 19:13 03/31/2020 13:37 Hospitalization Ordered by Elsa Dumont MD for Inpatient sg Admission. Preliminary diagnosis is Pulmonary edema; Chronic obstructive pulmonary disease with (acute) exacerbation. Bed requested for Telemetry/MedSurg (Inpatient). Status is Inpatient Admission. Condition is Stable. Problem is an acute exacerbation. Symptoms have improved. dm5
[2020-03-31] MEDS ORDERED: FUROSEMIDE 100 MG/10 ML VIAL IV ONE (13:49)
[2020-03-31] MEDS ORDERED: ONDANSETRON 4 MG/2 ML VIAL IV PRN (14:15)
[2020-03-31] MEDS ORDERED: ACETAMINOPHEN 500 MG TAB PO PRN (14:15)
--- NOTE | 2020-03-31 16:09 | EKG ---
Test Date: 2020-03-31 Test Time: 11:59:20 Analytics Architect: CHARLENE MEASUREMENT RESULTS: Intervals: Rate: 56 ID: [id number] QRSD: 104 QT: 474 QTc: 457 [place]: P: 55 ID: [id number] QRS: -16 T: 27 INTERPRETIVE STATEMENTS: Sinus bradycardia with marked sinus arrhythmia Cannot rule out Anterior infarct, age undetermined Abnormal ECG Compared to ECG 05/06/2019 20:09:01 Myocardial infarct finding now present Atrial premature complex(es) no longer present Left-axis deviation no longer present Incomplete right bundle-branch block no longer present Left ventricular hypertrophy no longer present Electronically Signed On 03-31-20 16:08:32 TRIAL MANAGEMENT ASSOCIATE by Darrin Chan
[2020-03-31] MEDS: FUROSEMIDE 20 MG/ 2ML VIAL IV SCH (18:39)
[2020-03-31] MEDS ORDERED: FUROSEMIDE 20 MG/ 2ML VIAL ONE (18:44)
[2020-03-31] MEDS ORDERED: ROPINIROLE HCL 0.25 MG TAB ONE (20:03)
[2020-03-31 21:00] VITALS: BMI 43.5
[2020-04-01] MEDS: FUROSEMIDE 20 MG/ 2ML VIAL IV SCH ×2 (00:54→08:30)
[2020-04-01 04:30] LABS: Urine Appearance CLEAR; Urine Bilirubin NEGATIVE (NEG); Urine Blood NEGATIVE (NEG); Urine Color YELLOW; Urine Glucose NEGATIVE (NEG); Urine Microscopic Reflex ORDER UMIC; Urine Protein NEGATIVE (NEG); Urine Urobilinogen 0.2 mg/dL (0.2-1.0)
[2020-04-01 05:40] LABS: Absolute Lymphocytes (CBC) 1.1 K/uL (0.7-4.9); Basophils % 0.2 % (0-1.3); Hematocrit 31.7 % (36.0-45.0); Lymphocytes % 13.6 % (15.3-44.8); MPV 8.2 fL (7.6-11.3); RBC Red Blood Cell Count 3.22 M/uL (3.86-4.86)
[2020-04-01 05:50] LABS: Protime INR 1.03
[2020-04-01 06:01] LABS: Urine Bacteria <20 /HPF (<20); Urine RBC <5 /HPF (NONE SEEN); Urine Urothelial Cells <5 /HPF (NONE SEEN)
[2020-04-01 06:28] LABS: Albumin 2.9 g/dL (3.4-5.0); Bilirubin Total 0.5 mg/dL (0.2-1.0); Magnesium 2.3 mg/dL (1.8-2.4); Protein, Total 6.5 g/dL (6.4-8.2); Troponin I 0.02 ng/mL (0.0-0.045)
[2020-04-01] MEDS: ASPIRIN EC 81 MG TAB PO SCH (08:30)
[2020-04-01] MEDS: ENOXAPARIN 40 MG/0.4 ML SQ SCH (08:30)
[2020-04-01] MEDS: POTASSIUM 25 MEQ EFFERV TAB PO SCH (08:30)
[2020-04-01] MEDS ORDERED: CLOPIDOGREL 75 MG TABLET PO SCH (09:00)
[2020-04-01] MEDS ORDERED: CALCIUM CARBONATE CHEW 500MG TAB PO PRN (13:57)
[2020-04-01] MEDS ORDERED: CODEINE 30MG/APAP 300MG TAB PO PRN (13:57)
--- NOTE | 2020-04-01 14:16 | P.HP ---
Certification for Inpatient Patient admitted to: Inpatient With expected LOS: >2 Midnights Patient will require the following post-hospital care: None Practitioner: I am a practitioner with admitting privileges, knowledge of patient current condition, hospital course, and medical plan of care. Services: Services provided to patient in accordance with Admission requirements found in Title 42 Section 412.3 of the Code of Federal Regulations Patient History Date of Service: 03/31/20 Reason for admission: SHORTNESS OF BREATH History of Present Illness: PATIENT IS A 85-YEAR-OLD FEMALE CAME TO THE HOSPITAL WITH SHORTNESS OF BREATH. PATIENT WAS FOUND HAVE CHF EXACERBATION. PATIENT WAS ADMITTED TO THE HOSPITAL FOR FURTHER EVALUATION. CHEST X-RAY SHE REVEALED BILATERAL PULMONARY EDEMA. CT SCAN REVEALS SIMILAR FINDINGS BUT IT WAS FELT THAT IT COULD BE NONCARDIOGENIC WELL. PATIENT'S BNP IS SIGNIFICANTLY ELEVATED. PATIENT STATES SHE HAS GOTTEN M ORE SWOLLEN OVER THE LAST FEW DAYS. PATIENT ALSO HAS INCIDENTAL FINDING OF TRACHEOMALACIA. PATIENT WILL BE ADMITTED TO THE HOSPITAL FOR FURTHER EVALUATION. Allergies No Known Allergies Allergy (Verified 05/07/19 00:16) Home Medications: Acetaminophen [Tylenol Extra Strength] 500 mg PO Q8H PRN 04/01/20 Atorvastatin Calcium [Lipitor] 20 mg PO DAILY 04/01/20 Calcium Carbonate [Veto-Gest] 400 mg PO Q1H PRN 04/01/20 Clopidogrel Bisulfate [Plavix] 75 mg PO DAILY 04/01/20 Codeine/APAP [Tylenol W/Codeine #3 tab] 1 tab PO Q6HP PRN 04/01/20 Donepezil [Aricept] 5 mg PO DAILY 04/01/20 Escitalopram [Lexapro] 20 mg PO DAILY 04/01/20 Famotidine [Pepcid] 20 mg PO BID 04/01/20 Furosemide [Lasix] 20 mg PO DAILY 04/01/20 Gabapentin [Neurontin] 100 mg PO BEDTIME 04/01/20 Levothyroxine [Synthroid] 200 mcg PO [id number] 04/01/20 Metoprolol Tartrate [Lopressor] 50 mg PO BID 04/01/20 Nystatin 4 ml PO QID 04/01/20 Nystatin Powder [Mycostatin (Powder)] 1 appl TOP BID 04/01/20 Omeprazole 20 mg PO DAILY 04/01/20 Potassium Chloride [Klor-Con 10] 10 meq PO DAILY 04/01/20 Ropinirole HCl 3 mg PO BEDTIME 04/01/20 Ropinirole HCl [Requip] 1 mg PO DAILY 04/01/20 Tramadol HCl [Ultram] 50 mg PO Q6H PRN 04/01/20 Trazodone [Desyrel] 150 mg PO BEDTIME 04/01/20 Umeclidinium Brm/Vilanterol Tr [Anoro Ellipta 62.5-25 Mcg INH] 1 each IH DAILY 04/01/20 - Past Medical/Surgical History Has patient received pneumonia vaccine in the past: Yes Diabetic: No -: diverticulosis -: Hypothyroidism -: Insomnia -: History of TIA X2 -: Restless leg syndrome -: GERD -: Neuropathy -: COPD -: Hypertension -: Dementia -: Former tobacco use -: Left knee replacement -: Rotator cuff repair -: Ankle surgery -: Cholecystectomy Psychosocial/ Personal History: Patient lives at [facility]. She has been there for over a year. - Family History Father Medical History: Lung disease Sister Medical History: Lung disease Brother Medical History: Heart disease Mother Medical History: Heart disease - Social History Smoking Status: Unknown if ever smoked Place of Residence: Home Review of Systems 10-point ROS is otherwise unremarkable Physical Examination - Vital Signs Temperature: 98.8 F Blood Pressure: 183/64 Pulse: 80 Respirations: 18 Pulse Ox (%): 94 - Physical Exam General: Alert, In no apparent distress, Oriented x3 HEENT: Atraumatic, PERRLA, Mucous membr. moist/pink, EOMI, Sclerae nonicteric Neck: Supple, 2+ carotid pulse no bruit, No LAD, Without JVD or thyroid abnormality Respiratory: Crackles/rales Cardiovascular: Regular rate/rhythm, Normal S1 S2, No murmurs Gastrointestinal: Normal bowel sounds, Soft and benign, Non-distended, No tenderness Musculoskeletal: No clubbing, No swelling, No tenderness Integumentary: No rashes Neurological: Normal gait, Normal speech, Normal strength at 5/5 x4 extr, Normal tone, Sensation intact, Cranial nerves 3-12 intact, Normal affect Lymphatics: No axilla or inguinal lymphadenopathy - Studies Microbiology Data (last 24 hrs): 03/31/20 11:31 Blood - Blood Anaerobic Blood Culture - Final Assessment & Plan - Problems (Diagnosis) (1) Acute on chronic diastolic (congestive) heart failure Current Visit: No Status: Acute (2) CKD (chronic kidney disease) stage 3, GFR 30-59 ml/min Onset Date: 12/17/17 Current Visit: No Status: Chronic (3) Chronic obstructive pulmonary disease (COPD) Onset Date: 12/17/17 Current Visit: No Status: Chronic Qualifiers: (4) Hypertension Onset Date: 12/17/17 Current Visit: No Status: Chronic Qualifiers: Hypertension type: essential hypertension Qualified Code(s): I10 - Essential (primary) hypertension (5) Hypothyroidism Onset Date: 12/17/17 Current Visit: No Status: Chronic Qualifiers: Hypothyroidism type: acquired Qualified Code(s): E03.9 - Hypothyroidism, unspecified - Plan 1. Echocardiogram 2. Continue with current cardiac meds including IV diuretics 3. Continue with low-dose beta-daniel therapy 4. pulmonary consultation for tracheomalacia 5. Aggressive diuresis 6. Strict I's and O's 7. Repeat CXR 8. Daily weights 9. Education regarding diet and treatment of congestive heart failure Discharge Plan: Home Plan to discharge in: Greater than 2 days - Advance Directives Does patient have a Living Will: No Does patient have a Durable POA for Healthcare: No - Code Status/Comfort Care Code Status Assessed: Yes Code Status: Full Code Critical Care: No Time Spent Managing PTS Care (In Minutes): 45
[2020-04-01] MEDS: ESCITALOPRAM 20 MG TAB PO SCH (15:00)
[2020-04-01] MEDS: NYSTATIN 500,000 UNIT/5 ML UDC PO SCH ×2 (16:45→20:25)
[2020-04-01] MEDS: FUROSEMIDE 40 MG/4 ML VIAL IV SCH ×2 (16:55→20:22)
[2020-04-01] MEDS ORDERED: FUROSEMIDE 40 MG/4 ML VIAL IV SCH (17:00)
[2020-04-01] MEDS: METOPROLOL TAR 50 MG TAB PO SCH ×2 (17:59→20:23)
[2020-04-01] MEDS ORDERED: MELATONIN 5 MG TABLET PO PRN (19:28)
[2020-04-01] MEDS ORDERED: ROPINIROLE HCL 1 MG TAB PO SCH (21:00)
[2020-04-01] MEDS ORDERED: ROPINIROLE HCL 3 MG PO SCH (21:00)
[2020-04-01] MEDS ORDERED: METOPROLOL TAR 50 MG TAB PO SCH (21:00)
[2020-04-01] MEDS ORDERED: TRAZODONE 150 MG TAB PO SCH (21:00)
[2020-04-01] MEDS ORDERED: GABAPENTIN 100 MG CAP PO SCH (21:00)
[2020-04-01 23:52] VITALS: O2SAT 93
[2020-04-02] MEDS ORDERED: LEVOTHYROXINE SOD 0.1 MG TAB PO SCH (06:00)
[2020-04-02] MEDS ORDERED: PANTOPRAZOLE 40MG TABLET PO SCH (07:30)
[2020-04-02] MEDS: ESCITALOPRAM 20 MG TAB PO SCH (08:45)
[2020-04-02] MEDS: ENOXAPARIN 40 MG/0.4 ML SQ SCH (08:45)
[2020-04-02] MEDS: METOPROLOL TAR 50 MG TAB PO SCH (08:46)
[2020-04-02] MEDS: POTASSIUM 25 MEQ EFFERV TAB PO SCH (08:46)
--- NOTE | 2020-04-02 08:46 | ECHO ---
HEIGHT: 5 ft 3 in WEIGHT: 238 lb 11.2 oz DATE OF STUDY: 04/01/[address]: Elsa Dumont MD 2-DIMENSIONAL: YES M.MODE: YES DOPPLER: YES COLOR FLOW: YES TDS: PORTABLE: DEFINITY: BUBBLE STUDY: DIAGNOSIS: CONGESTIVE HEART FAILURE CARDIAC HISTORY: CATHERIZATION: NO SURGERY: NO PROSTHETIC VALVE: NO PACEMAKER: NO MEASUREMENTS (cm) DIASTOLIC (NORMALS) SYSTOLIC (NORMALS) IVSd 1.2 (0.6-1.2) LA Diam 3.5 (1.9-4.0) LVEF 64% LVIDd 4.5 (3.5-5.7) LVIDs 3.0 (2.0-3.5) %FS 34% LVPWd 1.3 (0.6-1.2) Ao Diam 3.1 (2.0-3.7) 2 DIMENSIONAL ASSESSMENT: RIGHT ATRIUM: NORMAL LEFT ATRIUM: NORMAL RIGHT VENTRICLE: NORMAL LEFT VENTRICLE: LEFT VENTRICULAR HYPERTROPHY TRICUSPID VALVE: NORMAL MITRAL VALVE: MITRAL ANNULAR CALCIFICATION PULMONIC VALVE: NORMAL AORTIC VALVE: SCLEROSIS PERICARDIAL EFFUSION: NONE AORTIC ROOT: NORMAL LEFT VENTRICULAR WALL MOTION: NORMAL EJECTION DOPPLER/COLOR FLOW: MILD TRICUSPID REGURGITATION. NORMAL RIGHT VENTRICULAR SYSTOLIC PRESSURE. COMMENTS: NORMAL LEFT VENTRICULAR EJECTION FRACTION. DECREASED LEFT VENTRICULAR COMPLIANCE. MITRAL ANNULAR CALCIFICATION. LEFT VENTRICULAR HYPERTROPHY. AORTIC SCLEROSIS, NO STENOSIS. MILD TRICUSPID REGURGITATION. NORMAL RIGHT VENTRICULAR SYSTOLIC PRESSURE. TECHNOLOGIST: BRAYDEN CAM
[2020-04-02] MEDS: ASPIRIN EC 81 MG TAB PO SCH (08:47)
[2020-04-02] MEDS: NYSTATIN 500,000 UNIT/5 ML UDC PO SCH ×2 (08:47→14:10)
[2020-04-02] MEDS: FUROSEMIDE 40 MG/4 ML VIAL IV SCH (08:47)
[2020-04-02] MEDS ORDERED: CLOPIDOGREL 75 MG TABLET PO SCH (09:00)
[2020-04-02] MEDS ORDERED: HOME MED 1 EA UNK (Omeprazole [Omeprazole] 20 MG Capsule.Dr) PO SCH (09:00)
[2020-04-02] MEDS ORDERED: ATORVASTATIN 20 MG TAB PO SCH (09:00)
[2020-04-02] MEDS ORDERED: ESCITALOPRAM 20 MG TAB PO SCH (09:00)
[2020-04-02] MEDS ORDERED: POTASSIUM CL SA 10 MEQ TAB PO SCH (09:00)
[2020-04-02] MEDS ORDERED: Umeclidinium Brm/Vilanterol Tr [Anoro Ellipta 62.5-25 Mcg Inh IH SCH (09:00)
[2020-04-02] MEDS ORDERED: DONEPEZIL HCL 5 MG TAB PO SCH (09:00)
[2020-04-02] MEDS ORDERED: ROPINIROLE HCL 1 MG TAB PO SCH (09:00)
[2020-04-02] MEDS ORDERED: FAMOTIDINE 20 MG TAB PO SCH (09:00)
--- NOTE | 2020-04-02 12:43 | RAD REPORT ---
EXAM DESCRIPTION: RAD - Chest Single View - 04/02/2020 12:36 pm CLINICAL HISTORY: pneumonia Chest pain. COMPARISON: Chest Single View dated 03/31/2020; Chest Single View dated 05/06/2019; Chest Single View dated 07/03/2018; Chest Single View dated 07/02/2018 FINDINGS: Portable technique limits examination quality. Mild improvement is seen in bilateral interstitial lung pattern since 03/31/2020 study. The heart is mildly prominent in size. No displaced fractures.Aortic atherosclerosis. IMPRESSION: Mild improvement in interstitial lung opacities since comparative study.
[2020-04-02] MEDS ORDERED: ARFORMOTEROL TARTRATE 15 MCG/2 ML VIAL.NEB NEB SCH (13:22)
[2020-04-02] MEDS ORDERED: predniSONE 20 MG TAB PO SCH (13:22)
[2020-04-02 13:24] LABS: Absolute Lymphocytes (CBC) 2.2 K/uL (0.7-4.9); Basophils % 0.5 % (0-1.3); Hematocrit 34.8 % (36.0-45.0); Lymphocytes % 21.8 % (15.3-44.8); MPV 8.1 fL (7.6-11.3); RBC Red Blood Cell Count 3.43 M/uL (3.86-4.86)
--- NOTE | 2020-04-02 13:24 | P.CNS ---
Date of Consult: 04/02/20 Reason for Consult: Shortness of breath and cough Chief Complaint: SHORTNESS OF BREATH History of Present Illness: Of years of age with a history of COPD came in with 2 day history of worsening shortness of breath and a productive cough history of COPD he is at doing a little better Allergies No Known Allergies Allergy (Verified 05/07/19 00:16) Home Medications: Acetaminophen [Tylenol Extra Strength] 500 mg PO Q8H PRN 04/01/20 Atorvastatin Calcium [Lipitor*] 20 mg PO DAILY 04/01/20 Calcium Carbonate [Veto-Gest] 400 mg PO Q1H PRN 04/01/20 Clopidogrel Bisulfate [Plavix*] 75 mg PO DAILY 04/01/20 Codeine/APAP [Tylenol #3*] 1 tab PO Q6HP PRN 04/01/20 Donepezil [Aricept*] 5 mg PO DAILY 04/01/20 Escitalopram [Lexapro*] 20 mg PO DAILY 04/01/20 Famotidine [Pepcid*] 20 mg PO BID 04/01/20 Gabapentin [Neurontin*] 100 mg PO BEDTIME 04/01/20 Levothyroxine [Synthroid*] 200 mcg PO [id number] 04/01/20 Metoprolol Tartrate [Lopressor*] 50 mg PO BID 04/01/20 Nystatin 4 ml PO QID 04/01/20 Nystatin Powder [Mycostatin (Powder)*] 1 appl TOP BID 04/01/20 Omeprazole 20 mg PO DAILY 04/01/20 Potassium Chloride [Klor-Con 10] 10 meq PO DAILY 04/01/20 Ropinirole HCl 3 mg PO BEDTIME 04/01/20 Ropinirole HCl [Requip*] 1 mg PO DAILY 04/01/20 Tramadol HCl [Ultram] 50 mg PO Q6H PRN 04/01/20 Trazodone [Desyrel*] 150 mg PO BEDTIME 04/01/20 Umeclidinium Brm/Vilanterol Tr [Anoro Ellipta 62.5-25 Mcg INH] 1 each IH DAILY 04/01/20 Cefdinir [Omnicef] 300 mg PO BID #10 capsule 04/02/20 Furosemide [Lasix*] 20 mg PO DAILY #45 tab 04/02/20 Melatonin 5 mg PO BEDTIME PRN PRN tablet 04/02/20 predniSONE [Deltasone] 20 mg PO DAILY #5 tab 04/02/20 - Past Medical/Surgical History Diabetic: No -: diverticulosis -: Hypothyroidism -: Insomnia -: History of TIA X2 -: Restless leg syndrome -: GERD -: Neuropathy -: COPD -: Hypertension -: Dementia -: Former tobacco use -: Left knee replacement -: Rotator cuff repair -: Ankle surgery -: Cholecystectomy Psychosocial/ Personal History: Patient lives at [facility]. She has been there for over a year. - Family History Father Medical History: Lung disease Sister Medical History: Lung disease Brother Medical History: Heart disease Mother Medical History: Heart disease - Social History Smoking Status: Unknown if ever smoked Alcohol use: Yes CD- Drugs: No Caffeine use: Yes Place of Residence: Home Review of Systems General: Weakness Respiratory: Cough, Shortness of Breath Physical Examination Temp Pulse Resp BP Pulse Ox 97.4 F 62 17 149/66 H 96 04/02/20 08:00 04/02/20 08:47 04/02/20 08:00 04/02/20 08:47 04/02/20 08:00 General: Alert, In no apparent distress, Oriented x3 Respiratory: Clear to auscultation bilaterally, Diminished, Expiratory wheezes Cardiovascular: No edema, Normal S1 S2 - Problems (1) Acute on chronic diastolic (congestive) heart failure Current Visit: No Status: Acute Plan: PATIENT IS 85 YEARS OF AGE WITH A HISTORY OF COPD ADMITTED WITH WORSENING SHORTNESS OF BREATH probably underlying acute on chronic diastolic dysfunction as underlying obstructive airways disease she is not sure what inhalers a bronchodilator she is at home I have added some prednisone and nebulize Brovana sepsis echocardiogram shows left ventricular hypertrophy stable difficulty walking lives in a correction has home oxygen for productive cough all negative he has an inhaler at home requests a nebulizer possible discharge on low-dose prednisone agree with Lasix spironolactone instead follow-up with me in a week
[2020-04-02 13:27] LABS: Potassium 4.1 mmol/L (3.5-5.1)
--- NOTE | 2020-04-02 13:28 | P.PN ---
Subjective Date of Service: 04/01/20 Subjective: Improving Patient feels better. Her respiratory status has improved. Continue to diurese today and possible discharge tomorrow if her respiratory status continues to improve. He is still hypoxic requiring 3 L of oxygen to maintain saturations at 93%. Arrange for home oxygen as well. Review of Systems 10-point ROS is otherwise unremarkable Physical Examination - Vital Signs Temperature: 97.4 F Blood Pressure: 149/66 Pulse: 62 Respirations: 17 Pulse Ox (%): 96 - Physical Exam General: Alert, In no apparent distress, Oriented x3 Respiratory: Diminished, Expiratory wheezes Cardiovascular: Regular rate/rhythm, Normal S1 S2, No murmurs Gastrointestinal: Normal bowel sounds, Soft and benign, Non-distended, No tenderness Musculoskeletal: No clubbing, No swelling, No tenderness Neurological: Normal tone, Sensation intact, Cranial nerves 3-12 intact - Studies Microbiology Data (last 24 hrs): 03/31/20 11:31 Blood - Blood Anaerobic Blood Culture - Final Medications List Reviewed: Yes Assessment & Plan - Problems (Diagnosis) (1) Acute on chronic diastolic (congestive) heart failure Current Visit: No Status: Acute (2) CKD (chronic kidney disease) stage 3, GFR 30-59 ml/min Onset Date: 12/17/17 Current Visit: No Status: Chronic (3) Chronic obstructive pulmonary disease (COPD) Onset Date: 12/17/17 Current Visit: No Status: Chronic Qualifiers: (4) Hypertension Onset Date: 12/17/17 Current Visit: No Status: Chronic Qualifiers: Hypertension type: essential hypertension Qualified Code(s): I10 - Essential (primary) hypertension (5) Hypothyroidism Onset Date: 12/17/17 Current Visit: No Status: Chronic Qualifiers: Hypothyroidism type: acquired Qualified Code(s): E03.9 - Hypothyroidism, unspecified - Plan Continue with plan of care as mentioned below: 1. Echocardiogram results are pending 2. Continue with current cardiac meds including IV diuretics 3. Continue with low-dose beta-dainel therapy 4. pulmonary consultation for tracheomalacia appreciated 5. Aggressive diuresis; monitor renal function 6. Strict I's and O's 7. Repeat CXR in the morning 8. Daily weights 9. Education regarding diet and treatment of congestive heart failure Discharge Plan: Home Plan to discharge in: 24 Hours - Advance Directives Does patient have a Living Will: No Does patient have a Durable POA for Healthcare: No - Code Status/Comfort Care Code Status: Full Code Critical Care: No Time Spent Managing PTS Care (In Minutes): 35
--- NOTE | 2020-04-02 16:14 | P.DS ---
Discharge Date: 04/02/20 Disposition: ROUTINE DISCHARGE Discharge Condition: GOOD Reason for Admission: SHORTNESS OF BREATH - Problems (1) Acute on chronic diastolic (congestive) heart failure Status: Acute (2) CKD (chronic kidney disease) stage 3, GFR 30-59 ml/min Onset Date: 12/17/17 Status: Chronic (3) Chronic obstructive pulmonary disease (COPD) Onset Date: 12/17/17 Status: Chronic Qualifiers: (4) Hypertension Onset Date: 12/17/17 Status: Chronic Qualifiers: Hypertension type: essential hypertension Qualified Code(s): I10 - Essential (primary) hypertension (5) Hypothyroidism Onset Date: 12/17/17 Status: Chronic Qualifiers: Hypothyroidism type: acquired Qualified Code(s): E03.9 - Hypothyroidism, unspecified Brief History of Present Illness: PATIENT IS A 85-YEAR-OLD FEMALE CAME TO THE HOSPITAL WITH SHORTNESS OF BREATH. PATIENT WAS FOUND HAVE CHF EXACERBATION. PATIENT WAS ADMITTED TO THE HOSPITAL FOR FURTHER EVALUATION. CHEST X-RAY SHE REVEALED BILATERAL PULMONARY EDEMA. CT SCAN REVEALS SIMILAR FINDINGS BUT IT WAS FELT THAT IT COULD BE NONCARDIOGENIC WELL. PATIENT'S BNP IS SIGNIFICANTLY ELEVATED. PATIENT STATES SHE HAS GOTTEN MORE SWOLLEN OVER THE LAST FEW DAYS. PATIENT ALSO HAS INCIDENTAL FINDING OF TRACHEOMALACIA. PATIENT WILL BE ADMITTED TO THE HOSPITAL FOR FURTHER EVALUATION. Hospital Course: Patient was extensively diuresed and her clinical symptoms have improved. Patient is feeling much better. At this time patient is stable for discharge home. Vital Signs/Physical Exam: Temp Pulse Resp BP Pulse Ox 97.4 F 62 17 149/66 H 96 04/02/20 13:27 04/02/20 13:27 04/02/20 13:27 04/02/20 13:27 04/02/20 13:27 General: Alert, In no apparent distress, Oriented x3 Laboratory Data at Discharge: WBC 9.9 K/uL (4.3-10.9) D 04/02/20 12:58 Hgb 11.3 g/dL (12.0-15.0) L 04/02/20 12:58 Hct 34.8 % (36.0-45.0) L 04/02/20 12:58 Plt Count 308 K/uL (152-406) 04/02/20 12:58 PT 12.1 SECONDS (9.5-12.5) 04/01/20 05:14 INR 1.03 04/01/20 05:14 APTT 27.6 SECONDS (24.3-36.9) 04/01/20 05:14 Sodium 137 mmol/L (136-145) 04/02/20 12:58 Potassium 4.1 mmol/L (3.5-5.1) 04/02/20 12:58 BUN 21 mg/dL (7-18) H 04/02/20 12:58 Creatinine 1.04 mg/dL (0.55-1.3) 04/02/20 12:58 Glucose 154 mg/dL (74-106) H 04/02/20 12:58 Phosphorus 4.0 mg/dL (2.5-4.9) 04/01/20 05:14 Magnesium 2.3 mg/dL (1.8-2.4) 04/01/20 05:14 Total Bilirubin 0.5 mg/dL (0.2-1.0) 04/01/20 05:14 AST 12 U/L (15-37) L 04/01/20 05:14 ALT 12 U/L (12-78) 04/01/20 05:14 Alkaline Phosphatase 88 U/L (45-117) 04/01/20 05:14 Troponin I 0.02 ng/mL (0.0-0.045) 04/01/20 05:14 Home Medications: Acetaminophen [Tylenol Extra Strength] 500 mg PO Q8H PRN 04/01/20 Atorvastatin Calcium [Lipitor*] 20 mg PO DAILY 04/01/20 Calcium Carbonate [Veto-Gest] 400 mg PO Q1H PRN 04/01/20 Clopidogrel Bisulfate [Plavix*] 75 mg PO DAILY 04/01/20 Codeine/APAP [Tylenol #3*] 1 tab PO Q6HP PRN 04/01/20 Donepezil [Aricept*] 5 mg PO DAILY 04/01/20 Escitalopram [Lexapro*] 20 mg PO DAILY 04/01/20 Famotidine [Pepcid*] 20 mg PO BID 04/01/20 Gabapentin [Neurontin*] 100 mg PO BEDTIME 04/01/20 Levothyroxine [Synthroid*] 200 mcg PO [id number] 04/01/20 Metoprolol Tartrate [Lopressor*] 50 mg PO BID 04/01/20 Nystatin 4 ml PO QID 04/01/20 Nystatin Powder [Mycostatin (Powder)*] 1 appl TOP BID 04/01/20 Omeprazole 20 mg PO DAILY 04/01/20 Potassium Chloride [Klor-Con 10] 10 meq PO DAILY 04/01/20 Ropinirole HCl 3 mg PO BEDTIME 04/01/20 Ropinirole HCl [Requip*] 1 mg PO DAILY 04/01/20 Tramadol HCl [Ultram] 50 mg PO Q6H PRN 04/01/20 Trazodone [Desyrel*] 150 mg PO BEDTIME 04/01/20 Umeclidinium Brm/Vilanterol Tr [Anoro Ellipta 62.5-25 Mcg INH] 1 each IH DAILY 04/01/20 Arformoterol Tartrate [Brovana] 15 mcg NEB BIDRESP #60 vial.neb 04/02/20 Cefdinir [Omnicef] 300 mg PO BID #10 capsule 04/02/20 Furosemide [Lasix*] 20 mg PO DAILY #45 tab 04/02/20 Melatonin 10 mg SL DAILY #30 tab.subl 04/02/20 predniSONE [Prednisone*] 20 mg PO BID #14 tab 04/02/20 New Medications: Arformoterol Tartrate [Brovana] 15 mcg NEB BIDRESP #60 vial.neb Furosemide [Lasix*] 20 mg PO DAILY #45 tab Melatonin 10 mg SL DAILY #30 tab.subl Cefdinir [Omnicef] 300 mg PO BID #10 capsule predniSONE [Prednisone*] 20 mg PO BID #14 tab Patient Discharge Instructions: OK TO DC IV AND DC HOME. FOLLOW-UP WITH PRIMARY CARE PROVIDER IN 1-2 WEEKS. FOLLOW-UP WITH CARDIOLOGY IN 1-2 WEEKS. RETURN TO THE ER IF symptoms worsen. CALL or TEXT DR. MARTIN AT [phone] IF ANY QUEST IONS REGARDING HOSPITAL STAY. PLEASE CALL THE FLOOR AT [phone] IF ANY MEDICATION OR NURSING QUESTIONS. Diet: Low sodium Activity: Fall precautions Followup: Unknown,U [Primary Care Provider] - Time spent managing pt's care (in minutes): 35
[2020-04-02 16:45] VITALS: BP 128/60; TEMP 97.6
== END 2020-04-02 16:47 | disposition home or self-care (01) | DRG 291 ==
LOC: ER 10:21 → ERHOLD 14:16 → 2ND 20:54
PROVIDERS: ADMIT Hospitalist; ATTEND Hospitalist
DX: I13.0 Hypertensive heart and chronic kidney disease with heart failure and stage 1 through stage 4 chronic kidney disease, or unspecified chronic kidney disease (principal); I50.33 Acute on chronic diastolic (congestive) heart failure; N18.30 Chronic kidney disease, stage 3 unspecified; J44.9 Chronic obstructive pulmonary disease, unspecified; I25.10 Atherosclerotic heart disease of native coronary artery without angina pectoris; K21.9 Gastro-esophageal reflux disease without esophagitis; E78.5 Hyperlipidemia, unspecified; E03.9 Hypothyroidism, unspecified; Z86.73 Personal history of transient ischemic attack (TIA), and cerebral infarction without residual deficits; Z96.652 Presence of left artificial knee joint; Z79.02 Long term (current) use of antithrombotics/antiplatelets; Z90.49 Acquired absence of other specified parts of digestive tract; Z79.899 Other long term (current) drug therapy; Z79.52 Long term (current) use of systemic steroids; Z79.890 Hormone replacement therapy; Z20.822 Contact with and (suspected) exposure to COVID-19
CPT/HCPCS: 0240U; 36415; 51702; 71045; 71275; 80048; 80053; 81003; 81015; 82947; 83605; 83735; 83880; 84100; 84145; 84484; 85025; 85379; 85610; 85730; 87040; 87086; 87088; 93005; 93306; 99285; J1650; J1940; J2930; J7512; Q9967

== ENCOUNTER 2020-04-27 16:21 | Inpatient (IN) | payer OTHER ==
[2020-04-27 17:23] LABS: Absolute Lymphocytes (CBC) 1.5 K/uL (0.7-4.9); Basophils % 0.8 % (0-1.3); Hematocrit 31.8 % (36.0-45.0); Lymphocytes % 19.7 % (15.3-44.8); RBC Red Blood Cell Count 3.13 M/uL (3.86-4.86)
[2020-04-27 17:28] LABS: Protime INR 1.01
[2020-04-27 17:44] LABS: ALT/SGPT 9 U/L (12-78); AST/SGOT 9 U/L (15-37); Albumin 2.7 g/dL (3.4-5.0); Alkaline Phosphatase 95 U/L (45-117); BUN Blood Urea Nitrogen 16 mg/dL (7-18); Bicarbonate 36 mmol/L (21-32); Bilirubin Direct 0.1 mg/dL (0-0.2); Bilirubin Total 0.5 mg/dL (0.2-1.0); Glucose Level 100 mg/dL (74-106); Magnesium 2.2 mg/dL (1.8-2.4); NT PRO-BNP 1454 pg/mL (<450); Potassium 4.4 mmol/L (3.5-5.1); Protein, Total 6.6 g/dL (6.4-8.2); Sodium Level 141 mmol/L (136-145); Troponin (Emerg Dept Use Only) < 0.02 ng/mL (0.0-0.045)
--- NOTE | 2020-04-27 18:14 | RAD REPORT ---
EXAM DESCRIPTION: RAD - Chest Single View - 04/27/2020 5:29 pm CLINICAL HISTORY: SOB COMPARISON: Portable April 02 TECHNIQUE: AP portable chest image was obtained 04/27/2020 5:29 pm . FINDINGS: Lungs are slightly underinflated. Diffuse interstitial opacification is present and patien t has alveolar opacification as well. Peribronchial thickening is seen in the central chest. Airspace opacification is present. Heart size is upper normal. Vasculature is mildly prominent. The heart size is similar to comparison . No pneumothorax or large pleural effusion. No acute bony abnormality seen. No acute aortic findings suspected. IMPRESSION: Extensive interstitial and alveolar opacification along with peribronchial thickening. Failure/volume overload would be a primary consideration given the patient's history. Lung parenchymal pattern can also be seen in a viral pneumonia. This would include COVID-19 pneumonia .
[2020-04-27 18:31] LABS: SARS-COV-2 RT PCR NEGATIVE (NEGATIVE)
--- NOTE | 2020-04-27 18:47 | ER ---
Nurse's Notes [facility] Name: Ti Zacarias Age: 85 yrs Sex: Female : 1935 Arrival Date: 04/27/2020 Time: 16:56 Bed 17 Private MD: Diagnosis: Unspecified combined systolic (congestive) and diastolic (congestive) heart failure;Pulmonary edema Presentation: 04/27 17:05 Chief complaint: EMS states: Pt from [facility], c/o SOB and cough, hx of COPD and ph CHF, on home o2 at 2L, Spo2 96%, BP stable, HR sinus trice. Coronavirus screen: Client denies travel out of the [place] in the last 14 days. cough unrelated to allergies, shortness of breath, Client presents with at least one sign or symptom that may indicate coronavirus-19. Standard/surgical mask placed on the client. Provider contacted for isolation considerations. Ebola Screen: No symptoms or risks identified at this time. Initial Sepsis Screen: Does the patient meet any 2 criteria? No. Patient's initial sepsis screen is negative. Does the patient have a suspected source of infection? No. Patient's initial sepsis screen is negative. Risk Assessment: Do you want to hurt yourself or someone else? Patient reports no desire to harm self or others. Onset of symptoms was April 27, 2020. 17:05 Method Of Arrival: EMS: [facility] ph 17:05 Acuity: PACO 3 ph Historical: - Allergies: 17:11 No Known Allergies; ph - Home Meds: 21:39 trazodone 100 mg Oral tab 1 tab nightly [Active]; Tylenol-Codeine #3 300-30 mg Oral tab sf 1 tab q6hrs prn [Active]; tramadol 50 mg Oral tab 1 tab every 6 hours [Active]; Synthroid 200 mcg Oral tab 1 tab once daily [Active]; ropinirole 1 mg Oral tab 1 tab at 1400 [Active]; ropinirole 3 mg Oral tab 1 tab at 1900 [Active]; omeprazole 20 mg Oral cpDR 1 cap q day prn [Active]; metoprolol tartrate 50 mg Oral tab 1 tab 2 times per day [Active]; furosemide 40 mg Oral tab 1 tab daily prn [Active]; escitalopram oxalate 20 mg oral tab 1 tab once daily [Active]; donepezil 5 mg Oral TbDL 1 tab nightly [Active]; clopidogrel 75 mg Oral tab 1 tab once daily [Active]; Anoro Ellipta 62.5-25 mcg/actuation inhalation dsdv 1 puff once daily [Active]; atorvastatin 20 mg oral tab 1 tab once daily [Active]; Biotene Moisturizing Mouth mucous membrane spry [Active]; Brovana 15 mcg/2 mL inhalation nebu 2 mL 2 times per day [Active]; Veto-Gest Antacid 200 mg calcium (500 mg) oral chew [Active]; Klor-Con 10 10 mEq Oral TbER 1 tab once daily [Active]; melatonin 5 mg Oral cap [Active]; - PMHx: 17:11 Anemia; Arthritis; CAD; COPD; Depression; EDEMA; GERD; Hyperlipidemia; Hypertension; ph Hypothyroidism; PERIPHERAL NEUROPATHY; restless leg syndrome; CHF; - Immunization history:: Adult Immunizations unknown. - Social history:: Smoking status: Patient denies any tobacco usage or history of. Screenin:11 Abuse screen: Denies threats or abuse. Denies injuries from another. Nutritional ph screening: No deficits noted. Tuberculosis screening: No symptoms or risk factors identified. Fall Risk None identified. Assessment: 17:45 General: Appears in no apparent distress. obese, well groomed, Behavior is calm, ph cooperative, appropriate for age, Denies fever. Pain: Denies pain. Neuro: Level of Consciousness is awake, alert, obeys commands, Oriented to person, place, time, situation. Cardiovascular: Reports shortness of breath, Denies chest pain, lightheadedness, nausea, palpitations, vomiting, Capillary refill < 3 seconds in bilateral fingers Patient's skin is warm and dry. Edema is 3+ to left midcalf, left ankle, left foot, right midcalf, right ankle and right foot pitting to left ankle, left foot, right ankle and right foot Rhythm is sinus bradycardia. Respiratory: Reports shortness of breath at rest cough that is Airway is patent Respiratory effort is even, labored, Respiratory pattern is tachypnea. GI: No signs and/or symptoms were reported involving the gastrointestinal system. Derm: Skin is intact, Skin is pink, warm \T\ dry. redness noted to RLL. Musculoskeletal: Circulation, motion, and sensation intact. Range of motion: intact in all extremities. 20:39 General: Appears in no apparent distress. uncomfortable, obese, well groomed, Behavior sf is calm, cooperative, appropriate for age. Pain: Denies pain. Neuro: Level of Consciousness is awake, alert, obeys commands, Oriented to person, place, time, situation, Appropriate for age. Cardiovascular: Reports shortness of breath, Denies chest pain, Capillary refill < 3 seconds Patient's skin is warm and dry. Edema is 3+ to right foot and right ankle and right midcalf and left foot and left ankle and left midcalf pitting to right foot and right ankle and right midcalf and left foot and left ankle and left midcalf Rhythm is sinus rhythm. Respiratory: Reports shortness of breath at rest cough that is Airway is patent Respiratory effort is even, labored, shallow, Respiratory pattern is symmetrical, tachypnea Breath sounds with wheezes bilaterally. : Reports incontinence. Vital Signs: 17:05 BP 147 / 47; Pulse 52; Resp 22; Temp 98.1; Pulse Ox 97% on 2 lpm NC; Weight 108.86 kg; ph Height 5 ft. 3 in. (160.02 cm); Pain 0/10; 17:45 BP 130 / 52; Pulse 54; Resp 24; Pulse Ox 96% on 2 lpm NC; ph 20:43 BP 150 / 61; Pulse 62; Resp 22; Pulse Ox 97% on 2 lpm NC; sf 17:05 Body Mass Index 42.51 (108.86 kg, 160.02 cm) ph ED Course: 16:56 Patient arrived in ED. ph 16:56 Tremayne Blue PA is PHCP. cp 16:56 Tremayne Sanchez MD is Attending Physician. cp 17:05 Deepthi Paz, ANITA is Primary Nurse. ph 17:08 Triage completed. ph 17:10 Initial lab(s) drawn, by me, sent to lab. COVID swab sent to lab. Flu and/or RSV swab dh3 sent to lab. Inserted saline lock: 22 gauge in right antecubital area, using aseptic technique. Blood collected. 17:10 Oxygen administration via nasal cannula \T\ 3L/min. dh3 17:11 Arm band placed on. ph 17:29 XRAY Chest (1 view) In Process Unspecified. EDMS 17:36 Bed in low position. Call light in reach. Side rails up X2. Warm blanket given. Verbal dh3 reassurance given. monitor technician on. Pulse ox on. NIBP on. 18:21 US Extremity Venous W Compression Jamari In Process Unspecified. EDMS 18:46 Kang Chaidez is Hospitalizing Provider. cp 19:22 Primary Nurse role handed off by Deepthi Paz RN mw2 19:31 No provider procedures requiring assistance completed. Patient admitted, IV remains in ph place. 20:02 Taz Kessler, ANITA is Primary Nurse. sf 21:33 Warm blanket given. Pillow given. Verbal reassurance given. changed wet linen, diaper, sf strong smelling urine noted. 21:47 Patient admitted, IV remains in place. sf Administered Medications: 18:38 CANCELLED (Physician Discretion): LaSIX 20 mg PO once cp 18:39 CANCELLED (Physician Discretion): Lasix 40 mg IVP once cp 20:39 Drug: Lasix 60 mg Route: IVP; Site: right antecubital; sf 21:46 Follow up: Response: No adverse reaction sf Outcome: 18:47 Decision to Hospitalize by Provider. cp 21:45 Admitted to Tele accompanied by tech, via stretcher, room 205, with oxygen, Report sf called to ANITA Islas 21:45 Condition: stable 22:03 Patient left the ED. sf Signatures: Dispatcher [employer] EDIA Deepthi Paz, ANITA RN Tremayne Thompson PA PA cp Herrera, Deanna 3 [address] Armstrong mw2 Taz Kessler RN RN sf
--- NOTE | 2020-04-27 18:48 | EDPHYS ---
Physician Documentation [facility] Name: Ti Zacarias Age: 85 yrs Sex: Female : 1935 Arrival Date: 04/27/2020 Time: 16:56 Bed 17 Private MD: ED Physician Tremayne Sanchez HPI: 04/27 16:59 This 85 yrs old Female presents to ER via Unassigned with complaints of cp Shortness of Breath. 16:59 The patient has shortness of breath at rest. Onset: The symptoms/episode began/occurred cp this morning. Duration: The symptoms are continuous, and are steadily getting worse. 17:00 Associated signs and symptoms: Pertinent positives: non-productive cough, Pertinent cp negatives: chest pain, diaphoresis, dizziness, fever, vomiting. 17:00 Severity of symptoms: in the emergency department the symptoms are unchanged despite cp home interventions. Historical: - Allergies: 17:11 No Known Allergies; ph - Home Meds: 21:39 trazodone 100 mg Oral tab 1 tab nightly [Active]; Tylenol-Codeine #3 300-30 mg Oral tab sf 1 tab q6hrs prn [Active]; tramadol 50 mg Oral tab 1 tab every 6 hours [Active]; Synthroid 200 mcg Oral tab 1 tab once daily [Active]; ropinirole 1 mg Oral tab 1 tab at 1400 [Active]; ropinirole 3 mg Oral tab 1 tab at 1900 [Active]; omeprazole 20 mg Oral cpDR 1 cap q day prn [Active]; metoprolol tartrate 50 mg Oral tab 1 tab 2 times per day [Active]; furosemide 40 mg Oral tab 1 tab daily prn [Active]; escitalopram oxalate 20 mg oral tab 1 tab once daily [Active]; donepezil 5 mg Oral TbDL 1 tab nightly [Active]; clopidogrel 75 mg Oral tab 1 tab once daily [Active]; Anoro Ellipta 62.5-25 mcg/actuation inhalation dsdv 1 puff once daily [Active]; atorvastatin 20 mg oral tab 1 tab once daily [Active]; Biotene Moisturizing Mouth mucous membrane spry [Active]; Brovana 15 mcg/2 mL inhalation nebu 2 mL 2 times per day [Active]; Veto-Gest Antacid 200 mg calcium (500 mg) oral chew [Active]; Klor-Con 10 10 mEq Oral TbER 1 tab once daily [Active]; melatonin 5 mg Oral cap [Active]; - PMHx: 17:11 Anemia; Arthritis; CAD; COPD; Depression; EDEMA; GERD; Hyperlipidemia; Hypertension; ph Hypothyroidism; PERIPHERAL NEUROPATHY; restless leg syndrome; CHF; - Immunization history:: Adult Immunizations unknown. - Social history:: Smoking status: Patient denies any tobacco usage or history of. ROS: 17:05 Constitutional: Negative for body aches, chills, fever, poor PO intake. cp 17:05 Eyes: Negative for injury, pain, redness, and discharge. cp 17:05 ENT: Negative for ear pain, sore throat, difficulty swallowing, difficulty handling secretions. 17:05 Cardiovascular: Positive for edema, Negative for chest pain, palpitations. 17:05 Respiratory: Positive for cough, with no reported sputum, shortness of breath, at rest. 17:05 Abdomen/GI: Negative for abdominal pain, nausea, vomiting, and diarrhea, constipation, black/tarry stool, rectal bleeding. 17:05 Back: Negative for pain at rest, pain with movement. 17:05 : Negative for urinary symptoms. 17:05 Skin: Negative for rash. 17:05 Neuro: Negative for altered mental status, dizziness, headache, syncope, weakness. 17:05 All other systems are negative. Exam: 17:10 Constitutional: The patient appears in no acute distress, alert, awake, cp non-diaphoretic, non-toxic, well developed, well nourished, obese. 17:10 Head/Face: Normocephalic, atraumatic. cp 17:10 Eyes: Periorbital structures: appear normal, Conjunctiva: normal, no exudate, no injection, Sclera: no appreciated abnormality, Lids and lashes: appear normal, bilaterally. 17:10 ENT: External ear(s): are unremarkable, Nose: is normal, Mouth: Lips: moist, Oral mucosa: pink and intact, moist, Posterior pharynx: Airway: no evidence of obstruction, patent. 17:10 Neck: ROM/movement: is normal, is supple, without pain, no range of motions limitations, no nuchal rigidity. 17:10 Chest/axilla: Inspection: normal, Palpation: is normal, no crepitus, no tenderness. 17:10 Cardiovascular: Rate: bradycardic, Rhythm: regular, Edema: moderate bilateral lower leg edema, JVD: is not appreciated. 17:10 Respiratory: the patient does not display signs of respiratory distress, Respirations: labored breathing, that is mild, intercostal retractions, are absent, shallow respirations, that is mild, Breath sounds: bronchial sounds, that are mild, are heard diffusely, decreased breath sounds, that are mild, diffuse, stridor, is not appreciated, wheezing: is not appreciated. 17:10 Abdomen/GI: Inspection: abdomen appears normal, Bowel sounds: active, all quadrants, Palpation: abdomen is soft and non-tender, in all quadrants. 17:10 Back: pain, is absent, ROM is normal. 17:10 Skin: erythema noted to right lower leg with warm skin. 17:10 Neuro: Orientation: to person, place \T\ time. Mentation: is normal, Motor: moves all fours, strength is normal. 18:45 ECG was reviewed by the Attending Physician. cp Vital Signs: 17:05 BP 147 / 47; Pulse 52; Resp 22; Temp 98.1; Pulse Ox 97% on 2 lpm NC; Weight 108.86 kg; ph Height 5 ft. 3 in. (160.02 cm); Pain 0/10; 17:45 BP 130 / 52; Pulse 54; Resp 24; Pulse Ox 96% on 2 lpm NC; ph 20:43 BP 150 / 61; Pulse 62; Resp 22; Pulse Ox 97% on 2 lpm NC; sf 17:05 Body Mass Index 42.51 (108.86 kg, 160.02 cm) ph MDM: 16:57 Patient medically screened. [facility] 18:45 Data reviewed: vital signs, nurses notes, lab test result(s), EKG, radiologic studies, cp plain films. 18:45 Test interpretation: by ED physician or midlevel provider: ECG, plain radiologic cp studies. Counseling: I had a detailed discussion with the patient and/or guardian regarding: the historical points, exam findings, and any diagnostic results supporting the discharge/admit diagnosis, lab results, radiology results, the need for further work-up and treatment in the hospital. Response to treatment: the patient's symptoms have mildly improved after treatment. 04/27 16:59 Order name: Basic Metabolic Panel cp 04/27 16:59 Order name: CBC with Diff cp / 16:59 Order name: LFT's; Complete Time: 18:00 cp / 18:00 Interpretation: Normal except: AST 9; ALT 9; ALB 2.7; GLOB 3.9; A/G 0.7. cp 02/ 16:59 Order name: Magnesium; Complete Time: 18:00 cp 02/ 16:59 Order name: NT PRO-BNP; Complete Time: 18:00 cp / 18:00 Interpretation: Abnormal: NT PRO-BNP 1454. cp 02/ 16:59 Order name: PT-INR; Complete Time: 18:00 cp 02/ 16:59 Order name: Troponin (emerg Dept Use Only); Complete Time: 18:00 cp 02/ 16:59 Order name: XRAY Chest (1 view); Complete Time: 18:17 cp 02 16:59 Order name: US Extremity Venous W Compression Jamari; Complete Time: 19:08 cp 04/27 19:08 Interpretation: Report reviewed. 04/27 16:59 Order name: Basic Metabolic Panel; Complete Time: 18:00 EDMS 02 18:01 Interpretation: Normal except: CO2 36; GFR 51; CA 8.2. cp 04/27 16:59 Order name: CBC with Automated Diff; Complete Time: 18:00 EDMS 0209 18:01 Interpretation: Normal except: RBC 3.13; HGB 10.2; HCT 31.8; MCV 101.5; RDW 15.9. cp 02/ 18:31 Order name: COVID-19/FLU A+B; Complete Time: 18:36 EDMS 04/27 16:59 Order name: EKG; Complete Time: 17:00 cp 02 16:59 Order name: Cardiac monitoring; Complete Time: 17:18 cp 02/ 16:59 Order name: EKG - Nurse/Tech; Complete Time: 18:05 cp 02/ 16:59 Order name: IV Saline Lock; Complete Time: 17:18 cp 02/ 16:59 Order name: Labs collected and sent; Complete Time: 17:18 cp 02/ 16:59 Order name: O2 Per Protocol; Complete Time: 17:18 cp / 16:59 Order name: O2 Sat Monitoring; Complete Time: 17:18 cp EC:45 Rate is 53 beats/min. Rhythm is regular. CT interval is normal. QRS interval is normal. cp QT interval is normal. T waves are Inverted in lead aVR. Interpreted by me. Reviewed by me. Administered Medications: 18:38 CANCELLED (Physician Discretion): LaSIX 20 mg PO once cp 18:39 CANCELLED (Physician Discretion): Lasix 40 mg IVP once cp 20:39 Drug: Lasix 60 mg Route: IVP; Site: right antecubital; sf 21:46 Follow up: Response: No adverse reaction sf Disposition: 04/28 07:51 Co-signature as Attending Physician, Tremayne Sanchez MD I agree with the assessment and [facility] plan of care. Disposition: 04/27/20 18:47 Hospitalization ordered by Kang Chaidez for Inpatient Admission. Preliminary diagnosis are Unspecified combined systolic (congestive) and diastolic (congestive) heart failure, Pulmonary edema. - Bed requested for Telemetry/MedSurg (Inpatient). - Status is Inpatient Admission. sf - Condition is Stable. - Problem is an acute exacerbation. - Symptoms have improved. Signatures: Dispatcher [employer] EDNY Tremayne Sanchez MD MD cha Hall, Patricia, RN RN Tremayne Blue PA PA Shandra Do, ANITA RN Taz Kessler RN RN sf Corrections: (The following items were deleted from the chart) 04/27 17:32 17:00 CORONAVIRUS+MR.LAB.BRZ ordered. [facility] EDNY 17:32 17:00 Influenza Screen (A \T\ B)+BA.LAB.BRZ ordered. [facility] EDNY 18:01 18:01 Normal except: CO2 36; GFR 51. cp cp 18:38 18:32 LaSIX 20 mg PO once ordered. cp cp 18:39 18:39 Lasix 40 mg IVP once ordered. cp cp 20:08 18:47 Hospitalization Ordered by Kang Chaidez for Inpatient Admission. Preliminary cg diagnosis is Unspecified combined systolic (congestive) and diastolic (congestive) heart failure; Pulmonary edema. Bed requested for Telemetry/MedSurg (Inpatient). Status is Inpatient Admission. Condition is Stable. Problem is an acute exacerbation. Symptoms have improved. cp 22:03 20:08 04/27/2020 18:47 Hospitalization Ordered by Kang Chaidez for Inpatient sf Admission. Preliminary diagnosis is Unspecified combined systolic (congestive) and diastolic (congestive) heart failure; Pulmonary edema. Bed requested for Telemetry/MedSurg (Inpatient). Status is Inpatient Admission. Condition is Stable. Problem is an acute exacerbation. Symptoms have improved. cg
--- NOTE | 2020-04-27 19:02 | RAD REPORT ---
EXAM DESCRIPTION: US - Extrem Venous W Compress Jamari - 04/27/2020 6:21 pm CLINICAL HISTORY: SWELLING, bilateral leg pain COMPARISON: None. TECHNIQUE: Real-time sonographic evaluation of the bilateral lower extremity common femoral, superfi cial femoral, popliteal and posterior tibial veins was performed. FINDINGS: Normal compressibility, flow augmentation, phasic flow and spontaneous flow are identified in the left and right lower extremity common femoral, superficial femoral, popliteal and posterior t ibial veins. No intraluminal filling defects seen. IMPRESSION: No DVT in either lower extremity.
[2020-04-27] MEDS ORDERED: FUROSEMIDE 40 MG/4 ML VIAL ONE (20:44)
[2020-04-27] MEDS ORDERED: FUROSEMIDE 20 MG/ 2ML VIAL ONE (20:44)
[2020-04-27] MEDS ORDERED: IPRATROPIUM BROM 0.5MG/2.5ML NEB PRN (21:53)
[2020-04-27] MEDS ORDERED: ONDANSETRON 4 MG/2 ML VIAL IV PRN (21:53)
[2020-04-27] MEDS ORDERED: ALBUTEROL 2.5 MG/3 ML NEB SOL NEB PRN (21:53)
[2020-04-27] MEDS ORDERED: Levofloxacin500mg IV 500 MG/100 ML BAG IV SCH (22:00)
[2020-04-27] MEDS: ROPINIROLE HCL 0.25 MG TAB PO SCH (22:43)
[2020-04-27] MEDS ORDERED: VANCOMYCIN 1 GM in NA CHLORIDE 0.9% 250 ML IVPB SCH (23:00)
--- NOTE | 2020-04-27 23:55 | P.HP ---
Certification for Inpatient Patient admitted to: Inpatient With expected LOS: >2 Midnights Patient will require the following post-hospital care: None Practitioner: I am a practitioner with admitting privileges, knowledge of patient current condition, hospital course, and medical plan of care. Services: Services provided to patient in accordance with Admission requirements found in Title 42 Section 412.3 of the Code of Federal Regulations <Beau Ellsworth - Last Filed: 04/27/20 23:50> Patient History Date of Service: 04/27/20 Primary Care Provider: Curly Reason for admission: CHF exacerbation, Cellulitis right lower leg History of Present Illness: This is an 85-year-old female that presented to the emergency room today with increased shortness of breath and lower extremity edema that has worsened over the last few days. Patient with a history of coronary artery disease, chronic obstructive pulmonary disease, congestive heart failure, restless leg syndrome, hypertension, hyperlipidemia. Patient stated that she currently is on oxygen at the retirement but despite being on oxygen has felt worse. Patient was worked up in the emergency room and was found to have a white blood cell count 7.4, hemoglobin of 10.2, hematocrit of 31.8 and a platelet of 285. Patient had a sodium of 141, potassium of 4.4, chloride of 101 0 bicarb at 36 and a BUN of 16 and creatinine 1.03 and a glucose of 100. Patient had a troponin less than 0.02 and a BNP of 1454. Chest x-ray revealed volume overload. Patient was given Lasix in the emergency room and had bilateral lower extremity Dopplers for increased erythema and swelling. No fevers upon initial presentation. Medicine was consulted at that time for further evaluation and admission. Patient had mild tachypnea on initial exam with lower extremity edema bilaterally present with increased erythema specifically to the right lower extremity. Patient stated that this is increased from her baseline. Home medications list reviewed: Yes - Past Medical/Surgical History Has patient received pneumonia vaccine in the past: Yes Diabetic: No -: diverticulosis -: Hypothyroidism -: Insomnia -: History of TIA X2 -: Restless leg syndrome -: GERD -: Neuropathy -: COPD -: Hypertension -: Dementia -: Former tobacco use -: Left knee replacement -: Rotator cuff repair -: Ankle surgery -: Cholecystectomy Psychosocial/ Personal History: Patient lives at [facility]. She has been there for over a year. - Family History Father -: Lung disease Sister -: Lung disease Brother -: Heart disease Mother -: Heart disease - Social History Smoking Status: Former smoker Smoking therapy provided: No Alcohol use: Yes CD- Drugs: No Caffeine use: Yes [facility] <Beau Ellsworth - Last Filed: 04/27/20 23:50> Date of Service: 04/28/20 <aleah castaneda - Last Filed: 04/28/20 13:28> Allergies No Known Allergies Allergy (Verified 05/07/19 00:16) Home Medications: Acetaminophen [Tylenol Extra Strength] 500 mg PO Q8HP PRN 04/28/20 Acetaminophen with Codeine [Acetaminophen-Cod #3 Tablet] 1 each PO Q6HP PRN 04/28/20 Arformoterol Tartrate [Brovana] 1 vial IH BID 04/28/20 Atorvastatin Calcium 20 mg PO DAILY 04/28/20 Calcium Carbonate [Veto-Gest] 2 tab PO Q1H PRN 04/28/20 Clopidogrel Bisulfate [Plavix] 75 mg PO DAILY 04/28/20 Donepezil [Aricept] 5 mg PO DAILY 04/28/20 Escitalopram Oxalate 20 mg PO DAILY 04/28/20 Furosemide 40 mg PO DAILY 04/28/20 Gabapentin 100 mg PO BEDTIME 04/28/20 Guaifenesin/Dextromethorphan [Mucus Rlf Dm ER 600-30 mg Tab] 1 each PO Q12HP PRN 04/28/20 Levothyroxine Sodium [Synthroid] 200 mcg PO DAILY 04/28/20 Melatonin 5 mg PO BEDTIME PRN 04/28/20 Metoprolol Tartrate 50 mg PO BID 04/28/20 Omeprazole 1 cap PO DAILY 04/28/20 Potassium Chloride [Klor-Con 10] 10 meq PO DAILY 04/28/20 Ropinirole HCl [Requip] 1 mg PO DAILY 04/28/20 Ropinirole HCl [Requip] 3 mg PO BEDTIME 04/28/20 Saliva Stimulant Agents Comb.3 [Biotene Moisturizing Mouth] 1 spray MM Q1H PRN 04/28/20 Tramadol HCl [Ultram] 50 mg PO Q6H PRN 04/28/20 Trazodone [Desyrel] 50 mg PO BEDTIME 04/28/20 Umeclidinium Brm/Vilanterol Tr [Anoro Ellipta 62.5-25 Mcg INH] 1 inh IH DAILY 04/28/20 Review of Systems General: Unremarkable Eyes: Unremarkable ENT: Unremarkable Respiratory: Shortness of Breath Cardiovascular: Edema Genitourinary: Unremarkable Musculoskeletal: Unremarkable Integumentary: As per HPI Neurological: Unremarkable Lymphatics: Unremarkable <Beau Ellsworth - Last Filed: 04/27/20 23:50> Physical Examination - Vital Signs Temperature: 98.1 F Blood Pressure: 150/61 Pulse: 62 Respirations: 22 Pulse Ox (%): 97 (2 lpm NC) - Physical Exam General: Alert, In no apparent distress, Oriented x3, Cooperative HEENT: PERRLA, Mucous membr. moist/pink, EOMI Neck: Supple, 2+ carotid pulse no bruit, JVD not distended, No Thyromegaly Respiratory: Clear to auscultation bilaterally, Other (Mild tachypnea present) Cardiovascular: Regular rate/rhythm, Normal S1 S2, No gallops, No rubs, No murmurs, Edema (2+lower extremities) Capillary refill: <2 Seconds Gastrointestinal: Normal bowel sounds, Soft and benign, Non-distended, No ascites, No tenderness, No masses, No rebound, No guarding, Other (Obese) Musculoskeletal: No clubbing, No contractures, Erythema, Tenderness, Warmth (Bilateral lower extremities more so on the right side) Integumentary: Erythema, Warmth (Bilateral lower extremities more so on the right side) Neurological: Normal speech, Normal strength at 5/5 x4 extr, Normal tone, Sens ation intact, Cranial nerves 3-12 intact, Normal affect Lymphatics: No axilla or inguinal lymphadenopathy - Studies Laboratory Data (last 24 hrs) 04/27/20 17:10: PT 11.6, INR 1.01 04/27/20 17:10: WBC 7.40, Hgb 10.2 L, Hct 31.8 L, Plt Count 285 04/27/20 17:10: Sodium 141, Potassium 4.4, BUN 16, Creatinine 1.03, Glucose 100, Magnesium 2.2, Total Bilirubin 0.5, AST 9 L, ALT 9 L, Alkaline Phosphatase 95 <Beau Ellsworth - Last Filed: 04/27/20 23:50> - Studies Laboratory Data (last 24 hrs) 04/27/20 17:10: PT 11.6, INR 1.01 04/27/20 17:10: WBC 7.40, Hgb 10.2 L, Hct 31.8 L, Plt Count 285 04/27/20 17:10: Sodium 141, Potassium 4.4, BUN 16, Creatinine 1.03, Glucose 100, Magnesium 2.2, Total Bilirubin 0.5, AST 9 L, ALT 9 L, Alkaline Phosphatase 95 <aleah castaneda - Last Filed: 04/28/20 13:28> Assessment and Plan - Problems (Diagnosis) (1) Congestive heart failure (CHF) Current Visit: Yes Status: Acute Plan: Patient presents with increased shortness of breath with tachypnea and need for chronic oxygen. Patient has lower extremity edema and increased pulmonary vascular findings on chest x-ray consistent with volume overload. Patient has been started on Lasix in the emergency room and will continue with Lasix for the next couple days in the inpatient setting. Will monitor respiratory status, physical exam, BNP, and renal function throughout her stay. Can I get a medicine list at this time from the emergency department or from her retirement. Will try and obtain this tomorrow for med reconciliation and adjustment if needed Qualifiers: Heart failure type: unspecified Heart failure chronicity: acute Qualified Code(s): I50.9 - Heart failure, unspecified (2) Cellulitis Current Visit: Yes Status: Acute Plan: Patient does have increased erythema with warmth and tenderness to both legs but more pronounced on the right side. There is concern for cellulitis at this time. Deep vein thrombosis has been ruled out. Patient does have some degree of chronic insufficiency down there with stasis dermatitis but has increased from previous exams per patient. Will treat with antibiotics for now to see if there is improvement. Qualifiers: Site of cellulitis: extremity Site of cellulitis of extremity: lower extremity Laterality: right Qualified Code(s): L03.115 - Cellulitis of right lower limb (3) Chronic obstructive pulmonary disease (COPD) Onset Date: 12/17/17 Current Visit: Yes Status: Chronic Plan: We will monitor patient's respiratory status and pulse oximetry. Patient will remain on oxygen 2 L in adjust as needed. Breathing treatments as needed for COPD. Qualifiers: COPD type: chronic bronchitis Chronic bronchitis type: mixed simple and mucopurulent Qualified Code(s): J41.8 - Mixed simple and mucopurulent chronic bronchitis (4) Hypertension Onset Date: 12/17/17 Current Visit: Yes Status: Chronic Plan: We will maintain blood pressure for systolic less than 160 diastolic less than 110. Medications will be given as needed to control BP. Qualifiers: Hypertension type: essential hypertension Qualified Code(s): I10 - Essential (primary) hypertension Discharge Plan: [facility] Plan to discharge in: 48 Hours - Advance Directives Does patient have a Living Will: Yes Does patient have a Durable POA for Healthcare: Yes - Code Status/Comfort Care Code Status Assessed: No Critical Care: No Time Spent Managing Pts Care (In Minutes): 70 <Beau Ellsworth - Last Filed: 04/27/20 23:50> Physician Review: Patient Assessed, Agree with Above Assessment and Plan Physician Review Additional Text: Diagnosis: Acute on chronic diastolic CHF. Venostasis dermatitis. Plan: IV Lasix Keep lower extremities elevated. Monitor electrolytes. <aleah castaneda - Last Filed: 04/28/20 13:28>
[2020-04-28] MEDS ORDERED: NA CHLORIDE 0.9% 250 ML ONE (00:18)
[2020-04-28] MEDS ORDERED: VANCOMYCIN 1 GM/VIAL ONE (00:24)
[2020-04-28 03:49] LABS: Absolute Lymphocytes (CBC) 1.5 K/uL (0.7-4.9); Basophils % 0.7 % (0-1.3); Hematocrit 27.4 % (36.0-45.0); Lymphocytes % 19.2 % (15.3-44.8); MPV 8.2 fL (7.6-11.3); RBC Red Blood Cell Count 2.75 M/uL (3.86-4.86)
[2020-04-28 06:24] VITALS: BMI 46.3
[2020-04-28] MEDS: MORPHINE 2 MG/ML SYR IV PRN ×2 (07:27→12:51)
[2020-04-28] MEDS ORDERED: FUROSEMIDE 20 MG/ 2ML VIAL IV SCH (09:00)
--- NOTE | 2020-04-28 11:55 | EKG ---
Test Date: 2020-04-27 Test Time: 18:36:54 [employer]sembl[employer] Production Line: JENAE MEASUREMENT RESULTS: Intervals: Rate: 53 VA: 176 QRSD: 92 QT: 454 QTc: 426 [place]: P: 84 VA: 176 QRS: 3 T: 60 INTERPRETIVE STATEMENTS: Sinus bradycardia with sinus arrhythmia Cannot rule out Anterior infarct, age undetermined Abnormal ECG Compared to ECG 03/31/2020 11:59:20 No significant changes Electronically Signed On 04-28-20 11:53:25 PERSONAL LINES APPRAISER by Darrin Chan
[2020-04-28] MEDS ORDERED: VANCOMYCIN 2 GM in NA CHLORIDE 0.9% 500 ML IVPB SCH (12:00)
--- OUTSIDE RECORDS SUMMARY | 2020-04-28 12:14 | XMS REPORT | Continuity of Care Document ---
:1935 Author Organization [facility] Care Team Providers Name Role Phone [facility] Unavailable Un available Problems Problem Status Onset [...] 20 mg = 2 No Longer Mis kritsopher oral tablet tab, PO, Active 019 Neuro Daily, 0 Refill(s) Prednisone 2 mg, PO, Inactive Mischer Daily, 019 Neuro Quantity sufficient, 0 Refill(s) Donepezil 5 mg = 1 Active Mischer hydrochloride 5 tab, PO, 018 Neuro MG Oral Tablet Bedtime, # [Aricept] 90 tab, 1 Refill(s), Pharmacy: [facility] Allergies, Adverse Reactions, Alerts Substance [...] [facility] ro [facility]) 73 [facility] Heart Rate 53 [place] [facility] [place] 16 12/12/2018 [facility] Height 154.94 cm 12/12/2018 [facility] Weight 109.545 12/12/2018 [facility] BMI Calculated 45.63 12/12/2018 [facility] Systolic (mm Hg) 156 10/31/2018 [facility] ro Diastolic (mm Hg) 66 10/31/2018 [facility] Heart Rate 52 10/31/2018 [facility] Respitory Rate 16 10/31/2018 [facility] Height 160.02 cm 10/31/2018 [facility] Weight 109.545 10/31/2018 [facility] BMI Calculated 42.78 10/31/2018 [facility] Height 165.1 cm 2018 [facility] Weight 107.727 2018 [facility] BMI Calculated 39.52 2018 [facility] Heart Rate 68 2018 [facility] Systolic (mm Hg) [facility] Diastolic (mm Hg) 75 2018 [facility] [place] Encounters Location Location Encounter Encounter Reason Attending ADM NC Stat Source Details Type Number For Provider Date Date Visit MNA Ambulatory [id number] Shobha 01/10 01/10 [facility] [facility] [place] [id number] SHOBHA 02/[address] [facility] [place] Outpatient [id number] Shobha 02/12 02/13 [facility] [facility] [place] [id number] SHOBHA 03/[address] [facility] [place] MNA Ambulatory [id number] Shobha 03/26 03/26 [facility] [facility] [place] MNA Outside [id number] 07/09 07/11 [facility] Neurology Medical /2018 Neuro [place] Records MNA Outside [id number] 07/18 07/20 [facility] Neurology Medical /2018 Neuro [place] Records MNA Outside [id number] 08/16 08/18 [facility] Neurology Medical /2018 Neuro [place] Records Outpatient [id number] Shobha 10/31 Active [facility] [place] Outpatient [id number] Shobha 10/31 11/01 [facility] [facility] [place] [id number] Shobha 12/12 Active [facility] [place] M[place] Outpatient [id number] Shobha 12/12 12/13 [facility] [place] [id number] Shobha 01/28 Active [facility] [place] [facility] Ambulatory [id number] Shobha 01/28 01/28 [facility] [place] [facility] [place] [id number] Shobha 05/15 [facility] [place] M[place] Ambulatory [id number] Shobha 05/15 05/15 [facility] [facility] [place] Procedures Procedure Code Date Perfomer Comments Source Ankle fusion [id number] [facility] Cataract extraction, [id number] [facility] her insertion of Neuro intraocular lens and trabeculectomy Cholecystectomy [id number] [facility] Knee replacement [id number] [facility] Rotator cuff repair [id number] [facility] Assessment and Plan No Data Provided for This Section Plan of Care No Data Provided for This Section Social History Social History Date Source Social History TypeResponse 12/12/2018 [facility] [place] Smoking Status Former smoker; Type: [...]
--- NOTE | 2020-04-28 13:27 | P.PN ---
Subjective Date of Service: 04/28/20 Primary Care Provider: Curly Chief Complaint: CHF exacerbation, Cellulitis right lower leg Patient states she feels better today. She states she feels less short of breath than yesterday. She is complaining of pain on the left ankle. She is maintained on 4 L oxygen by nasal cannula. Physical Examination - Vital Signs Temperature: 98.3 F Blood Pressure: 137/60 Pulse: 80 Respirations: 20 Pulse Ox (%): 92 - Physical Exam General: Alert, Mild distress HEENT: Mucous membr. moist/pink Neck: JVD not distended Respiratory: Normal air movement, Crackles/rales (Bibasilar crackles) Cardiovascular: Regular rate/rhythm, Normal S1 S2, Edema (2+ edema bilateral lower extremities) Gastrointestinal: Soft and benign, Non-distended, No tenderness Musculoskeletal: Swelling (Bilateral lower extremities) Integumentary: Erythema (Bilateral legs.) Neurological: Normal strength at 5/5 x4 extr, Cranial nerves 3-12 intact - Studies Laboratory Data (last 24 hrs) 04/27/20 17:10: PT 11.6, INR 1.01 04/27/20 17:10: WBC 7.40, Hgb 10.2 L, Hct 31.8 L, Plt Count 285 04/27/20 17:10: Sodium 141, Potassium 4.4, BUN 16, Creatinine 1.03, Glucose 100, Magnesium 2.2, Total Bilirubin 0.5, AST 9 L, ALT 9 L, Alkaline Phosphatase 95 Assessment And Plan - Current Problems (Diagnosis) (1) Venous stasis dermatitis Current Visit: Yes Status: Acute (2) Chronic obstructive pulmonary disease (COPD) Onset Date: 12/17/17 Current Visit: Yes Status: Chronic Qualifiers: COPD type: chronic bronchitis Chronic bronchitis type: mixed simple and mucopurulent Qualified Code(s): J41.8 - Mixed simple and mucopurulent chronic bronchitis (3) Hypertension Onset Date: 12/17/17 Current Visit: Yes Status: Chronic Qualifiers: Hypertension type: essential hypertension Qualified Code(s): I10 - Essential (primary) hypertension (4) Acute on chronic diastolic (congestive) heart failure Current Visit: No Status: Acute (5) Chronic cor pulmonale Current Visit: No Status: Chronic - Plan Continue IV Lasix. Wean oxygen as tolerated Monitor electrolytes and replete as needed. Daily weight Bilateral lower extremity erythema is likely secondary to venous stasis dermatitis. Discontinue antibiotics. Keep lower extremities elevated. Monitor renal function on Lasix therapy. Pain management as needed.
[2020-04-28] MEDS ORDERED: ALBUTEROL 2.5 MG/3 ML NEB SOL NEB PRN (14:00)
[2020-04-28] MEDS: FUROSEMIDE 40 MG/4 ML VIAL IV SCH (16:42)
[2020-04-28] MEDS: ENOXAPARIN 40 MG/0.4 ML SQ SCH (16:42)
[2020-04-28] MEDS: ROPINIROLE HCL 0.25 MG TAB PO SCH (20:53)
[2020-04-29 05:36] LABS: Absolute Lymphocytes (CBC) 1.6 K/uL (0.7-4.9); Basophils % 0.8 % (0-1.3); Hematocrit 31.1 % (36.0-45.0); MPV 7.9 fL (7.6-11.3); RBC Red Blood Cell Count 3.07 M/uL (3.86-4.86)
[2020-04-29 06:01] LABS: Potassium 3.9 mmol/L (3.5-5.1)
[2020-04-29] MEDS: LIDOCAINE 4% PATCH TOP SCH (08:45)
[2020-04-29] MEDS: FUROSEMIDE 40 MG/4 ML VIAL IV SCH (08:45)
[2020-04-29] MEDS ORDERED: SALIVA STIMULANT AGENTS COMB PO PRN (11:24)
[2020-04-29] MEDS ORDERED: CALCIUM CARBONATE CHEW 500MG TAB PO PRN (11:24)
[2020-04-29] MEDS: TRAMADOL HCL 50 MG TAB PO PRN (12:28)
[2020-04-29] MEDS: ROPINIROLE HCL 1 MG TAB PO SCH ×2 (12:29→22:12)
--- NOTE | 2020-04-29 13:16 | P.PN ---
Subjective Date of Service: 04/29/20 Primary Care Provider: Curly Chief Complaint: CHF exacerbation, Cellulitis right lower leg Patient complaining of pain in the legs. She stated she feels about the same compared to yesterday. She is maintained on 3.5 L oxygen by nasal cannula. Physical Examination - Vital Signs Temperature: 97.1 F Blood Pressure: 139/52 Pulse: 91 Respirations: 19 Pulse Ox (%): 94 - Physical Exam General: Alert, In no apparent distress HEENT: Mucous membr. moist/pink Neck: Supple, JVD not distended Respiratory: Clear to auscultation bilaterally, Normal air movement Cardiovascular: No edema, Regular rate/rhythm, Normal S1 S2 Gastrointestinal: Normal bowel sounds, Soft and benign, Non-distended, No tenderness Musculoskeletal: No swelling, Tenderness (Left ankle malleolar.) Integumentary: Erythema (Mild erythema bilateral lower extremities), Other (Venostasis dermatitis.) Neurological: Other (No focal motor deficit.) Assessment And Plan - Current Problems (Diagnosis) (1) Venous stasis dermatitis Current Visit: Yes Status: Acute (2) Chronic obstructive pulmonary disease (COPD) Onset Date: 12/17/17 Current Visit: Yes Status: Chronic Qualifiers: COPD type: chronic bronchitis Chronic bronchitis type: mixed simple and mucopurulent Qualified Code(s): J41.8 - Mixed simple and mucopurulent chronic bronchitis (3) Hypertension Onset Date: 12/17/17 Current Visit: Yes Status: Chronic Qualifiers: Hypertension type: essential hypertension Qualified Code(s): I10 - Essential (primary) hypertension (4) Acute on chronic diastolic (congestive) heart failure Current Visit: No Status: Acute (5) Chronic cor pulmonale Current Visit: No Status: Chronic - Plan Transition from IV Lasix to oral Lasix maintenance . Wean oxygen as tolerated Monitor electrolytes and replete as needed. Daily weight Bilateral lower extremity erythema is likely secondary to venous stasis dermatitis.It is improving. Discontinue antibiotics. Keep lower extremities elevated. Monitor renal function on Lasix therapy. Pain management as needed. Resume home bronchodilators. Physician Review: Patient Assessed, Agree with Above Assessment and Plan
[2020-04-29] MEDS: ENOXAPARIN 40 MG/0.4 ML SQ SCH (17:24)
[2020-04-29] MEDS: MORPHINE 2 MG/ML SYR IV PRN (17:24)
[2020-04-29] MEDS: ARFORMOTEROL TARTRATE 15 MCG/2 ML VIAL.NEB IH SCH (19:35)
[2020-04-29] MEDS: ATORVASTATIN 20 MG TAB PO SCH (22:12)
[2020-04-29] MEDS: GABAPENTIN 100 MG CAP PO SCH (22:12)
[2020-04-29] MEDS: TRAZODONE 50 MG TABLET PO SCH (22:13)
[2020-04-29] MEDS: DONEPEZIL HCL 5 MG TAB PO SCH (22:14)
[2020-04-30] MEDS: LEVOTHYROXINE SOD 0.1 MG TAB PO SCH (05:03)
[2020-04-30 06:27] LABS: Absolute Lymphocytes (CBC) 1.2 K/uL (0.7-4.9); Basophils % 0.3 % (0-1.3); MPV 7.9 fL (7.6-11.3); RBC Red Blood Cell Count 3.12 M/uL (3.86-4.86)
[2020-04-30 06:39] LABS: Potassium 3.7 mmol/L (3.5-5.1)
[2020-04-30] MEDS: ARFORMOTEROL TARTRATE 15 MCG/2 ML VIAL.NEB IH SCH ×2 (07:36→19:45)
[2020-04-30] MEDS ORDERED: HOME MED 1 EA UNK (Levothyroxine Sodium [Synthroid] 200 MCG Tablet) PO SCH (09:00)
[2020-04-30] MEDS: HOME MED 1 EA UNK (Umeclidinium Brm/Vilanterol Tr [Anoro Ellipta 62.5-25 Mcg Inh] Blst.W.D IH SCH (09:00)
[2020-04-30] MEDS: LIDOCAINE 4% PATCH TOP SCH (09:06)
[2020-04-30] MEDS: FUROSEMIDE 40 MG TABLET PO SCH (09:07)
[2020-04-30] MEDS: CLOPIDOGREL 75 MG TABLET PO SCH (09:07)
[2020-04-30] MEDS: ESCITALOPRAM 20 MG TAB PO SCH (09:08)
[2020-04-30] MEDS: ROPINIROLE HCL 1 MG TAB PO SCH ×2 (09:08→22:00)
[2020-04-30] MEDS: TRAMADOL HCL 50 MG TAB PO PRN (09:57)
[2020-04-30] MEDS: MORPHINE 2 MG/ML SYR IV PRN ×2 (13:44→23:39)
[2020-04-30] MEDS: CEPACOL LOZENGES PO PRN (13:45)
[2020-04-30] MEDS: ENOXAPARIN 40 MG/0.4 ML SQ SCH (16:00)
[2020-04-30] MEDS: BUDESONIDE 0.5 MG/2 ML NEB NEB SCH (20:35)
[2020-04-30] MEDS: TRAZODONE 50 MG TABLET PO SCH (22:00)
[2020-04-30] MEDS: GABAPENTIN 100 MG CAP PO SCH (22:00)
[2020-04-30] MEDS: ATORVASTATIN 20 MG TAB PO SCH (22:00)
[2020-04-30] MEDS: DONEPEZIL HCL 5 MG TAB PO SCH (22:00)
[2020-05-01] MEDS: LEVOTHYROXINE SOD 0.1 MG TAB PO SCH (05:51)
[2020-05-01] MEDS: ARFORMOTEROL TARTRATE 15 MCG/2 ML VIAL.NEB IH SCH ×2 (07:16→19:25)
[2020-05-01] MEDS: BUDESONIDE 0.5 MG/2 ML NEB NEB SCH ×2 (07:16→19:25)
[2020-05-01] MEDS: LIDOCAINE 4% PATCH TOP SCH (09:00)
[2020-05-01] MEDS: HOME MED 1 EA UNK (Umeclidinium Brm/Vilanterol Tr [Anoro Ellipta 62.5-25 Mcg Inh] Blst.W.D IH SCH (09:00)
[2020-05-01] MEDS: ROPINIROLE HCL 1 MG TAB PO SCH ×2 (09:02→20:48)
[2020-05-01] MEDS: CLOPIDOGREL 75 MG TABLET PO SCH (09:03)
[2020-05-01] MEDS: ESCITALOPRAM 20 MG TAB PO SCH (09:03)
[2020-05-01] MEDS: FUROSEMIDE 40 MG TABLET PO SCH (09:03)
--- NOTE | 2020-05-01 11:21 | P.PN ---
Subjective Date of Service: 05/01/20 Primary Care Provider: Curly Chief Complaint: CHF exacerbation, Cellulitis right lower leg Patient complaining of rigors because last night. She stated she was awake, alert and oriented during the time she was shaking. No fever recorded. She is maintained on 2 L oxygen by nasal cannula. Physical Examination - Vital Signs Temperature: 97.4 F Blood Pressure: 153/65 Pulse: 91 Respirations: 18 Pulse Ox (%): 94 - Physical Exam General: Alert, In no apparent distress, Oriented x3 HEENT: Mucous membr. moist/pink Neck: JVD not distended Respiratory: Clear to auscultation bilaterally, Normal air movement Cardiovascular: Regular rate/rhythm, Normal S1 S2, Edema (1+ bilateral lower extremity edema) Gastrointestinal: Soft and benign, Non-distended, No tenderness Musculoskeletal: No swelling, Tenderness (Left ankle) Integumentary: Erythema (Bilateral Legs.) Neurological: Other (No focal motor deficit.) Assessment And Plan - Current Problems (Diagnosis) (1) Venous stasis dermatitis Current Visit: Yes Status: Acute (2) Chronic obstructive pulmonary disease (COPD) Onset Date: 12/17/17 Current Visit: Yes Status: Chronic Qualifiers: COPD type: chronic bronchitis Chronic bronchitis type: mixed simple and mucopurulent Qualified Code(s): J41.8 - Mixed simple and mucopurulent chronic bronchitis (3) Hypertension Onset Date: 12/17/17 Current Visit: Yes Status: Chronic Qualifiers: Hypertension type: essential hypertension Qualified Code(s): I10 - Essential (primary) hypertension (4) Acute on chronic diastolic (congestive) heart failure Current Visit: No Status: Acute (5) Chronic cor pulmonale Current Visit: No Status: Chronic - Plan Continue oral Lasix Wean oxygen as tolerated Monitor electrolytes and replete as needed. Daily weight Bilateral lower extremity erythema is likely secondary to venous stasis dermatitis. It has improved. Check UA to rule out UTI given patient was having rigors last night Keep lower extremities elevated. Monitor renal function on Lasix therapy. Pain management as needed. Continue home bronchodilators. Patient now maintained on her baseline oxygen.
--- NOTE | 2020-05-01 12:15 | RAD REPORT ---
EXAM DESCRIPTION: RAD - Ankle Left 2 View - 05/01/2020 11:59 am CLINICAL HISTORY: Ankle pain. Pain and swelling. COMPARISON: Foot Left Wo Cont dated 12/26/2019 FINDINGS: Diffuse osteopenia is present. Heavy vascular calcification is noted. No acute fracture or subluxation is present. If pain persists, MR imaging of the ankle would be suggested for followup.
[2020-05-01] MEDS: MORPHINE 2 MG/ML SYR IV PRN ×2 (13:05→23:56)
[2020-05-01] MEDS: ENOXAPARIN 40 MG/0.4 ML SQ SCH (17:38)
[2020-05-01] MEDS: CEPACOL LOZENGES PO PRN (20:47)
[2020-05-01] MEDS: TRAZODONE 50 MG TABLET PO SCH (20:48)
[2020-05-01] MEDS: GABAPENTIN 100 MG CAP PO SCH (20:48)
[2020-05-01] MEDS: DONEPEZIL HCL 5 MG TAB PO SCH (20:48)
[2020-05-01] MEDS: ATORVASTATIN 20 MG TAB PO SCH (20:49)
[2020-05-01] MEDS: TRAMADOL HCL 50 MG TAB PO PRN (20:50)
[2020-05-01 22:34] LABS: Urine Appearance TURBID; Urine Bilirubin NEGATIVE (NEG); Urine Blood 2+ (NEG); Urine Color YELLOW; Urine Glucose NEGATIVE (NEG); Urine Protein TRACE (NEG); Urine Specific Gravity 1.015 (1.005-1.030); Urine pH 5.5 (5.0-7.0)
[2020-05-01 23:31] LABS: Urine Bacteria >50 /HPF (<20); Urine Mucus 3+ /HPF (NONE SEEN); Urine RBC >50 /HPF (NONE SEEN); Urine Yeast MANY (NONE SEEN)
[2020-05-01] MEDS: MELATONIN 5 MG TABLET PO PRN (23:57)
[2020-05-02] MEDS: LEVOTHYROXINE SOD 0.1 MG TAB PO SCH (06:30)
[2020-05-02] MEDS: CEPACOL LOZENGES PO PRN ×2 (06:55→20:01)
[2020-05-02] MEDS: IPRATROPIUM BROM 0.5MG/2.5ML NEB PRN (07:15)
[2020-05-02] MEDS: BUDESONIDE 0.5 MG/2 ML NEB NEB SCH ×2 (07:15→20:05)
[2020-05-02] MEDS: ARFORMOTEROL TARTRATE 15 MCG/2 ML VIAL.NEB IH SCH ×2 (07:15→20:05)
[2020-05-02] MEDS: ROPINIROLE HCL 1 MG TAB PO SCH ×2 (09:26→20:02)
[2020-05-02] MEDS: ESCITALOPRAM 20 MG TAB PO SCH (09:26)
[2020-05-02] MEDS: CLOPIDOGREL 75 MG TABLET PO SCH (09:26)
[2020-05-02] MEDS: LIDOCAINE 4% PATCH TOP SCH (09:26)
[2020-05-02] MEDS: FUROSEMIDE 40 MG TABLET PO SCH (09:26)
[2020-05-02] MEDS: MORPHINE 2 MG/ML SYR IV PRN (09:30)
[2020-05-02] MEDS: CEFTRIAXONE/SWI 1gm 1 GM/10 ML SYR IV SCH (09:31)
--- NOTE | 2020-05-02 10:54 | P.PN ---
Subjective Date of Service: 05/02/20 Primary Care Provider: Curly Chief Complaint: CHF exacerbation, Cellulitis right lower leg Patient complaining of neck pains. UA suggest the presence of UTI. She is maintained on 2 L oxygen by nasal cannula. Physical Examination - Vital Signs Temperature: 97.0 F Blood Pressure: 128/58 Pulse: 80 Respirations: 20 Pulse Ox (%): 95 - Physical Exam General: Alert, In no apparent distress HEENT: Mucous membr. moist/pink Neck: Supple, JVD not distended Respiratory: Clear to auscultation bilaterally, Normal air movement Cardiovascular: Regular rate/rhythm, Normal S1 S2, Edema (1+ bilateral lower extremity edema) Gastrointestinal: Soft and benign, Non-distended, No tenderness Musculoskeletal: No clubbing, Tenderness (Bilateral legs) Integumentary: Erythema (Bilateral legs.) Neurological: Other (No focal motor deficit.) Assessment And Plan - Current Problems (Diagnosis) (1) Venous stasis dermatitis Current Visit: Yes Status: Acute (2) Chronic obstructive pulmonary disease (COPD) Onset Date: 12/17/17 Current Visit: Yes Status: Chronic Qualifiers: COPD type: chronic bronchitis Chronic bronchitis type: mixed simple and mucopurulent Qualified Code(s): J41.8 - Mixed simple and mucopurulent chronic bronchitis (3) Hypertension Onset Date: 12/17/17 Current Visit: Yes Status: Chronic Qualifiers: Hypertension type: essential hypertension Qualified Code(s): I10 - Essential (primary) hypertension (4) Acute on chronic diastolic (congestive) heart failure Current Visit: No Status: Acute (5) Chronic cor pulmonale Current Visit: No Status: Chronic - Plan Continue oral Lasix Wean oxygen as tolerated Monitor electrolytes and replete as needed. Bilateral lower extremity erythema is likely secondary to venous stasis dermatitis. It has improved. UA suggests UTI. Urine culture is pending. Patient started on IV Rocephin. Keep lower extremities elevated. Monitor renal function on Lasix therapy. Pain management as needed. Continue home bronchodilators. Patient now maintained on her baseline oxygen.
[2020-05-02] MEDS: ENOXAPARIN 40 MG/0.4 ML SQ SCH (16:02)
[2020-05-02] MEDS: TRAZODONE 50 MG TABLET PO SCH (20:02)
[2020-05-02] MEDS: DONEPEZIL HCL 5 MG TAB PO SCH (20:02)
[2020-05-02] MEDS: ATORVASTATIN 20 MG TAB PO SCH (20:02)
[2020-05-02] MEDS: GABAPENTIN 100 MG CAP PO SCH (20:02)
[2020-05-02] MEDS: MELATONIN 5 MG TABLET PO PRN (20:06)
[2020-05-02] MEDS: TRAMADOL HCL 50 MG TAB PO PRN (20:12)
[2020-05-03] MEDS: LEVOTHYROXINE SOD 0.1 MG TAB PO SCH (06:14)
[2020-05-03] MEDS: ARFORMOTEROL TARTRATE 15 MCG/2 ML VIAL.NEB IH SCH ×2 (08:15→19:20)
[2020-05-03] MEDS: BUDESONIDE 0.5 MG/2 ML NEB NEB SCH ×2 (08:15→19:20)
[2020-05-03] MEDS: CLOPIDOGREL 75 MG TABLET PO SCH (09:35)
[2020-05-03] MEDS: FUROSEMIDE 40 MG TABLET PO SCH (09:35)
[2020-05-03] MEDS: LIDOCAINE 4% PATCH TOP SCH (09:36)
[2020-05-03] MEDS: ROPINIROLE HCL 1 MG TAB PO SCH ×2 (09:36→20:27)
[2020-05-03] MEDS: ESCITALOPRAM 20 MG TAB PO SCH (09:36)
[2020-05-03] MEDS: CEFTRIAXONE/SWI 1gm 1 GM/10 ML SYR IV SCH (09:54)
--- NOTE | 2020-05-03 12:12 | P.PN ---
Subjective Date of Service: 05/03/20 Primary Care Provider: Curly Chief Complaint: CHF exacerbation, Cellulitis right lower leg Patient is coughing and wheezing. UA suggest the presence of UTI. Urine culture is growing yeast. She is maintained on 2 L oxygen by nasal cannula. Physical Examination - Vital Signs Temperature: 96.7 F Blood Pressure: 134/62 Pulse: 82 Respirations: 18 Pulse Ox (%): 95 - Physical Exam General: Alert, In no apparent distress HEENT: Mucous membr. moist/pink Neck: JVD not distended Respiratory: Diminished, Expiratory wheezes (Mild scattered expiratory wheezes) Cardiovascular: Regular rate/rhythm, Normal S1 S2, Edema (Trace bilateral lower extremity edema) Gastrointestinal: Normal bowel sounds, Soft and benign, Non-distended, No tenderness Musculoskeletal: No swelling Integumentary: Erythema (Bilateral legs) Neurological: Other (No focal motor deficit) Assessment And Plan - Current Problems (Diagnosis) (1) Venous stasis dermatitis Current Visit: Yes Status: Acute (2) Chronic obstructive pulmonary disease (COPD) Onset Date: 12/17/17 Current Visit: Yes Status: Chronic Qualifiers: COPD type: chronic bronchitis Chronic bronchitis type: mixed simple and mucopurulent Qualified Code(s): J41.8 - Mixed simple and mucopurulent chronic bronchitis (3) Hypertension Onset Date: 12/17/17 Current Visit: Yes Status: Chronic Qualifiers: Hypertension type: essential hypertension Qualified Code(s): I10 - Essential (primary) hypertension (4) Acute on chronic diastolic (congestive) heart failure Current Visit: No Status: Acute (5) Chronic cor pulmonale Current Visit: No Status: Chronic - Plan Continue oral Lasix Patient maintained on her baseline oxygen. Bronchodilators. Monitor electrolytes and replete as needed. Bilateral lower extremity erythema is likely secondary to venous stasis dermatitis. It has improved. UA suggests UTI. Urine culture: Yeast. Continue IV Rocephin. Follow urine culture. Start oral Diflucan. Keep lower extremities elevated. Monitor renal function on Lasix therapy. Pain management as needed. Continue home bronchodilators.
[2020-05-03] MEDS: ENOXAPARIN 40 MG/0.4 ML SQ SCH (17:06)
[2020-05-03] MEDS: TRAMADOL HCL 50 MG TAB PO PRN (20:26)
[2020-05-03] MEDS: DONEPEZIL HCL 5 MG TAB PO SCH (20:27)
[2020-05-03] MEDS: ATORVASTATIN 20 MG TAB PO SCH (20:27)
[2020-05-03] MEDS: TRAZODONE 50 MG TABLET PO SCH (20:27)
[2020-05-03] MEDS: GABAPENTIN 100 MG CAP PO SCH (20:27)
[2020-05-03] MEDS: MORPHINE 2 MG/ML SYR IV PRN (21:35)
[2020-05-04 05:50] LABS: Absolute Lymphocytes (CBC) 1.5 K/uL (0.7-4.9); Basophils % 0.6 % (0-1.3); Hematocrit 28.9 % (36.0-45.0); MPV 7.8 fL (7.6-11.3); RBC Red Blood Cell Count 2.85 M/uL (3.86-4.86)
[2020-05-04 06:00] LABS: Magnesium 2.1 mg/dL (1.8-2.4); Potassium 4.1 mmol/L (3.5-5.1)
[2020-05-04] MEDS: LEVOTHYROXINE SOD 0.1 MG TAB PO SCH (06:02)
[2020-05-04] MEDS: BUDESONIDE 0.5 MG/2 ML NEB NEB SCH ×2 (07:27→19:35)
[2020-05-04] MEDS: ARFORMOTEROL TARTRATE 15 MCG/2 ML VIAL.NEB IH SCH ×2 (07:27→19:35)
[2020-05-04] MEDS: HOME MED 1 EA UNK (Umeclidinium Brm/Vilanterol Tr [Anoro Ellipta 62.5-25 Mcg Inh] Blst.W.D IH SCH (09:00)
[2020-05-04] MEDS: CEFTRIAXONE/SWI 1gm 1 GM/10 ML SYR IV SCH (09:00)
[2020-05-04] MEDS: LIDOCAINE 4% PATCH TOP SCH (10:01)
[2020-05-04] MEDS: CLOPIDOGREL 75 MG TABLET PO SCH (10:02)
[2020-05-04] MEDS: TRAMADOL HCL 50 MG TAB PO PRN (10:02)
[2020-05-04] MEDS: ROPINIROLE HCL 1 MG TAB PO SCH ×2 (10:02→21:29)
[2020-05-04] MEDS: FLUCONAZOLE 100 MG TAB PO SCH (10:02)
[2020-05-04] MEDS: FUROSEMIDE 40 MG TABLET PO SCH (10:02)
[2020-05-04] MEDS: ESCITALOPRAM 20 MG TAB PO SCH (10:02)
[2020-05-04] MEDS: ENOXAPARIN 40 MG/0.4 ML SQ SCH (17:12)
--- NOTE | 2020-05-04 19:10 | P.PN ---
Subjective Date of Service: 05/04/20 Primary Care Provider: Curly Chief Complaint: CHF exacerbation, Cellulitis right lower leg Subjective: No new changes (reports some neck soreness, no stiffness. otherwise doing ok, breathing about the same, maybe slightly better. worried about returning to assisted living - feels like not getting "enough" care there, however doesn't want SNF) Review of Systems 10-point ROS is otherwise unremarkable Physical Examination - Vital Signs Temperature: 97.0 F Blood Pressure: 151/67 Pulse: 79 Respirations: 18 Pulse Ox (%): 100 Assessment & Plan Physician Review Additional Text: Physical Exam General: Alert, In no apparent distress HEENT: Mucous membr. moist/pink Neck: bilateral neck - sternocleidomastoid muscles with some mild tenderness on palpation Pulm: Diminished, mild expiratory wheeze, non-labored CV: RRR, trace bilateral lower extremity edema Abd: soft, NTND Ext: mild erythema/ venous stasis changes on b/l lower legs Problem List acute on chronic diastolic CHF (HFpEF) Chronic cor pulmonale Venous stasis dermatitis COPD on chronic O2 HTN Continue oral Lasix, Patient maintained on her baseline oxygen. Monitor renal function on Lasix therapy improving, Continue home bronchodilators. Bilateral lower extremity erythema is likely secondary to venous stasis dermatitis. per patient and EMR has improved UA suggests UTI. Urine culture: Yeast. Continue IV Rocephin. continue diflucan, awaiting final culture -should be today Keep lower extremities elevated neck pain - do not suspect meningitis, no stiffness, has full ROM. likely from prior arthritis, bed / muscle spasm Dispo: anticipate dc back to assisted living tomorrow Time Spent Managing Pts Care (In Minutes): 35
[2020-05-04] MEDS: GABAPENTIN 100 MG CAP PO SCH (21:28)
[2020-05-04] MEDS: TRAZODONE 50 MG TABLET PO SCH (21:28)
[2020-05-04] MEDS: DONEPEZIL HCL 5 MG TAB PO SCH (21:28)
[2020-05-04] MEDS: ATORVASTATIN 20 MG TAB PO SCH (21:28)
[2020-05-05] MEDS: LEVOTHYROXINE SOD 0.1 MG TAB PO SCH (05:42)
[2020-05-05 05:55] LABS: Hematocrit 28.5 % (36.0-45.0); MPV 7.8 fL (7.6-11.3); RBC Red Blood Cell Count 2.85 M/uL (3.86-4.86)
[2020-05-05 06:23] LABS: Magnesium 2.3 mg/dL (1.8-2.4); Potassium 3.9 mmol/L (3.5-5.1)
[2020-05-05] MEDS: BUDESONIDE 0.5 MG/2 ML NEB NEB SCH ×2 (07:28→19:50)
[2020-05-05] MEDS: ARFORMOTEROL TARTRATE 15 MCG/2 ML VIAL.NEB IH SCH ×2 (07:28→19:50)
--- NOTE | 2020-05-05 09:14 | P.PN ---
Subjective Date of Service: 05/05/20 Primary Care Provider: Curly Chief Complaint: CHF exacerbation, Cellulitis right lower leg Subjective: No new changes (still has neck discomfort.) Physical Examination - Vital Signs Temperature: 97.4 F Blood Pressure: 122/58 Pulse: 64 Respirations: 18 Pulse Ox (%): 90 Assessment And Plan Physician Review: Patient Assessed, Agree with Above Assessment and Plan Physician Review Additional Text: Physical Exam General: Alert, In no apparent distress. HEENT: Mucous membrane. moist/pink Neck: bilateral neck - sternocleidomastoid muscles with some mild tenderness on palpation Pulm: Diminished breath sounds. CV: RRR, trace bilateral lower extremity edema Abd: soft, NT, ND. Ext: mild erythema/ venous stasis changes on b/l lower legs. neurology: Alert, oriented x3. no focal deficit. Problem List acute on chronic diastolic CHF (HFpEF) Chronic cor pulmonale Venous stasis dermatitis COPD on chronic O2 HTN Plan: Diuresing well. we will continue oral Lasix. Patient maintained on her baseline oxygen. Monitor renal function on Lasix therapy Resp status is stable. we will continue home bronchodilators. Bilateral lower extremity erythema is likely secondary to venous stasis dermatitis. per patient and EMR has improved Urine culture: grew Yeast. Continue IV Rocephin. continue diflucan. Keep lower extremities elevated. neck pain - suspected musculoskeletal issues. lidocaine patch started. we will follow management. Dispo: anticipate dc back to assisted living once social situation due to weather issues are fully resolved.
[2020-05-05] MEDS: CEFTRIAXONE/SWI 1gm 1 GM/10 ML SYR IV SCH (10:11)
[2020-05-05] MEDS: FLUCONAZOLE 100 MG TAB PO SCH (10:12)
[2020-05-05] MEDS: ESCITALOPRAM 20 MG TAB PO SCH (10:12)
[2020-05-05] MEDS: CLOPIDOGREL 75 MG TABLET PO SCH (10:12)
[2020-05-05] MEDS: LIDOCAINE 4% PATCH TOP SCH (10:12)
[2020-05-05] MEDS: FUROSEMIDE 40 MG TABLET PO SCH (10:13)
[2020-05-05] MEDS: ROPINIROLE HCL 1 MG TAB PO SCH ×2 (10:15→21:12)
[2020-05-05] MEDS: TRAMADOL HCL 50 MG TAB PO PRN (11:11)
[2020-05-05] MEDS: ENOXAPARIN 40 MG/0.4 ML SQ SCH (18:04)
[2020-05-05] MEDS: GABAPENTIN 100 MG CAP PO SCH (21:12)
[2020-05-05] MEDS: ATORVASTATIN 20 MG TAB PO SCH (21:13)
[2020-05-05] MEDS: TRAZODONE 50 MG TABLET PO SCH (21:13)
[2020-05-05] MEDS: DONEPEZIL HCL 5 MG TAB PO SCH (21:17)
[2020-05-05] MEDS: MELATONIN 5 MG TABLET PO PRN (21:17)
[2020-05-06] MEDS: LEVOTHYROXINE SOD 0.1 MG TAB PO SCH (06:30)
--- NOTE | 2020-05-06 06:38 | P.PN ---
Subjective Date of Service: 05/06/20 Primary Care Provider: Curly Chief Complaint: CHF exacerbation, Cellulitis right lower leg Subjective: No new changes Physical Examination - Vital Signs Temperature: 96.8 F Blood Pressure: 122/63 Pulse: 73 Respirations: 18 Pulse Ox (%): 92 Assessment And Plan Physician Review: Patient Assessed, Agree with Above Assessment and Plan Physician Review Additional Text: Physical Exam General: Alert, In no apparent distress. HEENT: Mucous membrane moist/pink. Neck: bilateral neck - sternocleidomastoid muscles with some mild tenderness on palpation Pulm: Diminished breath sounds. CV: RRR, S1 S2. Abd: soft, NT, ND. Ext: mild erythema/ venous stasis changes on b/l lower legs. neurology: Alert, oriented x3. no focal deficit. Problem List acute on chronic diastolic CHF (HFpEF) Chronic cor pulmonale Venous stasis dermatitis COPD on chronic O2 HTN Plan: Diuresing well. we will continue oral Lasix. Patient maintained on her baseline oxygen. Monitor renal function on Lasix therapy Resp status is stable. we will continue home bronchodilators. Bilateral lower extremity erythema is likely secondary to venous stasis dermatitis. per patient and EMR has improved Urine culture: grew Yeast. rocephin discontinued. continue diflucan. Keep lower extremities elevated. neck pain - suspected musculoskeletal issues. lidocaine patch started. Pt feels pain control is stil suboptimal. we will try topical anti-inflammatory medications. we will follow management. Dispo: anticipate dc back to assisted living once social situation due to weather issues are fully resolved.
[2020-05-06] MEDS: BUDESONIDE 0.5 MG/2 ML NEB NEB SCH ×2 (08:50→20:10)
[2020-05-06] MEDS: ARFORMOTEROL TARTRATE 15 MCG/2 ML VIAL.NEB IH SCH ×2 (08:50→20:10)
[2020-05-06] MEDS: IPRATROPIUM BROM 0.5MG/2.5ML NEB PRN (08:50)
[2020-05-06] MEDS: FLUCONAZOLE 100 MG TAB PO SCH (09:58)
[2020-05-06] MEDS: CLOPIDOGREL 75 MG TABLET PO SCH (09:58)
[2020-05-06] MEDS: LIDOCAINE 4% PATCH TOP SCH (09:59)
[2020-05-06] MEDS: ROPINIROLE HCL 1 MG TAB PO SCH ×2 (09:59→21:53)
[2020-05-06] MEDS: FUROSEMIDE 40 MG TABLET PO SCH (09:59)
[2020-05-06] MEDS: ESCITALOPRAM 20 MG TAB PO SCH (09:59)
[2020-05-06] MEDS: ENOXAPARIN 40 MG/0.4 ML SQ SCH (17:36)
[2020-05-06] MEDS: TRAZODONE 50 MG TABLET PO SCH (21:53)
[2020-05-06] MEDS: ATORVASTATIN 20 MG TAB PO SCH (21:53)
[2020-05-06] MEDS: DONEPEZIL HCL 5 MG TAB PO SCH (21:53)
[2020-05-06] MEDS: GABAPENTIN 100 MG CAP PO SCH (21:54)
[2020-05-06] MEDS: METHYL SALICYLATE/MENTHOL 3 OZ TUBE TOP PRN (21:57)
[2020-05-07] MEDS: LEVOTHYROXINE SOD 0.1 MG TAB PO SCH (05:46)
[2020-05-07] MEDS: ARFORMOTEROL TARTRATE 15 MCG/2 ML VIAL.NEB IH SCH ×2 (07:44→19:30)
[2020-05-07] MEDS: BUDESONIDE 0.5 MG/2 ML NEB NEB SCH ×2 (07:44→19:30)
--- NOTE | 2020-05-07 08:11 | P.PN ---
Subjective Date of Service: 05/07/20 Primary Care Provider: Curly Chief Complaint: CHF exacerbation, Cellulitis right lower leg Subjective: No new changes Physical Examination - Vital Signs Temperature: 97.5 F Blood Pressure: 171/70 Pulse: 80 Respirations: 18 Pulse Ox (%): 91 Assessment And Plan Physician Review: Patient Assessed, Agree with Above Assessment and Plan Physician Review Additional Text: Physical Exam General: Alert, In no apparent distress. HEENT: Mucous membrane moist/pink. Neck: bilateral neck - sternocleidomastoid muscles with some mild tenderness on palpation Pulm: Diminished breath sounds. CV: RRR, S1 S2. Abd: soft, NT, ND. Ext: mild erythema/ venous stasis changes on b/l lower legs. neurology: Alert, oriented x3. no focal deficit. Problem List acute on chronic diastolic CHF (HFpEF) Chronic cor pulmonale Venous stasis dermatitis COPD on chronic O2 HTN Plan: Diuresing well. we will continue oral Lasix. Patient maintained on her baseline oxygen. Monitor renal function on Lasix therapy Resp status is stable. we will continue home bronchodilators. Bilateral lower extremity erythema is likely secondary to venous stasis dermatitis. per patient and EMR has improved Urine culture: grew Yeast. rocephin discontinued. continue diflucan. Keep lower extremities elevated. neck pain - suspected musculoskeletal issues. lidocaine patch started. Pt feels pain control is stil suboptimal. we will try topical anti-inflammatory medications. we will follow management. Dispo: anticipate dc back to assisted living once social situation due to weather issues are fully resolved.
[2020-05-07] MEDS: LIDOCAINE 4% PATCH TOP SCH (09:00)
[2020-05-07] MEDS: ROPINIROLE HCL 1 MG TAB PO SCH ×2 (09:43→21:32)
[2020-05-07] MEDS: CLOPIDOGREL 75 MG TABLET PO SCH (09:44)
[2020-05-07] MEDS: ESCITALOPRAM 20 MG TAB PO SCH (09:44)
[2020-05-07] MEDS: FUROSEMIDE 40 MG TABLET PO SCH (09:44)
[2020-05-07] MEDS: FLUCONAZOLE 100 MG TAB PO SCH (09:44)
--- NOTE | 2020-05-07 11:03 | P.DS ---
Admission Date: 04/27/20 Discharge Date: 05/06/20 Primary Care Provider: Curly Disposition: TRANSFER TO SNF - MEDICAL Discharge Condition: GOOD Reason for Admission: CHF exacerbation, Cellulitis right lower leg Vital Signs/Physical Exam: Temp Pulse Resp BP Pulse Ox 97.5 F 84 18 160/69 H 91 05/07/20 08:11 05/07/20 09:44 05/07/20 08:11 05/07/20 09:44 05/07/20 08:11 General: Alert, In no apparent distress, Oriented x3 HEENT: Atraumatic, Normocephalic Neck: Supple Respiratory: Clear to auscultation bilaterally Cardiovascular: Normal pulses, Regular rate/rhythm Gastrointestinal: Soft and benign Neurological: Normal speech, Normal strength at 5/5 x4 extr, Cranial nerves 3-12 intact Laboratory Data at Discharge: WBC 8.30 K/uL (4.3-10.9) D 05/05/20 05:10 Hgb 9.6 g/dL (12.0-15.0) L 05/05/20 05:10 Hct 28.5 % (36.0-45.0) L 05/05/20 05:10 Plt Count 272 K/uL (152-406) 05/05/20 05:10 PT 11.6 SECONDS (9.5-12.5) 04/27/20 17:10 INR 1.01 04/27/20 17:10 Sodium 142 mmol/L (136-145) 05/05/20 05:10 Potassium 3.9 mmol/L (3.5-5.1) 05/05/20 05:10 BUN 7 mg/dL (7-18) 05/05/20 05:10 Creatinine 0.68 mg/dL (0.55-1.3) 05/05/20 05:10 Glucose 103 mg/dL (74-106) 05/05/20 05:10 Magnesium 2.3 mg/dL (1.8-2.4) 05/05/20 05:10 Total Bilirubin 0.5 mg/dL (0.2-1.0) 04/27/20 17:10 AST 9 U/L (15-37) L 04/27/20 17:10 ALT 9 U/L (12-78) L 04/27/20 17:10 Alkaline Phosphatase 95 U/L (45-117) 04/27/20 17:10 Troponin I < 0.02 ng/mL (0.0-0.045) 04/28/20 03:00 Home Medications: Acetaminophen [Tylenol Extra Strength] 500 mg PO Q8HP PRN 04/28/20 Acetaminophen with Codeine [Acetaminophen-Cod #3 Tablet] 1 each PO Q6HP PRN 04/28/20 Arformoterol Tartrate [Brovana] 1 vial IH BID 04/28/20 Atorvastatin Calcium 20 mg PO DAILY 04/28/20 Calcium Carbonate [Veto-Gest] 2 tab PO Q1H PRN 04/28/20 Clopidogrel Bisulfate [Plavix] 75 mg PO DAILY 04/28/20 Donepezil [Aricept*] 5 mg PO DAILY 04/28/20 Escitalopram Oxalate 20 mg PO DAILY 04/28/20 Furosemide 40 mg PO DAILY 04/28/20 Gabapentin 100 mg PO BEDTIME 04/28/20 Guaifenesin/Dextromethorphan [Mucus Rlf Dm ER 600-30 mg Tab] 1 each PO Q12HP PRN 04/28/20 Levothyroxine Sodium [Synthroid] 200 mcg PO DAILY 04/28/20 Melatonin 5 mg PO BEDTIME PRN 04/28/20 Metoprolol Tartrate 50 mg PO BID 04/28/20 Omeprazole 1 cap PO DAILY 04/28/20 Potassium Chloride [Klor-Con 10] 10 meq PO DAILY 04/28/20 Ropinirole HCl [Requip*] 1 mg PO DAILY 04/28/20 Ropinirole HCl [Requip] 3 mg PO BEDTIME 04/28/20 Saliva Stimulant Agents Comb.3 [Biotene Moisturizing Mouth] 1 spray MM Q1H PRN 04/28/20 Tramadol HCl [Ultram] 50 mg PO Q6H PRN 04/28/20 Trazodone [Desyrel*] 50 mg PO BEDTIME 04/28/20 Umeclidinium Brm/Vilanterol Tr [Anoro Ellipta 62.5-25 Mcg INH] 1 inh IH DAILY 04/28/20 Fluconazole 200 mg PO DAILY 7 Days #7 tablet 05/07/20 Furosemide [Lasix*] 40 mg PO DAILY 7 Days #7 tab 05/07/20 Lidocaine 4% Patch [Lidoderm 5% Patch*] 2 patch TOP DAILY 14 Days patch 05/07/20 Methyl Francis/Menthol [Thera-Gesic*] 1 appl TOP BID PRN 15 Days #3 tube 05/07/20 New Medications: Fluconazole 200 mg PO DAILY 7 Days #7 tablet Furosemide [Lasix*] 40 mg PO DAILY 7 Days #7 tab Lidocaine 4% Patch [Lidoderm 5% Patch*] 2 patch TOP DAILY 14 Days patch Methyl Francis/Menthol [Thera-Gesic*] 1 appl TOP BID PRN 15 Days #3 tube PRN Reason: Pain Scale 5-7 (Moderate) Physician Discharge Instructions: You were found to be in acute congestive heart failure and improved with IV medication. You were also found to have yeast in your urine. You are discharged with a week of fluconazole for the yeast, NSAID cream for your neck pain, and resume your Lasix 40mg daily, along with your other previously prescribed medications. Diet: AHA Activity: Ad elvin Followup: Unknown,U [Primary Care Provider] -
[2020-05-07] MEDS: METHYL SALICYLATE/MENTHOL 3 OZ TUBE TOP PRN (11:09)
[2020-05-07] MEDS: ENOXAPARIN 40 MG/0.4 ML SQ SCH (16:56)
[2020-05-07] MEDS: ATORVASTATIN 20 MG TAB PO SCH (21:31)
[2020-05-07] MEDS: TRAZODONE 50 MG TABLET PO SCH (21:32)
[2020-05-07] MEDS: GABAPENTIN 100 MG CAP PO SCH (21:32)
[2020-05-07] MEDS: DONEPEZIL HCL 5 MG TAB PO SCH (21:32)
[2020-05-08] MEDS: LEVOTHYROXINE SOD 0.1 MG TAB PO SCH (06:06)
[2020-05-08] MEDS: BUDESONIDE 0.5 MG/2 ML NEB NEB SCH ×2 (08:30→20:30)
[2020-05-08] MEDS: IPRATROPIUM BROM 0.5MG/2.5ML NEB PRN (08:30)
[2020-05-08] MEDS: ARFORMOTEROL TARTRATE 15 MCG/2 ML VIAL.NEB IH SCH ×2 (08:30→20:30)
[2020-05-08] MEDS: LIDOCAINE 4% PATCH TOP SCH (09:00)
[2020-05-08] MEDS: FLUCONAZOLE 100 MG TAB PO SCH (09:38)
[2020-05-08] MEDS: ROPINIROLE HCL 1 MG TAB PO SCH ×2 (09:38→22:30)
[2020-05-08] MEDS: CLOPIDOGREL 75 MG TABLET PO SCH (09:38)
[2020-05-08] MEDS: FUROSEMIDE 40 MG TABLET PO SCH (09:38)
[2020-05-08] MEDS: ESCITALOPRAM 20 MG TAB PO SCH (09:38)
--- NOTE | 2020-05-08 13:04 | P.PN ---
Subjective Date of Service: 05/08/20 Primary Care Provider: Curly Chief Complaint: CHF exacerbation, Cellulitis right lower leg Subjective: Improving (feeling well, breathing comfortably, states the neck pain has improved with cream) Review of Systems 10-point ROS is otherwise unremarkable Physical Examination - Vital Signs Temperature: 96.8 F Blood Pressure: 145/61 Pulse: 72 Respirations: 18 Pulse Ox (%): 93 Assessment & Plan Physician Review Additional Text: Physical Exam General: Alert, In no apparent distress. AAOx3 HEENT: Mucous membrane moist, sclera anicteric Pulm: Diminished breath sounds bilaterally, nonlabored CV: RRR, no edema Abd: soft, NTND Ext: mild venous stasis changes on b/l lower legs. Neuro: Alert, oriented x3. no focal deficit. Problem List acute on chronic diastolic CHF (HFpEF) Chronic cor pulmonale Venous stasis dermatitis COPD on chronic O2 HTN Diuresing well. continue PO lasix on her baseline oxygen, breathing comfortably working with PT renal function stable Bilateral lower extremity erythema is likely secondary to venous stasis dermatitis. per patient and EMR has improved Urine culture: grew Yeast. rocephin discontinued. continue diflucan. Keep lower extremities elevated. neck pain - suspected musculoskeletal issues. lidocaine patch started. Pt felt pain was suboptimal, states patches don't stay on. Was started on topical anti- inflammatory and feels this helps. Dispo: social worker delinquency prevention consulted for SNF - assisted living facility feels patient is too weak to return there Time Spent Managing Pts Care (In Minutes): 35
[2020-05-08] MEDS: METHYL SALICYLATE/MENTHOL 3 OZ TUBE TOP PRN (16:21)
[2020-05-08] MEDS: ENOXAPARIN 40 MG/0.4 ML SQ SCH (16:22)
[2020-05-08] MEDS: ATORVASTATIN 20 MG TAB PO SCH (21:00)
[2020-05-08] MEDS: DONEPEZIL HCL 5 MG TAB PO SCH (21:00)
[2020-05-08] MEDS: GABAPENTIN 100 MG CAP PO SCH (21:00)
[2020-05-08] MEDS: TRAZODONE 50 MG TABLET PO SCH (22:30)
[2020-05-09] MEDS: METHYL SALICYLATE/MENTHOL 3 OZ TUBE TOP PRN (00:34)
[2020-05-09] MEDS ORDERED: HYDROCODONE/APAP 5/325 MG TAB PO PRN (00:37)
[2020-05-09 01:56] VITALS: O2SAT 93
[2020-05-09] MEDS: LEVOTHYROXINE SOD 0.1 MG TAB PO SCH (05:25)
[2020-05-09 06:47] LABS: BUN Blood Urea Nitrogen 10 mg/dL (7-18); Bicarbonate 38 mmol/L (21-32); Glucose Level 91 mg/dL (74-106); Magnesium 2.2 mg/dL (1.8-2.4); Potassium 3.8 mmol/L (3.5-5.1); Sodium Level 137 mmol/L (136-145)
[2020-05-09] MEDS: BUDESONIDE 0.5 MG/2 ML NEB NEB SCH (08:46)
[2020-05-09] MEDS: ARFORMOTEROL TARTRATE 15 MCG/2 ML VIAL.NEB IH SCH (08:46)
[2020-05-09] MEDS: LIDOCAINE 4% PATCH TOP SCH (09:00)
[2020-05-09] MEDS: FLUCONAZOLE 100 MG TAB PO SCH (09:28)
[2020-05-09] MEDS: CLOPIDOGREL 75 MG TABLET PO SCH (09:28)
[2020-05-09] MEDS: ESCITALOPRAM 20 MG TAB PO SCH (09:28)
[2020-05-09] MEDS: FUROSEMIDE 40 MG TABLET PO SCH (09:28)
[2020-05-09] MEDS: ROPINIROLE HCL 1 MG TAB PO SCH (09:28)
[2020-05-09 10:18] VITALS: TEMP 97
--- NOTE | 2020-05-09 11:12 | P.DS ---
Admission Date: 04/27/20 Discharge Date: 05/09/20 Primary Care Provider: Curly Disposition: TRANSFER TO SNF - MEDICAL Discharge Condition: GOOD Reason for Admission: CHF exacerbation, Cellulitis right lower leg Procedures: CXR (04/27): Extensive interstitial and alveolar opacification along with peribronchial thickening. Failure/volume overload would be a primary consideration given the patient's history. Lung parenchymal pattern can also be seen in a viral pneumonia. This would include COVID-19 pneumonia. Venous Extremity U/S (04/27): No DVT in either lower extremity. Ankle X-ray (05/01): Diffuse osteopenia is present. Heavy vascular calcification is noted. No acute fracture or subluxation is present. COVID (04/27, 05/07): negative Problem List: Acute on chronic diastolic CHF (HFpEF) Chronic cor pulmonale Venous stasis dermatitis UTI, acute uncomplicated cystitis COPD on chronic O2 HTN Brief History of Present Illness: 85yo F, PMH: CAD, COPD, CHF, Restless leg syndrome, HTN, HLD who presented to ED with increased shortness of breath and lower extremity edema that has worsened over the last few days. Patient stated that she currently is on oxygen at the custodial but despite being on oxygen has felt worse. Patient was worked up in the emergency room and was found to have a white blood cell count 7.4, hemoglobin of 10.2, hematocrit of 31.8 and a platelet of 285. Patient had a sodium of 141, potassium of 4.4, chloride of 101, bicarb at 36 and a BUN of 16 and creatinine 1.03 and a glucose of 100. Patient had a troponin less than 0.02 and a BNP of 1454. Chest x-ray revealed volume overload. Patient was given Lasix in the emergency room and had bilateral lower extremity Dopplers for increased erythema and swelling. No fevers upon initial presentation. Medicine was consulted at that time for further evaluation and admission. Patient had mild tachypnea on initial exam with lower extremity edema bilaterally present with increased erythema specifically to the right lower extremity. Patient stated that this is increased from her baseline. Hospital Course: Patient was treated for acute on chronic CHF exacerbation and diuresed well. She returned back to her baseline respiratory status / oxygen requirement. Her lower extremity was initially noted to be slightly erythematous and was given antibiotics in ED, however they were discontinued as the erythema seemed more consistent with venous stasis changes, and did improve with diuresis and discontinuation of antibiotics. UA was concerning for urinary infection, culture grew yeast, and patient was discharged with fluconazole. Patient did report feeling much weaker and felt that assisted living facility was "not enough help" for her. PT was consulted, and patient's hospitalization was prolonged while waiting for insurance to approve discharge to SNF. Patient was eventually discharged to SNF, to f/u with PCP and [facility] in the next few weeks. She did also report some mild neck discomfort during her hospitalization, with some tenderness along her sternocleidomastoid muscle. Her pain was improved with NSAID topical cream. Vital Signs/Physical Exam: Physical Exam General: Alert, In no apparent distress. AAOx3 HEENT: Mucous membrane moist, sclera anicteric Pulm: Diminished breath sounds bilaterally, nonlabored, on 3L NC CV: RRR, no edema Abd: soft, NTND Ext: mild venous stasis changes on b/l lower legs. Neuro: Alert, oriented x3. no focal deficit. generalized weakness Temp Pulse Resp BP Pulse Ox 97 F 74 20 135/60 92 05/09/20 08:00 05/09/20 09:28 05/09/20 08:00 05/09/20 09:28 05/09/20 08:00 Laboratory Data at Discharge: WBC 8.30 K/uL (4.3-10.9) D 05/05/20 05:10 Hgb 9.6 g/dL (12.0-15.0) L 05/05/20 05:10 Hct 28.5 % (36.0-45.0) L 05/05/20 05:10 Plt Count 272 K/uL (152-406) 05/05/20 05:10 PT 11.6 SECONDS (9.5-12.5) 04/27/20 17:10 INR 1.01 04/27/20 17:10 Sodium 137 mmol/L (136-145) 05/09/20 06:08 Potassium 3.8 mmol/L (3.5-5.1) 05/09/20 06:08 BUN 10 mg/dL (7-18) 05/09/20 06:08 Creatinine 0.62 mg/dL (0.55-1.3) 05/09/20 06:08 Glucose 91 mg/dL (74-106) 05/09/20 06:08 Magnesium 2.2 mg/dL (1.8-2.4) 05/09/20 06:08 Total Bilirubin 0.5 mg/dL (0.2-1.0) 04/27/20 17:10 AST 9 U/L (15-37) L 04/27/20 17:10 ALT 9 U/L (12-78) L 04/27/20 17:10 Alkaline Phosphatase 95 U/L (45-117) 04/27/20 17:10 Troponin I < 0.02 ng/mL (0.0-0.045) 04/28/20 03:00 Home Medications: RX: Acetaminophen [Tylenol Extra Strength] 500 mg PO Q8HP PRN 04/28/20 RX: Acetaminophen with Codeine [Acetaminophen-Cod #3 Tablet] 1 each PO Q6HP PRN 04/28/20 RX: Arformoterol Tartrate [Brovana] 1 vial IH BID 04/28/20 RX: Atorvastatin Calcium 20 mg PO DAILY 04/28/20 RX: Calcium Carbonate [Evto-Gest] 2 tab PO Q1H PRN 04/28/20 RX: Clopidogrel Bisulfate [Plavix] 75 mg PO DAILY 04/28/20 RX: Donepezil [Aricept*] 5 mg PO DAILY 04/28/20 RX: Escitalopram Oxalate 20 mg PO DAILY 04/28/20 RX: Furosemide 40 mg PO DAILY 04/28/20 RX: Gabapentin 100 mg PO BEDTIME 04/28/20 RX: Guaifenesin/Dextromethorphan [Mucus Rlf Dm ER 600-30 mg Tab] 1 each PO Q12HP PRN 04/28/20 RX: Levothyroxine Sodium [Synthroid] 200 mcg PO DAILY 04/28/20 RX: Melatonin 5 mg PO BEDTIME PRN 04/28/20 RX: Metoprolol Tartrate 50 mg PO BID 04/28/20 RX: Omeprazole 1 cap PO DAILY 04/28/20 RX: Potassium Chloride [Klor-Con 10] 10 meq PO DAILY 04/28/20 RX: Ropinirole HCl [Requip*] 1 mg PO DAILY 04/28/20 RX: Ropinirole HCl [Requip] 3 mg PO BEDTIME 04/28/20 RX: Saliva Stimulant Agents Comb.3 [Biotene Moisturizing Mouth] 1 spray MM Q1H PRN 04/28/20 RX: Tramadol HCl [Ultram] 50 mg PO Q6H PRN 04/28/20 RX: Trazodone [Desyrel*] 50 mg PO BEDTIME 04/28/20 RX: Umeclidinium Brm/Vilanterol Tr [Anoro Ellipta 62.5-25 Mcg INH] 1 inh IH DAILY 04/28/20 RX: Fluconazole 200 mg PO DAILY 7 Days #7 tablet 05/07/20 RX: Furosemide [Lasix*] 40 mg PO DAILY 7 Days #7 tab 05/07/20 RX: Lidocaine 4% Patch [Lidoderm 5% Patch*] 2 patch TOP DAILY 14 Days patch 05/07/20 RX: Methyl Francis/Menthol [Thera-Gesic*] 1 appl TOP BID PRN 15 Days #3 tube 05/07/20 New Medications: RX: Fluconazole 200 mg PO DAILY 7 Days #7 tablet RX: Furosemide [Lasix*] 40 mg PO DAILY 7 Days #7 tab RX: Lidocaine 4% Patch [Lidoderm 5% Patch*] 2 patch TOP DAILY 14 Days patch RX: Methyl Francis/Menthol [Thera-Gesic*] 1 appl TOP BID PRN 15 Days #3 tube PRN Reason: Pain Scale 5-7 (Moderate) Physician Discharge Instructions: You were found to be in acute congestive heart failure and improved with IV medication. You were also found to have yeast in your urine. You are discharged with a week of fluconazole for the yeast, NSAID cream for your neck pain, and resume your Lasix 40mg daily, along with your other previously prescribed medications. Diet: AHA Activity: Ad elvin Followup: Unknown,U [Primary Care Provider] - Time spent managing pt's care (in minutes): 40
[2020-05-09 14:38] VITALS: BP 144/65
--- NOTE | 2020-05-27 18:42 | P.PN ---
Subjective Date of Service: 04/30/20 Primary Care Provider: Curly Chief Complaint: CHF exacerbation, Cellulitis right lower leg No major changes from yesterday. She is maintained on 2 L oxygen by nasal cannula. Physical Examination - Vital Signs Temperature: 97 F Blood Pressure: 144/65 Pulse: 76 Respirations: 20 Pulse Ox (%): 94 - Physical Exam General: In no apparent distress Neck: JVD not distended Respiratory: Crackles/rales (Mild bibasilar crackles) Cardiovascular: Regular rate/rhythm, Edema (Bilateral lower extremities) Gastrointestinal: Soft and benign, Non-distended Integumentary: Other (Bilateral lower extremity venostasis dermatitis) Assessment And Plan - Current Problems (Diagnosis) (1) Venous stasis dermatitis Status: Acute (2) Chronic obstructive pulmonary disease (COPD) Onset Date: 12/17/17 Status: Chronic Qualifiers: COPD type: chronic bronchitis Chronic bronchitis type: mixed simple and mucopurulent Qualified Code(s): J41.8 - Mixed simple and mucopurulent chronic bronchitis (3) Hypertension Onset Date: 12/17/17 Status: Chronic Qualifiers: Hypertension type: essential hypertension Qualified Code(s): I10 - Essential (primary) hypertension (4) Acute on chronic diastolic (congestive) heart failure Status: Acute (5) Chronic cor pulmonale Status: Chronic - Plan Continue Lasix Patient maintained on her baseline oxygen. Bronchodilators. Monitor electrolytes and replete as needed. Bilateral lower extremity erythema is likely secondary to venous stasis dermati tis. Keep lower extremities elevated. Monitor renal function on Lasix therapy. Pain management as needed. Continue home bronchodilators.
--- NOTE | 2020-06-08 07:44 | P.PN ---
Subjective Date of Service: 05/07/20 Primary Care Provider: Curly Chief Complaint: CHF exacerbation, Cellulitis right lower leg Subjective: No C/O voiced Physical Examination - Vital Signs Temperature: 97 F Blood Pressure: 144/65 Pulse: 76 Respirations: 20 Pulse Ox (%): 94 - Physical Exam General: Alert, Oriented x3 HEENT: Atraumatic, Normocephalic Neck: Supple Respiratory: Clear to auscultation bilaterally Cardiovascular: Regular rate/rhythm, Normal S1 S2 Gastrointestinal: Normal bowel sounds Neurological: Normal strength at 5/5 x4 extr Assessment And Plan Physician Review: Patient Assessed, Agree with Above Assessment and Plan Physician Review Additional Text: Physical Exam General: Alert, In no apparent distress. AAOx3 HEENT: Mucous membrane moist, sclera anicteric Pulm: Diminished breath sounds bilaterally, nonlabored CV: RRR, no edema Abd: soft, NTND Ext: mild venous stasis changes on b/l lower legs. Neuro: Alert, oriented x3. no focal deficit. Problem List acute on chronic diastolic CHF (HFpEF) Chronic cor pulmonale Venous stasis dermatitis COPD on chronic O2 HTN Diuresing well. continue PO lasix on her baseline oxygen, breathing comfortably working with PT renal function stable Bilateral lower extremity erythema is likely secondary to venous stasis dermatitis. per patient and EMR has improved Urine culture: grew Yeast. rocephin discontinued. continue diflucan. Keep lower extremities elevated. neck pain - suspected musculoskeletal issues. lidocaine patch started. Pt felt pain was suboptimal, states patches don't stay on. Was started on topical anti- inflammatory and feels this helps. Dispo: aids social worker consulted for SNF - assisted living facility feels patient is too weak to return there
== END 2020-05-09 14:57 | DRG 292 ==
LOC: ER 16:21 → ERHOLD 20:11 → 2ND 21:46
PROVIDERS: ADMIT Internal Medicine; ATTEND Internal Medicine Nephrology
DX: I11.0 Hypertensive heart disease with heart failure (principal); L03.115 Cellulitis of right lower limb; Z68.42 Body mass index [BMI] 45.0-49.9, adult; I50.33 Acute on chronic diastolic (congestive) heart failure; N30.90 Cystitis, unspecified without hematuria; I87.8 Other specified disorders of veins; I87.2 Venous insufficiency (chronic) (peripheral); I25.10 Atherosclerotic heart disease of native coronary artery without angina pectoris; J41.8 Mixed simple and mucopurulent chronic bronchitis; E03.9 Hypothyroidism, unspecified; M54.2 Cervicalgia; K21.9 Gastro-esophageal reflux disease without esophagitis; E78.5 Hyperlipidemia, unspecified; Z86.73 Personal history of transient ischemic attack (TIA), and cerebral infarction without residual deficits; E66.01 Morbid (severe) obesity due to excess calories; Z96.652 Presence of left artificial knee joint; Z90.49 Acquired absence of other specified parts of digestive tract; Z87.891 Personal history of nicotine dependence; Z99.81 Dependence on supplemental oxygen; Z79.02 Long term (current) use of antithrombotics/antiplatelets; Z79.890 Hormone replacement therapy; Z79.899 Other long term (current) drug therapy; Z20.822 Contact with and (suspected) exposure to COVID-19
CPT/HCPCS: 0240U; 36415; 71045; 80048; 80076; 80202; 81001; 83735; 83880; 84484; 85025; 85027; 85610; 87086; 87088; 93005; 93970; 94640; 96374; 97116; 97161; 97530; 99285; J1650; J1940; J2270; J3370; J7040; J7050; J7605; U0003

== ENCOUNTER 2020-06-27 10:38 | Inpatient (IN) | payer OTHER ==
--- OUTSIDE RECORDS SUMMARY | 2020-06-27 10:41 | XMS REPORT | Continuity of Care Document ---
:1935 Author Organization [facility] t Address [address] [place] [address] Care Team Providers Name Role Phone Florentin Cruz Attending Clinician Problems Condition Condition Condition Status Onset Resolution Last Treating Co mments Source Name Details Category Date Date Treatment Clinician Date Gastroesop Problem Active 2019-05-17 M emoria hageal 22:53:17 l reflux [place]jo disease Gastroesop (disorder) hageal reflux disease (disorder) Active Problem 05/17/2019 [facility] Hearing Problem Active 2019-05-17 Zach nando loss 22:53:17 l (finding) Hearing Herm myriam loss (finding) Active Problem 05/17/2019 [facility] Hypertensi Problem Active 2019-05-17 M emoria ve 22:53:17 l disorder, [place] systemic Hypertensi arterial ve (disorder) disorder, systemic [...] arteritis (disorder) Active Problem 05/17/2019 [facility] Primary Primary Problem Active [facility] osteoarthr [...] Lukes - syndrome syndrome Memori a l [facility] Hematuria, Hematuria, Problem Active [facility] unspecifie unspecifie Sally kes - d type [facility] Acute Acute Problem Active [facility] cystitis cystitis [facility] - without without Memoria hematuria hematuria l [facility] ent [facility] Chronic Chronic Problem Active [facility] acquired acquired [facility] lymphedema [facility]hedema [facility] Acquired Acquired Problem Active [facility] hypothyroi hypothyroi Sally kes - dism dism [facility] Simple Simple Problem Active [facility] chronic chronic [facility] - bronchitis bronchitis [facility] Arthritis Arthritis Problem Active [facility] of knee, of knee, [facility] Arthritis Arthritis Diagnosis Active [facility] of knee, of knee, [facility] Status Status Diagnosis Active [facility] post total post total Sally kes - left knee left knee Zach nando replacemen replacemen l t t [facility] Pain in Pain in Diagnosis Active [facility] of [facility] - right knee right knee [facility] Pain in Pain in Diagnosis Active [facility] - left knee left knee Zach nando l [facility] Allergies, Adverse Reactions, Alerts Allergy Allergy Status Severity Reaction(s) Onset Inactive Treating Comm ents Source Name Type Date Date Clinician No Known No Known [facility] Medicati l on on Alejo Luevano s s Social History Smoking Status Start Date Stop Date Source Social History 2018-12-12 19:37:34 2018-12-12 19:37:34 [facility] [place]jo Medications Ordered Filled Start Stop Current Ordering Indication Dosage Frequency Signature Comments Components Source Medication Medication Date Date Medication? Clinician (SIG) Name Name predniSONE Yes 2.5 mg = 1 M emoria 2.5 mg oral 9-26 tab, PO, l tablet 20:21: Daily, # [place] 00 30 tab, 3 Refill(s) predniSONE Yes 5 mg = 1 Mem oria 5 mg oral 8-16 tab, PO, l tablet 23:13: Daily, # [place] 00 30 tab, 2 Refill(s), other predniSONE 2018-0 No 20 mg = 2 Me moria 10 mg oral 8-15 tab, PO, l tablet 18:10: Daily, 0 [place] 00 Refill(s) Prednisone 2019-0 No 2 mg, PO, Me moria 8-15 Daily, l 16:56: Quantity [place] 00 sufficient , 0 Refill(s) Donepezil 2017- Yes 5 mg = 1 Zach nando hydrochlori 1-27 tab, PO, l de 5 MG 19:57: Bedtime, # Herm myriam Oral Tablet 00 90 tab, 1 [Aricept] Refill(s), Pharmacy: [facility] Lasix Lasix Yes Jacek [address] [facility] - [facility] Trelegy Trelegy Yes [...] Jacek not [facility] Chloride Chloride [facility] defined Luke s - Memoria l [...] [facility] Fluconazole Fluconazole Yes [...] Source Systolic (mm Hg) 2018-12-12 19:37:00 Zach riabernardino Dhillon Diastolic (mm Hg) 2018-12-12 19:37:00 [facility] orial [place] Heart Rate 2018-12-12 19:37:00 [facility] [place] Respitory Rate 2018-12-12 19:37:00 Memori al [place] Height 2018-12-12 19:37:00 154.94 cm [facility] [place] Weight 2018-12-12 19:37:00 [facility] [place] BMI Calculated 2018-12-12 19:37:00 [facility] [place] Systolic (mm Hg) 2018-10-31 16:46:00 Zach rial [place] Diastolic (mm Hg) 2018-10-31 16:46:00 Mem orial [place] Heart Rate 2018-10-31 16:46:00 [facility] [place] Respitory Rate 2018-10-31 16:46:00 Memori al [place] Height 2018-10-31 16:46:00 160.02 cm [facility] [place] Weight 2018-10-31 16:46:00 [facility] [place] BMI Calculated 2018-10-31 16:46:00 Mem[facility] [place] Height 2018 19:18:00 165.1 cm [facility] [place] Weight 2018 19:18:00 [facility] [place] BMI Calculated 2018 19:18:00 [facility] [place] Heart Rate 2018 19:18:00 [facility] [place] Systolic (mm Hg) 2018 19:18:00 Zach rial [place] Diastolic (mm Hg) 2018 19:18:00 Mem orial [place] Procedures Procedure Date / Time Performing Clinician Source Performed [id number] 2020-02-17 00:00:00 ENCPL 0HBRXZZ 2020-02-17 00:00:00 ENCPL 0HBRXZZ 2020-02-17 00:00:00 ENCPL 0HBRXZZ 2020-02-17 00:00:00 ENCPL 0HBRXZZ 2020-02-17 00:00:00 ENCPL 0HBRXZZ 2020-02-17 00:00:00 ENCPL 0HBRXZZ 2020-02-17 00:00:00 ENCPL Ankle fusion [facility] Cataract extraction, [facility] rmann insertion of intraocular lens and trabeculectomy [facility] Rotator cuff [facility] Encounters Start End Encounter Admission Attending Care Care Encounter Source Date/Time Date/Time Type Type Clinicians Facility Department ID 2019-08-21 2019-08-21 [facility] [id number] [facility] 13:30:00 13:30:00 [facility] 2019-05-15 2019-05-15 Outpatient Anthony MHMISCHER MHMISCHER [id number] 14:45:00 14:45:00 Eron 06 [facility] 2019-05-06 2019-05-06 [facility] [id number] [facility] 14:30:00 14:30:00 [facility] 2019-01-28 2019-01-28 Outpatient Anthony MHMISCHER MHMISCHER [id number] 13:15:00 13:15:00 Eron 05 [facility] 2018-12-12 2018-12-12 Outpatient Anthony, MHMISCHER MHMISCHER [id number] 14:15:00 23:59:59 Eron 04 [facility] 2018-10-31 2018-10-31 Outpatient Anthony MHMISCHER MHMISCHER [id number] 11:30:00 23:59:59 Eron 03 [facility] 2018-08-16 2018-08-17 Outpatient MHMISCHER MHMISCHER [id number] 11:28:09 23:59:59 2018-07-18 2018-07-19 Outpatient MHMISCHER MHMISCHER [id number] 16:14:06 23:59:59 2018-07-09 2018-07-10 Outpatient MHMISCHER MHMISCHER [id number] 08:13:00 23:59:59 2018-03-26 2018-03-26 Outpatient Anthony MHMISCHER MHMISCHER [id number] 13:45:00 13:45:00 Eron 02 [facility] 2018 2018 Outpatient Anthony MHMISCHER MHMISCHER [id number] 13:00:00 23:59:59 Eron 01 Florentin 2018-01-10 2018-01-10 Outpatient Anthony, MHMISCHER MHMISCHER [id number] 10:30:00 10:30:00 Eron 00 Florentin Results This patient has no known results.
[2020-06-27] MEDS ORDERED: NA CHLORIDE 0.9% 1,000 ML ONE (11:17)
[2020-06-27] MEDS ORDERED: CEFEPIME/SWI 1gm 10 ML ONE (11:17)
[2020-06-27 11:25] LABS: Absolute Lymphocytes (CBC) 1.2 K/uL (0.7-4.9); Basophils % 0.7 % (0-1.3); Hematocrit 31.5 % (36.0-45.0); Lymphocytes % 14.5 % (15.3-44.8); MPV 8.6 fL (7.6-11.3); RBC Red Blood Cell Count 3.01 M/uL (3.86-4.86)
--- NOTE | 2020-06-27 11:31 | RAD REPORT ---
EXAM DESCRIPTION: CT - Head Brain Wo Cont - 06/27/2020 11:23 am CLINICAL HISTORY: AMS Headache, drowsiness COMPARISON: Ct Stroke Brain Wo Cont dated 07/02/2018; Ct Stroke Brain Wo Cont dated 12/13/2017 TECHNIQUE: All CT scans are performed using dose optimization technique as appropriate and may inclu de automated exposure control or mA/KV adjustment according to patient size. FINDINGS: No intracranial hemorrhage, hydrocephalus or extra-axial fluid collection.Mild generalized brain atrophy is present with moderate periventricular and deep white matter chronic microvascular i schemic changes.No areas of brain edema or evidence of midline shift. The paranasal sinuses and mastoids are clear. The calvarium is intact. Left vertebral atherosclerosis . IMPRESSION: No acute intracranial abnormality.
[2020-06-27 11:33] LABS: Protime INR 1.08
--- NOTE | 2020-06-27 11:37 | RAD REPORT ---
EXAM DESCRIPTION: RAD - Chest Single View - 06/27/2020 11:31 am CLINICAL HISTORY: SOB Chest pain. FINDINGS: Portable technique limits examination quality. Mild to moderate interstitial pulmonary edema is seen. The heart is moderately enlarged in size. Athe rosclerosis with tortuous thoracic aorta. IMPRESSION: Mild to moderate CHF.
[2020-06-27 11:46] LABS: Albumin 2.7 g/dL (3.4-5.0); Bilirubin Direct 0.1 mg/dL (0-0.2); Bilirubin Total 0.4 mg/dL (0.2-1.0); CKMB Creatine Kinase MB 1.5 ng/mL (0.3-3.6); Protein, Total 6.7 g/dL (6.4-8.2); Troponin (Emerg Dept Use Only) 0.04 ng/mL (0.0-0.045)
[2020-06-27 11:52] LABS: Potassium 4.9 mmol/L (3.5-5.1)
[2020-06-27 12:04] LABS: Blood Morphology Comment NOTED (NOT SEEN); Platelet Estimate ADEQ; Polychromasia SLIGHT; Stomatocytes 1+
[2020-06-27 12:13] LABS: Urine Blood Negative (Negative); Urine Glucose Negative (Negative); Urine Protein 1+ (Negative); Urine Specific Gravity >=1.030 (1.005-1.030)
[2020-06-27 12:34] LABS: Urine Bacteria <20 /HPF (<20); Urine RBC <5 /HPF (NONE SEEN)
[2020-06-27 12:35] LABS: Urine Amorphous Sediment 2+ /HPF (NONE SEEN); Urine Mucus 2+ /HPF (NONE SEEN)
[2020-06-27 13:10] LABS: SARS-COV-2 RT PCR NEGATIVE (NEGATIVE)
--- NOTE | 2020-06-27 13:13 | RAD REPORT ---
EXAM DESCRIPTION: CT - Abdomen Pelvis Wo Contrast - 06/27/2020 12:50 pm CLINICAL HISTORY: Abdominal pain. PAIN COMPARISON: Abdomen Pelvis W/Wo Contrast dated 09/10/2017 TECHNIQUE: CT imaging of the abdomen and pelvis was performed without contrast. Solid organ, bowel a nd vascular assessment is limited due to lack of IV and oral contrast. All CT scans are performed using dose optimization technique as appropriate and may include automated exposure control or mA/KV adjustment according to patient size. FINDINGS: Small bilateral pleural effusions are present with linear atelectasis in both lung bases. The liver, spleen, pancreas, adrenal glands and kidneys are within normal limits for a limited non-co ntrast examination.Moderate fat containing ventral hernia is present upper abdomen. Cholecystectomy c lips. No bowel obstruction, free air, free fluid or abscess. Small focal fat containing umbilical hernia. T he appendix is not identified as a discrete structure, however, no secondary findings of appendicitis are identified. Moderate lower lumbar degenerative changes are present.Mildly aortic atherosclerosis. IMPRESSION: No acute intra-abdominal or pelvic findings. Moderate fat containing ventral hernia involving the upper abdomen. Small bilateral pleural effusions. Small fat containing umbilical hernia. A limited non-contrast examination was performed as detailed.
--- NOTE | 2020-06-27 13:42 | ER ---
Nurse's Notes [facility] Name: Ti Zaacrias Age: 85 yrs Sex: Female : 1935 Arrival Date: 06/27/2020 Time: 10:40 Bed 17 Private MD: Diagnosis: Pulmonary edema;Acute on chronic combined systolic (congestive) and diastolic (congestive) heart failure;Urinary tract infection, site not specified;Hypotension, unspecified Presentation: 06/27 10:41 Chief complaint: EMS states: called out by [facility] for dyspnea, AMS x 1 day. On sv EMS arrival pt was 92% on 4L NC (continuous) BP 80/40 now SBP is 100 after NS started. A\T\O x 1 but is intermittently with it completely. 22G started. Risk Assessment: Do you want to hurt yourself or someone else? Patient reports no desire to harm self or others. Onset of symptoms was June 26, 2020. 10:41 Method Of Arrival: EMS: [facility] sv 10:41 Acuity: PACO 2 sv 15:56 Coronavirus screen: At this time, the client does not indicate any symptoms associated bw with coronavirus-19. Ebola Screen: No symptoms or risks identified at this time. Initial Sepsis Screen: Does the patient meet any 2 criteria? Systolic BP < 90 mmHg. Altered Mental Status. Yes Does the patient have a suspected source of infection? No. Patient's initial sepsis screen is negative. Triage Assessment: 15:57 General: Appears uncomfortable, Behavior is calm, cooperative, appropriate for age. bw Historical: - Allergies: 10:44 No Known Allergies; sv - Home Meds: 11:24 umeclidinium-vilanterol inhalation inhalation [Active]; melatonin 5 mg Oral cap nightly sv [Active]; clopidogrel 75 mg Oral tab 1 tab once daily [Active]; donepezil 5 mg Oral TbDL 1 tab nightly [Active]; ropinirole 1 mg Oral tab 1 tab at 1400 [Active]; ropinirole 3 mg Oral tab 1 tab at 1900 [Active]; Tylenol-Codeine #3 300-30 mg Oral tab 1 tab q6hrs prn [Active]; Brovana 15 mcg/2 mL inhalation nebu 2 mL 2 times per day [Active]; gabapentin 100 mg oral cap nightly [Active]; levothyroxine 200 mcg tab 1 tab once daily [Active]; trazodone 50 mg oral tab nightly [Active]; metoprolol tartrate 50 mg Oral tab 1 tab 2 times per day [Active]; Klor-Con 10 10 mEq Oral TbER 1 tab once daily [Active]; furosemide 40 mg Oral tab 1 tab once daily [Active]; atorvastatin 20 mg Oral tab 1 tab nightly [Active]; Pepcid 20 mg Oral tab 1 tab 2 times per day [Active]; escitalopram oxalate 20 mg Oral tab 1 tab once daily [Active]; Biotene Moisturizing Mouth mucous membrane spry [Active]; Veto-Gest Antacid 200 mg calcium (500 mg) Oral chew [Active]; - PMHx: 10:44 Hypertension; Hyperlipidemia; GERD; EDEMA; Depression; CAD; Anemia; Arthritis; CHF; sv COPD; Hypothyroidism; PERIPHERAL NEUROPATHY; restless leg syndrome; Insomnia; Neuropathy; Diverticulitis; TIA; - Immunization history:: Adult Immunizations up to date. - Social history:: Smoking status: unknown. - Code Status:: Full code. Screenin:06 Abuse screen: Denies threats or abuse. Nutritional screening: No deficits noted. Tuberculosis screening: No symptoms or risk factors identified. Fall Risk None identified. Assessment: 10:52 Reassessment: [facility] stated that yesterday she was a little drowsy in the sv morning but around lunch she became her normal self A\T\O x4. Today they tried to wake her up but seemed drowsy in the morning and today about an hour ago they checked her O2 sat and was 88% on 3L NC because she is normally on 3L. They increased her O2 to 4L and gave her a Duoneb, O2 sat after was 92% but going down after that so they called EMS. BP for her at [place] was 86/50. 12:06 Pain: Denies pain. Neuro: Oriented to person, situation, when pt awake by voice command a\T\ox 4. . 13:37 Reassessment: Patient appears in no apparent distress at this time. Patient and/or family updated on plan of care and expected duration. Pain level reassessed. Patient is alert, oriented x 3, equal unlabored respirations, skin warm/dry/pink. 16:05 Reassessment: attempt to call report to 2nd floor. nurse states she will call back. bw 16:30 Reassessment: report given to marci HOWARD. bw Vital Signs: 10:56 Weight 115.21 kg; Height 5 ft. 3 in. (160.02 cm); sv 12:06 BP 97 / 65; Pulse 61; Resp 14; Temp 97.9(TE); Pulse Ox 98% on 5 lpm NC; bw 13:40 BP 100 / 59; Pulse 76; Resp 20; Pulse Ox 95% on R/A; bw 14:38 BP 143 / 64; Pulse 71; Resp 20; Pulse Ox 97% on 5 lpm NC; bw 16:30 Pulse Ox 97% on 5 lpm NC; bw 10:56 Body Mass Index 44.99 (115.21 kg, 160.02 cm) sv ED Course: 10:40 Patient arrived in ED. sv 10:42 Triage completed. sv 10:43 Jhonatan Victor NP is PHCP. pm1 10:43 Primo Padilla MD is Attending Physician. pm1 10:50 Nikkie Bates, ANITA is Primary Nurse. bw 11:09 First set of blood cultures drawn by ED staff. sv 11:13 Second set of blood cultures drawn by vt. Inserted saline lock: 22 gauge in left sv forearm, using aseptic technique. Blood collected. Flushed left forearm with 5 ml normal saline. 11:23 CT Head Brain wo Cont In Process Unspecified. EDMS 11:31 Chest Single View XRAY In Process Unspecified. EDMS 11:41 Urine Culture Sent. bw 11:41 Amylase, Serum Sent. bw 11:41 Basic Metabolic Panel Sent. bw 12:06 No provider procedures requiring assistance completed. bw 12:06 Patient has correct armband on for positive identification. Bed in low position. Call light in reach. Side rails up X2. radiation monitor on. Pulse ox on. NIBP on. Warm blanket given. 12:24 Urine collected: Lu catheter specimen, clear, geovanna colored, COVID swab sent to lab. jp3 12:50 CT Abd/Pelvis - Without Contrast In Process Unspecified. EDMS 13:40 Primo Padilla MD is Hospitalizing Provider. pm1 13:40 Kang Chaidez is Hospitalizing Provider. pm1 13:44 Elsa Dumont MD is Hospitalizing Provider. pm1 15:58 Patient admitted, IV remains in place. 16:03 Arm band placed on right wrist. 16:30 Lu cath inserted, using sterile technique, 18 Fr., by me. Administered Medications: 11:23 Drug: NS 0.9% (30 ml/kg) 30 ml/kg Route: IV; Rate: bolus; Site: left forearm; 12:08 Drug: Cefepime 1 grams Route: IVPB; Rate: 200 ml/hr; Infused Over: 30 mins; Site: left bw forearm; Outcome: 13:42 Decision to Hospitalize by Provider. pm1 15:57 Admitted to Med/surg accompanied by tech. 15:57 Condition: stable 15:57 Discharge instructions given to patient, family. 16:53 Patient left the ED. Signatures: Dispatcher [employer] Marlin Sosa, RN RN Jhonatan Victor NP ENGINEERING RECRUITER pm1 Tyson Barriga jp3 Nikkie Bates RN RN
--- NOTE | 2020-06-27 13:42 | EDPHYS ---
Physician Documentation [facility] Name: Ti Zacarias Age: 85 yrs Sex: Female : 1935 Arrival Date: 06/27/2020 Time: 10:40 Bed 17 Private MD: ED Physician Primo Padilla HPI: 06/27 11:01 This 85 yrs old Female presents to ER via EMS with complaints of Altered pm1 Mental Status, Breathing Difficulty. 11:01 The patient presents with decreased responsiveness. Onset: The symptoms/episode pm1 began/occurred yesterday. Possible causes: unknown. Associated signs and symptoms: Pertinent positives: shortness of breath, Pertinent negatives: chest pain, Fever, cough. Current symptoms: In the emergency department the patient's symptoms have improved. Patient's baseline: Neuro: alert and fully oriented, Motor: no deficits, Ambulation: unable to walk, Speech: normal. The patient has experienced similar episodes in the past, several times. half-way reports decreased responsiveness and alertness since yesterday. This morning it appeared worse and the patient was requiring more supplemental oxygen. Patient reports that she has had shortness of breath since yesterday. Historical: - Allergies: 10:44 No Known Allergies; sv - Home Meds: 11:24 umeclidinium-vilanterol inhalation inhalation [Active]; melatonin 5 mg Oral cap nightly sv [Active]; clopidogrel 75 mg Oral tab 1 tab once daily [Active]; donepezil 5 mg Oral TbDL 1 tab nightly [Active]; ropinirole 1 mg Oral tab 1 tab at 1400 [Active]; ropinirole 3 mg Oral tab 1 tab at 1900 [Active]; Tylenol-Codeine #3 300-30 mg Oral tab 1 tab q6hrs prn [Active]; Brovana 15 mcg/2 mL inhalation nebu 2 mL 2 times per day [Active]; gabapentin 100 mg oral cap nightly [Active]; levothyroxine 200 mcg tab 1 tab once daily [Active]; trazodone 50 mg oral tab nightly [Active]; metoprolol tartrate 50 mg Oral tab 1 tab 2 times per day [Active]; Klor-Con 10 10 mEq Oral TbER 1 tab once daily [Active]; furosemide 40 mg Oral tab 1 tab once daily [Active]; atorvastatin 20 mg Oral tab 1 tab nightly [Active]; Pepcid 20 mg Oral tab 1 tab 2 times per day [Active]; escitalopram oxalate 20 mg Oral tab 1 tab once daily [Active]; Biotene Moisturizing Mouth mucous membrane spry [Active]; Veto-Gest Antacid 200 mg calcium (500 mg) Oral chew [Active]; - PMHx: 10:44 Hypertension; Hyperlipidemia; GERD; EDEMA; Depression; CAD; Anemia; Arthritis; CHF; sv COPD; Hypothyroidism; PERIPHERAL NEUROPATHY; restless leg syndrome; Insomnia; Neuropathy; Diverticulitis; TIA; - Immunization history:: Adult Immunizations up to date. - Social history:: Smoking status: unknown. - Code Status:: Full code. ROS: 12:34 Eyes: Negative for injury, pain, redness, and discharge, ENT: Negative for injury, pm1 pain, and discharge, Neck: Negative for injury, pain, and swelling, Cardiovascular: Negative for chest pain, palpitations, and edema. 12:34 Back: Negative for injury and pain, : Negative for injury, bleeding, discharge, and swelling, MS/Extremity: Negative for injury and deformity, Skin: Negative for injury, rash, and discoloration. 12:34 Constitutional: Positive for poor PO intake, Patient is AAOx4 now and daughter is at bedside to provide information, Negative for fever. 12:34 Respiratory: Positive for shortness of breath, Negative for cough, sputum production. 12:34 Abdomen/GI: Positive for abdominal pain, diarrhea, of the epigastric area, Negative for nausea and vomiting. 12:34 Neuro: Positive for altered mental status, Negative for headache, numbness, tingling. Exam: 12:34 Constitutional: This is a well developed, well nourished patient who is awake, alert, pm1 and in no acute distress. Head/Face: Normocephalic, atraumatic. 12:34 Back: No spinal tenderness. No costovertebral tenderness. Full range of motion. Skin: Warm, dry with normal turgor. Normal color with no rashes, no lesions, and no evidence of cellulitis. MS/ Extremity: Pulses equal, no cyanosis. Neurovascular intact. Full, normal range of motion. 12:34 Cardiovascular: Rate: normal, Rhythm: regular, Pulses: no pulse deficits are appreciated, Heart sounds: normal, normal S1and S2, Edema: pedal edema, that is mild. 12:34 Respiratory: the patient does not display signs of respiratory distress, Respirations: normal, Breath sounds: decreased breath sounds, are located in both bases. 12:34 Abdomen/GI: Inspection: obese Palpation: soft, in all quadrants, mild abdominal tenderness, in the epigastric area. 12:34 Neuro: Exam negative for acute changes, Orientation: is normal, Mentation: is normal, Motor: moves all fours. Vital Signs: 10:56 Weight 115.21 kg; Height 5 ft. 3 in. (160.02 cm); sv 12:06 BP 97 / 65; Pulse 61; Resp 14; Temp 97.9(TE); Pulse Ox 98% on 5 lpm NC; bw 13:40 BP 100 / 59; Pulse 76; Resp 20; Pulse Ox 95% on R/A; bw 14:38 BP 143 / 64; Pulse 71; Resp 20; Pulse Ox 97% on 5 lpm NC; bw 16:30 Pulse Ox 97% on 5 lpm NC; bw 10:56 Body Mass Index 44.99 (115.21 kg, 160.02 cm) sv MDM: 10:43 Patient medically screened. pm1 13:39 Data reviewed: vital signs. Data interpreted: Pulse oximetry: on 4L(s) per nasal pm1 canula, is 98 %. Interpretation: acceptable. Counseling: I had a detailed discussion with the patient and/or guardian regarding: the historical points, exam findings, and any diagnostic results supporting the discharge/admit diagnosis, lab results, radiology results, the need for further work-up and treatment in the hospital. 06/27 10:45 Order name: Urine Culture pm06/27 10:45 Order name: Amylase, Serum pm06/27 10:45 Order name: Basic Metabolic Panel pm06/27 10:45 Order name: Blood Culture Adult (2) pm06/27 10:45 Order name: CBC with Diff; Complete Time: 12:26 pm06/27 10:45 Order name: Ckmb; Complete Time: 11:53 pm06/27 10:45 Order name: CPK; Complete Time: 11:53 pm06/27 10:45 Order name: Lactate; Complete Time: 11:53 pm06/27 10:45 Order name: LFT's; Complete Time: 11:53 pm1 06/27 10:45 Order name: Lipase; Complete Time: 11:53 pm1 06/27 10:45 Order name: Procalcitonin; Complete Time: 12:26 pm1 06/27 10:45 Order name: Protime (+inr); Complete Time: 11:43 pm1 06/27 10:45 Order name: Ptt, Activated; Complete Time: 11:43 pm1 06/27 10:45 Order name: Troponin (emerg Dept Use Only); Complete Time: 11:53 pm1 06/27 10:45 Order name: Urine Microscopic Only; Complete Time: 12:40 pm1 06/27 10:45 Order name: Urine Culture EDNJ 06/27 10:45 Order name: Amylase; Complete Time: 11:53 EDNJ 06/27 10:45 Order name: Basic Metabolic Panel; Complete Time: 11:53 EDMS 06/27 10:53 Order name: Strep; Complete Time: 12:40 pm1 06/27 11:30 Order name: Manual Differential; Complete Time: 12:26 EDNJ 06/27 12:12 Order name: Urine Dipstick-Ancillary EDNJ 06/27 12:39 Order name: Throat Culture EDNJ 06/27 13:10 Order name: COVID-19/FLU A+B; Complete Time: 13:18 EDNJ 06/27 14:15 Order name: BNP; Complete Time: 16:29 pm06/27 15:15 Order name: Comprehensive Metabolic Panel [facility] 06/27 15:15 Order name: Comprehensive Metabolic Panel [facility] 06/27 15:15 Order name: Lactate [facility] 06/27 15:15 Order name: Lactate [facility] 06/27 10:45 Order name: Chest Single View XRAY; Complete Time: 11:43 pm06/27 10:45 Order name: Accucheck; Complete Time: 11:15 pm06/27 10:45 Order name: Cardiac monitoring; Complete Time: 11:15 pm06/27 10:45 Order name: EKG - Nurse/Tech; Complete Time: 10:51 pm1 06/27 10:45 Order name: IV Saline Lock - Large Bore; Complete Time: 11:14 pm1 06/27 10:45 Order name: Labs collected and sent; Complete Time: 11:15 pm1 06/27 10:45 Order name: O2 Per Protocol; Complete Time: 11:19 pm06/27 10:45 Order name: O2 Sat Monitoring; Complete Time: 11:19 pm06/27 10:45 Order name: Urine Dipstick-Ancillary (obtain specimen); Complete Time: 12:09 pm06/27 10:53 Order name: CT Head Brain wo Cont; Complete Time: 11:43 pm06/27 12:28 Order name: CT Abd/Pelvis - Without Contrast; Complete Time: 13:18 pm06/27 15:15 Order name: Lipid Profile EDMS 06/27 15:15 Order name: Lipid Profile EDMS 06/27 15:15 Order name: Magnesium EDMS 06/27 15:16 Order name: Heart Healthy EDMS 06/27 15:16 Order name: CBC with Automated Diff EDMS 06/27 15:16 Order name: CBC with Automated Diff EDMS 06/27 15:16 Order name: Magnesium EDMS 06/27 15:16 Order name: NT PRO-BNP EDMS 06/27 15:16 Order name: NT PRO-BNP EDMS 06/27 15:16 Order name: Phosphorus EDMS 06/27 15:16 Order name: Phosphorus EDMS Administered Medications: 11:23 Drug: NS 0.9% (30 ml/kg) 30 ml/kg Route: IV; Rate: bolus; Site: left forearm; bw 12:08 Drug: Cefepime 1 grams Route: IVPB; Rate: 200 ml/hr; Infused Over: 30 mins; Site: left bw forearm; Disposition: 17:32 Co-signature as Attending Physician, Primo Padilla MD. rn Disposition: 06/27/20 13:42 Hospitalization ordered by Elsa Dumont for Inpatient Admission. Preliminary diagnosis are Acute on chronic combined systolic (congestive) and diastolic (congestive) heart failure, Pulmonary edema, Urinary tract infection, site not specified, Hypotension, unspecified. - Bed requested for Telemetry/MedSurg (Inpatient). - Status is Inpatient Admission. bw - Condition is Stable. - Problem is new. - Symptoms have improved. Signatures: Dispatcher [employer] EDMS Marlin Lerma RN RN sv Nieto, Roman, MD MD rn Marinas, Patrick, BRICK TESTER BRICK TESTER pm1 Nkikie Bates RN RN bw Corrections: (The following items were deleted from the chart) 12:24 10:53 Influenza Screen (A \T\ B)+BA.LAB.BRZ ordered. EDMS EDMS 12:24 10:53 CORONAVIRUS+MR.LAB.BRZ ordered. EDNJ EDMS 13:42 13:42 Hospitalization Ordered by Kang Chaidez for Inpatient Admission. Preliminary pm1 diagnosis is Acute on chronic combined systolic (congestive) and diastolic (congestive) heart failurePulmonary edema; Urinary tract infection, site not specified. Bed requested for Telemetry/MedSurg (Inpatient). Status is Inpatient Admission. Condition is Stable. Problem is new. Symptoms have improved. pm1 13:44 13:42 06/27/2020 13:42 Hospitalization Ordered by Kang Chaidez for Inpatient pm1 Admission. Preliminary diagnosis is Acute on chronic combined systolic (congestive) and diastolic (congestive) heart failurePulmonary edema; Urinary tract infection, site not specified; Hypotension, unspecified. Bed requested for Telemetry/MedSurg (Inpatient). Status is Inpatient Admission. Condition is Stable. Problem is new. Symptoms have improved. pm1 15:36 13:44 06/27/2020 13:42 Hospitalization Ordered by Elsa Dumont MD for Inpatient sv Admission. Preliminary diagnosis is Acute on chronic combined systolic (congestive) and diastolic (congestive) heart failurePulmonary edema; Urinary tract infection, site not specified; Hypotension, unspecified. Bed requested for Telemetry/MedSurg (Inpatient). Status is Inpatient Admission. Condition is Stable. Problem is new. Symptoms have improved. pm1 16:53 15:36 06/27/2020 13:42 Hospitalization Ordered by Elsa Dumont MD for Inpatient bw Admission. Preliminary diagnosis is Acute on chronic combined systolic (congestive) and diastolic (congestive) heart failurePulmonary edema; Urinary tract infection, site not specified; Hypotension, unspecified. Bed requested for Telemetry/MedSurg (Inpatient). Status is Inpatient Admission. Condition is Stable. Problem is new. Symptoms have improved. sv
[2020-06-27] MEDS ORDERED: ONDANSETRON 4 MG/2 ML VIAL IV PRN (15:10)
[2020-06-27] MEDS ORDERED: ACETAMINOPHEN 500 MG TAB PO PRN (15:10)
[2020-06-27] MEDS ORDERED: NA CHLORIDE 0.9% 1,000 ML IV SCH (16:00)
[2020-06-27] MEDS: IPRATROPIUM BROM 0.5MG/2.5ML NEB SCH ×2 (16:00→21:00)
[2020-06-27] MEDS ORDERED: ALBUTEROL 2.5 MG/3 ML NEB SOL NEB SCH (16:00)
[2020-06-27 17:40] VITALS: BMI 44.4
[2020-06-27] MEDS: CEFTRIAXONE/SWI 1gm 1 GM/10 ML SYR IVP SCH (20:36)
[2020-06-28] MEDS ORDERED: HYDROCORTISONE SUC 100 MG INJ IV ONE (00:07)
[2020-06-28] MEDS ORDERED: ALBUMIN HUM 5% 500 ML IV SCH (01:00)
[2020-06-28] MEDS: IPRATROPIUM BROM 0.5MG/2.5ML NEB SCH ×3 (01:45→13:48)
[2020-06-28 03:19] LABS: Arterial Blood Carboxyhemoglob 2.2 % (0-1.5); Blood Gas Oxyhemoglobin 85.3 % (94-97)
[2020-06-28] MEDS ORDERED: FUROSEMIDE 20 MG/ 2ML VIAL IV ONE (04:08)
[2020-06-28] MEDS ORDERED: LORazepam 2 MG/ML VIAL IV ONE (04:36)
[2020-06-28 05:54] LABS: Absolute Lymphocytes (CBC) 0.8 K/uL (0.7-4.9); Basophils % 0.6 % (0-1.3); Hematocrit 29.7 % (36.0-45.0); Lymphocytes % 9.8 % (15.3-44.8); MPV 8.5 fL (7.6-11.3); RBC Red Blood Cell Count 2.93 M/uL (3.86-4.86)
[2020-06-28 06:13] LABS: Albumin 3.1 g/dL (3.4-5.0); Bilirubin Total 0.4 mg/dL (0.2-1.0); Magnesium 2.4 mg/dL (1.8-2.4); Phosphorus 3.6 mg/dL (2.5-4.9); Potassium 4.9 mmol/L (3.5-5.1); Protein, Total 6.9 g/dL (6.4-8.2)
--- NOTE | 2020-06-28 07:13 | P.HP ---
Certification for Inpatient Patient admitted to: Inpatient With expected LOS: >2 Midnights Patient will require the following post-hospital care: None Practitioner: I am a practitioner with admitting privileges, knowledge of patient current condition, hospital course, and medical plan of care. Services: Services provided to patient in accordance with Admission requirements found in Title 42 Section 412.3 of the Code of Federal Regulations Patient History Date of Service: 06/27/20 Reason for admission: Shortness of breath/altered mental status History of Present Illness: Patient is a 85-year-old female who is a resident at [facility] who presents to the hospital with altered mental status. Patient has also been having some difficulty breathing. Patient came into the hospital because she was altered. Patient was requiring supplemental oxygen and chest x-ray in the emergency room revealed pulmonary edema. Recent echocardiogram with normal ejection fraction but patient did have some diastolic dysfunction. Will continue to diurese patient aggressively. Viral testing was negative. Continue with IV Lasix and monitor strict input and output. Continue monitoring labs closely. Allergies No Known Allergies Allergy (Verified 06/27/20 17:18) Home Medications: Acetaminophen with Codeine [Acetaminophen-Cod #3 Tablet] 1 each PO Q6HP PRN 04/28/20 Arformoterol Tartrate [Brovana] 1 vial IH BID 04/28/20 Atorvastatin Calcium 20 mg PO DAILY 04/28/20 Calcium Carbonate [Veto-Gest] 2 tab PO Q1H PRN 04/28/20 Clopidogrel Bisulfate [Plavix] 75 mg PO DAILY 04/28/20 Donepezil [Aricept*] 5 mg PO DAILY 04/28/20 Escitalopram Oxalate 20 mg PO DAILY 04/28/20 Gabapentin 100 mg PO BEDTIME 04/28/20 Levothyroxine Sodium [Synthroid] 200 mcg PO DAILY 04/28/20 Melatonin 5 mg PO BEDTIME PRN 04/28/20 Potassium Chloride [Klor-Con 10] 10 meq PO DAILY 04/28/20 Ropinirole HCl [Requip*] 1 mg PO DAILY 04/28/20 Ropinirole HCl [Requip] 3 mg PO BEDTIME 04/28/20 Tramadol HCl [Ultram] 50 mg PO Q6H PRN 04/28/20 Trazodone [Desyrel*] 50 mg PO BEDTIME 04/28/20 Umeclidinium Brm/Vilanterol Tr [Anoro Ellipta 62.5-25 Mcg INH] 1 inh IH DAILY 04/28/20 Furosemide [Lasix*] 40 mg PO DAILY 7 Days #7 tab 05/07/20 Famotidine [Pepcid] 20 mg PO BID 06/27/20 Loperamide HCl [Imodium A-D] 2 mg PO PRN PRN 06/27/20 Metoprolol Tartrate [Lopressor] 50 mg PO BID 06/27/20 Simethicone 160 mg PO Q6HP PRN 06/27/20 - Past Medical/Surgical History Diabetic: No -: diverticulosis -: Hypothyroidism -: Insomnia -: History of TIA X2 -: Restless leg syndrome -: GERD -: Neuropathy -: COPD -: Hypertension -: dementia -: Former tobacco use -: Left knee replacement -: Rotator cuff repair -: Ankle surgery -: Cholecystectomy Psychosocial/ Personal History: Patient lives at [facility]. She has been there for over a year. - Family History Father Medical History: Lung disease Sister Medical History: Lung disease Brother Medical History: Heart disease Mother Medical History: Heart disease - Social History Smoking Status: Former smoker Alcohol use: No CD- Drugs: No Caffeine use: Yes [facility] Review of Systems 10-point ROS is otherwise unremarkable Physical Examination - Vital Signs Temperature: 97.6 F Blood Pressure: 140/56 Pulse: 62 Respirations: 19 Pulse Ox (%): 94 - Physical Exam General: Alert, In no apparent distress, Oriented x2, Demented, Confused HEENT: Atraumatic, PERRLA, Mucous membr. moist/pink, EOMI, Sclerae nonicteric Neck: Supple, 2+ carotid pulse no bruit, No LAD, Without JVD or thyroid abnormality Respiratory: Diminished, Crackles/rales Cardiovascular: Regular rate/rhythm, No murmurs, Systolic murmur Gastrointestinal: Normal bowel sounds, Soft and benign, Non-distended, No tenderness Musculoskeletal: No clubbing, No swelling, No tenderness Integumentary: No rashes Neurological: Normal gait, Normal speech, Normal tone, Sensation intact, Cranial nerves 3-12 intact, Normal affect, Abnormal strength Lymphatics: No axilla or inguinal lymphadenopathy - Studies Laboratory Data (last 24 hrs) 06/27/20 11:13: PT 12.4, INR 1.08, APTT 29.6 06/27/20 11:13: WBC 8.50 D, Hgb 9.7 L, Hct 31.5 L, Plt Count 271 06/27/20 11:13: Sodium 138, Potassium 4.9, BUN 20 H, Creatinine 1.71 H D, Glucose 110 H, Total Bilirubin 0.4, AST 9 L, ALT 9 L, Alkaline Phosphatase 89, Amylase 34, Lipase 59 L Microbiology Data (last 24 hrs): 06/27/20 11:09 Blood - Blood Anaerobic Blood Culture - Final 06/27/20 12:03 Throat Group A Streptococcus Rapid Screen - Final Assessment & Plan - Problems (Diagnosis) (1) Altered mental status Current Visit: Yes Status: Acute (2) Acute exacerbation of CHF (congestive heart failure) Current Visit: Yes Status: Acute (3) Acute congestive heart failure with left ventricular diastolic dysfunction Current Visit: Yes Status: Acute (4) CKD (chronic kidney disease) stage 3, GFR 30-59 ml/min Onset Date: 12/17/17 Current Visit: No Status: Chronic (5) Chronic obstructive pulmonary disease (COPD) Onset Date: 12/17/17 Current Visit: No Status: Chronic Qualifiers: (6) Hypertension Onset Date: 12/17/17 Current Visit: No Status: Chronic Qualifiers: (7) Hypothyroidism Onset Date: 12/17/17 Current Visit: No Status: Chronic Qualifiers: - Plan 1. Echocardiogram has been reviewed and patient with diastolic heart failure 2. Continue with aggressive diuresing and resume cardiac meds 3. We will start patient on a Beta daniel 4. Cardiology consultation 5. continuing medications 6. Strict I's and O's 7. Repeat CXR 8. Daily weights 9. Education regarding diet and treatment of congestive heart failure Discharge Plan: [facility] Plan to discharge in: Greater than 2 days - Advance Directives Does patient have a Living Will: Yes Does patient have a Durable POA for Healthcare: Yes - Code Status/Comfort Care Code Status Assessed: Yes Code Status: Full Code Critical Care: No Time Spent Managing PTS Care (In Minutes): 45
--- NOTE | 2020-06-28 07:16 | EKG ---
Test Date: 2020-06-27 Test Time: 10:47:29 Customer Accounts Advisor: IRWIN MEASUREMENT RESULTS: Intervals: Rate: 77 TN: 234 QRSD: 106 QT: 410 QTc: 463 Snyder: P: 47 TN: 234 QRS: -39 T: 72 INTERPRETIVE STATEMENTS: Sinus rhythm with 1st degree AV block Left axis deviation Minimal voltage criteria for LVH, may be normal variant Anterolateral infarct, age undetermined Abnormal ECG Compared to ECG 04/27/2020 18:36:54 First degree AV block now present Left-axis deviation now present Left ventricular hypertrophy now present Sinus bradycardia no longer present Sinus arrhythmia no longer present Myocardial infarct finding still present Electronically Signed On 06-28-20 07:14:09 CDT by Darrin Chan
[2020-06-28 08:40] LABS: Blood Morphology Comment NOT SEEN (NOT SEEN); Platelet Estimate ADEQ; White Blood Cell Scan OK (OK)
[2020-06-28] MEDS: CEFTRIAXONE/SWI 1gm 1 GM/10 ML SYR IVP SCH (08:43)
[2020-06-28] MEDS: ENOXAPARIN 30 MG/0.3 ML SQ SCH (08:43)
[2020-06-28] MEDS ORDERED: AZITHROMYCIN IV 500 MG in NA CHLORIDE 0.9% 250 ML IVPB SCH (09:00)
--- NOTE | 2020-06-28 09:54 | RAD REPORT ---
EXAM DESCRIPTION: CT - Thorax Wo Con - 06/28/2020 9:46 am CLINICAL HISTORY: Hypoxemia/shortness of breath COMPARISON: March 2020 TECHNIQUE: Computed axial tomography of the chest was obtained. Contrast was not requested. All CT scans are performed using dose optimization technique as appropriate and may include automated exposure control or mA/KV adjustment according to patient size. FINDINGS: The evaluation of mediastinum, raymon and vessels is limited secondary to lack of IV contras t administration. Mild bilateral pulmonary opacities. No mediastinal or hilar lymphadenopathy is seen. Small pleural effusions. The heart is mildly enlarged. Coronary arterial calcifications are present IMPRESSION: Mild CHF
[2020-06-28] MEDS ORDERED: CODEINE 30MG/APAP 300MG TAB PO PRN (14:37)
[2020-06-28] MEDS ORDERED: TRAMADOL HCL 50 MG TAB PO PRN (14:37)
[2020-06-28] MEDS ORDERED: SIMETHICONE 80 MG TAB PO PRN (14:37)
[2020-06-28] MEDS ORDERED: MELATONIN 5 MG TABLET PO PRN (14:37)
--- NOTE | 2020-06-28 14:41 | P.PN ---
Subjective Date of Service: 06/28/20 Primary Care Provider: retirement Chief Complaint: Shortness of breath/altered mental status Subjective: Other (Patient stable at this time. Currently on BiPAP.) Physical Examination - Vital Signs Temperature: 97.3 F Blood Pressure: 145/69 Pulse: 78 Respirations: 20 Pulse Ox (%): 89 - Studies Microbiology Data (last 24 hrs): 06/27/20 11:09 Blood - Blood Anaerobic Blood Culture - Final 06/27/20 12:03 Throat Group A Streptococcus Rapid Screen - Final Assessment & Plan Discharge Plan: Care Home Plan to discharge in: Greater than 2 days Physician Review Additional Text: Physical exam: Patient alert, cooperative. Currently on BiPAP. Heart: Regular rate and rhythm Lungs: Crackles to the bases Abdomen: Soft, nontender, nondistended Extremities: Good range of motion. Minimal edema to the lower extremities. Impression: Dyspnea secondary to acute on chronic diastolic CHF Cute on chronic renal disease stage III COPD CAD Hypertension Hyperlipidemia Depression Dementia RLS Hypothyroidism Plan: Dyspnea secondary to acute on chronic diastolic CHF: Continue diuresis. Fluid restriction in place. Will obtain echocardiogram to further evaluate. Cardiology consulted. Await recommendation. Continue to wean off BiPAP. Patient now on nasal cannula. Repeat chest x-ray. Anticipate improvement over the next 48 to 72 hours. Acute on chronic renal disease stage III: We will consult nephrology to address. Check Renal US. Continue diuresis. Will adjust medications accordingly. COPD: Continue with her COPD medication. Monitor and adjust medication. Continue to wean off oxygen. CAD: Continue Plavix. DVT prophylaxis in place. Hypertension: Continue beta-daniel. Parameters in place. Hyperlipidemia: Continue Lipitor. Depression: Continue with her medication Dementia: Continue with Aricept RLS: Continue with Requip Hypothyroidism: Continue Synthroid Time Spent Managing Pts Care (In Minutes): 55
--- NOTE | 2020-06-28 17:43 | P.CNS ---
Date of Consult: 06/28/20 Reason for Consult: ZAIRA Requesting Physician: Garrett Ramirez Primary Care Provider: [facility] Chief Complaint: Shortness of breath/altered mental status History of Present Illness: Patient is a 85-year-old female who is a resident at [facility] who presents to the hospital with altered mental status. Patient has also been having some difficulty breathing. Patient came into the hospital because she was altered. Patient was requiring supplemental oxygen and chest x-ray in the emergency room revealed pulmonary edema. Recent echocardiogram with normal ejection fraction but patient did have some diastolic dysfunction. Will continue to diurese patient aggressively. Viral testing was negative. Continue with IV Lasix and monitor strict input and output. Continue monitoring labs closely. 11:01 This 85 yrs old Female presents to ER via EMS with complaints of Altered pm1 Mental Status, Breathing Difficulty. 11:01 The patient presents with decreased responsiveness. Onset: The symptoms/episode pm1 began/occurred yesterday. Possible causes: unknown. Associated signs and symptoms: Pertinent positives: shortness of breath, Pertinent negatives: chest pain, Fever, cough. Current symptoms: In the emergency department the patient's symptoms have improved. Patient's baseline: Neuro: alert and fully oriented, Motor: no deficits, Ambulation: unable to walk, Speech: normal. The patient has experienced similar episodes in the past, several times. [facility] reports decreased responsiveness and alertness since yesterday. This morning it appeared worse and the patient was requiring more supplemental oxygen. Patient reports that she has had shortness of breath since yesterday. Allergies No Known Allergies Allergy (Verified 06/27/20 17:18) Home medications list reviewed: Yes Home Medications: Acetaminophen with Codeine [Acetaminophen-Cod #3 Tablet] 1 each PO Q6HP PRN 04/28/20 Arformoterol Tartrate [Brovana] 1 vial IH BID 04/28/20 Atorvastatin Calcium 20 mg PO DAILY 04/28/20 Calcium Carbonate [Veto-Gest] 2 tab PO Q1H PRN 04/28/20 Clopidogrel Bisulfate [Plavix] 75 mg PO DAILY 04/28/20 Donepezil [Aricept*] 5 mg PO DAILY 04/28/20 Escitalopram Oxalate 20 mg PO DAILY 04/28/20 Gabapentin 100 mg PO BEDTIME 04/28/20 Levothyroxine Sodium [Synthroid] 200 mcg PO DAILY 04/28/20 Melatonin 5 mg PO BEDTIME PRN 04/28/20 Potassium Chloride [Klor-Con 10] 10 meq PO DAILY 04/28/20 Ropinirole HCl [Requip*] 1 mg PO DAILY 04/28/20 Ropinirole HCl [Requip] 3 mg PO BEDTIME 04/28/20 Tramadol HCl [Ultram] 50 mg PO Q6H PRN 04/28/20 Trazodone [Desyrel*] 50 mg PO BEDTIME 04/28/20 Umeclidinium Brm/Vilanterol Tr [Anoro Ellipta 62.5-25 Mcg INH] 1 inh IH DAILY 04/28/20 Furosemide [Lasix*] 40 mg PO DAILY 7 Days #7 tab 05/07/20 Famotidine [Pepcid] 20 mg PO BID 06/27/20 Loperamide HCl [Imodium A-D] 2 mg PO PRN PRN 06/27/20 Metoprolol Tartrate [Lopressor] 50 mg PO BID 06/27/20 Simethicone 160 mg PO Q6HP PRN 06/27/20 - Past Medical/Surgical History Diabetic: No -: diverticulosis -: Hypothyroidism -: Insomnia -: History of TIA X2 -: Restless leg syndrome -: GERD -: Neuropathy -: COPD -: Hypertension -: dementia -: Former tobacco use -: Left knee replacement -: Rotator cuff repair -: Ankle surgery -: Cholecystectomy Psychosocial/ Personal History: Patient lives at [facility]. She has been there for over a year. - Family History Father Medical History: Lung disease Sister Medical History: Lung disease Brother Medical History: Heart disease Mother Medical History: Heart disease - Social History Smoking Status: Unknown if ever smoked Alcohol use: No CD- Drugs: No Caffeine use: Yes Place of Residence: Retirement Review of Systems 10-point ROS is otherwise unremarkable General: Weakness, Malaise Respiratory: SOB with Excertion Cardiovascular: Edema Neurological: Weakness Physical Examination Temp Pulse Resp BP Pulse Ox 97.3 F 78 20 145/69 H 89 L 06/28/20 14:47 06/28/20 14:47 06/28/20 14:47 06/28/20 14:47 06/28/20 14:47 General: Cooperative HEENT: Mucous membr. moist/pink Neck: Supple Respiratory: Diminished Cardiovascular: Regular rate/rhythm, Edema Gastrointestinal: Soft and benign Musculoskeletal: No clubbing, No contractures Integumentary: No rashes, No cyanosis Neurological: Normal speech Blood work reviewed in the chart. Imagings Data: EXAM DESCRIPTION: CT - Abdomen Pelvis Wo Contrast - 06/27/2020 12:50 pm CLINICAL HISTORY: Abdominal pain. PAIN COMPARISON: Abdomen Pelvis W/Wo Contrast dated 09/10/2017 TECHNIQUE: CT imaging of the abdomen and pelvis was performed without contrast. Solid organ, bowel and vascular assessment is limited due to lack of IV and oral contrast. All CT scans are performed using dose optimization technique as appropriate and may include automated exposure control or mA/KV adjustment according to patient size. FINDINGS: Small bilateral pleural effusions are present with linear atelectasis in both lung bases. The liver, spleen, pancreas, adrenal glands and kidneys are within normal limits for a limited non-contrast examination.Moderate fat containing ventral hernia is present upper abdomen. Cholecystectomy clips. No bowel obstruction, free air, free fluid or abscess. Small focal fat containing umbilical hernia. The appendix is not identified as a discrete structure, however, no secondary findings of appendicitis are identified. Moderate lower lumbar degenerative changes are present.Mildly aortic atherosclerosis. IMPRESSION: No acute intra-abdominal or pelvic findings. Moderate fat containing ventral hernia involving the upper abdomen. Small bilateral pleural effusions. Small fat containing umbilical hernia. A limited non-contrast examination was performed as detailed. EXAM DESCRIPTION: CT - Thorax Wo Con - 06/28/2020 9:46 am CLINICAL HISTORY: Hypoxemia/shortness of breath COMPARISON: March 2020 TECHNIQUE: Computed axial tomography of the chest was obtained. Contrast was not requested. All CT scans are performed using dose optimization technique as appropriate and may include automated exposure control or mA/KV adjustment according to patient size. FINDINGS: The evaluation of mediastinum, raymon and vessels is limited secondary to lack of IV contrast administration. Mild bilateral pulmonary opacities. No mediastinal or hilar lymphadenopathy is seen. Small pleural effusions. The heart is mildly enlarged. Coronary arterial calcifications are present IMPRESSION: Mild CHF Conclusions/Impression: A/P ZAIRA likely CRS CKD III with proteinuria -No NSAIDs -Continue furosemide Alkalosis -Give a dose of Diamox Hypocalcemia -Start Calcitriol and Cholecalciferol Diastolic CHF, A/C -Continue furosemide Anemia in chronic illness -Monitor H&H
--- NOTE | 2020-06-28 19:38 | RAD REPORT ---
EXAM DESCRIPTION: US - Renal Ultrasound-Complete - 06/28/2020 7:19 pm CLINICAL HISTORY: acute on chronic renal disease COMPARISON: Abdomen Pelvis Wo Contrast dated 06/27/2020 FINDINGS: The right kidney measures 9.2 x 4.9 x 3.7 cm. The left kidney measures 9.9 x 5.6 x 4.2 cm . Cortical thickness is normal. Echogenicity is believed to be normal. The large body habitus affects cause a increase in parenchymal echogenicity. No hydronephrosis or suspicious renal mass. Urinary bladder is mostly contracted limiting assessment. Overall, exam is considered limited due to large body habitus and limited mobility. IMPRESSION: No hydronephrosis or suspicious renal mass. No other significant findings.
[2020-06-28] MEDS: METOPROLOL TAR 50 MG TAB PO SCH (20:13)
[2020-06-28] MEDS: FAMOTIDINE 20 MG TAB PO SCH (20:14)
[2020-06-28] MEDS: ROPINIROLE HCL 1 MG TAB PO SCH (20:14)
--- NOTE | 2020-06-28 20:38 | CON ---
Date of Consultation: 06/28/2020 Reason For Consultation: Questionable congestive heart failure. History Of Present Illness: An 85-year-old female presented with shortness of breath and altered men almaz condition. The patient claimed that she has been short of breath for a few days with significant lower extremity edema. On chest x-ray in the emergency room, she had pulmonary edema. Started on I V Lasix. She was evaluated by bedside. She is speaking full sentences, but she is slightly short of breath. Past Medical History: Hypothyroidism, hypertension, dementia, COPD. Medications: Refer to reconciliation sheet for detailed list. Past Surgical History: Rotator cuff repair, cholecystectomy, ankle surgery. Social History: She is an ex-smoker. Does not drink or use any drugs. Family History: No premature coronary artery disease or cancer. Allergies: NO KNOWN DRUG ALLERGIES. Review of Systems: All systems reviewed and they were negative except mentioned in the HPI. Physical Examination: Vital Signs: Temperature is 97.3, pulse 78, breathing at 18, blood pressure 145/68, saturating 89%. General: This is an elderly female, no apparent distress. Head and Neck: Pupils are equal, reactive to light. Intact eye movements. Positive JVD. No cervic al lymphadenopathy. Neck: Supple. Thyroid is not enlarged. Lungs: Positive bilateral crackles. No accessory muscle use or muscle retraction. Heart: Regular rate and rhythm. No extra sounds. Abdomen: Soft, nontender. Bowel sounds positive. No organomegaly. No masses or hernia. No rigidi ty or rebound. Extremities: 2+ pitting edema. No clubbing, cyanosis. Intact pulses. Skin: No rash noted. Neurologic: Alert, awake, oriented x3. No acute focal deficits appreciated. Investigations: Troponin 0.04. NT-proBNP is 2108. Creatinine 1.71 and now is 1.38. Hemoglobin is 9.4. CT chest, mild CHF. Chest x-ray on admission showed moderate CHF. Assessment And Plan: Acute congestive heart failure. Echo in March showed diastolic dysfunction w ith normal ejection fraction. Recommend Lasix 80 mg IV q.12 hours, please increase the dose to 80 mg , 20 mg will not be sufficient diuresis and carefully monitor BUN, creatinine, electrolytes, and plea se update echocardiogram and trend cardiac enzymes. Thank you for the consultation. /CATHLEEN Voice ID: [id number] Report ID: [id number]
[2020-06-28] MEDS: ARFORMOTEROL TARTRATE 15 MCG/2 ML VIAL.NEB IH SCH (20:40)
[2020-06-28] MEDS ORDERED: HOME MED 1 EA UNK (Ropinirole Hcl [Requip] 3 MG Tablet) PO SCH (21:00)
[2020-06-28] MEDS ORDERED: acetaZOLAMIDE 250 MG TAB PO ONE (21:00)
[2020-06-28 21:32] LABS: Arterial Blood Carboxyhemoglob 1.9 % (0-1.5); Blood Gas Oxyhemoglobin 91.4 % (94-97)
[2020-06-29] MEDS: LEVOTHYROXINE SOD 0.1 MG TAB PO SCH ×2 (05:55→06:01)
[2020-06-29 06:30] LABS: Arterial Blood Carboxyhemoglob 1.7 % (0-1.5); Blood Gas Oxyhemoglobin 95.9 % (94-97); Blood O2 Saturation 98.6 % (92-98.5)
[2020-06-29] MEDS: ARFORMOTEROL TARTRATE 15 MCG/2 ML VIAL.NEB IH SCH ×2 (07:46→20:05)
--- NOTE | 2020-06-29 08:35 | RAD REPORT ---
EXAM DESCRIPTION: RAD - Chest Single View - 06/29/2020 5:45 am CLINICAL HISTORY: follow up CHF Chest pain. COMPARISON: Chest Single View dated 06/27/2020; Chest Single View dated 04/27/2020; Chest Single View d ated 04/02/2020; Chest Single View dated 03/31/2020 FINDINGS: Portable technique limits examination quality. Little overall change is seen in the aeration of the lungs since 06/27/2020. Mild to moderate CHF pat tern persists. Heart is upper limit normal in size. Tortuous thoracic aorta seen. IMPRESSION: Stable chest since 06/27/2020.
[2020-06-29] MEDS: METOPROLOL TAR 50 MG TAB PO SCH ×2 (09:00→20:54)
[2020-06-29] MEDS ORDERED: FUROSEMIDE 20 MG/ 2ML VIAL IV SCH (09:00)
[2020-06-29] MEDS ORDERED: FUROSEMIDE 100 MG/10 ML VIAL IV SCH (09:00)
--- NOTE | 2020-06-29 10:05 | P.PN ---
Subjective Date of Service: 06/29/20 [facility] Chief Complaint: Shortness of breath/altered mental status Subjective: Other (Patient had some and somnolence last night. Patient remains on BiPAP. Family at bedside. Family reports patient has been in and out of the hospital over the past year for similar issues. Patient has expressed that she is tired of being in the hospital.) Physical Examination - Vital Signs Temperature: 97 F Blood Pressure: 119/57 Pulse: 51 Respirations: 18 Pulse Ox (%): 92 - Studies Microbiology Data (last 24 hrs): 06/27/20 12:03 Throat Culture & Sensitivity - Final NORMAL UPPER RESPIRATORY VAN GROWN. 06/27/20 11:09 Blood - Blood Anaerobic Blood Culture - Final Assessment & Plan Discharge Plan: Half-Way Plan to discharge in: Greater than 2 days Physician Review Additional Text: Physical exam: Patient alert, cooperative. Currently on BiPAP. On 40% FiO2.. Heart: Regular rate and rhythm Lungs: Crackles to the bases Abdomen: Soft, nontender, nondistended Extremities: Good range of motion. Minimal edema to the lower extremities. Impression: Dyspnea secondary to acute on chronic diastolic CHF Cute on chronic renal disease stage III COPD CAD Hypertension Hyperlipidemia Depression Dementia RLS Hypothyroidism Plan: Dyspnea secondary to acute on chronic diastolic CHF: Spoke with cardiology. Continue diuresis. Echocardiogram pending. Will increase Lasix to 80 mg twice daily. Continue to wean off BiPAP. Spoke with daughter at bedside. Daughter reports patient has had similar hospitalizations in the past. Daughter expressed that patient is tired of being in the hospital. Daughter is considering other options for discharge planning. Advanced directives addressed in detail. Patient is DO NOT RESUSCITATE. Daughter is to speak to other family members about the possibility of hospice as her condition is chronic and likely not to improve in the future. We will continue to monitor closely. Await decision on patient and family. Will discuss with cardiology and nephrology. Patient desires to go back to the group home at discharge. Acute on chronic renal disease stage III: Renal ultrasound negative. Continue diuresis. Will discuss with nephrology. COPD: We will add low-dose steroid. Continue with her COPD medication. Monitor and adjust medication. Continue to wean off oxygen. CAD: Continue Plavix. DVT prophylaxis in place. Hypertension: Continue beta-daniel. Parameters in place. Hyperlipidemia: Continue Lipitor. Depression: Continue with her medication Dementia: Continue with Aricept RLS: Continue with Requip Hypothyroidism: Continue Synthroid Time Spent Managing Pts Care (In Minutes): 55
[2020-06-29] MEDS: DONEPEZIL HCL 5 MG TAB PO SCH (10:10)
[2020-06-29] MEDS: CLOPIDOGREL 75 MG TABLET PO SCH (10:11)
[2020-06-29] MEDS: FAMOTIDINE 20 MG TAB PO SCH ×2 (10:11→20:53)
[2020-06-29] MEDS: FUROSEMIDE 40 MG/4 ML VIAL IV SCH ×2 (10:12→20:53)
[2020-06-29] MEDS: ATORVASTATIN 20 MG TAB PO SCH (10:12)
[2020-06-29] MEDS: ROPINIROLE HCL 1 MG TAB PO SCH ×2 (10:13→20:54)
[2020-06-29] MEDS: ENOXAPARIN 30 MG/0.3 ML SQ SCH (10:13)
[2020-06-29] MEDS: ESCITALOPRAM 20 MG TAB PO SCH (10:13)
[2020-06-29] MEDS: CALCITROL 0.25 MCG CAP PO SCH (10:15)
[2020-06-29] MEDS: VITAMIN D 5,000 UNIT CAP PO SCH (10:17)
[2020-06-29] MEDS ORDERED: ACETAZOLAMIDE 500 MG IV IV ONE (20:31)
--- NOTE | 2020-06-29 20:39 | P.PN ---
Date of Service: 06/29/20 Vital Signs Temp Pulse Resp BP Pulse Ox 97.0 F 58 18 148/65 H 90 L 06/29/20 15:51 06/29/20 15:51 06/29/20 15:51 06/29/20 15:51 06/29/20 15:51 Medications Acetaminophen (Acetaminophen 500 Mg Tab) 500 mg PO Q4HP PRN PRN Reason: PAIN/FEVER Acetaminophen/Codeine Phosphate (Codeine 30mg/Apap 300mg Tab) 1 tab PO Q6HP PRN PRN Reason: Pain scale 5-7 (Moderate) Last Admin: 06/28/20 20:14 Dose: 1 tab Documented by: Acetazolamide (Acetazolamide 250 Mg Tab) 500 mg PO Q24H [facility] Acetazolamide Sodium (Acetazolamide 500 Mg Iv) 500 mg IV 1X ONE Stop: 06/29/20 20:32 Albuterol Sulfate (Albuterol 2.5 Mg/3 Ml Neb Adali) 2.5 mg NEB [id number] PRN PRN Reason: SHORTNESS OF BREATH Arformoterol Tartrate (Arformoterol Tartrate 15 Mcg/2 Ml Vial.Neb) 15 mcg IH BIDRESP [facility] Last Admin: 06/29/20 07:46 Dose: 15 mcg Documented by: Atorvastatin Calcium (Atorvastatin 20 Mg Tab) 20 mg PO DAILY [facility] Last Admin: 06/29/20 10:12 Dose: 20 mg Documented by: Calcitriol (Calcitrol 0.25 Mcg Cap) 0.5 mcg PO DAILY [facility] Last Admin: 06/29/20 10:15 Dose: 0.5 mcg Documented by: Cholecalciferol (Vitamin D 5,000 Unit Cap) 5,000 unit PO DAILY [facility] Last Admin: 06/29/20 10:17 Dose: 5,000 unit Documented by: Clopidogrel Bisulfate (Clopidogrel 75 Mg Tablet) 75 mg PO DAILY [facility] Last Admin: 06/29/20 10:11 Dose: 75 mg Documented by: Donepezil HCl (Donepezil Hcl 5 Mg Tab) 5 mg PO DAILY [facility] Last Admin: 06/29/20 10:10 Dose: 5 mg Documented by: Enoxaparin Sodium (Enoxaparin 30 Mg/0.3 Ml) 30 mg SQ DAILY [facility] Last Admin: 06/29/20 10:13 Dose: 30 mg Documented by: Escitalopram Oxalate (Escitalopram 20 Mg Tab) 20 mg PO DAILY [facility] Last Admin: 06/29/20 10:13 Dose: 20 mg Documented by: Famotidine (Famotidine 20 Mg Tab) 20 mg PO BID [facility]; Protocol Last Admin: 06/29/20 10:11 Dose: 20 mg Documented by: Furosemide (Furosemide 40 Mg/4 Ml Vial) 80 mg IV BID [facility] Last Admin: 06/29/20 10:12 Dose: 80 mg Documented by: Ipratropium [place] (Ipratropium Brom 0.5mg/2.5ml) 0.5 mg NEB [id number] PRN PRN Reason: SHORTNESS OF BREATH Levothyroxine Sodium (Levothyroxine Sod 0.1 Mg Tab) [facility] Last Admin: 06/29/20 06:01 Dose: 0.2 mg Documented by: Melatonin (Melatonin 5 Mg Tablet) 5 mg PO BEDTIME PRN PRN Reason: INSOMNIA Metoprolol Tartrate (Metoprolol Tar 50 Mg Tab) 50 mg PO BID [facility] Last Admin: 06/29/20 09:00 Dose: Not Given Documented by: Nutritional Formula (Ensure High Protein 237 Ml Can) 237 ml PO BID [facility] Ondansetron HCl (Ondansetron 4 Mg/2 Ml Vial) 4 mg IV Q6HP PRN PRN Reason: NAUSEA / VOMITING Prednisone (Prednisone 10 Mg Tab) 10 mg PO BID [facility] Ropinirole HCl (Ropinirole Hcl 1 Mg Tab) 1 mg PO DAILY [facility] Last Admin: 06/29/20 10:13 Dose: 1 mg Documented by: Ropinirole HCl (Ropinirole Hcl 1 Mg Tab) 3 mg PO BEDTIME [facility] Last Admin: 06/28/20 20:14 Dose: 3 mg Documented by: Simethicone (Simethicone 80 Mg Tab) 160 mg PO Q6HP PRN PRN Reason: GAS Sodium Chloride (Flush Normal Saline 10 Ml) 10 ml IV BID [facility] Last Admin: 06/29/20 10:16 Dose: 10 ml Documented by: Tramadol HCl (Tramadol Hcl 50 Mg Tab) 50 mg PO Q6H PRN PRN Reason: Pain scale 5-7 (Moderate) Microbiology Results 06/27/20 12:03 Throat Culture & Sensitivity - Final NORMAL UPPER RESPIRATORY VAN GROWN. 06/27/20 12:07 Catheterized Urine [place] Count - Preliminary BETWEEN 10,000 & 100,000 CFU/ML 06/27/20 12:07 Catheterized Urine - Preliminary 06/27/20 11:13 Blood - Blood Aerobic Blood Culture - Preliminary 06/27/20 11:13 Blood - Blood Blood Culture Gram Stain - Preliminary 06/27/20 11:13 Blood - Blood Anaerobic Blood Culture - Preliminary No growth in 24 hours. 06/27/20 11:09 Blood - Blood Aerobic Blood Culture - Preliminary No growth in 24 hours. 06/27/20 11:09 Blood - Blood Anaerobic Blood Culture - Final 06/27/20 12:03 Throat Group A Streptococcus Rapid Screen - Final Assessment/ Plan: Nephrology CPS stable without CP. Dyspnea on Bipap. Feels a little better. No acute events overnight. Vitals, medications, blood work and imaging reviewed in the chart. General: Cooperative HEENT: Mucous membr. moist/pink Neck: Supple Respiratory: Diminished Cardiovascular: Regular rate/rhythm, Edema Gastrointestinal: Soft and benign Musculoskeletal: No clubbing, No contractures Integumentary: No rashes, No cyanosis Neurological: Normal speech Blood work reviewed in the chart. Imagings Data: EXAM DESCRIPTION: CT - Abdomen Pelvis Wo Contrast - 06/27/2020 12:50 pm CLINICAL HISTORY: Abdominal pain. PAIN COMPARISON: Abdomen Pelvis W/Wo Contrast dated 09/10/2017 TECHNIQUE: CT imaging of the abdomen and pelvis was performed without contrast. Solid organ, bowel and vascular assessment is limited due to lack of IV and oral contrast. All CT scans are performed using dose optimization technique as appropriate and may include automated exposure control or mA/KV adjustment according to patient size. FINDINGS: Small bilateral pleural effusions are present with linear atelectasis in both lung bases. The liver, spleen, pancreas, adrenal glands and kidneys are within normal limits for a limited non-contrast examination.Moderate fat containing ventral hernia is present upper abdomen. Cholecystectomy clips. No bowel obstruction, free air, free fluid or abscess. Small focal fat containing umbilical hernia. The appendix is not identified as a discrete structure, however, no secondary findings of appendicitis are identified. Moderate lower lumbar degenerative changes are present.Mildly aortic atherosclerosis. IMPRESSION: No acute intra-abdominal or pelvic findings. Moderate fat containing ventral hernia involving the upper abdomen. Small bilateral pleural effusions. Small fat containing umbilical hernia. A limited non-contrast examination was performed as detailed. EXAM DESCRIPTION: CT - Thorax Wo Con - 06/28/2020 9:46 am CLINICAL HISTORY: Hypoxemia/shortness of breath COMPARISON: March 2020 TECHNIQUE: Computed axial tomography of the chest was obtained. Contrast was not requested. All CT scans are performed using dose optimization technique as appropriate and may include automated exposure control or mA/KV adjustment according to patient size. FINDINGS: The evaluation of mediastinum, raymon and vessels is limited secondary to lack of IV contrast administration. Mild bilateral pulmonary opacities. No mediastinal or hilar lymphadenopathy is seen. Small pleural effusions. The heart is mildly enlarged. Coronary arterial calcifications are present IMPRESSION: Mild CHF Conclusions/Impression: A/P ZAIRA likely CRS CKD III with proteinuria -No NSAIDs -Continue furosemide Alkalosis -Give another dose of Diamox -Start daily Diamox. Hypocalcemia -Continue Calcitriol and Cholecalciferol Diastolic CHF, A/C -Agree with increasing furosemide Anemia in chronic illness -Monitor H&H
[2020-06-29] MEDS: predniSONE 10 MG TAB PO SCH (20:53)
[2020-06-29] MEDS: ENSURE HIGH PROTEIN 237 ML CAN PO SCH (20:53)
[2020-06-30] MEDS: LEVOTHYROXINE SOD 0.1 MG TAB PO SCH (06:05)
[2020-06-30 06:54] LABS: Absolute Lymphocytes (CBC) 0.9 K/uL (0.7-4.9); Basophils % 0.7 % (0-1.3); Hematocrit 29.4 % (36.0-45.0); Lymphocytes % 10.7 % (15.3-44.8); MPV 8.5 fL (7.6-11.3); RBC Red Blood Cell Count 2.94 M/uL (3.86-4.86)
[2020-06-30 07:30] LABS: Magnesium 2.4 mg/dL (1.8-2.4); Potassium 4.5 mmol/L (3.5-5.1)
[2020-06-30] MEDS: ARFORMOTEROL TARTRATE 15 MCG/2 ML VIAL.NEB IH SCH ×2 (07:40→20:35)
--- NOTE | 2020-06-30 08:48 | ECHO ---
HEIGHT: 5 ft 3 in WEIGHT: 251 lb 0 oz DATE OF STUDY: 06/29/[address]: Garrett Ramirez DO 2-DIMENSIONAL: YES M.MODE: YES DOPPLER: YES COLOR FLOW: YES TDS: YES PORTABLE: NO DEFINITY: NO BUBBLE STUDY: NO DIAGNOSIS: ACUTE ON CHRONIC DIASTOLIC CONGESTIVE HEART FAILURE CARDIAC HISTORY: CATHERIZATION: NO SURGERY: NO PROSTHETIC VALVE: NO PACEMAKER: NO MEASUREMENTS (cm) DIASTOLIC (NORMALS) SYSTOLIC (NORMALS) IVSd 1.2 (0.6-1.2) LA Diam 3.9 (1.9-4.0) LVEF 73% LVIDd 4.3 (3.5-5.7) LVIDs 2.5 (2.0-3.5) %FS 42% LVPWd 1.3 (0.6-1.2) Ao Diam 2.8 (2.0-3.7) 2 DIMENSIONAL ASSESSMENT: RIGHT ATRIUM: NORMAL LEFT ATRIUM: NORMAL RIGHT VENTRICLE: NORMAL LEFT VENTRICLE: LEFT VENTRICULAR HYPERTROPHY TRICUSPID VALVE: NORMAL MITRAL VALVE: MITRAL ANNULAR CALCIFICATION PULMONIC VALVE: NORMAL AORTIC VALVE: STENOTIC PERICARDIAL EFFUSION: NONE AORTIC ROOT: NORMAL LEFT VENTRICULAR WALL MOTION: DIASTOLIC DYSFUNCTION. DOPPLER/COLOR FLOW: MODERATE AORTIC STENOSIS. AORTIC VALVE AREA 1.4 CENTIMETERS SQUARED. MODERATE PULMONARY HYPERTENSION. COMMENTS: MODERATE AORTIC STENOSIS. AORTIC VALVE AREA 1.4 CENTIMETERS SQUARED. LEFT VENTRICULAR HYPERTROPHY. NORMAL LEFT VENTRICULAR EJECTION FRACTION. DIASTOLIC DYSFUNCTION. MITRAL ANNULAR CALCIFICATION. MODERATE PULMONARY HYPERTENSION. RIGHT VENTRICULAR SYSTOLIC PRESSURE 42 mmHg. TECHNOLOGIST: Brooke CAM
[2020-06-30] MEDS: ENOXAPARIN 30 MG/0.3 ML SQ SCH (09:39)
[2020-06-30] MEDS: ATORVASTATIN 20 MG TAB PO SCH (09:39)
[2020-06-30] MEDS: FAMOTIDINE 20 MG TAB PO SCH ×2 (09:39→21:40)
[2020-06-30] MEDS: METOPROLOL TAR 50 MG TAB PO SCH ×2 (09:40→21:00)
[2020-06-30] MEDS: ROPINIROLE HCL 1 MG TAB PO SCH ×2 (09:40→21:40)
[2020-06-30] MEDS: VITAMIN D 5,000 UNIT CAP PO SCH (09:40)
[2020-06-30] MEDS: predniSONE 10 MG TAB PO SCH ×2 (09:41→21:40)
[2020-06-30] MEDS: ESCITALOPRAM 20 MG TAB PO SCH (09:41)
[2020-06-30] MEDS: DONEPEZIL HCL 5 MG TAB PO SCH (09:41)
[2020-06-30] MEDS: CALCITROL 0.25 MCG CAP PO SCH (09:41)
[2020-06-30] MEDS: CLOPIDOGREL 75 MG TABLET PO SCH (09:54)
[2020-06-30] MEDS: ENSURE HIGH PROTEIN 237 ML CAN PO SCH ×2 (09:55→21:41)
[2020-06-30] MEDS ORDERED: acetaZOLAMIDE 250 MG TAB PO SCH (12:00)
[2020-06-30] MEDS: FUROSEMIDE 40 MG/4 ML VIAL IV SCH ×2 (13:58→21:00)
--- NOTE | 2020-06-30 15:09 | P.PN ---
Subjective Date of Service: 06/30/20 [facility] Provider: [facility] Chief Complaint: Shortness of breath/altered mental status Subjective: Improving Physical Examination - Vital Signs Temperature: 97.9 F Blood Pressure: 152/67 Pulse: 73 Respirations: 20 Pulse Ox (%): 90 - Studies Microbiology Data (last 24 hrs): 06/27/20 12:07 Catheterized Urine [place] Count - Final BETWEEN 10,000 & 100,000 CFU/ML 06/27/20 12:07 Catheterized Urine - Final Enterococcus Faecalis Assessment & Plan Discharge Plan: Other (SNF) Plan to discharge in: 48 Hours Physician Review Additional Text: Physical exam: Patient alert, cooperative. Doing better. She is no longer on BIPAP. She is on 4 L/min. Heart: Regular rate and rhythm Lungs: Crackles to the bases Abdomen: Soft, nontender, nondistended Extremities: Good range of motion. Minimal edema to the lower extremities. Impression: Dyspnea secondary to acute on chronic diastolic CHF Acute on chronic renal disease stage III UTI, Urine culture positive for Entercoccus COPD CAD Hypertension Hyperlipidemia Depression Dementia RLS Hypothyroidism Plan: Dyspnea secondary to acute on chronic diastolic CHF: Patient much improved. Now on 4 L/m. Continue with diuresis. Will have PT and OT evaluate for SNF. Patient prefers SNF at this time. She is not ready for Hospice as this time. Will also start antibiotic for UTI. Anticipate continued improvement in the next 48 hours. Acute on chronic renal disease stage III: Renal ultrasound negative. Continue diuresis. Will discuss with nephrology. UTI, Urine Culture positive for Entercoccus: Patient was asymptomatic. Will start Augmentin. COPD: Will continue with steroid. Continue with her COPD medication. Monitor and adjust medication. Continue to wean off oxygen. CAD: Continue Plavix. DVT prophylaxis in place. Hypertension: Continue beta-daniel. Parameters in place. Hyperlipidemia: Continue Lipitor. Depression: Continue with her medication Dementia: Continue with Aricept RLS: Continue with Requip Hypothyroidism: Continue Synthroid Time Spent Managing Pts Care (In Minutes): 55
[2020-06-30] MEDS: IPRATROPIUM BROM 0.5MG/2.5ML NEB PRN (20:35)
--- NOTE | 2020-06-30 21:15 | P.PN ---
Date of Service: 06/30/20 Vital Signs Temp Pulse Resp BP Pulse Ox 97.0 F 59 20 179/77 H 98 06/30/20 16:00 06/30/20 16:00 06/30/20 16:00 06/30/20 16:00 06/30/20 16:00 Medications Acetaminophen (Acetaminophen 500 Mg Tab) 500 mg PO Q4HP PRN PRN Reason: PAIN/FEVER Acetaminophen/Codeine Phosphate (Codeine 30mg/Apap 300mg Tab) 1 tab PO Q6HP PRN PRN Reason: Pain scale 5-7 (Moderate) Last Admin: 06/28/20 20:14 Dose: 1 tab Documented by: Acetazolamide (Acetazolamide 250 Mg Tab) 500 mg PO BIDL [facility] Albuterol Sulfate (Albuterol 2.5 Mg/3 Ml Neb Adali) 2.5 mg NEB [id number] PRN PRN Reason: SHORTNESS OF BREATH Amoxicillin/Clavulanate Potassium (Amox/K Clav 500 Mg Tab) [address]; P rotocol Arformoterol Tartrate (Arformoterol Tartrate 15 Mcg/2 Ml Vial.Neb) 15 mcg IH BIDRESP [facility] Last Admin: 06/30/20 07:40 Dose: 15 mcg Documented by: Atorvastatin Calcium (Atorvastatin 20 Mg Tab) 20 mg PO DAILY [facility] Last Admin: 06/30/20 09:39 Dose: 20 mg Documented by: Calcitriol (Calcitrol 0.25 Mcg Cap) 0.5 mcg PO DAILY [facility] Last Admin: 06/30/20 09:41 Dose: 0.5 mcg Documented by: Cholecalciferol (Vitamin D 5,000 Unit Cap) 5,000 unit PO DAILY [facility] Last Admin: 06/30/20 09:40 Dose: 5,000 unit Documented by: Clopidogrel Bisulfate (Clopidogrel 75 Mg Tablet) 75 mg PO DAILY [facility] Last Admin: 06/30/20 09:54 Dose: 75 mg Documented by: Donepezil HCl (Donepezil Hcl 5 Mg Tab) 5 mg PO DAILY [facility] Last Admin: 06/30/20 09:41 Dose: 5 mg Documented by: Enoxaparin Sodium (Enoxaparin 30 Mg/0.3 Ml) 30 mg SQ DAILY [facility] Last Admin: 06/30/20 09:39 Dose: 30 mg Documented by: Escitalopram Oxalate (Escitalopram 20 Mg Tab) 20 mg PO DAILY [facility] Last Admin: 06/30/20 09:41 Dose: 20 mg Documented by: Famotidine (Famotidine 20 Mg Tab) 20 mg PO BID [facility]; Protocol Last Admin: 06/30/20 09:39 Dose: 20 mg Documented by: Furosemide (Furosemide 40 Mg/4 Ml Vial) 80 mg IV Q24H [facility] Ipratropium [place] (Ipratropium Brom 0.5mg/2.5ml) 0.5 mg NEB [id number] PRN PRN Reason: SHORTNESS OF BREATH Levothyroxine Sodium (Levothyroxine Sod 0.1 Mg Tab) 0.2 mg PO DAILYAC [facility] Last Admin: 06/30/20 06:05 Dose: 0.2 mg Documented by: Melatonin (Melatonin 5 Mg Tablet) 5 mg PO BEDTIME PRN PRN Reason: INSOMNIA Metolazone (Metolazone 5 Mg Tablet) 10 mg PO 1X [facility] Metoprolol Tartrate (Metoprolol Tar 50 Mg Tab) 50 mg PO BID [facility] Last Admin: 06/30/20 09:40 Dose: 50 mg Documented by: Nutritional Formula (Ensure High Protein 237 Ml Can) 237 ml PO BID [facility] Last Admin: 06/30/20 09:55 Dose: 237 ml Documented by: Ondansetron HCl (Ondansetron 4 Mg/2 Ml Vial) 4 mg IV Q6HP PRN PRN Reason: NAUSEA / VOMITING Prednisone (Prednisone 10 Mg Tab) 10 mg PO BID [facility] Last Admin: 06/30/20 09:41 Dose: 10 mg Documented by: Ropinirole HCl (Ropinirole Hcl 1 Mg Tab) 1 mg PO DAILY [facility] Last Admin: 06/30/20 09:40 Dose: 1 mg Documented by: Ropinirole HCl (Ropinirole Hcl 1 Mg Tab) 3 mg PO BEDTIME [facility] Last Admin: 06/29/20 20:54 Dose: 3 mg Documented by: Simethicone (Simethicone 80 Mg Tab) 160 mg PO Q6HP PRN PRN Reason: GAS Sodium Chloride (Flush Normal Saline 10 Ml) 10 ml IV BID [facility] Last Admin: 06/30/20 09:42 Dose: 10 ml Documented by: Tramadol HCl (Tramadol Hcl 50 Mg Tab) 50 mg PO Q6H PRN PRN Reason: Pain scale 5-7 (Moderate) Last Admin: 06/30/20 00:46 Dose: 50 mg Documented by: Microbiology Results 06/27/20 12:07 Catheterized Urine [place] Count - Final BETWEEN 10,000 & 100,000 CFU/ML 06/27/20 12:07 Catheterized Urine - Final Enterococcus Faecalis 06/27/20 12:03 Throat Culture & Sensitivity - Final NORMAL UPPER RESPIRATORY VAN GROWN. 06/27/20 11:13 Blood - Blood Aerobic Blood Culture - Preliminary 06/27/20 11:13 Blood - Blood Blood Culture Gram Stain - Preliminary 06/27/20 11:13 Blood - Blood Anaerobic Blood Culture - Preliminary No growth in 24 hours. 06/27/20 11:09 Blood - Blood Aerobic Blood Culture - Preliminary No growth in 24 hours. 06/27/20 11:09 Blood - Blood Anaerobic Blood Culture - Final 06/27/20 12:03 Throat Group A Streptococcus Rapid Screen - Final Assessment/ Plan: Nephrology CPS improving without CP. Dyspnea on Bipap. Feels better today No acute events overnight. Vitals, medications, blood work and imaging reviewed in the chart. General: Cooperative HEENT: Mucous membr. moist/pink Neck: Supple Respiratory: Diminished Cardiovascular: Regular rate/rhythm, Edema Gastrointestinal: Soft and benign Musculoskeletal: No clubbing, No contractures Integumentary: No rashes, No cyanosis Neurological: Normal speech Blood work reviewed in the chart. Imagings Data: EXAM DESCRIPTION: CT - Abdomen Pelvis Wo Contrast - 06/27/2020 12:50 pm CLINICAL HISTORY: Abdominal pain. PAIN COMPARISON: Abdomen Pelvis W/Wo Contrast dated 09/10/2017 TECHNIQUE: CT imaging of the abdomen and pelvis was performed without contrast. Solid organ, bowel and vascular assessment is limited due to lack of IV and oral contrast. All CT scans are performed using dose optimization technique as appropriate and may include automated exposure control or mA/KV adjustment according to patient size. FINDINGS: Small bilateral pleural effusions are present with linear atelectasis in both lung bases. The liver, spleen, pancreas, adrenal glands and kidneys are within normal limits for a limited non-contrast examination.Moderate fat containing ventral hernia is present upper abdomen. Cholecystectomy clips. No bowel obstruction, free air, free fluid or abscess. Small focal fat containing umbilical hernia. The appendix is not identified as a discrete structure, however, no secondary findings of appendicitis are identified. Moderate lower lumbar degenerative changes are present.Mildly aortic atherosclerosis. IMPRESSION: No acute intra-abdominal or pelvic findings. Moderate fat containing ventral hernia involving the upper abdomen. Small bilateral pleural effusions. Small fat containing umbilical hernia. A limited non-contrast examination was performed as detailed. EXAM DESCRIPTION: CT - Thorax Wo Con - 06/28/2020 9:46 am CLINICAL HISTORY: Hypoxemia/shortness of breath COMPARISON: March 2020 TECHNIQUE: Computed axial tomography of the chest was obtained. Contrast was not requested. All CT scans are performed using dose optimization technique as appropriate and may include automated exposure control or mA/KV adjustment according to patient size. FINDINGS: The evaluation of mediastinum, raymon and vessels is limited secondary to lack of IV contrast administration. Mild bilateral pulmonary opacities. No mediastinal or hilar lymphadenopathy is seen. Small pleural effusions. The heart is mildly enlarged. Coronary arterial calcifications are present IMPRESSION: Mild CHF Conclusions/Impression: A/P ZAIRA likely CRS CKD III with proteinuria -No NSAIDs -Reduce furosemide once daily -Metolazone X1 Alkalosis -Increase Diamox BID Hypocalcemia -Continue Calcitriol and Cholecalciferol Diastolic CHF, A/C -Continue once daily furosemide -Give Metolazone X1 -Increase Diamox BID Anemia in chronic illness -Monitor H&H Case reviewed with Dr. Ramirez
[2020-06-30] MEDS: AMOX/K CLAV 500 MG TAB PO SCH (21:40)
[2020-06-30] MEDS: METOLAZONE 5 MG TABLET PO SCH (21:40)
[2020-07-01] MEDS: LEVOTHYROXINE SOD 0.1 MG TAB PO SCH (06:13)
[2020-07-01 06:49] LABS: Absolute Lymphocytes (CBC) 0.9 K/uL (0.7-4.9); Basophils % 0.5 % (0-1.3); Hematocrit 29.8 % (36.0-45.0); Lymphocytes % 11.8 % (15.3-44.8); MPV 8.7 fL (7.6-11.3); RBC Red Blood Cell Count 2.99 M/uL (3.86-4.86)
[2020-07-01 06:51] LABS: Magnesium 2.5 mg/dL (1.8-2.4); Potassium 4.3 mmol/L (3.5-5.1)
[2020-07-01] MEDS: ARFORMOTEROL TARTRATE 15 MCG/2 ML VIAL.NEB IH SCH ×2 (08:25→21:00)
--- NOTE | 2020-07-01 08:44 | RAD REPORT ---
EXAM DESCRIPTION: RAD - Chest Single View - 07/01/2020 6:34 am CLINICAL HISTORY: follow up CHF Chest pain. COMPARISON: Chest Single View dated 06/29/2020; Chest Single View dated 06/27/2020; Chest Single View dated 04/27/2020; Chest Single View dated 04/02/2020 FINDINGS: Portable technique limits examination quality. Since 06/29/2020, little overall change is seen in the bilateral interstitial prominence and right ba se opacification. The heart is normal in size. No displaced fractures. IMPRESSION: Stable chest since 06/29/2020.
[2020-07-01] MEDS: DONEPEZIL HCL 5 MG TAB PO SCH (09:00)
[2020-07-01] MEDS: predniSONE 10 MG TAB PO SCH ×2 (10:53→22:07)
[2020-07-01] MEDS: VITAMIN D 5,000 UNIT CAP PO SCH (10:54)
[2020-07-01] MEDS: CALCITROL 0.25 MCG CAP PO SCH (10:55)
[2020-07-01] MEDS: ESCITALOPRAM 20 MG TAB PO SCH (10:56)
[2020-07-01] MEDS: AMOX/K CLAV 500 MG TAB PO SCH ×2 (10:56→22:07)
[2020-07-01] MEDS: ATORVASTATIN 20 MG TAB PO SCH (10:57)
[2020-07-01] MEDS: FAMOTIDINE 20 MG TAB PO SCH ×2 (10:58→22:07)
[2020-07-01] MEDS: ROPINIROLE HCL 1 MG TAB PO SCH ×2 (10:58→22:07)
[2020-07-01] MEDS: CLOPIDOGREL 75 MG TABLET PO SCH (10:58)
[2020-07-01] MEDS: METOPROLOL TAR 50 MG TAB PO SCH ×2 (10:59→21:00)
[2020-07-01] MEDS: ENOXAPARIN 30 MG/0.3 ML SQ SCH (11:04)
[2020-07-01] MEDS: ENSURE HIGH PROTEIN 237 ML CAN PO SCH ×2 (11:04→22:08)
[2020-07-01] MEDS: acetaZOLAMIDE 250 MG TAB PO SCH ×2 (11:04→16:22)
[2020-07-01] MEDS: FUROSEMIDE 40 MG/4 ML VIAL IV SCH (11:05)
--- NOTE | 2020-07-01 12:08 | PN ---
Date of Progress Note: 06/29/2020 Subjective: Ms. Zacarias was seen by Dr. Holland for acute congestive heart failure probably diastolic. She has been on Lasix 80 mg IV q.12 hours. Echocardiogram which was done on 06/29/2020 revealed an e jection fraction of 73%. She had moderate aortic stenosis of 1.4 cm2. Mitral annular calcification and mild pulmonary hypertension with a PA pressure of 42 mmHg. Today, her pressure is 148/65. Her w eight is 251. She is in sinus rhythm at a rate of 58, O2 saturation on 91% on CPAP and BiPAP. Her l ast pO2 is 125, pCO2 of 87, pH of 7.27. Dr. Garcia was following patient for her kidneys as well. I think there is definitely a component of acute diastolic congestive heart failure as well as the [place] PD. I agree with her present regimen right now. She is presently on acetazolamide. She is on antib iotics. She is on inhalers, Lipitor, Plavix, Lovenox, Lasix, metoprolol, metolazone, prednisone. Th e patient may benefit from low-dose JAMES inhibitor, but I think beta blockade and Lasix, salt restrict ion and fluid restriction is the keys of her treatment. The patient is a do not resuscitate. I will continue to follow as needed. ALLYSON/CATHLEEN Voice ID: [id number] Report ID: [id number]
--- NOTE | 2020-07-01 14:22 | P.CNS ---
Date of Consult: 07/01/20 Primary Care Provider: [facility] Chief Complaint: Shortness of breath/altered mental status History of Present Illness: Patient is 85 years of age lives in [place] seen her for quite some time into the hospital with altered mental status she has also has shortness of breath estevez has a history of COPD as in see me for quite some time apparently she has a diastolic dysfunction condition stable Patient is on Brovana Allergies No Known Allergies Allergy (Verified 06/27/20 17:18) Home Medications: Acetaminophen with Codeine [Acetaminophen-Cod #3 Tablet] 1 each PO Q6HP PRN 04/28/20 Arformoterol Tartrate [[place]rov[place]] 1 vial IH BID 04/28/20 Atorvastatin Calcium 20 mg PO DAILY 04/28/20 Calcium Carbonate [Veto-Gest] 2 tab PO Q1H PRN 04/28/20 Clopidogrel Bisulfate [Plavix] 75 mg PO DAILY 04/28/20 Donepezil [Aricept*] 5 mg PO DAILY 04/28/20 Escitalopram Oxalate 20 mg PO DAILY 04/28/20 Gabapentin 100 mg PO BEDTIME 04/28/20 Levothyroxine Sodium [Synthroid] 200 mcg PO DAILY 04/28/20 Melatonin 5 mg PO BEDTIME PRN 04/28/20 Potassium Chloride [Klor-Con 10] 10 meq PO DAILY 04/28/20 Ropinirole HCl [Requip*] 1 mg PO DAILY 04/28/20 Ropinirole HCl [Requip] 3 mg PO BEDTIME 04/28/20 Tramadol HCl [Ultram] 50 mg PO Q6H PRN 04/28/20 Trazodone [Desyrel*] 50 mg PO BEDTIME 04/28/20 Umeclidinium Brm/Vilanterol Tr [Anoro Ellipta 62.5-25 Mcg INH] 1 inh IH DAILY 04/28/20 Furosemide [Lasix*] 40 mg PO DAILY 7 Days #7 tab 05/07/20 Famotidine [Pepcid] 20 mg PO BID 06/27/20 Loperamide HCl [Imodium A-D] 2 mg PO PRN PRN 06/27/20 Metoprolol Tartrate [Lopressor] 50 mg PO BID 06/27/20 Simethicone 160 mg PO Q6HP PRN 06/27/20 - Past Medical/Surgical History Diabetic: No -: diverticulosis -: Hypothyroidism -: Insomnia -: History of TIA X2 -: Restless leg syndrome -: GERD -: Neuropathy -: COPD -: Hypertension -: dementia -: Former tobacco use -: Left knee replacement -: Rotator cuff repair -: Ankle surgery -: Cholecystectomy Psychosocial/ Personal History: Patient lives at [facility]. She has been there for over a year. - Family History Father Medical History: Lung disease Sister Medical History: Lung disease Brother Medical History: Heart disease Mother Medical History: Heart disease - Social History Smoking Status: Unknown if ever smoked Alcohol use: No CD- Drugs: No Caffeine use: Yes Place of Residence: [facility] Review of Systems General: Weakness Respiratory: Shortness of Breath Physical Examination Temp Pulse Resp BP Pulse Ox 97.0 F 61 23 H 159/70 H 99 07/01/20 08:00 07/01/20 11:05 07/01/20 08:00 07/01/20 11:05 07/01/20 08:00 General: Alert, In no apparent distress, Oriented x3 HEENT: Atraumatic Neck: Supple Respiratory: Expiratory wheezes Cardiovascular: No edema, Normal S1 S2 - Problems (1) COPD exacerbation Current Visit: Yes Status: Acute Plan: Patient is 85 years of age admitted with worsening dyspnea altered mental status presume COPD exacerbation chest x-ray shows some interstitial changes are presume is chronic patient is hypoxic hypercapnic with elevated bicarbonate bicarbonate has become worse I suspect is from the diuresis patient has aortic stenosis urine has Enterococcus blood pressure elevated (2) Respiratory failure with hypoxia and hypercapnia Current Visit: Yes Status: Acute Plan: Patient has chronic respiratory failure secondary to COPD will benefit from a noninvasive ventilator to prevent recurrent hospital admissions due to severity of her condition her BiPAP would not be indicated Qualifiers: Chronicity: chronic Qualified Code(s): J96.11 - Chronic respiratory failure with hypoxia; J96.12 - Chronic respiratory failure with hypercapnia
[2020-07-01 15:37] LABS: Arterial Blood Carboxyhemoglob 1.7 % (0-1.5); Blood Gas Oxyhemoglobin 88.3 % (94-97); Blood O2 Saturation 90.8 % (92-98.5)
--- NOTE | 2020-07-01 16:04 | P.PN ---
Subjective Date of Service: 07/01/20 Primary Care Provider: [facility] Chief Complaint: Shortness of breath/altered mental status Subjective: Improving (Patient alert, cooperative. Currently on 5 L.) Physical Examination - Vital Signs Temperature: 97.0 F Blood Pressure: 159/70 Pulse: 61 Respirations: 23 Pulse Ox (%): 99 - Studies Microbiology Data (last 24 hrs): 06/27/20 12:07 Catheterized Urine [place] Count - Final BETWEEN 10,000 & 100,000 CFU/ML 06/27/20 12:07 Catheterized Urine - Final Enterococcus Faecalis Assessment & Plan Discharge Plan: Other (penitentiary facility) Plan to discharge in: 24 Hours Physician Review Additional Text: Physical exam: Patient alert, cooperative. Doing better. She is on 5 L /min. Heart: Regular rate and rhythm Lungs: Crackles to the bases Abdomen: Soft, nontender, nondistended Extremities: Good range of motion. Minimal edema to the lower extremities. Impression: Dyspnea secondary to acute on chronic diastolic CHF/pulmonary hypertension/aortic stenosis Acute on chronic renal disease stage III UTI, Urine culture positive for Entercoccus COPD CAD Hypertension Hyperlipidemia Depression Dementia RLS Hypothyroidism Plan: Dyspnea secondary to acute on chronic diastolic CHF/pulmonary hypertension/aortic stenosis: Patient on 5 L. Continue to wean down oxygen use. Pulmonary consulted. Will discuss further with pulmonology to consider non invasive ventilator. Case also discussed with nephrology. Diuretic therapy adjusted. Continue PT and OT for skilled placement. Patient being treated for UTI. Will monitor closely. Anticipate improvement over the next 48 hours. Acute on chronic renal disease stage III: Renal ultrasound negative. Continue diuresis. Case discussed with nephrology UTI, Urine Culture positive for Entercoccus: Patient was asymptomatic. Will start Augmentin. COPD: Continue with COPD treatment. Will consider noninvasive ventilator CAD: Continue Plavix. DVT prophylaxis in place. Hypertension: Continue beta-daniel. Parameters in place. Hyperlipidemia: Continue Lipitor. Depression: Continue with her medication Dementia: Continue with Aricept RLS: Continue with Requip Hypothyroidism: Continue Synthroid Time Spent Managing Pts Care (In Minutes): 55
[2020-07-01] MEDS: METOLAZONE 5 MG TABLET PO SCH ×2 (16:23→22:00)
--- NOTE | 2020-07-01 21:08 | P.PN ---
Date of Service: 07/01/20 Vital Signs Temp Pulse Resp BP Pulse Ox 98.4 F 62 17 147/62 H 88 L 07/01/20 20:00 07/01/20 20:00 07/01/20 20:00 07/01/20 20:00 07/01/20 20:00 Medications Acetaminophen (Acetaminophen 500 Mg Tab) 500 mg PO Q4HP PRN PRN Reason: PAIN/FEVER Acetaminophen/Codeine Phosphate (Codeine 30mg/Apap 300mg Tab) 1 tab PO Q6HP PRN PRN Reason: Pain scale 5-7 (Moderate) Last Admin: 06/28/20 20:14 Dose: 1 tab Documented by: Acetazolamide (Acetazolamide 250 Mg Tab) 500 mg [facility] BIDL [facility] Last Admin: 07/01/20 16:22 Dose: 500 mg Documented by: Albuterol Sulfate (Albuterol 2.5 Mg/3 Ml Neb Adali) 2.5 mg NEB [id number] PRN PRN Reason: SHORTNESS OF BREATH Amoxicillin/Clavulanate Potassium (Amox/K Clav 500 Mg Tab) 500 mg PO BID [facility]; Protocol Last Admin: 07/01/20 10:56 Dose: 500 mg Documented by: Arformoterol Tartrate (Arformoterol Tartrate 15 Mcg/2 Ml Vial.Neb) 15 mcg IH BIDRESP [facility] Last Admin: 07/01/20 08:25 Dose: 15 mcg Documented by: Atorvastatin Calcium (Atorvastatin 20 Mg Tab) 20 mg PO DAILY [facility] Last Admin: 07/01/20 10:57 Dose: 20 mg Documented by: Calcitriol (Calcitrol 0.25 Mcg Cap) 0.5 mcg PO DAILY [facility] Last Admin: 07/01/20 10:55 Dose: 0.5 mcg Documented by: Cholecalciferol (Vitamin D 5,000 Unit Cap) 5,000 unit PO DAILY [facility] Last Admin: 07/01/20 10:54 Dose: 5,000 unit Documented by: Clopidogrel Bisulfate (Clopidogrel 75 Mg Tablet) 75 mg PO DAILY [facility] Last Admin: 07/01/20 10:58 Dose: 75 mg Documented by: Donepezil HCl (Donepezil Hcl 5 Mg Tab) 5 mg PO DAILY [facility] Last Admin: 07/01/20 09:00 Dose: 5 mg Documented by: Enoxaparin Sodium (Enoxaparin 30 Mg/0.3 Ml) 30 mg SQ DAILY [facility] Last Admin: 07/01/20 11:04 Dose: 30 mg Documented by: Escitalopram Oxalate (Escitalopram 20 Mg Tab) 20 mg PO DAILY [facility] Last Admin: 07/01/20 10:56 Dose: 20 mg Documented by: Famotidine (Famotidine 20 Mg Tab) 20 mg PO BID [facility]; Protocol Last Admin: 07/01/20 10:58 Dose: 20 mg Documented by: Furosemide (Furosemide 40 Mg/4 Ml Vial) 80 mg IV Q24H [facility] Last Admin: 07/01/20 11:05 Dose: 80 mg Documented by: Ipratropium [place] (Ipratropium Brom 0.5mg/2.5ml) 0.5 mg NEB [id number] PRN PRN Reason: SHORTNESS OF BREATH Last Admin: 06/30/20 20:35 Dose: 0.5 mg Documented by: Levothyroxine Sodium (Levothyroxine Sod 0.1 Mg Tab) 0.2 mg PO DAILYAC [facility] Last Admin: 07/01/20 06:13 Dose: 0.2 mg Documented by: Melatonin (Melatonin 5 Mg Tablet) 5 mg PO BEDTIME PRN PRN Reason: INSOMNIA Metolazone (Metolazone 5 Mg Tablet) 10 mg PO 1X [facility] Last Admin: 06/30/20 21:40 Dose: 10 mg Documented by: Metolazone (Metolazone 5 Mg Tablet) 10 mg PO 1X [facility] Last Admin: 07/01/20 16:23 Dose: 10 mg Documented by: Metoprolol Tartrate (Metoprolol Tar 50 Mg Tab) 50 mg PO BID [facility] Last Admin: 07/01/20 10:59 Dose: 50 mg Documented by: Nutritional Formula (Ensure High Protein 237 Ml Can) 237 ml PO BID [facility] Last Admin: 07/01/20 11:04 Dose: 237 ml Documented by: Ondansetron HCl (Ondansetron 4 Mg/2 Ml Vial) 4 mg IV Q6HP PRN PRN Reason: NAUSEA / VOMITING Prednisone (Prednisone 10 Mg Tab) 10 mg PO BID [facility] Last Admin: 07/01/20 10:53 Dose: 10 mg Documented by: Ropinirole HCl (Ropinirole Hcl 1 Mg Tab) 1 mg PO DAILY [facility] Last Admin: 07/01/20 10:58 Dose: 1 mg Documented by: Ropinirole HCl (Ropinirole Hcl 1 Mg Tab) 3 mg PO BEDTIME [facility] Last Admin: 06/30/20 21:40 Dose: 3 mg Documented by: Simethicone (Simethicone 80 Mg Tab) 160 mg PO Q6HP PRN PRN Reason: GAS Sodium Chloride (Flush Normal Saline 10 Ml) 10 ml IV BID [facility] Last Admin: 07/01/20 11:05 Dose: 10 ml Documented by: Tramadol HCl (Tramadol Hcl 50 Mg Tab) 50 mg PO Q6H PRN PRN Reason: Pain scale 5-7 (Moderate) Last Admin: 06/30/20 00:46 Dose: 50 mg Documented by: Microbiology Results 06/27/20 12:07 Catheterized Urine [place] Count - Final BETWEEN 10,000 & 100,000 CFU/ML 06/27/20 12:07 Catheterized Urine - Final Enterococcus Faecalis 06/27/20 12:03 Throat Culture & Sensitivity - Final NORMAL UPPER RESPIRATORY VAN GROWN. 06/27/20 11:13 Blood - Blood Aerobic Blood Culture - Preliminary 06/27/20 11:13 Blood - Blood Blood Culture Gram Stain - Preliminary 06/27/20 11:13 Blood - Blood Anaerobic Blood Culture - Preliminary No growth in 24 hours. 06/27/20 11:09 Blood - Blood Aerobic Blood Culture - Preliminary No growth in 24 hours. 06/27/20 11:09 Blood - Blood Anaerobic Blood Culture - Final 06/27/20 12:03 Throat Group A Streptococcus Rapid Screen - Final Assessment/ Plan: Nephrology CPS improving without CP. Dyspnea on intermittent Bipap. Feels better today No acute events overnight. Vitals, medications, blood work and imaging reviewed in the chart. General: Cooperative HEENT: Mucous membr. moist/pink Neck: Supple Respiratory: Diminished Cardiovascular: Regular rate/rhythm, Edema Gastrointestinal: Soft and benign Musculoskeletal: No clubbing, No contractures Integumentary: No rashes, No cyanosis Neurological: Normal speech Blood work reviewed in the chart. Imagings Data: EXAM DESCRIPTION: CT - Abdomen Pelvis Wo Contrast - 06/27/2020 12:50 pm CLINICAL HISTORY: Abdominal pain. PAIN COMPARISON: Abdomen Pelvis W/Wo Contrast dated 09/10/2017 TECHNIQUE: CT imaging of the abdomen and pelvis was performed without contrast. Solid organ, bowel and vascular assessment is limited due to lack of IV and oral contrast. All CT scans are performed using dose optimization technique as appropriate and may include automated exposure control or mA/KV adjustment according to patient size. FINDINGS: Small bilateral pleural effusions are present with linear atelectasis in both lung bases. The liver, spleen, pancreas, adrenal glands and kidneys are within normal limits for a limited non-contrast examination.Moderate fat containing ventral hernia is present upper abdomen. Cholecystectomy clips. No bowel obstruction, free air, free fluid or abscess. Small focal fat containing umbilical hernia. The appendix is not identified as a discrete structure, however, no secondary findings of appendicitis are identified. Moderate lower lumbar degenerative changes are present.Mildly aortic atherosclerosis. IMPRESSION: No acute intra-abdominal or pelvic findings. Moderate fat containing ventral hernia involving the upper abdomen. Small bilateral pleural effusions. Small fat containing umbilical hernia. A limited non-contrast examination was performed as detailed. EXAM DESCRIPTION: CT - Thorax Wo Con - 06/28/2020 9:46 am CLINICAL HISTORY: Hypoxemia/shortness of breath COMPARISON: March 2020 TECHNIQUE: Computed axial tomography of the chest was obtained. Contrast was not requested. All CT scans are performed using dose optimization technique as appropriate and may include automated exposure control or mA/KV adjustment according to patient size. FINDINGS: The evaluation of mediastinum, raymon and vessels is limited secondary to lack of IV contrast administration. Mild bilateral pulmonary opacities. No mediastinal or hilar lymphadenopathy is seen. Small pleural effusions. The heart is mildly enlarged. Coronary arterial calcifications are present IMPRESSION: Mild CHF Conclusions/Impression: A/P: Continue the current POC and Medications other than the changes listed. AM Labs PRN. Recommend daily weight. Please see the orders for complete details. ZAIRA likely CRS CKD III with proteinuria -No NSAIDs -Continue furosemide once daily -Metolazone X1 today Alkalosis -Continue Diamox BID Hypocalcemia -Continue Calcitriol and Cholecalciferol Diastolic CHF, A/C -Continue once daily furosemide -Give Metolazone X1 -Increase Diamox BID A/C respiratory failure with hypoxia and hypercapnea -Bipap as ordered Anemia in chronic illness -Monitor H&H Case reviewed with Dr. Ramirez
[2020-07-02] MEDS: LEVOTHYROXINE SOD 0.1 MG TAB PO SCH (05:59)
[2020-07-02 06:00] LABS: Absolute Lymphocytes (CBC) 1.3 K/uL (0.7-4.9); Basophils % 0.5 % (0-1.3); Hematocrit 30.8 % (36.0-45.0); Lymphocytes % 15.4 % (15.3-44.8); MPV 8.8 fL (7.6-11.3); RBC Red Blood Cell Count 3.04 M/uL (3.86-4.86)
[2020-07-02 06:13] LABS: Magnesium 2.4 mg/dL (1.8-2.4); Potassium 4.1 mmol/L (3.5-5.1)
[2020-07-02] MEDS: DONEPEZIL HCL 5 MG TAB PO SCH (08:12)
[2020-07-02] MEDS: AMOX/K CLAV 500 MG TAB PO SCH ×2 (08:12→20:25)
[2020-07-02] MEDS: acetaZOLAMIDE 250 MG TAB PO SCH ×2 (08:13→16:00)
[2020-07-02] MEDS: predniSONE 10 MG TAB PO SCH ×2 (08:13→20:25)
[2020-07-02] MEDS: ESCITALOPRAM 20 MG TAB PO SCH (08:14)
[2020-07-02] MEDS: METOPROLOL TAR 50 MG TAB PO SCH ×2 (08:14→20:25)
[2020-07-02] MEDS: ENSURE HIGH PROTEIN 237 ML CAN PO SCH ×2 (08:14→20:25)
[2020-07-02] MEDS: ATORVASTATIN 20 MG TAB PO SCH (08:14)
[2020-07-02] MEDS: CALCITROL 0.25 MCG CAP PO SCH (08:15)
[2020-07-02] MEDS: VITAMIN D 5,000 UNIT CAP PO SCH (08:15)
[2020-07-02] MEDS: CLOPIDOGREL 75 MG TABLET PO SCH (08:15)
[2020-07-02] MEDS: FAMOTIDINE 20 MG TAB PO SCH ×2 (08:15→20:25)
[2020-07-02] MEDS: ROPINIROLE HCL 1 MG TAB PO SCH ×2 (08:15→20:25)
[2020-07-02] MEDS: ENOXAPARIN 30 MG/0.3 ML SQ SCH (08:15)
[2020-07-02] MEDS: ARFORMOTEROL TARTRATE 15 MCG/2 ML VIAL.NEB IH SCH ×2 (08:55→19:25)
[2020-07-02] MEDS: IPRATROPIUM BROM 0.5MG/2.5ML NEB PRN (08:55)
[2020-07-02] MEDS: ALBUTEROL 2.5 MG/3 ML NEB SOL NEB PRN (08:55)
[2020-07-02 10:45] VITALS: O2SAT 93
--- NOTE | 2020-07-02 10:46 | P.PN ---
Subjective Date of Service: 07/02/20 Primary Care Provider: retirement Chief Complaint: Shortness of breath/altered mental status Subjective: Other (Patient on BIPAP. She appears improved since yesterday.) Physical Examination - Vital Signs Temperature: 97.7 F Blood Pressure: 141/74 Pulse: 64 Respirations: 24 Pulse Ox (%): 97 Assessment & Plan Discharge Plan: Other (LTAC vs Hospice) Plan to discharge in: 48 Hours Physician Review Additional Text: Physical exam: Patient alert, cooperative. Currently on BiPAP. Heart: Regular rate and rhythm Lungs: Crackles to the bases. Patient appears improved. Abdomen: Soft, nontender, nondistended Extremities: Good range of motion. Minimal edema to the lower extremities. Impression: Dyspnea secondary to acute on chronic diastolic CHF/mild pulmonary hypertension/moderate aortic stenosis Acute on chronic renal disease stage III UTI, Urine culture positive for Entercoccus COPD CAD Hypertension Hyperlipidemia Depression Dementia RLS Hypothyroidism Plan: Dyspnea secondary to acute on chronic diastolic CHF/mild pulmonary hypertension/moderate aortic stenosis: Patient currently on BiPAP mainly at night. She has been able to wean down to 4 L per nasal cannula during the day. Physical therapy and Occupational Therapy continue to work with patient. She is able to stand appropriately. Physical therapy reports some improvement. Spoke with nephrology. Continue aggressive diuresis. Currently on IV Lasix and Diamox. Case discussed with pulmonology yesterday. Patient in process to get noninvasive ventilator. Spoke with daughter at length concerning patient's care. She prefers the patient not to go back to skilled facility as she has been unhappy with the facility. Options provided included long-term acute care facility to help better optimize her care versus hospice. From her perspective quality of life versus quantity will be important. Will discuss with criminal justice social worker about possible options. Daughter will discuss with patient in detail to determine what option would be best for her. We will continue to reassess and monitor closely. I would recommend long-term acute care facility at this time unless patient is not wanting to pursue this then hospice. Will update criminal justice social worker after my discussion with patient and family. I will turn the service over to the hospitalist team tomorrow. I will go her plan of care with them. Acute on chronic renal disease stage III: Renal ultrasound negative. Continue diuresis. Case discussed with nephrology UTI, Urine Culture positive for Entercoccus: Patient was asymptomatic. Continue with Augmentin for 7 days. COPD: Continue with COPD treatment. Continue with nasal cannula. Transition to noninvasive ventilator at night or times of distress. CAD: Continue Plavix. DVT prophylaxis in place. Hypertension: Continue beta-daniel. Parameters in place. Will discuss with cardiology. Hyperlipidemia: Continue Lipitor. Depression: Continue with her medication Dementia: Continue with Aricept RLS: Continue with Requip Hypothyroidism: Continue Synthroid Time Spent Managing Pts Care (In Minutes): 55
[2020-07-02] MEDS: FUROSEMIDE 40 MG/4 ML VIAL IV SCH (11:46)
[2020-07-02] MEDS: METOLAZONE 5 MG TABLET PO SCH (15:00)
--- NOTE | 2020-07-02 23:18 | P.PN ---
Date of Service: 07/02/20 Vital Signs Temp Pulse Resp BP Pulse Ox 97.9 F 55 18 136/65 92 07/02/20 20:00 07/02/20 20:00 07/02/20 20:00 07/02/20 20:00 07/02/20 20:00 Medications Acetaminophen (Acetaminophen 500 Mg Tab) 500 mg PO Q4HP PRN PRN Reason: PAIN/FEVER Acetaminophen/Codeine Phosphate (Codeine 30mg/Apap 300mg Tab) 1 tab PO Q6HP PRN PRN Reason: Pain scale 5-7 (Moderate) Last Admin: 06/28/20 20:14 Dose: 1 tab Documented by: Acetazolamide (Acetazolamide 250 Mg Tab) 500 mg PO BIDL [facility] Last Admin: 07/02/20 16:00 Dose: 500 mg Documented by: Albuterol Sulfate (Albuterol 2.5 Mg/3 Ml Neb Adali) 2.5 mg NEB [id number] PRN PRN Reason: SHORTNESS OF BREATH Last Admin: 07/02/20 08:55 Dose: 2.5 mg Documented by: Amoxicillin/Clavulanate Potassium (Amox/K Clav 500 Mg Tab) 500 mg PO BID [facility]; Protocol Last Admin: 07/02/20 20:25 Dose: 500 mg Documented by: Arformoterol Tartrate (Arformoterol Tartrate 15 Mcg/2 Ml Vial.Neb) 15 mcg IH BIDRESP [facility] Last Admin: 07/02/20 19:25 Dose: 15 mcg Documented by: Atorvastatin Calcium (Atorvastatin 20 Mg Tab) 20 mg PO DAILY [facility] Last Admin: 07/02/20 08:14 Dose: 20 mg Documented by: Calcitriol (Calcitrol 0.25 Mcg Cap) 0.5 mcg PO DAILY [facility] Last Admin: 07/02/20 08:15 Dose: 0.5 mcg Documented by: Cholecalciferol (Vitamin D 5,000 Unit Cap) 5,000 unit PO DAILY [facility] Last Admin: 07/02/20 08:15 Dose: 5,000 unit Documented by: Clopidogrel Bisulfate (Clopidogrel 75 Mg Tablet) 75 mg PO DAILY [facility] Last Admin: 07/02/20 08:15 Dose: 75 mg Documented by: Donepezil HCl (Donepezil Hcl 5 Mg Tab) 5 mg PO DAILY [facility] Last Admin: 07/02/20 08:12 Dose: 5 mg Documented by: Enoxaparin Sodium (Enoxaparin 30 Mg/0.3 Ml) 30 mg SQ DAILY [facility] Last Admin: 07/02/20 08:15 Dose: 30 mg Documented by: Escitalopram Oxalate (Escitalopram 20 Mg Tab) 20 mg PO DAILY [facility] Last Admin: 07/02/20 08:14 Dose: 20 mg Documented by: Famotidine (Famotidine 20 Mg Tab) 20 mg PO BID [facility]; Protocol Last Admin: 07/02/20 20:25 Dose: 20 mg Documented by: Furosemide (Furosemide 40 Mg/4 Ml Vial) 80 mg IV Q24H [facility] Last Admin: 07/02/20 11:46 Dose: 80 mg Documented by: Ipratropium [place] (Ipratropium Brom 0.5mg/2.5ml) 0.5 mg NEB [id number] PRN PRN Reason: SHORTNESS OF BREATH Last Admin: 07/02/20 08:55 Dose: 0.5 mg Documented by: Levothyroxine Sodium (Levothyroxine Sod 0.1 Mg Tab) 0.2 mg PO DAILYAC [facility] Last Admin: 07/02/20 05:59 Dose: 0.2 mg Documented by: Melatonin (Melatonin 5 Mg Tablet) 5 mg PO BEDTIME PRN PRN Reason: INSOMNIA Last Admin: 07/02/20 00:53 Dose: 5 mg Documented by: Metoprolol Tartrate (Metoprolol Tar 50 Mg Tab) 50 mg PO BID [facility] Last Admin: 07/02/20 20:25 Dose: Not Given Documented by: Nutritional Formula (Ensure High Protein 237 Ml Can) 237 ml PO BID [facility] Last Admin: 07/02/20 20:25 Dose: 237 ml Documented by: Ondansetron HCl (Ondansetron 4 Mg/2 Ml Vial) 4 mg IV Q6HP PRN PRN Reason: NAUSEA / VOMITING Prednisone (Prednisone 10 Mg Tab) 10 mg PO BID [facility] Last Admin: 07/02/20 20:25 Dose: 10 mg Documented by: Ropinirole HCl (Ropinirole Hcl 1 Mg Tab) 1 mg PO DAILY [facility] Last Admin: 07/02/20 08:15 Dose: 1 mg Documented by: Ropinirole HCl (Ropinirole Hcl 1 Mg Tab) 3 mg PO BEDTIME [facility] Last Admin: 07/02/20 20:25 Dose: 3 mg Documented by: Simethicone (Simethicone 80 Mg Tab) 160 mg PO Q6HP PRN PRN Reason: GAS Sodium Chloride (Flush Normal Saline 10 Ml) [address] Last Admin: 07/02/20 20:25 Dose: 10 ml Documented by: Tramadol HCl (Tramadol Hcl 50 Mg Tab) 50 mg PO Q6H PRN PRN Reason: Pain scale 5-7 (Moderate) Last Admin: 06/30/20 00:46 Dose: 50 mg Documented by: Microbiology Results 06/27/20 11:09 Blood - Blood Aerobic Blood Culture - Final No growth in 5 days. 06/27/20 11:09 Blood - Blood Anaerobic Blood Culture - Final 06/27/20 11:13 Blood - Blood Aerobic Blood Culture - Preliminary 06/27/20 11:13 Blood - Blood Blood Culture Gram Stain - Preliminary 06/27/20 11:13 Blood - Blood Anaerobic Blood Culture - Final No growth in 5 days. 06/27/20 12:07 Catheterized Urine Rudolph Count - Final BETWEEN 10,000 & 100,000 CFU/ML 06/27/20 12:07 Catheterized Urine - Final Enterococcus Faecalis 06/27/20 12:03 Throat Culture & Sensitivity - Final NORMAL UPPER RESPIRATORY VAN GROWN. 06/27/20 12:03 Throat Group A Streptococcus Rapid Screen - Final Assessment/ Plan: Nephrology CPS improving without CP. Dyspnea on intermittent Bipap. Slowly improving. No acute events overnight. Vitals, medications, blood work and imaging reviewed in the chart. General: Cooperative HEENT: Mucous membr. moist/pink Neck: Supple Respiratory: Diminished Cardiovascular: Regular rate/rhythm, Edema Gastrointestinal: Soft and benign Musculoskeletal: No clubbing, No contractures Integumentary: No rashes, No cyanosis Neurological: Normal speech Blood work reviewed in the chart. Imagings Data: EXAM DESCRIPTION: CT - Abdomen Pelvis Wo Contrast - 06/27/2020 12:50 pm CLINICAL HISTORY: Abdominal pain. PAIN COMPARISON: Abdomen Pelvis W/Wo Contrast dated 09/10/2017 TECHNIQUE: CT imaging of the abdomen and pelvis was performed without contrast. Solid organ, bowel and vascular assessment is limited due to lack of IV and oral contrast. All CT scans are performed using dose optimization technique as appropriate and may include automated exposure control or mA/KV adjustment according to patient size. FINDINGS: Small bilateral pleural effusions are present with linear atelectasis in both lung bases. The liver, spleen, pancreas, adrenal glands and kidneys are within normal limits for a limited non-contrast examination.Moderate fat containing ventral hernia is present upper abdomen. Cholecystectomy clips. No bowel obstruction, free air, free fluid or abscess. Small focal fat containing umbilical hernia. The appendix is not identified as a discrete structure, however, no secondary findings of appendicitis are identified. Moderate lower lumbar degenerative changes are present.Mildly aortic atherosclerosis. IMPRESSION: No acute intra-abdominal or pelvic findings. Moderate fat containing ventral hernia involving the upper abdomen. Small bilateral pleural effusions. Small fat containing umbilical hernia. A limited non-contrast examination was performed as detailed. EXAM DESCRIPTION: CT - Thorax Wo Con - 06/28/2020 9:46 am CLINICAL HISTORY: Hypoxemia/shortness of breath COMPARISON: March 2020 TECHNIQUE: Computed axial tomography of the chest was obtained. Contrast was not requested. All CT scans are performed using dose optimization technique as appropriate and may include automated exposure control or mA/KV adjustment according to patient size. FINDINGS: The evaluation of mediastinum, raymon and vessels is limited secondary to lack of IV contrast administration. Mild bilateral pulmonary opacities. No mediastinal or hilar lymphadenopathy is seen. Small pleural effusions. The heart is mildly enlarged. Coronary arterial calcifications are present IMPRESSION: Mild CHF Conclusions/Impression: A/P: Continue the current POC and Medications other than the changes listed. AM Labs PRN. Recommend daily weight. Please see the orders for complete details. 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 Ramirez
[2020-07-03 06:17] LABS: Absolute Lymphocytes (CBC) 1.3 K/uL (0.7-4.9); Basophils % 0.3 % (0-1.3); Hematocrit 31.3 % (36.0-45.0); Lymphocytes % 15.4 % (15.3-44.8); MPV 8.6 fL (7.6-11.3); RBC Red Blood Cell Count 3.15 M/uL (3.86-4.86)
[2020-07-03] MEDS: LEVOTHYROXINE SOD 0.1 MG TAB PO SCH (06:21)
[2020-07-03 06:34] LABS: Magnesium 2.4 mg/dL (1.8-2.4); Potassium 3.5 mmol/L (3.5-5.1)
[2020-07-03] MEDS: ALBUTEROL 2.5 MG/3 ML NEB SOL NEB PRN (08:50)
[2020-07-03] MEDS: ARFORMOTEROL TARTRATE 15 MCG/2 ML VIAL.NEB IH SCH (08:50)
[2020-07-03] MEDS: DONEPEZIL HCL 5 MG TAB PO SCH (09:00)
[2020-07-03] MEDS ORDERED: POTASSIUM CL SA 10 MEQ TAB PO ONE (09:00)
[2020-07-03] MEDS: CALCITROL 0.25 MCG CAP PO SCH (10:21)
[2020-07-03] MEDS: acetaZOLAMIDE 250 MG TAB PO SCH (10:22)
[2020-07-03] MEDS: VITAMIN D 5,000 UNIT CAP PO SCH (10:23)
[2020-07-03] MEDS: CLOPIDOGREL 75 MG TABLET PO SCH (10:23)
[2020-07-03] MEDS: ESCITALOPRAM 20 MG TAB PO SCH (10:24)
[2020-07-03] MEDS: ATORVASTATIN 20 MG TAB PO SCH (10:24)
[2020-07-03] MEDS: AMOX/K CLAV 500 MG TAB PO SCH (10:24)
[2020-07-03] MEDS: predniSONE 10 MG TAB PO SCH (10:25)
[2020-07-03] MEDS: ROPINIROLE HCL 1 MG TAB PO SCH (10:25)
[2020-07-03] MEDS: FAMOTIDINE 20 MG TAB PO SCH (10:26)
[2020-07-03] MEDS: METOPROLOL TAR 50 MG TAB PO SCH (10:27)
[2020-07-03] MEDS: ENOXAPARIN 30 MG/0.3 ML SQ SCH (10:27)
[2020-07-03] MEDS: ENSURE HIGH PROTEIN 237 ML CAN PO SCH (10:27)
--- NOTE | 2020-07-03 12:11 | P.DS ---
Admission Date: 06/27/20 Discharge Date: 07/03/20 Primary Care Provider: residential Disposition: ROUTINE DISCHARGE Discharge Condition: GOOD Reason for Admission: Shortness of breath/altered mental status Consultations: Nephrology-Dr. Garcia Cardiology-Dr. Chan Pulmonary-Dr. Solorio Procedures: COVID: Negative CT Head: FINDINGS: No intracranial hemorrhage, hydrocephalus or extra-axial fluid collection.Mild generalized brain atrophy is present with moderate periventricular and deep white matter chronic microvascular ischemic changes.No areas of brain edema or evidence of midline shift. The paranasal sinuses and mastoids are clear. The calvarium is intact. Left vertebral atherosclerosis. IMPRESSION: No acute intracranial abnormality. CT Chest: FINDINGS: The evaluation of mediastinum, raymon and vessels is limited secondary to lack of IV contrast administration. Mild bilateral pulmonary opacities. No mediastinal or hilar lymphadenopathy is seen. Small pleural effusions. The heart is mildly enlarged. Coronary arterial calcifications are present IMPRESSION: Mild CHF CT scan: FINDINGS: Small bilateral pleural effusions are present with linear atelectasis in both lung bases. The liver, spleen, pancreas, adrenal glands and kidneys are within normal limits for a limited non-contrast examination.Moderate fat containing ventral hernia is present upper abdomen. Cholecystectomy clips. No bowel obstruction, free air, free fluid or abscess. Small focal fat containing umbilical hernia. The appendix is not identified as a discrete structure, however, no secondary findings of appendicitis are identified. Moderate lower lumbar degenerative changes are present.Mildly aortic atherosclerosis. IMPRESSION: No acute intra-abdominal or pelvic findings. Moderate fat containing ventral hernia involving the upper abdomen. Small bilateral pleural effusions. Small fat containing umbilical hernia. A limited non-contrast examination was performed as detailed. Renal US: FINDINGS: The right kidney measures 9.2 x 4.9 x 3.7 cm. The left kidney measures 9.9 x 5.6 x 4.2 cm. Cortical thickness is normal. Echogenicity is believed to be normal. The large body habitus affects cause a increase in par enchymal echogenicity. No hydronephrosis or suspicious renal mass. Urinary bladder is mostly contracted limiting assessment. Overall, exam is considered limited due to large body habitus and limited mobility. IMPRESSION: No hydronephrosis or suspicious renal mass. No other significant findings. ECHO: MEASUREMENTS (cm) DIASTOLIC (NORMALS) SYSTOLIC (NORMALS) IVSd 1.2 (0.6-1.2) LA Diam 3.9 (1.9-4.0) LVEF 73% LVIDd 4.3 (3.5-5.7) LVIDs 2.5 (2.0-3.5) %FS 42% LVPWd 1.3 (0.6-1.2) Ao Diam 2.8 (2.0-3.7) 2 DIMENSIONAL ASSESSMENT: RIGHT ATRIUM: NORMAL LEFT ATRIUM: NORMAL RIGHT VENTRICLE: NORMAL LEFT VENTRICLE: LEFT VENTRICULAR HYPERTROPHY TRICUSPID VALVE: NORMAL MITRAL VALVE: MITRAL ANNULAR CALCIFICATION PULMONIC VALVE: NORMAL AORTIC VALVE: STENOTIC PERICARDIAL EFFUSION: NONE AORTIC ROOT: NORMAL LEFT VENTRICULAR WALL MOTION: DIASTOLIC DYSFUNCTION. DOPPLER/COLOR FLOW: MODERATE AORTIC STENOSIS. AORTIC VALVE AREA 1.4 CENTIMETERS SQUARED. MODERATE PULMONARY HYPERTENSION. COMMENTS: MODERATE AORTIC STENOSIS. AORTIC VALVE AREA 1.4 CENTIMETERS SQUARED. LEFT VENTRICULAR HYPERTROPHY. NORMAL LEFT VENTRICULAR EJECTION FRACTION. DIASTOLIC DYSFUNCTION. MITRAL ANNULAR CALCIFICATION. MODERATE PULMONARY HYPERTENSION. RIGHT VENTRICULAR SYSTOLIC PRESSURE 42 mmHg. Follow up CXR: FINDINGS: Portable technique limits examination quality. Since 06/29/2020, little overall change is seen in the bilateral interstitial prominence and right base opacification. The heart is normal in size. No displaced fractures. IMPRESSION: Stable chest since 06/29/2020. Medical Problem List: Dyspnea, toxic/metabolic encephalopathy secondary to acute on chronic diastolic CHF/mild pulmonary hypertension/moderate aortic stenosis Acute on chronic renal disease stage III UTI, Urine culture positive for Entercoccus COPD with mild exacerbation CAD Hypertension Hyperlipidemia Depression Dementia RLS Hypothyroidism Chronic pain Brief History of Present Illness: 85-year-old female with multiple medical problems presented with altered mental status and shortness of breath. Patient presented with acute on chronic diastolic CHF with COPD. Patient admitted for further evaluation and treatment. Hospital Course: Patient presented with dyspnea and toxic/metabolic encephalopathy secondary to acute on chronic diastolic CHF/mild pulmonary hypertension/moderate aortic stenosis. Patient was seen and evaluated by nephrology, pulmonology and cardiology. Echocardiogram showed mild pulmonary hypertension and moderate aortic stenosis. The patient was initiated on IV diuresis with improvement. Patient also required treatment for COPD. During the course of her stay it was determined that the patient would require noninvasive ventilator. I had multiple talks with the patient concerning plan of care. Considerations for rehab versus skilled placement versus hospice was addressed. Patient would not qualify for inpatient rehab. Therefore skilled placement was obtained. At discharge medications have been adjusted. At discharge she will continue with Lasix 80 mg daily and Diamox 500 mg daily. Patient will continue with the 1500 cc/day fluid restriction and low-salt diet. The patient will continue with oxygen at discharge. Currently on 3 to 4 L per nasal cannula to maintain sats above 93%. Patient will continue with noninvasive ventilator primarily at night or with shortness of breath. At discharge she will go to skilled facility to continue rehabilitation. Her future plan will be to transition from the skilled facility to long-term placement with possible hospice in the future. Recommend follow-up with nephrology, cardiology and pulmonology in 1 to 2 weeks to follow- up hospitalization. Recommend to recheck chest x-ray in 2 to 4 weeks to monitor resolution. Recommend recheck labBMP in 1 week. Patient also had asymptomatic UTI. Urine culture was positive for Enterococcus. Patient was treated with antibiotic therapy. UTI prevention recommended at this time. No further antibiotic therapy needed. Patient with underlying COPD. Patient had mild exacerbation. At discharge she will continue with prednisone 10 mg 1 pill twice daily for 7 days then 1 pill once daily for 7 days. At discharge she will continue with Brovana 1 unit dose twice daily and albuterol 1 unit dose 3 times a day as needed for shortness of breath. As mentioned above patient will continue with oxygen to maintain sats above 93% currently on 3 to 4 L during the day and noninvasive ventilator at night. Recommend follow-up with pulmonology as directed. Patient with acute on chronic renal disease stage III. This appears stable. At discharge she will continue with above recommendations on diuretic therapy. At discharge she will also continue with Calcitrol 0.5 mcg daily and vitamin D 5000 units daily. Future medications were to be renally dosed. Recommend no further use of nonsteroidal anti-inflammatories. Recommend recheck labBMP in 1 week. Recommend follow-up with nephrology in 1 to 2 weeks. Patient with CAD, hypertension, moderate aortic stenosis and hyperlipidemia. At discharge we will continue with Lipitor 20 mg daily, Plavix 75 mg daily, and metoprolol 50 mg 1 pill twice daily. Recommend to maintain blood pressure less than 130/80. Further adjustment can be done by her PCP. Recommend follow-up with cardiology in 2 to 4 weeks to follow-up hospitalization. As mentioned above patient with moderate aortic stenosis. Recommend to recheck echocardiogram in 6 months to monitor her progress. If this worsens patient may require future intervention. When this was discussed with the patient she did not want any future intervention. Continue medical management at this time. Patient with restless leg syndrome. At discharge she will continue with her medications of Requip 3 mg at bedtime and Requip 1 mg during the day. Patient with hypothyroidism. At discharge she will continue with levothyroxine 200 mcg daily. Recommend to recheck TSH and free T4 in 6 to 8 weeks to monitor her progress. Further adjustment may be necessary. This can be done with the help of her PCP. Patient with depression, dementia. This appears stable. At discharge she will continue with Aricept 5 mg daily and Lexapro 20 mg daily. Patient may also continue with melatonin 5 mg at bedtime for insomnia. Patient with chronic pain. At discharge she will continue with Tylenol No. 3 1 pill 3 times a day as needed for pain and tramadol 50 mg 1 pill 3 tabs a day as needed for pain. Will recommend to discontinue gabapentin at this time due to increased sedation and edema to the lower extremities. Patient with GERD. At discharge will continue with Pepcid 20 mg 1 pill twice daily. Vital Signs/Physical Exam: Temp Pulse Resp BP Pulse Ox 97.3 F 55 20 144/67 H 90 L 07/03/20 08:00 07/03/20 08:00 07/03/20 08:00 07/03/20 08:00 07/03/20 08:00 General: Alert, In no apparent distress, Oriented x3, Cooperative HEENT: Atraumatic Neck: Supple Respiratory: Normal air movement Cardiovascular: Normal pulses, Regular rate/rhythm Gastrointestinal: Normal bowel sounds, Soft and benign, Non-distended, No tenderness, No masses, No rebound, No guarding Musculoskeletal: No erythema, No tenderness, No warmth Integumentary: No tenderness/swelling, No erythema, No warmth, No cyanosis Neurological: Normal speech, Normal strength at 5/5 x4 extr, Normal tone, Normal affect Laboratory Data at Discharge: WBC 8.40 K/uL (4.3-10.9) 07/03/20 05:55 Hgb 10.3 g/dL (12.0-15.0) L 07/03/20 05:55 Hct 31.3 % (36.0-45.0) L 07/03/20 05:55 Plt Count 316 K/uL (152-406) 07/03/20 05:55 PT 12.4 SECONDS (9.5-12.5) 06/27/20 11:13 INR 1.08 06/27/20 11:13 APTT 29.6 SECONDS (24.3-36.9) 06/27/20 11:13 Sodium 134 mmol/L (136-145) L 07/03/20 05:55 Potassium 3.5 mmol/L (3.5-5.1) 07/03/20 05:55 BUN 33 mg/dL (7-18) H 07/03/20 05:55 Creatinine 0.98 mg/dL (0.55-1.3) 07/03/20 05:55 Glucose 124 mg/dL (74-106) H 07/03/20 05:55 Phosphorus 3.6 mg/dL (2.5-4.9) 06/28/20 05:46 Magnesium 2.4 mg/dL (1.8-2.4) 07/03/20 05:55 Total Bilirubin 0.4 mg/dL (0.2-1.0) 06/28/20 05:46 AST 6 U/L (15-37) L 06/28/20 05:46 ALT 9 U/L (12-78) L 06/28/20 05:46 Alkaline Phosphatase 86 U/L (45-117) 06/28/20 05:46 Triglycerides 57 mg/dL (<150) 06/28/20 05:46 Cholesterol 105 mg/dL (<200) 06/28/20 05:46 HDL Cholesterol 60 mg/dL (40-60) 06/28/20 05:46 Cholesterol/HDL Ratio 1.75 06/28/20 05:46 Amylase 34 U/L (25-115) 06/27/20 11:13 Lipase 59 U/L (73-393) L 06/27/20 11:13 Home Medications: Acetaminophen with Codeine [Acetaminophen-Cod #3 Tablet] 1 each PO Q6HP PRN 04/28/20 Arformoterol Tartrate [Brovana] 1 vial IH BID 04/28/20 Atorvastatin Calcium 20 mg PO DAILY 04/28/20 Clopidogrel Bisulfate [Plavix] 75 mg PO DAILY 04/28/20 Donepezil [Aricept*] 5 mg PO DAILY 04/28/20 Escitalopram Oxalate 20 mg PO DAILY 04/28/20 Levothyroxine Sodium [Synthroid] 200 mcg PO DAILY 04/28/20 Melatonin 5 mg PO BEDTIME PRN 04/28/20 Ropinirole HCl [Requip*] 1 mg PO DAILY 04/28/20 Ropinirole HCl [Requip] 3 mg PO BEDTIME 04/28/20 Tramadol HCl [Ultram] 50 mg PO Q6H PRN 04/28/20 Trazodone [Desyrel*] 50 mg PO BEDTIME 04/28/20 Umeclidinium Brm/Vilanterol Tr [Anoro Ellipta 62.5-25 Mcg INH] 1 inh IH DAILY 04/28/20 Famotidine [Pepcid*] 20 mg PO BID 06/27/20 Metoprolol Tartrate [Lopressor*] 50 mg PO BID 06/27/20 Simethicone 160 mg PO Q6HP PRN 06/27/20 Calcitrol [Rocaltrol*] 0.5 mcg PO DAILY #60 cap 07/03/20 Cholecalciferol (Vitamin D3) [Vitamin D 5,000 IU Cap*] 5,000 unit PO DAILY #30 cap 07/03/20 Ensure High Protein 237 ml PO BID #60 can 07/03/20 Furosemide [Lasix] 80 mg PO DAILY #30 tablet 07/03/20 acetaZOLAMIDE [Diamox*] 500 mg PO DAILY #30 tab 07/03/20 predniSONE [Deltasone*] 10 mg PO SEECOM #21 tab 07/03/20 New Medications: predniSONE [Deltasone*] 10 mg PO SEECOM #21 tab acetaZOLAMIDE [Diamox*] 500 mg PO DAILY #30 tab Ensure High Protein 237 ml PO BID #60 can Furosemide [Lasix] 80 mg PO DAILY #30 tablet Calcitrol [Rocaltrol*] 0.5 mcg PO DAILY #60 cap Cholecalciferol (Vitamin D3) [Vitamin D 5,000 IU Cap*] 5,000 unit PO DAILY #30 cap Physician Discharge Instructions: Patient presented with dyspnea and toxic/metabolic encephalopathy secondary to acute on chronic diastolic CHF/mild pulmonary hypertension/moderate aortic stenosis. Patient was seen and evaluated by nephrology, pulmonology and cardiology. Echocardiogram showed mild pulmonary hypertension and moderate aortic stenosis. The patient was initiated on IV diuresis with improvement. Patient also required treatment for COPD. During the course of her stay it was determined that the patient would require noninvasive ventilator. I had yarely grant talks with the patient concerning plan of care. Considerations for rehab versus skilled placement versus hospice was addressed. Patient would not qualify for inpatient rehab. Therefore skilled placement was obtained. At discharge medications have been adjusted. At discharge she will continue with Lasix 80 mg daily and Diamox 500 mg daily. Patient will continue with the 1500 cc/day fluid restriction and low-salt diet. The patient will continue with oxygen at discharge. Currently on 3 to 4 L per nasal cannula to maintain sats above 93%. Patient will continue with noninvasive ventilator primarily at night or with shortness of breath. At discharge she will go to skilled facility to continue rehabilitation. Her future plan will be to transition from the skilled facility to long-term placement with possible hospice in the future. Recommend follow-up with nephrology, cardiology and pulmonology in 1 to 2 weeks to follow- up hospitalization. Recommend to recheck chest x-ray in 2 to 4 weeks to monitor resolution. Recommend recheck labBMP in 1 week. Patient also had asymptomatic UTI. Urine culture was positive for Enterococcus. Patient was treated with antibiotic therapy. UTI prevention recommended at this time. No further antibiotic therapy needed. Patient with underlying COPD. Patient had mild exacerbation. At discharge she will continue with prednisone 10 mg 1 pill twice daily for 7 days then 1 pill once daily for 7 days. At discharge she will continue with Brovana 1 unit dose twice daily and albuterol 1 unit dose 3 times a day as needed for shortness of breath. As mentioned above patient will continue with oxygen to maintain sats above 93% currently on 3 to 4 L during the day and noninvasive ventilator at night. Recommend follow-up with pulmonology as directed. Patient with acute on chronic renal disease stage III. This appears stable. At discharge she will continue with above recommendations on diuretic therapy. At discharge she will also continue with Calcitrol 0.5 mcg daily and vitamin D 5000 units daily. Future medications were to be renally dosed. Recommend no further use of nonsteroidal anti-inflammatories. Recommend recheck labBMP in 1 week. Recommend follow-up with nephrology in 1 to 2 weeks. Patient with CAD, hypertension, moderate aortic stenosis and hyperlipidemia. At discharge we will continue with Lipitor 20 mg daily, Plavix 75 mg daily, and metoprolol 50 mg 1 pill twice daily. Recommend to maintain blood pressure less than 130/80. Further adjustment can be done by her PCP. Recommend follow-up with cardiology in 2 to 4 weeks to follow-up hospitalization. As mentioned above patient with moderate aortic stenosis. Recommend to recheck echocardiogram in 6 months to monitor her progress. If this worsens patient may require future intervention. When this was discussed with the patient she did not want any future intervention. Continue medical management at this time. Patient with restless leg syndrome. At discharge she will continue with her medications of Requip 3 mg at bedtime and Requip 1 mg during the day. Patient with hypothyroidism. At discharge she will continue with levothyroxine 200 mcg daily. Recommend to recheck TSH and free T4 in 6 to 8 weeks to monitor her progress. Further adjustment may be necessary. This can be done with the help of her PCP. Patient with depression, dementia. This appears stable. At discharge she will continue with Aricept 5 mg daily and Lexapro 20 mg daily. Patient may also continue with melatonin 5 mg at bedtime for insomnia. Patient with chronic pain. At discharge she will continue with Tylenol No. 3 1 pill 3 times a day as needed for pain and tramadol 50 mg 1 pill 3 tabs a day as needed for pain. Will recommend to discontinue gabapentin at this time due to increased sedation and edema to the lower extremities. Patient with GERD. At discharge will continue with Pepcid 20 mg 1 pill twice daily. Diet: Renal Activity: No lifting more than 10 lbs Followup: NONE,NONE [Primary Care Provider] - Time spent managing pt's care (in minutes): 55
[2020-07-03] MEDS: FUROSEMIDE 40 MG/4 ML VIAL IV SCH (13:32)
[2020-07-03 14:31] VITALS: BP 128/57; TEMP 97.8
--- NOTE | 2020-07-03 19:55 | PN ---
Date of Progress Note: 07/03/2020 Subjective: The patient is seen and examined at bedside. She is doing okay at this time. Objective: Vital Signs: Have been reviewed and are stable. General: She appears in no acute distress. HEENT: Atraumatic head. Lungs: Clear to auscultation. Abdomen: Soft and nontender. Extremities: With trace amount of edema was noted. Laboratory Data: At this time are showing sodium dropping to 134, potassium of 3.5, chloride of 92, bicarb of 37, BUN of 33, and creatinine of 0.98. CBC results are also showing stable hemoglobin, hem atocrit, and platelet count. Current Medications: Have been reviewed in detail. Impression And Plan: 1.Acute on chronic renal insufficiency, currently with improving renal function. 2.Mild hyponatremia. We will discontinue IV fluids and monitor. 3.Shortness of breath, secondary to acute on chronic diastolic heart failure with pulmonary hyperten pat and moderate aortic stenosis. The patient is preload sensitive and continue with p.r.n. Diamox and intermittent metolazone but would be cautious with metolazone because of her hyponatremia that se ems to be slightly worsening. At this point, her alkalosis seems to be improving. At this time, we will continue with p.r.n. acetazolamide and Lasix cautiously and monitor closely. VV/MODL Voice ID: [id number] Report ID: [id number]
== END 2020-07-03 16:22 | DRG 291 ==
LOC: ER 10:38 → ERHOLD 15:11 → 2ND 16:33
PROVIDERS: ADMIT Hospitalist; ATTEND Internal Medicine
PROC: 5A09357 Assistance with Respiratory Ventilation, Less than 24 Consecutive Hours, Continuous Positive Airway Pressure (ICD-10-PCS; principal; 2020-06-28)
DX: I13.0 Hypertensive heart and chronic kidney disease with heart failure and stage 1 through stage 4 chronic kidney disease, or unspecified chronic kidney disease (principal); I50.33 Acute on chronic diastolic (congestive) heart failure; J96.22 Acute and chronic respiratory failure with hypercapnia; J96.21 Acute and chronic respiratory failure with hypoxia; G92 Toxic encephalopathy; N17.9 Acute kidney failure, unspecified; E87.3 Alkalosis; N39.0 Urinary tract infection, site not specified; J44.1 Chronic obstructive pulmonary disease with (acute) exacerbation; E87.1 Hypo-osmolality and hyponatremia; Z68.41 Body mass index [BMI] 40.0-44.9, adult; K57.90 Diverticulosis of intestine, part unspecified, without perforation or abscess without bleeding; N18.30 Chronic kidney disease, stage 3 unspecified; I25.10 Atherosclerotic heart disease of native coronary artery without angina pectoris; E03.9 Hypothyroidism, unspecified; E83.51 Hypocalcemia; D63.8 Anemia in other chronic diseases classified elsewhere; G47.00 Insomnia, unspecified; G25.81 Restless legs syndrome; K21.9 Gastro-esophageal reflux disease without esophagitis; G62.9 Polyneuropathy, unspecified; J44.9 Chronic obstructive pulmonary disease, unspecified; I10 Essential (primary) hypertension; F03.90 Unspecified dementia, unspecified severity, without behavioral disturbance, psychotic disturbance, mood disturbance, and anxiety; B95.2 Enterococcus as the cause of diseases classified elsewhere; E78.5 Hyperlipidemia, unspecified; I27.20 Pulmonary hypertension, unspecified; I35.0 Nonrheumatic aortic (valve) stenosis; G89.29 Other chronic pain; F32.9 Major depressive disorder, single episode, unspecified; E66.01 Morbid (severe) obesity due to excess calories; Z86.73 Personal history of transient ischemic attack (TIA), and cerebral infarction without residual deficits; Z87.891 Personal history of nicotine dependence; Z96.652 Presence of left artificial knee joint
CPT/HCPCS: 0240U; 36415; 51702; 70450; 71045; 71250; 74176; 76770; 80048; 80053; 80061; 80076; 81003; 81015; 82150; 82550; 82553; 82805; 82947; 83605; 83690; 83735; 83880; 84100; 84145; 84484; 85025; 85610; 85730; 87040; 87070; 87077; 87081; 87086; 87088; 87186; 87205; 93005; 93306; 94640; 94660; 94760; 96374; 96375; 97110; 97116; 97161; 97530; 99285; J0456; J0692; J0696; J1120; J1650; J1720; J1940; J7030; J7050; J7512; J7605; P9045